=== PATIENT | female | born 1940 | race Caucasian/White ===

== ENCOUNTER 2016-09-13 09:35 | Outpatient (CLI) | payer MEDICARE | END 2016-09-13 09:36 | disposition home or self-care (01) | DX: I10 Essential (primary) hypertension (principal); E78.5 Hyperlipidemia, unspecified; E55.9 Vitamin D deficiency, unspecified; E03.9 Hypothyroidism, unspecified ==

== ENCOUNTER 2016-12-03 09:24 | Outpatient (CLI) | payer MEDICARE ==
[2016-12-03 12:55] LABS: BASOPHILS % (AUTO) 0.5 %; EOSINOPHILS % (AUTO) 0.8 %; HCT - HEMATOCRIT 30.4 % (37.0-47.0); HGB - HEMOGLOBIN 10.4 g/dL (12.0-16.0); LYMPHOCYTES # (AUTO) 1.3 10^3/uL (1.5-3.5); LYMPHOCYTES % (AUTO) 21.7 %; MEAN CORPUSCULAR HGB CONC 34.3 g/dL (32.0-36.0); MEAN CORPUSCULAR VOLUME 101.9 fL (81.0-99.0); MEAN PLATELET VOLUME 8.5 fL (7.9-10.8); MONOCYTES # (AUTO) 0.6 10^3/uL (0.0-1.0); MONOCYTES % (AUTO) 9.7 %; NEUTROPHILS % (AUTO) 67.3 %; RED BLOOD COUNT 2.98 10^6/uL (4.20-5.40); RED CELL DISTRIBUTION WIDTH 15.5 % (12.0-15.0)
[2016-12-03 13:02] LABS: H. PYLORI IGG ANTIBODY Negative (Negative); HPYLORI NEG QC Negative (Negative); HPYLORI POS QC POSITIVE (Positive)
[2016-12-03 13:18] LABS: BILIRUBIN,TOTAL 0.6 mg/dL (0.2-1.0); CALCIUM 9.3 mg/dL (8.5-10.3); CREATININE 0.8 mg/dL (0.4-1.0); POTASSIUM 3.8 mmol/L (3.5-5.0); TOTAL PROTEIN 6.5 g/dL (6.7-8.2)
[2016-12-03 13:42] LABS: THYROID STIMULATING HORMONE 5.91 uIU/mL (0.34-5.60)
== END 2016-12-03 09:25 | disposition home or self-care (01) ==
LOC: LAB.WCP 09:24
PROVIDERS: ATTEND Family Medicine
DX: K92.1 Melena (principal)
CPT/HCPCS: 36415; 80053; 84439; 84443; 84481; 85025; 87339

== ENCOUNTER 2017-01-02 09:00 | Outpatient (CLI) | payer MEDICARE ==
[2017-01-02 14:02] LABS: BASOPHILS % (AUTO) 0.3 %; EOSINOPHILS # (AUTO) 0.2 10^3/uL (0.0-0.7); EOSINOPHILS % (AUTO) 2.7 %; HCT - HEMATOCRIT 33.7 % (37.0-47.0); HGB - HEMOGLOBIN 11.3 g/dL (12.0-16.0); LYMPHOCYTES # (AUTO) 1.2 10^3/uL (1.5-3.5); LYMPHOCYTES % (AUTO) 21.6 %; MEAN CORPUSCULAR HEMOGLOBIN 33.4 pg (27.0-31.0); MEAN CORPUSCULAR HGB CONC 33.4 g/dL (32.0-36.0); MEAN PLATELET VOLUME 8.2 fL (7.9-10.8); MONOCYTES # (AUTO) 0.8 10^3/uL (0.0-1.0); MONOCYTES % (AUTO) 14.7 %; NEUTROPHILS # (AUTO) 3.4 10^3/uL (1.5-6.6); NEUTROPHILS % (AUTO) 60.7 %; RED BLOOD COUNT 3.37 10^6/uL (4.20-5.40); RED CELL DISTRIBUTION WIDTH 15.7 % (12.0-15.0); UNCORRECTED WHITE BLOOD COUNT 5.5 x10^3/uL; WHITE BLOOD COUNT 5.5 x10^3/uL (4.8-10.8)
[2017-01-02 14:17] LABS: CREATININE 0.8 mg/dL (0.4-1.0)
[2017-01-02 15:32] LABS: THYROID STIMULATING HORMONE 3.55 uIU/mL (0.34-5.60)
== END 2017-01-02 09:01 | disposition home or self-care (01) ==
LOC: LAB.WCP 09:00
PROVIDERS: ATTEND Family Medicine
DX: E03.9 Hypothyroidism, unspecified (principal)
CPT/HCPCS: 36415; 82040; 82565; 84439; 84443; 84450; 84460; 84481; 84520; 85025; 85651

== ENCOUNTER 2017-01-30 08:06 | Day surgery (SDC) | payer MEDICARE ==
[2017-01-30] MEDS ORDERED: LACTATED RINGERS 1,000 ML IV ONE ×2 (08:30→10:07)
--- NOTE | 2017-01-30 09:21 | HISTORY & PHYSICAL EXAMINATION ---
HPI - History of Present Illness HPI Comment/Other: Patient is here today for a history of tarry black stools. Current Meds: LEVOTHYROXINE SODIUM 25 MCG TABS (LEVOTHYROXINE SODIUM) Take one tablet by mouth daily CARAFATE 1 GM TABS (SUCRALFATE) Mix one tablet in water to make slurry and then drink before meals and bedtime, four times a day OMEPRAZOLE 40 MG ORAL CPDR (OMEPRAZOLE) Take one capsule by mouth daily ATENOLOL 25 MG TABS (ATENOLOL) Take one tablet by mouth daily. LASIX 20 MG TABS (FUROSEMIDE) Take one tablet by mouth every morning LISINOPRIL 20 MG TABS (LISINOPRIL) Take one-half tablet by mouth daily ZOCOR 10 MG TABS (SIMVASTATIN) Take one tablet by mouth daily. METHOTREXATE TABS (METHOTREXATE SODIUM TABS) 15 mg weekly ENBREL 25 MG KIT (ETANERCEPT) 1 shot weekly ASPIRIN 81 MG TABS (ASPIRIN) 1 po daily CALTRATE 600 PLUS-VIT D TABS (CALCIUM-VITAMIN D TABS) Take one tablet by mouth daily. MULTIVITAMINS TABS (MULTIPLE VITAMIN) one tablet po daily [facility] FISH OIL 1200 MG CAPS (OMEGA-3 FATTY ACIDS) Take one capsule by mouth daily FOLIC ACID 1 MG TABS (FOLIC ACID) 2 po daily * TUMERIC take one tablet daily * HANDICAP PARKING DECAZ Dx: M51.36, M87.059. Length of need Permanant. * TOILET RISER SEAT WITH HAND RAILS dx: avascular necrosis of hip and pain, disability * HINGED KNEE BRACE L KNEE dx: trauma, sprain VITAMIN C 1000 MG TABS (ASCORBIC ACID) Take one tablet by mouth daily VITAMIN D 1000 UNIT TABS (CHOLECALCIFEROL) Take 5 tablets daily Allergies: * SEASONAL ALLERGIES (Critical) Past Medical History: Reviewed history from 10/07/2016 and no changes required: Allergies: * SEASONAL ALLERGIES (Critical) Hypertension Hyperlipidemia Shortness of breath Anxiety Past Surgical History: Reviewed history from 02/15/2016 and no changes required: ORIF L hip 12 Oct 2010. THR left 2012 Tonsillectomy Denies any prior history of complications from anesthesia. Denies any history of surgical complications. Family History Summary: Reviewed history Last on 12/03/2016 and no changes required:12/10/2016 Mother (biol.) - Has a mother - Entered On: 07/03/2015 General Comments - FH: Aunts with RA. Dad and mom healthy Mom did have constant GONZALEZ Social History: Reviewed history from 02/26/2011 and no changes required: Patient is a former smoker. Only a couple yrs. Alcohol Use - yes Risk Factors: Smoked Tobacco Use: Former smoker Smokeless Tobacco Use: Never Passive smoke exposure: no Drug use: no HIV high-risk behavior: no Caffeine use: 2 drinks per day Alcohol use: yes Type: wine Drinks per day: <1 Exercise: no Seatbelt use: 100 % Sun Exposure: occasionally Family History Risk Factors: Family History of VT in females < 65 years old: no Review of Systems General Denies weight loss. CV Complains of peripheral edema. Dizziness Vascular Complains of leg swelling. Problems were reviewed with the patient during this visit. Medications were reviewed with the patient during this visit. Allergies were reviewed with the patient during this visit. Allergies: * SEASONAL ALLERGIES (Critical) Physical Exam General: well developed, well nourished, in no acute distress Lungs: clear bilaterally to A & P Heart: regular rate and rhythm, S1, S2 without murmurs, rubs, gallops, or clicks Abdomen: bowel sounds positive; abdomen soft and non-tender without masses, organomegaly, or hernias noted Pulses: pulses normal in all 4 extremities Extremities: no clubbing, cyanosis, edema, or deformity noted with normal full range of motion of all joints Cervical Nodes: no significant adenopathy Psych: alert and cooperative; normal mood and affect; normal attention span and concentration Impression & Recommendations: Tarry Stools: Will proceed with EGD and colonoscopy. PMH/PSH - Past Medical History Cardiovascular: positive: Hypertension, High cholesterol Neuro: positive: None Endocrine/Autoimmune: positive: HyPOthyroidism Musculoskeletal: positive: Osteoarthritis MRSA Hx?: No - Past Surgical History Ortho: positive: Hip replacement Social & Family Hx - Social History Does the pt smoke?: No Smoking Status: Never smoker Meds/Allgy - Home Medications Home Medications: Ambulatory Orders Medication Instructions Recorded Confirmed Atenolol 25 mg PO DAILY 01/01/17 01/29/17 Levothyroxine [Synthroid] 25 mcg PO QDAC 01/01/17 01/29/17 Lisinopril 10 mg PO DAILY 01/01/17 01/29/17 Simvastatin [Zocor] 10 mg PO DAILY 01/01/17 01/29/17 - Allergies Allergies/Adverse Reactions: Allergies Allergy/AdvReac Type Severity Reaction Status Date / Time No Known Drug Allergies Allergy Verified 01/29/17 14:19 Exam - Vital Signs Vital Signs: Vital Signs x48h Temp Pulse Resp BP Pulse Ox 01/30/17 08:23 36.7 C 73 18 138/76 H 100
[2017-01-30] MEDS ORDERED: MIDAZOLAM 2 MG/2 ML VIAL IVP ONE (09:24)
[2017-01-30] MEDS ORDERED: fentaNYL 100 MCG/2 ML VIAL IVP ONE (09:24)
[2017-01-30] MEDS ORDERED: BENZOCAINE/TETRACAINE/BUTAMBEN SPRAY 56 GM TOP ONE (11:24)
[2017-01-30 11:52] VITALS: BP 116/68
== END 2017-01-30 08:07 | disposition home or self-care (01) ==
LOC: SDS 08:06
PROVIDERS: ATTEND Surgery
PROC: 0DB68ZX Excision of Stomach, Via Natural or Artificial Opening Endoscopic, Diagnostic (ICD-10-PCS; principal; 2017-01-30 09:15)
PROC: 0DJD8ZZ Inspection of Lower Intestinal Tract, Via Natural or Artificial Opening Endoscopic (ICD-10-PCS; 2017-01-30 09:15)
DX: K92.1 Melena (principal); K25.9 Gastric ulcer, unspecified as acute or chronic, without hemorrhage or perforation; K29.60 Other gastritis without bleeding; K64.8 Other hemorrhoids; K57.32 Diverticulitis of large intestine without perforation or abscess without bleeding; I10 Essential (primary) hypertension; E78.5 Hyperlipidemia, unspecified; Z79.82 Long term (current) use of aspirin; Z96.642 Presence of left artificial hip joint; Z87.891 Personal history of nicotine dependence
CPT/HCPCS: 43239; 45378; A9270; J7120; 88305

== ENCOUNTER 2017-03-06 15:08 | Outpatient (CLI) | payer MEDICARE ==
--- NOTE | 2017-03-06 18:21 | Ultrasound Report ---
ULTRASOUND LEFT LATERAL THIGH: 03/06/2017 CLINICAL INDICATION: hematoma, pain, trauma. TECHNIQUE: Real-time scanning was performed with chemical sales representative static images obtained. Ultrasound of the left lateral thigh was performed. At the site of the palpable abnormality identifi ed by the patient, there is a 13.2 x 7.5 x 1.7 cm hematoma. No sonographically suspicious findings a re identified. IMPRESSION: A 13 CM HEMATOMA IN THE LEFT LATERAL THIGH. JOB #: [id number] EXT JOB #:[id number]
== END 2017-03-06 15:09 | disposition home or self-care (01) ==
LOC: DI 15:08
PROVIDERS: ATTEND Family Medicine
DX: S70.12XA Contusion of left thigh, initial encounter (principal); M79.652 Pain in left thigh
CPT/HCPCS: 76882

== ENCOUNTER 2017-04-17 10:57 | Outpatient (CLI) | payer MEDICARE ==
[2017-04-17 11:56] LABS: BASOPHILS % (AUTO) 0.7 %; EOSINOPHILS # (AUTO) 0.1 10^3/uL (0.0-0.7); HCT - HEMATOCRIT 39.3 % (37.0-47.0); HGB - HEMOGLOBIN 12.9 g/dL (12.0-16.0); LYMPHOCYTES # (AUTO) 1.5 10^3/uL (1.5-3.5); LYMPHOCYTES % (AUTO) 28.1 %; MEAN CORPUSCULAR HEMOGLOBIN 30.3 pg (27.0-31.0); MEAN CORPUSCULAR HGB CONC 32.9 g/dL (32.0-36.0); MEAN CORPUSCULAR VOLUME 92.2 fL (81.0-99.0); MEAN PLATELET VOLUME 7.6 fL (7.9-10.8); MONOCYTES # (AUTO) 0.7 10^3/uL (0.0-1.0); MONOCYTES % (AUTO) 12.7 %; NEUTROPHILS % (AUTO) 56.5 %; NUCLEATED RED BLOOD CELLS AUTO 0.1 /100WBC; RED BLOOD COUNT 4.26 10^6/uL (4.20-5.40); RED CELL DISTRIBUTION WIDTH 18.1 % (12.0-15.0); UNCORRECTED WHITE BLOOD COUNT 5.4 x10^3/uL; WHITE BLOOD COUNT 5.4 x10^3/uL (4.8-10.8)
[2017-04-17 12:14] LABS: CREATININE 0.8 mg/dL (0.4-1.0)
== END 2017-04-17 10:58 | disposition home or self-care (01) ==
LOC: LAB 10:57
PROVIDERS: ATTEND Internal Medicine Rheumatology
DX: M05.69 Rheumatoid arthritis of multiple sites with involvement of other organs and systems (principal)
CPT/HCPCS: 36415; 82040; 82565; 84450; 84460; 84520; 85025; 85651

== ENCOUNTER 2017-04-21 08:39 | Outpatient (CLI) | payer MEDICARE ==
[2017-04-21 14:05] LABS: CHOL/HDL RATIO 2.1 (<4.4); CHOLESTEROL 178 mg/dL; HDL CHOLESTEROL 85 mg/dL; TRIGLYCERIDES 57 mg/dL; VLDL CHOLESTEROL 11 mg/dL
== END 2017-04-21 08:40 | disposition home or self-care (01) ==
LOC: LAB.WCP 08:39
PROVIDERS: ATTEND Family Medicine
DX: M05.79 Rheumatoid arthritis with rheumatoid factor of multiple sites without organ or systems involvement (principal); E78.5 Hyperlipidemia, unspecified; E03.9 Hypothyroidism, unspecified
CPT/HCPCS: 36415; 80061; 84443; 85651; 86140

== ENCOUNTER 2017-05-23 17:16 | Inpatient (IN) | payer MEDICARE ==
--- NOTE | 2017-05-23 17:55 | ED Physician Documentation ---
History of Present Illness - Stated complaint Stated Complaint: LT SIDE GLF - Chief complaint Chief Complaint: Ext Problem - History obtained from History obtained from: Patient - History of Present Illness Timing: Other (77-year-old woman with history of left hip replacement and rheumatoid arthritis. She is out in the garden, doing some light work and fell after a trip, mechanical fall in her left side injuring her left elbow, hand, and hip. She is unable to walk or bear weight. No other injuries. Denies head or neck injury.) Review of Systems Ten Systems: 10 systems reviewed and negative Constitutional: reports: Reviewed and negative Cardiac: reports: Reviewed and negative Respiratory: reports: Reviewed and negative PD PAST MEDICAL HISTORY - Past Medical History Cardiovascular: Hypertension, High cholesterol Neuro: None Endocrine/Autoimmune: HyPOthyroidism Musculoskeletal: Osteoarthritis - Past Surgical History Past Surgical History: Yes Ortho: Hip replacement - Present Medications Home Medications: Ambulatory Orders Medication Instructions Recorded Confirmed Atenolol 25 mg PO DAILY 01/01/17 05/23/17 Levothyroxine [Synthroid] 25 mcg PO QDAC 01/01/17 05/23/17 Lisinopril 10 mg PO DAILY 01/01/17 05/23/17 Simvastatin [Zocor] 10 mg PO DAILY 01/01/17 05/23/17 Etanercept [Enbrel] 25 mg SQ Q7D 05/23/17 05/23/17 Methotrexate 7 tab PO Q7D 05/23/17 05/23/17 raNITIdine [Zantac] 150 mg PO DAILY 05/23/17 05/23/17 - Allergies Allergies/Adverse Reactions: Allergies Allergy/AdvReac Type Severity Reaction Status Date / Time No Known Drug Allergies Allergy Verified 05/23/17 17:38 - Social History Does the pt smoke?: No Smoking Status: Never smoker - Immunizations Immunizations are current?: Yes PD ED PE NORMAL - Vitals Vital signs reviewed: Yes - General General: Alert and oriented X 3, No acute distress - HEENT HEENT: PERRL, EOMI - Neck Neck: Supple, no meningeal sign, No bony TTP - Cardiac Cardiac: RRR, No murmur - Respiratory Respiratory: No respiratory distress, Clear bilaterally - Abdomen Abdomen: Soft, Non tender - Back Back: No CVA TTP, No spinal TTP - Derm Derm: Normal color, Warm and dry - Extremities Extremities: Other (Left elbow is tender in the supracondylar area, the epicondyles are nontender. She has full range of motion. She is tender over the MCP of the left thumb with some laxity there, but it is comparable to the laxity in the other side. There is no deformity. She has rheumatic changes of the left hand as well. Hip is tender laterally on the left, but she does not have significant pain with internal or external rotation nor does she have pelvic tenderness.) - Neuro Neuro: Alert and oriented X 3, Normal speech - Psych Psych: Normal mood, Normal affect Results - Vitals Vitals: Vital Signs - 24 hr 05/23/17 17:33 Temperature 36.2 C L Heart Rate 76 Respiratory 17 Rate Blood Pressure 158/80 H O2 Saturation 99 Oxygen O2 Source Room air - Labs Labs: Laboratory Tests 05/23/17 05/23/17 05/23/17 20:56 20:56 20:56 WBC 10.5 RBC 4.06 L Hgb 13.1 Hct 39.6 MCV 97.4 MCH 32.1 H MCHC 33.0 RDW 19.4 H Plt Count 204 MPV 7.3 L Neut # 7.9 H Lymph # 1.8 [place] # 0.7 Eos # 0.0 Baso # 0.1 Absolute Nucleated RBC 0.00 Nucleated RBC % 0.0 PT 11.6 INR 1.0 Sodium 143 Potassium 3.5 Chloride 107 Carbon Dioxide 24 Anion Gap 12.0 BUN 17 Creatinine 0.7 Estimated GFR (MDRD) 81 L Glucose 103 H Calcium 9.5 Total Bilirubin 1.1 H AST 29 ALT 24 Alkaline Phosphatase 83 Total Protein 7.4 Albumin 4.4 Globulin 3.0 Albumin/Globulin Ratio 1.5 Lipase 31 - Rads (name of study) X-rays of the left elbow, hand, and hip and femur Radiology: EMP read contemporaneously (Chronic deformity of the wrist with a lot of degeneration without acute fracture, no acute fracture of the hip, there is a chronic pelvic fracture. There is a irregularity of the proximal radial metaphysis, but no joint effusion, likely an old fracture.) PD MEDICAL DECISION MAKING - ED course ED course: 77-year-old woman status post ground-level fall at home today with hip and elbow pain. X-rays were grossly negative save for a potential radial head fracture and an old inferior pubic ramus fracture as well as severe degenerative changes of the left wrist. She was unable to walk or bear weight even with a walker here. Spoke with Dr. Zhang the on-call orthopedist. Plan to place her in observation for repeat examination in the morning and potential advanced imaging at his discretion. Call to the hospitalist for admission at 9 PM. Departure - Departure Disposition: ED Place in Observation Clinical Impression: Hip pain, left, Wrist pain, left Fall from slip, trip, or stumble Qualifiers: Encounter type: initial encounter Qualified Code(s): W01.0XXA - Fall on same level from slipping, tripping and stumbling without subsequent striking against object, initial encounter Elbow pain Qualifiers: Laterality: left Qualified Code(s): M25.522 - Pain in left elbow Condition: Stable Discharge Date/Time: 05/23/17 22:49
--- NOTE | 2017-05-23 19:40 | XRAY Preliminary Report ---
Exam: XR HIP W/PELVIS 2-3V LT IMPRESSION: No acute fracture or dislocation. [facility] SITE ID: [id number]
--- NOTE | 2017-05-23 19:42 | XRAY Report ---
EXAM: LEFT HIP AND PELVIS RADIOGRAPHY EXAM DATE: 05/23/2017 06:28 PM. HISTORY: GLF with hip, elbow, hand inj. COMPARISONS: 10/12/2010. TECHNIQUE: 1 view of the pelvis and 1 view of the hip. FINDINGS: Bones: There is a corticated lucency through the left inferior pubic ramus which appears unchanged. N o acute fractures identified. There is a left hip arthroplasty prosthesis which appears intact. Joints: Alignment and joint space appear satisfactory. Soft Tissues: There is scattered bowel gas without dilation. IMPRESSION: No acute fracture or dislocation. [facility] Referring Provider Line: [phone] SITE ID: [id number]
--- NOTE | 2017-05-23 19:42 | XRAY Preliminary Report ---
Exam: XR FEMUR 2V LT IMPRESSION: No acute fracture. Chronic degenerative disease of the knee. [facility] SITE ID: [id number]
--- NOTE | 2017-05-23 19:44 | XRAY Report ---
EXAM: LEFT FEMUR RADIOGRAPHY EXAM DATE: 05/23/2017 06:28 PM. CLINICAL HISTORY: GLF with hip, elbow, hand inj. COMPARISON: None. TECHNIQUE: 2 views. FINDINGS: Bones: No acute fracture. There is a left hip arthroplasty prosthesis which appears intact. No abnorm al lucency at bone hardware interface. Joints: There is mild joint space narrowing at the knee. There is chondrocalcinosis at the knee. Soft Tissues: There are mild vascular calcifications. IMPRESSION: No acute fracture. Chronic degenerative disease of the knee. [facility] Referring Provider Line: [phone] SITE ID: [id number]
--- NOTE | 2017-05-23 19:45 | XRAY Preliminary Report ---
Exam: XR HAND 3 VIEW LT IMPRESSION: 1. Positive for a severe chronic deformity of the wrist with old fractures or osteonecrosis of the pr oximal carpal row and adjacent soft tissue swelling. 2. Advanced degenerative disease of the first metacarpal phalangeal joint. 3. Soft tissue swelling. 4. No definite acute fracture, sensitivity reduced by the chronic deformity. [facility] SITE ID: [id number]
--- NOTE | 2017-05-23 19:48 | XRAY Report ---
EXAM: LEFT HAND RADIOGRAPHY EXAM DATE: 05/23/2017 06:27 PM. CLINICAL HISTORY: GLF with hip, elbow, hand inj. COMPARISON: None. TECHNIQUE: 3 views. FINDINGS: Bones: There is a severe chronic deformity of the wrist. The scaphoid appears deformed, small and scl erotic. The lunate appears displaced to the ulnar side of the wrist. There is sclerosis and spurring of the distal radius and ulna. There is moderate spurring and sclerosis of the first metacarpal phala ngeal joint. Joints: There is joint space narrowing involving multiple joints. There is joint space narrowing of t he first metacarpophalangeal joint. There is marked joint space narrowing at the radiocarpal joint. Soft Tissues: There is soft tissue swelling at the wrist. IMPRESSION: 1. Positive for a severe chronic deformity of the wrist with old fractures or osteonecrosis of the pr oximal carpal row and adjacent soft tissue swelling. 2. Advanced degenerative disease of the first metacarpal phalangeal joint. 3. Soft tissue swelling. 4. No definite acute fracture, sensitivity reduced by the chronic deformity. MICHELLEA Referring Provider Line: [phone] SITE ID: [id number]
--- NOTE | 2017-05-23 19:53 | XRAY Preliminary Report ---
Exam: XR ELBOW 3 VIEW LT IMPRESSION: 1. Concavity/irregularity of proximal radial metaphysis without a visible joint effusion. This favors old proximal radius fracture, given absence of effusion. [facility] SITE ID: [id number]
--- NOTE | 2017-05-23 19:56 | XRAY Report ---
EXAM: LEFT ELBOW RADIOGRAPHY EXAM DATE: 05/23/2017 06:27 PM. CLINICAL HISTORY: GLF with hip, elbow, hand inj. COMPARISON: None. TECHNIQUE: 3 views. FINDINGS: Bones: There is a focal cavity at the proximal metaphysis of the radius without an acute cortical fátima p-offs seen. No other bony deformity. Joints: Alignment appears satisfactory. No posterior fat pad sign visualized. Soft Tissues: Normal. No soft tissue swelling. IMPRESSION: 1. Concavity/irregularity of proximal radial metaphysis without a visible joint effusion. This favors old proximal radius fracture, given absence of effusion. [facility] Referring Provider Line: [phone] SITE ID: [id number]
[2017-05-23] MEDS ORDERED: ACETAMINOPHEN 325 MG TABLET PO STA (20:54)
[2017-05-23] MEDS ORDERED: ACETAMINOPHEN 325 MG TABLET PO ONE (21:00)
[2017-05-23 21:10] LABS: BASOPHILS # (AUTO) 0.1 10^3/uL (0.0-0.1); BASOPHILS % (AUTO) 0.7 %; EOSINOPHILS % (AUTO) 0.4 %; HCT - HEMATOCRIT 39.6 % (37.0-47.0); HGB - HEMOGLOBIN 13.1 g/dL (12.0-16.0); LYMPHOCYTES # (AUTO) 1.8 10^3/uL (1.5-3.5); LYMPHOCYTES % (AUTO) 17.2 %; MEAN CORPUSCULAR HEMOGLOBIN 32.1 pg (27.0-31.0); MEAN CORPUSCULAR VOLUME 97.4 fL (81.0-99.0); MEAN PLATELET VOLUME 7.3 fL (7.9-10.8); MONOCYTES # (AUTO) 0.7 10^3/uL (0.0-1.0); MONOCYTES % (AUTO) 6.4 %; NEUTROPHILS # (AUTO) 7.9 10^3/uL (1.5-6.6); NEUTROPHILS % (AUTO) 75.3 %; RED BLOOD COUNT 4.06 10^6/uL (4.20-5.40); RED CELL DISTRIBUTION WIDTH 19.4 % (12.0-15.0); UNCORRECTED WHITE BLOOD COUNT 10.5 x10^3/uL; WHITE BLOOD COUNT 10.5 x10^3/uL (4.8-10.8)
[2017-05-23 21:22] LABS: ALBUMIN/GLOBULIN RATIO 1.5 (1.0-2.2); BILIRUBIN,TOTAL 1.1 mg/dL (0.2-1.0); CALCIUM 9.5 mg/dL (8.5-10.3); CREATININE 0.7 mg/dL (0.4-1.0); POTASSIUM 3.5 mmol/L (3.5-5.0); TOTAL PROTEIN 7.4 g/dL (6.7-8.2)
[2017-05-23 21:30] LABS: PT - PROTHROMBIN TIME 11.6 secs (9.9-12.6)
[2017-05-23] MEDS ORDERED: ETANERCEPT 25 MG SQ SCH (22:15)
[2017-05-23] MEDS ORDERED: SODIUM CHLORIDE FLUSH 0.9% 10 ML SYRINGE IVP PRN (22:16)
[2017-05-23] MEDS ORDERED: ZOLPIDEM 5 MG TABLET PO PRN (22:16)
[2017-05-23] MEDS ORDERED: ONDANSETRON 4 MG/2 ML VIAL IVP PRN (22:16)
[2017-05-23] MEDS ORDERED: METHOTREXATE 2.5 MG TABLET PO SCH (23:00)
--- NOTE | 2017-05-24 03:49 | HISTORY & PHYSICAL EXAMINATION ---
DATE OF ADMISSION: 05/23/2017 CHIEF COMPLAINT: Mechanical fall, inability to ambulate. HISTORY OF PRESENT ILLNESS: The patient is a 77-year-old white female with multiple past medical problems including rheumatoid arthritis, peripheral neuropathy, osteoarthritis status post left hip replacement, hypertension, hypothyroidism and dyslipidemia who was brought into the ER after she suffered a mechanical fall at her home; fell on her left side and subsequently developed hip pain, left arm pain and was unable to ambulate. The patient was a good historian. She reported being in her usual state of health up to the afternoon of 05/23/2017, at which point she was outside gardening. She tried to trim a small jerry or a hedge and made an effort to pull, at which point she lost her balance, slipped and fell on her left side. Subsequently, at the ER, she underwent x-rays. There was a left radial head fracture, but per the x-ray, it was read as likely an old fracture and similarly, there was a pubic ramus fracture which was also felt to be not acute. At the ER, the patient had an uneventful course. She was hemodynamically stable. She, however, was not able to stand or ambulate and she continued to complain of hip pain and arm pain. The ER physician, Dr. Kraus discussed the case with the covering orthopedic surgeon, Dr. Zhang, who accepted to see this patient in the morning and the conclusion of the discussion between the retail zone specialist and the ER physician was that overnight, we should keep the patient under observation. In the morning, the orthopedic surgeon will evaluate the patient, will perform physical exam and based on the exam, we will decide what other imaging studies should be ordered. When I discussed this case with the ER physician, I suggested that perhaps a CT scan should be done to see whether there is actually an acute fracture; however, I was told that the retail zone specialist would likely want an MRI instead of the CT scan. The reason for that would be that the patient had left hip replacement and the CT scan would not be diagnostic; however, as she has a titanium implant, an MRI would be better and feasible. In any case, to comment on the best approach here, is out of the scope of my specialty. Therefore, I accepted to observe the patient overnight and we will wait for the orthopedic surgeons input. Other than the above-mentioned fall and developing musculoskeletal pains, the patient complained of chronic neuropathy pain, which affects her lower extremities mostly. She offered no new complaint. ER workup reviewed per electronic medical record. Laboratories showed a few minor abnormalities but were unremarkable. PAST MEDICAL HISTORY: 1. Hypertension. 2. Rheumatoid arthritis. 3. Osteoarthritis, status post left hip replacement. 4. Hypothyroidism. 5. Dyslipidemia. 6. History of gastrointestinal bleed for which the patient was admitted in 2016 and underwent upper GI endoscopy and colonoscopy. 7. Peripheral neuropathy. PRIMARY CARE PHYSICIAN: Aundrea Vasquez MD CODE STATUS: FULL CODE. OUTPATIENT MEDICATIONS: 1. Zantac. 2. Methotrexate. 3. Enbrel. 4. Zocor. 5. Lisinopril. 6. Synthroid. 7. Atenolol. SOCIAL HISTORY: The patient lives with her son. She is a nonsmoker. Ambulates with a cane. FAMILY HISTORY: Positive for rheumatoid arthritis in the mother who lived up to age 92. REVIEW OF SYSTEMS Please see pertinent positives listed above at his history of present illness. The patient did not report additional complaint on the 12-point review. ALLERGIES: NO KNOWN DRUG ALLERGIES. PHYSICAL EXAMINATION: VITAL SIGNS: Temperature 36.9 Celsius, heart rate in the 80s, blood pressure 110 /60, respiratory rate 16, oxygen saturation 100% on room air. GENERAL: The patient is a well-developed frail, elderly female who was sitting in a wheelchair, was holding her left arm, had an ice pack on. MUSCULOSKELETAL: No obvious dislocation or fracture, advanced arthritic changes on the upper extremities. SKIN: No jaundice. HEENT: No pallor. CVS: S1, S2. No pathologic murmur. Regular rate and rhythm. RESPIRATORY: Clear to auscultation without wheezes or crackles. LYMPH: Pitting edema up to the mid brannon bilaterally symmetric. Signs of chronic venous stasis on the lower extremities. NEUROLOGIC: Alert, oriented, nonfocal. PSYCH: Cooperative. ABDOMEN: Soft, benign, nontender. Bowel tones present. ASSESSMENT AND PLAN: The patient is a 77-year-old female who suffered a mechanical fall and as a result, she was unable to ambulate and had left arm and left hip pain. Her workup was basically indeterminate. It is difficult to decide based on the x-rays whether she has a small fracture or not and for that , orthopedic consultation was requested, which is currently pending. I entertained ordering some CT scans; however, ER physician told me that I should wait for the orthopedic surgeon to examine the patient and order the scans he would want to order. Therefore, we will follow these recommendations. Continue to observe the patient and further plan will depend on the clinical course. I suspect there will be some discharge planning issues, as the patient is elderly, lives with her son who is actually hospitalized currently. Therefore, at this point she would be home alone and having left arm pain and hip pain as well, being already frail and elderly, she might not be able to take care of herself. Therefore, I ordered a social work consult to assist with discharge planning. I suspect if no new fracture identified, then physical therapy and occupational therapy evaluation will be needed and based on that, we could have a better idea about disposition. The patient might need a rehab stay or home health. Given that she might have a fracture, overnight she will be under bed rest. She will receive DVT prophylaxis, pain control and I will continue her home medications as appropriate. Time spent with the care of this patient was 50 minutes. JOB #: [id number] EXT JOB #:[id number]
[2017-05-24] MEDS: LEVOTHYROXINE 25 MCG TABLET PO SCH (06:34)
[2017-05-24] MEDS: SODIUM CHLORIDE FLUSH 0.9% 10 ML SYRINGE IVP SCH ×3 (06:35→21:17)
[2017-05-24] MEDS: HYDROcod/ACETAM 5/325 MG TABLET PO PRN ×3 (08:10→21:17)
[2017-05-24] MEDS ORDERED: NON FORMULARY MED (Simvastatin [Zocor] 10 MG) PO SCH (09:00)
--- NOTE | 2017-05-24 09:10 | CONSULTATION NOTE ---
Referring Provider Name of Referring Provider:: Simba Consult Date: 05/24/17 (Patient admitted from ER to Obs) Chief Complaint - Chief Complaint Chief Complaint: Left pelvic and wrist pain History of Present Illness - Admitted From Admitted From:: ED - History Obtained From Records Reviewed: yes History obtained from: patient Exam Limitations: Unable to move about bed - History of Present Illness HPI Comment/Other: 77 yr oild woman who lives alone ([place] ) who fell at home trimming tree. Level fall to left. Unable to walk and medics to ER. There found to have no acute fx, but unable to walk. Patient reports she has been loosing balance more and more recently. Pain is primarily in central groin near symphysis pubis. Pain was there with attempted wt bearing last night. Also c/o mild pain near in the thenar mass of left hand. ALso at first couild not move elbow well, but that has already resolved. 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 History - Past Medical History Cardiovascular: reports: Hypertension, High cholesterol Respiratory: reports: Pneumonia Neuro: reports: Headache/migraine Endocrine/Autoimmune: reports: HyPOthyroidism GI: reports: Other : reports: Incontinence, Frequency HEENT: reports: Chronic vision loss Psych: reports: Depression, Anxiety Musculoskeletal: reports: Osteoarthritis MRSA Hx?: No Other Past Medical History: peptic ulcer - Past Surgical History General: reports: Colonoscopy Ortho: reports: Hip replacement Cardiovascular: reports: Cardiac catheterization HEENT: reports: Tonsil/Adenoidectomy - POLST Patient has POLST: No Meds/Allgy - Home Medications Home Medications: Ambulatory Orders Medication Instructions Recorded Confirmed Atenolol 25 mg PO DAILY 01/01/17 05/23/17 Levothyroxine [Synthroid] 25 mcg PO QDAC 01/01/17 05/23/17 Lisinopril 10 mg PO DAILY 01/01/17 05/23/17 Simvastatin [Zocor] 10 mg PO DAILY 01/01/17 05/23/17 Etanercept [Enbrel] 25 mg SQ Q7D 05/23/17 05/23/17 Methotrexate 7 tab PO Q7D 05/23/17 05/23/17 raNITIdine [Zantac] 150 mg PO DAILY 05/23/17 05/23/17 - Allergies Allergies/Adverse Reactions: Allergies Allergy/AdvReac Type Severity Reaction Status Date / Time No Known Drug Allergies Allergy Verified 05/23/17 17:38 Exam - Vital Signs Vital Signs: Vital Signs x48h Temp Pulse Resp BP Pulse Ox 05/24/17 08:32 36.6 C 84 24 106/77 95 05/24/17 05:08 37.0 C 80 18 113/62 98 - Physical Exam General Appearance: positive: No acute distress, Other (Eating breakfast.) Neck: negative: Stiff neck Peripheral Pulses: positive: 1+ (1+ DPulse) Skin: negative: Laceration (cm) Extremities: positive: Non-tender, Other (Left Wrist with volar and dorsal ecchymosis, possibly spread from thenar mass area. Wrist 60 sup and 75 pron, 45 flex and ext. 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 Deformities of RA. Left elbow with thumb over radial head sup 60 and 75 pron without pain. ELbow 140 flex and full ext. NV intact UE. Left hip no ecchymosis, no pain with IR/ER hip as well as axial load. 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 Left hand contusion. Left elbow no fx or sprain. Recommend: attempt to mobilize today. If unable, then CT scan of pelvis to look for occult fracture. - Lab Results Fish Bones: 05/23/17 20:56 05/23/17 20:56 - Other Other Results/Comments: Radiology: Pelvic and hip AP lateral left. No acute fracture, no loosening of prosthesis noted. 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 Sclerotic symphysis llpubis without space. Left elbow with large anterior fgat pad sign, but none posteriorly; radial head with minor deformity at neck but not acute. Hand radiographs no fracture, but diffuse jt narrowing c/w RA. THumb MCP with volar subluxation. probably chronic
[2017-05-24] MEDS: HEPARIN 5,000 UNIT/ML VIAL SUBQ SCH ×2 (10:32→21:17)
[2017-05-24] MEDS: POLYETHYLENE GLYCOL 3350 17 GM PACKET PO SCH (10:32)
[2017-05-24] MEDS: ATENOLOL 25 MG TABLET PO SCH (10:33)
[2017-05-24] MEDS: LISINOPRIL 5 MG TABLET PO SCH (10:33)
--- NOTE | 2017-05-24 13:16 | PROVIDER PROGRESS NOTE ---
Subjective - Prog Note Date Prog Note Date: 05/24/17 Prog Note Time: 13:14 - Subjective Pt reports feeling: No change Subjective: Guerline states she is "pretty sore today" related to recent injuries after a fall. She denies SOB, chest pain, N/V or cough. She is encouraged to wear OLLIE hose for mild venous insufficiency. Current Medications - Current Medications Current Medications: Active Medications Generic Name Dose Route Start Last Admin Trade Name Freq PRN Reason Stop Dose Admin Acetaminophen/Hydrocodone Bitart 1 tab 05/23/17 22:16 05/24/17 08:10 [place] 5/325 PO 1 tab Q4HR PRN Administration Pain 5 to 7 Atenolol 25 mg 05/24/17 09:00 05/24/17 10:33 Tenormin PO 25 mg DAILY PEBBLES Administration Atorvastatin Calcium 10 mg 05/24/17 21:00 Lipitor PO QPM PEBBLES Heparin Sodium (Porcine) 5,000 unit 05/24/17 09:00 05/24/17 10:32 SUBQ 5,000 unit BID PEBBLES Administration Levothyroxine Sodium 25 mcg 05/24/17 07:00 05/24/17 06:34 Synthroid PO 25 mcg QDAC PEBBLES Administration Lisinopril 10 mg 05/24/17 09:00 05/24/17 10:33 Zestril PO 10 mg DAILY PEBBLES Administration Ondansetron HCl 4 mg 05/23/17 22:16 Zofran Inj IVP Q6HR PRN Nausea / Vomiting Polyethylene Glycol 17 gm 05/24/17 09:00 05/24/17 10:32 Miralax PO 17 gm DAILY PEBBLES Administration Ranitidine HCl 150 mg 05/24/17 09:00 05/24/17 10:33 Zantac PO 150 mg DAILY PEBBLES Administration Sodium Chloride 10 ml 05/23/17 22:16 Normal Saline Flush 0.9% IVP PRN PRN NEEDED PER PROVIDER ORDERS Sodium Chloride 10 ml 05/24/17 06:00 05/24/17 06:35 Normal Saline Flush 0.9% IVP 10 ml Q8HR PEBBLES Administration Zolpidem Tartrate 5 mg 05/23/17 22:16 Ambien PO QPM PRN Insomnia Atenolol 25 mg PO DAILY 01/01/17 Levothyroxine [Synthroid] 25 mcg PO QDAC 01/01/17 Lisinopril 10 mg PO DAILY 01/01/17 Simvastatin [Zocor] 10 mg PO DAILY 01/01/17 Etanercept [Enbrel] 25 mg SQ Q7D 05/23/17 Methotrexate 7 tab PO Q7D 05/23/17 raNITIdine [Zantac] 150 mg PO DAILY 05/23/17 Objective - Vital Signs/Intake & Output Reviewed Vital Signs: Yes Vital Signs: Vital Signs x48h Temp Pulse Resp BP Pulse Ox 05/24/17 08:32 36.6 C 84 24 106/77 95 Intake & Output: Intake & Output 05/21/17 05/22/17 05/23/17 05/24/17 23:59 23:59 23:59 23:59 Intake Total 400 Balance 400 - Objective General Appearance: positive: No acute distress, Alert Eyes Bilateral: positive: Normal inspection, PERRL ENT: positive: ENT inspection nml, Pharynx nml, No signs of dehydration Neck: positive: Nml inspection, Thyroid nml, No JVD, Trachea midline Respiratory: positive: Chest non-tender, No respiratory distress, Breath sounds nml Cardiovascular: positive: Regular rate & rhythm, No gallop Peripheral Pulses: 1+ Dorsalis pedis (R), 1+ Dorsalis pedis (L), 2+ Radial (R) Abdomen: positive: Non-tender, No organomegaly, Nml bowel sounds, No distention Back: positive: Nml inspection Skin: positive: Color nml, No rash, Warm, Dry Extremities: positive: No pedal edema, Joint swelling (left wrist/hand with bruising, erythema.) Neurologic/Psychiatric: positive: Oriented x3, CN's nml (2-12), Motor nml, Sensation nml, Mood/affect nml - Lab Results Fish Bones: 05/23/17 20:56 05/23/17 20:56 - Diagnostic Imaging Diagnostic Imaging Results: positive: Prelim report reviewed Assessment/Plan - Problem List (1) Unable to ambulate Impression: This has been caused by fall prior to this admission. Guerline has had a previous pelvic injury. Plan: PT evaluation and ongoing therapy. (2) Hip pain, left Impression: Patient states she was out trimming branches and one gave-way causing her to loose her balance and fall. She fell which caused injury to left hand/wrist, left hip/pelvis and right ring finger. She denies striking her head. A neighbor noticed the ordeal and came over to help. Plan: Ortho consulted and recommends PT therapy and evaluation. No surgery indicated for pubis injury. (3) Wrist pain, left Impression: Radiographs completed and shows no new fracture, but evidence of previous injury. Now with swelling, erythema and bruising. Painful with movement. Plan: Ortho consulted and recommends PT and no surgery is indicated. (4) Fall from slip, trip, or stumble Impression: Patient states she was out trimming branches and one gave-way causing her to loose her balance and fall. She fell which caused injury to left hand/wrist, left hip/pelvis and right ring finger. She denies striking her head. A neighbor noticed the ordeal and came over to help. Plan: Ortho consulted and recommends PT therapy and evaluation. No surgery indicated for pubis injury or left radial head of wrist. Qualifiers: Encounter type: initial encounter Qualified Code(s): W01.0XXA - Fall on same level from slipping, tripping and stumbling without subsequent striking against object, initial encounter (5) PVD (peripheral vascular disease) Impression: As evidenced by discoloration of BLE, unequal edema, and decreased pulses. Plan: OLLIE barrios ordered, elevate when not ambulating.
[2017-05-24] MEDS: ATORVASTATIN 10 MG TABLET PO SCH (21:17)
[2017-05-25] MEDS: SODIUM CHLORIDE FLUSH 0.9% 10 ML SYRINGE IVP SCH ×3 (06:01→22:29)
[2017-05-25] MEDS: LEVOTHYROXINE 25 MCG TABLET PO SCH (06:01)
[2017-05-25] MEDS: HEPARIN 5,000 UNIT/ML VIAL SUBQ SCH ×2 (09:55→22:33)
[2017-05-25] MEDS: POLYETHYLENE GLYCOL 3350 17 GM PACKET PO SCH (09:55)
[2017-05-25] MEDS: LISINOPRIL 5 MG TABLET PO SCH (09:56)
[2017-05-25] MEDS: HYDROcod/ACETAM 5/325 MG TABLET PO PRN ×3 (09:58→22:30)
[2017-05-25] MEDS: ATENOLOL 25 MG TABLET PO SCH (09:59)
--- NOTE | 2017-05-25 11:20 | PROVIDER PROGRESS NOTE ---
Subjective - Prog Note Date Prog Note Date: 05/25/17 Prog Note Time: 11:15 - Subjective Pt reports feeling: No change Subjective: July continues to have an inability to ambulate more than 30 feet and the pain in her legs related to her fall prevents her from completing this or attempting stairs. She denies SOB, chest pain, N/V or new cough. Current Medications - Current Medications Current Medications: Active Medications Generic Name Dose Route Start Last Admin Trade Name Freq PRN Reason Stop Dose Admin Acetaminophen/Hydrocodone Bitart 1 tab 05/23/17 22:16 05/25/17 09:58 [place] 5/325 PO 1 tab Q4HR PRN Administration Pain 5 to 7 Atenolol 25 mg 05/24/17 09:00 05/25/17 09:59 Tenormin PO 25 mg DAILY PEBBLES Administration Atorvastatin Calcium 10 mg 05/24/17 21:00 05/24/17 21:17 Lipitor PO 10 mg QPM PEBBLES Administration Heparin Sodium (Porcine) 5,000 unit 05/24/17 09:00 05/25/17 09:55 SUBQ 5,000 unit BID PEBBLES Administration Levothyroxine Sodium 25 mcg 05/24/17 07:00 05/25/17 06:01 Synthroid PO 25 mcg QDAC PEBBLES Administration Lisinopril 10 mg 05/24/17 09:00 05/25/17 09:56 Zestril PO 10 mg DAILY PEBBLES Administration Ondansetron HCl 4 mg 05/23/17 22:16 Zofran Inj IVP Q6HR PRN Nausea / Vomiting Polyethylene Glycol 17 gm 05/24/17 09:00 05/25/17 09:55 Miralax PO 17 gm DAILY PEBBLES Administration Ranitidine HCl 150 mg 05/24/17 09:00 05/25/17 09:56 Zantac PO 150 mg DAILY PEBBLES Administration Sodium Chloride 10 ml 05/23/17 22:16 Normal Saline Flush 0.9% IVP PRN PRN NEEDED PER PROVIDER ORDERS Sodium Chloride 10 ml 05/24/17 06:00 05/25/17 06:01 Normal Saline Flush 0.9% IVP 10 ml Q8HR PEBBLES Administration Zolpidem Tartrate 5 mg 05/23/17 22:16 Ambien PO QPM PRN Insomnia Atenolol 25 mg PO DAILY 01/01/17 Levothyroxine [Synthroid] 25 mcg PO QDAC 01/01/17 Lisinopril 10 mg PO DAILY 01/01/17 Simvastatin [Zocor] 10 mg PO QPM 01/01/17 Etanercept [Enbrel] 25 mg SQ Q7D 05/23/17 Methotrexate 7 tab PO Q7D 05/23/17 raNITIdine [Zantac] 150 mg PO DAILY 05/23/17 Metoprolol Succinate [Toprol Xl] 25 mg PO DAILY 05/25/17 Objective - Vital Signs/Intake & Output Reviewed Vital Signs: Yes Vital Signs: Vital Signs x48h Temp Pulse Resp BP Pulse Ox 05/25/17 07:36 36.6 C 74 16 117/63 93 05/25/17 05:00 37.1 C 16 110/59 L 96 Intake & Output: Intake & Output 05/22/17 05/23/17 05/24/17 05/25/17 23:59 23:59 23:59 23:59 Intake Total 1450 800 Balance 1450 800 - Objective General Appearance: positive: No acute distress, Alert Eyes Bilateral: positive: Normal inspection, PERRL ENT: positive: ENT inspection nml, Pharynx nml, No signs of dehydration Neck: positive: Nml inspection, Thyroid nml, No JVD, Trachea midline Respiratory: positive: Chest non-tender, No respiratory distress Peripheral Pulses: 2+ Radial (R), 2+ Radial (L) Abdomen: positive: Non-tender, No organomegaly, Nml bowel sounds, No distention Rectal: positive: Non-tender Back: positive: Nml inspection Skin: positive: Color nml, No rash, Warm, Dry Extremities: positive: Non-tender, Full ROM (limited ROM LLE LUE), Pedal edema, Joint swelling (chronic) Neurologic/Psychiatric: positive: Oriented x3, CN's nml (2-12), Motor nml, Sensation nml, Mood/affect nml Reflexes: Bicep (R): 2+, Bicep (L): 1+ - Lab Results Fish Bones: 05/23/17 20:56 05/23/17 20:56 - Diagnostic Imaging Diagnostic Imaging Results: positive: Prelim report reviewed Assessment/Plan - Problem List (1) Pain aggravated by walking Impression: This has been caused by fall prior to this admission. Guerline has had a previous pelvic injury with a left hip replacement 5 years ago. Ortho consulted shortly after admission who noted a pubis symphysis contusion. This is noted when patient attempts to ambulate any distance or when attempting stairs. Plan: PT evaluation and ongoing therapy. After evaluation today it was noted that patient would be at risk for fall with further injury due to her profound debility when attempting the above activities. A hand brace that attaches to her walker was applied to her hospital walker which eased the strain on left wrist while ambulating. An order for this will need to be hand-written for home use at the time of discharge. (2) Fall from slip, trip, or stumble Impression: Patient fell off a small step stool while trimming her [place] tree and landed on her left side. Thank goodness, the neighbors heard her cry for help and came to her rescue. She admits she may not have been able to get up on her own. Plan: Make efforts in discharge planning to ensure safety at home and prevention of falls. Qualifiers: Encounter type: initial encounter Qualified Code(s): W01.0XXA - Fall on same level from slipping, tripping and stumbling without subsequent striking against object, initial encounter (3) Hip pain, left Impression: Patient admits to left hip pain that travels to her groin and inner thigh. She has had debilitating pain since her fall with distance and stairs exacerbating this pain. Plan: Patient and staff should coordinate pain medication to be administered before therapy sessions to allow for the greatest potential for improvement. Continue daily PT therapy sessions. (4) Wrist pain, left Impression: Patient fell directly on left wrist, which continues to appear profoundly bruised and swollen. Luckily, July was able to get her rings off before skin breakdown occurred. Ortho consulted and noted no acute fractures and no surgery indicated. Plan: Elevate and ice packs for comfort. (5) PVD (peripheral vascular disease) Impression: Patient is noted to have discoloration and increased dependent edema by the end of each day. All skin remains intact. Plan: OLLIE hose and foot pumps. Patient should continue to wear OLLIE hose at home as much as she can tolerate. With her recent wrist injury, she will not be able to apply each day. Family or home health nurse/aide should assist with this task if able to ensure proper circulation.
[2017-05-25] MEDS: ATORVASTATIN 10 MG TABLET PO SCH (22:24)
[2017-05-26] MEDS: SODIUM CHLORIDE FLUSH 0.9% 10 ML SYRINGE IVP SCH ×3 (05:44→21:34)
[2017-05-26] MEDS: LEVOTHYROXINE 25 MCG TABLET PO SCH (05:44)
--- NOTE | 2017-05-26 09:10 | PROVIDER PROGRESS NOTE ---
Objective - Vital Signs/Intake & Output Vital Signs: Vital Signs x48h Temp Pulse Resp BP Pulse Ox 05/26/17 07:59 36.6 C 77 12 116/79 95 Intake & Output: Intake & Output 05/23/17 05/24/17 05/25/17 05/26/17 23:59 23:59 23:59 23:59 Intake Total 300 Balance 300 - Lab Results Fish Bones: 05/23/17 20:56 05/23/17 20:56
[2017-05-26] MEDS: HEPARIN 5,000 UNIT/ML VIAL SUBQ SCH ×2 (09:47→21:32)
[2017-05-26] MEDS: LISINOPRIL 5 MG TABLET PO SCH (09:47)
[2017-05-26] MEDS: ATENOLOL 25 MG TABLET PO SCH (09:47)
[2017-05-26] MEDS: POLYETHYLENE GLYCOL 3350 17 GM PACKET PO SCH (09:49)
[2017-05-26] MEDS: HYDROcod/ACETAM 5/325 MG TABLET PO PRN ×2 (12:48→21:34)
--- NOTE | 2017-05-26 18:25 | PROVIDER PROGRESS NOTE ---
Subjective - Prog Note Date Prog Note Date: 05/26/17 Prog Note Time: 18:22 - Subjective Pt reports feeling: Improved Subjective: July is remembering to take medication before attempting to ambulate. She denies SOB, chest pain, N/V, or new cough. She is doing better in her PT therapy sessions with increased endurance. She is still thought to be at significant fall risk with injury due to prolonged debilitated state. Ortho phone and waiting for a return call regarding any indications for re-imaging. Current Medications - Current Medications Current Medications: Active Medications Generic Name Dose Route Start Last Admin Trade Name Freq PRN Reason Stop Dose Admin Acetaminophen/Hydrocodone Bitart 1 tab 05/23/17 22:16 05/26/17 12:48 [place] 5/325 PO 1 tab Q4HR PRN Administration Pain 5 to 7 Atenolol 25 mg 05/24/17 09:00 05/26/17 09:47 Tenormin PO 25 mg DAILY PEBBLES Administration Atorvastatin Calcium 10 mg 05/24/17 21:00 05/25/17 22:24 Lipitor PO 10 mg QPM PEBBLES Administration Heparin Sodium (Porcine) 5,000 unit 05/24/17 09:00 05/26/17 09:47 SUBQ 5,000 unit BID EPBBLES Administration Levothyroxine Sodium 25 mcg 05/24/17 07:00 05/26/17 05:44 Synthroid PO 25 mcg QDAC PEBBLES Administration Lisinopril 10 mg 05/24/17 09:00 05/26/17 09:47 Zestril PO 10 mg DAILY PEBBLES Administration Ondansetron HCl 4 mg 05/23/17 22:16 Zofran Inj IVP Q6HR PRN Nausea / Vomiting Polyethylene Glycol 17 gm 05/24/17 09:00 05/26/17 09:49 Miralax PO 17 gm DAILY PEBBLES Administration Ranitidine HCl 150 mg 05/24/17 09:00 05/26/17 09:47 Zantac PO 150 mg DAILY PEBBLES Administration Sodium Chloride 10 ml 05/23/17 22:16 Normal Saline Flush 0.9% IVP PRN PRN NEEDED PER PROVIDER ORDERS Sodium Chloride 10 ml 05/24/17 06:00 05/26/17 14:31 Normal Saline Flush 0.9% IVP 10 ml Q8HR PEBBLES Administration Zolpidem Tartrate 5 mg 05/23/17 22:16 Ambien PO QPM PRN Insomnia Atenolol 25 mg PO DAILY 01/01/17 Levothyroxine [Synthroid] 25 mcg PO QDAC 01/01/17 Lisinopril 10 mg PO DAILY 01/01/17 Simvastatin [Zocor] 10 mg PO QPM 01/01/17 Etanercept [Enbrel] 25 mg SQ Q7D 05/23/17 Methotrexate 7 tab PO Q7D 05/23/17 raNITIdine [Zantac] 150 mg PO DAILY 05/23/17 Metoprolol Succinate [Toprol Xl] 25 mg PO DAILY 05/25/17 Objective - Vital Signs/Intake & Output Reviewed Vital Signs: Yes Vital Signs: Vital Signs x48h Temp Pulse Resp BP Pulse Ox 05/26/17 15:24 36.7 C 76 18 114/58 L 94 05/26/17 14:30 36.6 C 80 22 112/59 L 99 Intake & Output: Intake & Output 05/23/17 05/24/17 05/25/17 05/26/17 23:59 23:59 23:59 23:59 Intake Total 300 1600 Balance 300 1600 - Objective General Appearance: positive: No acute distress, Alert Eyes Bilateral: positive: Normal inspection, PERRL ENT: positive: ENT inspection nml, Pharynx nml, No signs of dehydration Neck: positive: Nml inspection, Thyroid nml, No JVD, Trachea midline Respiratory: positive: Chest non-tender, No respiratory distress, Breath sounds nml Cardiovascular: positive: Regular rate & rhythm, No gallop Peripheral Pulses: 1+ Radial (R), 1+ Radial (L) Abdomen: positive: Non-tender, No organomegaly, Nml bowel sounds, No distention Rectal: positive: Non-tender Back: positive: Nml inspection Skin: positive: Color nml, No rash, Warm, Dry Extremities: positive: Full ROM, Pedal edema (trace-wearing OLLIE hose and foot pumps with improved circulation.), Joint swelling (left wrist and hand swelling is decreased.) Neurologic/Psychiatric: positive: Oriented x3, CN's nml (2-12), Motor nml, Sensation nml, Mood/affect nml, Weakness Reflexes: Bicep (R): 2+, Bicep (L): 1+ - Lab Results Fish Bones: 05/23/17 20:56 05/23/17 20:56 - Diagnostic Imaging Diagnostic Imaging Results: positive: Final report reviewed Assessment/Plan - Problem List (1) Pain aggravated by walking Impression: This has been caused by fall prior to this admission. Guerline has had a previous pelvic injury with a left hip replacement 5 years ago. Ortho consulted shortly after admission who noted a pubis symphysis contusion. This is noted when patient attempts to ambulate any distance or when attempting stairs. Plan: PT evaluation and ongoing therapy. After evaluation today it was noted that patient would be at risk for fall with further injury due to her profound debility when attempting the above activities. A hand brace that attaches to her walker was applied to her hospital walker which eased the strain on left wrist while ambulating. An order for this will need to be hand-written for home use at the time of discharge. Pre-mediate before PT. Continue to ambulate when possible with assistance using new arm brace on walker. (2) Fall from slip, trip, or stumble Impression: Patient fell off a small step stool while trimming her [place] tree and landed on her left side. Thank goodness, the neighbors heard her cry for help and came to her rescue. She admits she may not have been able to get up on her own. Plan: Make efforts in discharge planning to ensure safety at home and prevention of falls. Qualifiers: Encounter type: initial encounter Qualified Code(s): W01.0XXA - Fall on same level from slipping, tripping and stumbling without subsequent striking against object, initial encounter (3) Hip pain, left Impression: Patient admits to left hip pain that travels to her groin and inner thigh. She has had debilitating pain since her fall with distance and stairs exacerbating this pain. Plan: Patient and staff should coordinate pain medication to be administered before therapy sessions to allow for the greatest potential for improvement. Continue daily PT therapy sessions. (4) Wrist pain, left Impression: Patient fell directly on left wrist, which continues to appear profoundly bruised and swollen. Luckily, July was able to get her rings off before skin breakdown occurred. Ortho consulted and noted no acute fractures and no surgery indicated. Plan: Elevate and ice packs for comfort. (5) PVD (peripheral vascular disease) Impression: Patient is noted to have discoloration and increased dependent edema by the end of each day. All skin remains intact. Plan: OLLIE hose and foot pumps. Patient should continue to wear OLLIE hose at home as much as she can tolerate. With her recent wrist injury, she will not be able to apply each day. Family or home health nurse/aide should assist with this task if able to ensure proper circulation.
[2017-05-26] MEDS: ATORVASTATIN 10 MG TABLET PO SCH (21:34)
[2017-05-27] MEDS: LEVOTHYROXINE 25 MCG TABLET PO SCH (06:47)
[2017-05-27] MEDS: SODIUM CHLORIDE FLUSH 0.9% 10 ML SYRINGE IVP SCH ×3 (06:48→21:34)
[2017-05-27] MEDS: POLYETHYLENE GLYCOL 3350 17 GM PACKET PO SCH (08:14)
[2017-05-27] MEDS: ATENOLOL 25 MG TABLET PO SCH (08:15)
[2017-05-27] MEDS: LISINOPRIL 5 MG TABLET PO SCH (08:15)
[2017-05-27 08:34] LABS: ALBUMIN/GLOBULIN RATIO 1.2 (1.0-2.2); BILIRUBIN,TOTAL 0.6 mg/dL (0.2-1.0); CALCIUM 8.9 mg/dL (8.5-10.3); CREATININE 0.5 mg/dL (0.4-1.0); MAGNESIUM 1.8 mg/dL (1.7-2.8); POTASSIUM 4.2 mmol/L (3.5-5.0); TOTAL PROTEIN 6.3 g/dL (6.7-8.2)
[2017-05-27 08:39] LABS: BASOPHILS # (AUTO) 0.1 10^3/uL (0.0-0.1); BASOPHILS % (AUTO) 0.9 %; EOSINOPHILS # (AUTO) 0.4 10^3/uL (0.0-0.7); EOSINOPHILS % (AUTO) 6.8 %; HGB - HEMOGLOBIN 12.3 g/dL (12.0-16.0); LYMPHOCYTES # (AUTO) 1.8 10^3/uL (1.5-3.5); LYMPHOCYTES % (AUTO) 28.9 %; MEAN CORPUSCULAR HGB CONC 33.2 g/dL (32.0-36.0); MEAN CORPUSCULAR VOLUME 96.4 fL (81.0-99.0); MEAN PLATELET VOLUME 7.5 fL (7.9-10.8); MONOCYTES # (AUTO) 0.8 10^3/uL (0.0-1.0); MONOCYTES % (AUTO) 12.6 %; NEUTROPHILS # (AUTO) 3.2 10^3/uL (1.5-6.6); NEUTROPHILS % (AUTO) 50.8 %; RED BLOOD COUNT 3.83 10^6/uL (4.20-5.40); RED CELL DISTRIBUTION WIDTH 20.4 % (12.0-15.0); UNCORRECTED WHITE BLOOD COUNT 6.3 x10^3/uL; WHITE BLOOD COUNT 6.3 x10^3/uL (4.8-10.8)
[2017-05-27] MEDS: HEPARIN 5,000 UNIT/ML VIAL SUBQ SCH ×2 (09:02→21:27)
[2017-05-27] MEDS: HYDROcod/ACETAM 5/325 MG TABLET PO PRN ×2 (10:17→21:34)
--- NOTE | 2017-05-27 14:44 | PROVIDER PROGRESS NOTE ---
Subjective - Prog Note Date Prog Note Date: 05/27/17 - Subjective Pt reports feeling: Improved Subjective: pt report she feel better, denies chest pain, SOB, headache, abdominal pain Current Medications - Current Medications Current Medications: Active Medications Acetaminophen/Hydrocodone Bitart ([place] 5/325) 1 tab PO Q4HR PRN PRN Reason: Pain 5 to 7 Last Admin: 05/27/17 10:17 Dose: 1 tab Atenolol (Tenormin) 25 mg PO DAILY [facility] Last Admin: 05/27/17 08:15 Dose: 25 mg Atorvastatin Calcium (Lipitor) 10 mg PO QPM [facility] Last Admin: 05/26/17 21:34 Dose: 10 mg Famotidine (Pepcid) 20 mg PO Q12H [facility] Heparin Sodium (Porcine) () 5,000 unit SUBQ BID [facility] Last Admin: 05/27/17 09:02 Dose: 5,000 unit Levothyroxine Sodium (Synthroid) 25 mcg PO QDAC [facility] Last Admin: 05/27/17 06:47 Dose: 25 mcg Lisinopril (Zestril) 10 mg PO DAILY [facility] Last Admin: 05/27/17 08:15 Dose: 10 mg Ondansetron HCl (Zofran Inj) 4 mg IVP Q6HR PRN PRN Reason: Nausea / Vomiting Polyethylene Glycol (Miralax) 17 gm PO DAILY [facility] Last Admin: 05/27/17 08:14 Dose: 17 gm Sodium Chloride (Normal Saline Flush 0.9%) 10 ml IVP PRN PRN PRN Reason: NEEDED PER PROVIDER ORDERS Sodium Chloride (Normal Saline Flush 0.9%) 10 ml IVP Q8HR [facility] Last Admin: 05/27/17 14:49 Dose: 10 ml Zolpidem Tartrate (Ambien) 5 mg PO QPM PRN PRN Reason: Insomnia Atenolol 25 mg PO DAILY 01/01/17 Levothyroxine [Synthroid] 25 mcg PO QDAC 01/01/17 Lisinopril 10 mg PO DAILY 01/01/17 Simvastatin [Zocor] 10 mg PO QPM 01/01/17 Etanercept [Enbrel] 25 mg SQ Q7D 05/23/17 Methotrexate 7 tab PO Q7D 05/23/17 raNITIdine [Zantac] 150 mg PO DAILY 05/23/17 Metoprolol Succinate [Toprol Xl] 25 mg PO DAILY 05/25/17 Objective - Vital Signs/Intake & Output Reviewed Vital Signs: Yes Vital Signs: Vital Signs x48h Temp Pulse Resp BP Pulse Ox 05/27/17 13:00 36.7 C 75 16 115/62 98 05/27/17 08:44 36.7 C 79 14 130/77 97 Intake & Output: Intake & Output 05/24/17 05/25/17 05/26/17 05/27/17 23:59 23:59 23:59 23:59 Intake Total 300 1900 1410 Balance 300 1900 1410 - Objective General Appearance: positive: No acute distress, Alert. negative: Lethargic Eyes Bilateral: positive: Normal inspection, PERRL, No lid inflammation, Conjunctivae nml ENT: positive: ENT inspection nml, Pharynx nml, No signs of dehydration. negative: Purulent nasal drainage, Pharyngeal erythema, Oral lesions Neck: positive: Nml inspection, Thyroid nml, Trachea midline. negative: Thyromegaly, Lymphadenopathy (R), Lymphadenopathy (L), Stiff neck, Carotid bruit , Swelling/bruising, Tracheal deviation Respiratory: positive: Chest non-tender, No respiratory distress, Breath sounds nml. negative: Wheezes, Rales, Rhonchi Cardiovascular: positive: Regular rate & rhythm, No murmur. negative: Irregularly irregular, Extrasystoles, Tachycardia, Bradycardia, Systolic murmur , Diastolic murmur Peripheral Pulses: 2+ Radial (R), 2+ Radial (L), 2+ Dorsalis pedis (R), 2+ Dorsalis pedis (L) Abdomen: positive: Non-tender, Nml bowel sounds, No distention. negative: Tenderness, Guarding, Rebound Back: positive: Nml inspection. negative: CVA tenderness (R), CVA tenderness (L ) Skin: positive: Color nml, No rash, Warm, Dry. negative: Cyanosis, Diaphoresis , Pallor Extremities: positive: Non-tender, Full ROM, Nml appearance. negative: Calf tenderness, Ricky's sign/cords Neurologic/Psychiatric: positive: Oriented x3, Motor nml, Sensation nml, Weakness. negative: Sensory loss, Facial droop, Slurred/abnml speech, Depressed mood/affect - Lab Results Fish Bones: 05/27/17 08:14 05/27/17 08:14 Other Labs: Lab Results x24hrs 05/27/17 05/27/17 Range/Units 08:14 08:14 WBC 6.3 (4.8-10.8) x10^3/uL RBC 3.83 L (4.20-5.40) 10^6/uL Hgb 12.3 (12.0-16.0) g/dL Hct 37.0 (37.0-47.0) % MCV 96.4 (81.0-99.0) fL MCH 32.0 H (27.0-31.0) pg MCHC 33.2 (32.0-36.0) g/dL RDW 20.4 H (12.0-15.0) % Plt Count 184 (130-450) 10^3/uL MPV 7.5 L (7.9-10.8) fL Neut # 3.2 (1.5-6.6) 10^3/uL Lymph # 1.8 (1.5-3.5) 10^3/uL [place] # 0.8 (0.0-1.0) 10^3/uL Eos # 0.4 (0.0-0.7) 10^3/uL Baso # 0.1 (0.0-0.1) 10^3/uL Absolute Nucleated RBC 0.00 x10^3/uL Nucleated RBC % 0.0 /100WBC Sodium 140 (135-145) mmol/L Potassium 4.2 (3.5-5.0) mmol/L Chloride 108 (101-111) mmol/L Carbon Dioxide 22 (21-32) mmol/L Anion Gap 10.0 (6-13) BUN 14 (6-20) mg/dL Creatinine 0.5 (0.4-1.0) mg/dL Estimated GFR (MDRD) 119 (>89) Glucose 100 (70-100) mg/dL Calcium 8.9 (8.5-10.3) mg/dL Magnesium 1.8 (1.7-2.8) mg/dL Total Bilirubin 0.6 (0.2-1.0) mg/dL AST 20 (10-42) IU/L ALT 16 (10-60) IU/L Alkaline Phosphatase 57 (42-121) IU/L Total Protein 6.3 L (6.7-8.2) g/dL Albumin 3.4 (3.2-5.5) g/dL Globulin 2.9 (2.1-4.2) g/dL Albumin/Globulin Ratio 1.2 (1.0-2.2) Assessment/Plan - Problem List (1) Fall from slip, trip, or stumble Impression: (1) Pain aggravated by walking Impression: pt state she still has some pain when she walk, but better than before continue PT evaluation and treatment order OT for evaluation and treatment This has been caused by fall prior to this admission. Guerline has had a previous pelvic injury with a left hip replacement 5 years ago. Ortho consulted shortly after admission who noted a pubis symphysis contusion. This is noted when patient attempts to ambulate any distance or when attempting stairs. Plan: PT evaluation and ongoing therapy. After evaluation today it was noted that patient would be at risk for fall with further injury due to her profound debility when attempting the above activities. A hand brace that attaches to her walker was applied to her hospital walker which eased the strain on left wrist while ambulating. An order for this will need to be hand-written for home use at the time of discharge. Pre-mediate before PT. Continue to ambulate when possible with assistance using new arm brace on walker. (2) Fall from slip, trip, or stumble Impression: fall precaution continue PT/OT continue current treatment consulted with orthopedics, no surgery indicated, will follow up orthopedics Patient fell off a small step stool while trimming her [place] tree and landed on her left side. Thank goodness, the neighbors heard her cry for help and came to her rescue. She admits she may not have been able to get up on her own. Plan: Make efforts in discharge planning to ensure safety at home and prevention of falls. (3) Hip pain, left Impression: pain control Patient admits to left hip pain that travels to her groin and inner thigh. She has had debilitating pain since her fall with distance and stairs exacerbating this pain. Plan: Patient and staff should coordinate pain medication to be administered before therapy sessions to allow for the greatest potential for improvement. Continue daily PT therapy sessions. (4) Wrist pain, left Impression: Patient fell directly on left wrist, which continues to appear profoundly bruised and swollen. Luckily, July was able to get her rings off before skin breakdown occurred. Ortho consulted and noted no acute fractures and no surgery indicated. Plan: Elevate and ice packs for comfort. (5) PVD (peripheral vascular disease) Impression: Patient is noted to have discoloration and increased dependent edema by the end of each day. All skin remains intact. Plan: OLLIE hose and foot pumps. Patient should continue to wear OLLIE hose at home as much as she can tolerate. With her recent wrist injury, she will not be able to apply each day. Family or home health nurse/aide should assist with this task if able to ensure proper circulation. (6) HTN stable, continue home meds vital, monitor (7) Hypothyroidism check TSH, reconciliation of home meds (8) rheumatiod arthritis chronic, pain control reconciliation of home meds Qualifiers: Encounter type: initial encounter Qualified Code(s): W01.0XXA - Fall on same level from slipping, tripping and stumbling without subsequent striking against object, initial encounter
[2017-05-27] MEDS: ATORVASTATIN 10 MG TABLET PO SCH (21:34)
[2017-05-27] MEDS: FAMOTIDINE 20 MG TABLET PO SCH (21:34)
[2017-05-28 05:44] LABS: BASOPHILS % (AUTO) 0.7 %; EOSINOPHILS # (AUTO) 0.4 10^3/uL (0.0-0.7); EOSINOPHILS % (AUTO) 7.8 %; HGB - HEMOGLOBIN 12.1 g/dL (12.0-16.0); LYMPHOCYTES # (AUTO) 1.9 10^3/uL (1.5-3.5); LYMPHOCYTES % (AUTO) 34.2 %; MEAN CORPUSCULAR HGB CONC 32.8 g/dL (32.0-36.0); MEAN CORPUSCULAR VOLUME 97.5 fL (81.0-99.0); MEAN PLATELET VOLUME 7.3 fL (7.9-10.8); MONOCYTES # (AUTO) 0.8 10^3/uL (0.0-1.0); NEUTROPHILS # (AUTO) 2.4 10^3/uL (1.5-6.6); NEUTROPHILS % (AUTO) 42.3 %; RED BLOOD COUNT 3.79 10^6/uL (4.20-5.40); RED CELL DISTRIBUTION WIDTH 20.3 % (12.0-15.0); UNCORRECTED WHITE BLOOD COUNT 5.6 x10^3/uL; WHITE BLOOD COUNT 5.6 x10^3/uL (4.8-10.8)
[2017-05-28 05:49] LABS: ALBUMIN/GLOBULIN RATIO 1.4 (1.0-2.2); BILIRUBIN,TOTAL 0.7 mg/dL (0.2-1.0); CALCIUM 8.6 mg/dL (8.5-10.3); CREATININE 0.7 mg/dL (0.4-1.0); POTASSIUM 4.2 mmol/L (3.5-5.0)
[2017-05-28 06:29] LABS: PLATELET ESTIMATE, MANUAL NORMAL (130-450,000) (NORMAL); PLATELET MORPHOLOGY NORMAL APP (NORMAL)
[2017-05-28] MEDS: LEVOTHYROXINE 25 MCG TABLET PO SCH (06:41)
[2017-05-28] MEDS: SODIUM CHLORIDE FLUSH 0.9% 10 ML SYRINGE IVP SCH ×2 (06:42→14:30)
[2017-05-28] MEDS: HEPARIN 5,000 UNIT/ML VIAL SUBQ SCH (08:54)
[2017-05-28] MEDS: LISINOPRIL 5 MG TABLET PO SCH (08:54)
[2017-05-28] MEDS: FAMOTIDINE 20 MG TABLET PO SCH (08:54)
[2017-05-28] MEDS: POLYETHYLENE GLYCOL 3350 17 GM PACKET PO SCH (08:54)
[2017-05-28] MEDS: ATENOLOL 25 MG TABLET PO SCH (08:54)
[2017-05-28] MEDS: HYDROcod/ACETAM 5/325 MG TABLET PO PRN (11:01)
--- NOTE | 2017-05-28 15:33 | Discharge Plan ---
Discharge Plan Disposition: 01 Home, Self Care Condition: Stable Diet: Cardiac Activity Restrictions: Activity as Tolerated Shower Restrictions: No Assistance Devices: Walker Additional Instructions or Follow Up instructions: May see PCP in one week, may follow up out-patient PT and OT Follow-Up Care: Outpatient Rehab - PT, Outpatient Rehab - OT, [facility] [place] [facility] - Medical No Smoking: If you smoke, Please STOP! Call for help. Follow-up with: Aundrea Vasquez MD [Primary Care Provider] -
--- NOTE | 2017-05-28 16:17 | DISCHARGE SUMMARY ---
"Discharge Summary Admit Date: 05/25/17 Discharge Date: 05/28/17 Discharging Provider: DE LOS SANTOS Primary Care Provider: Niko Evans Condition at Discharge: Stable Discharge Disposition: 01 Home, Self Care Discharge Facility Name: home - DIAGNOSES Admission Diagnoses: 1) Pain aggravated by walking (2) Fall from slip, trip, or stumble (3) Hip pain, left (4) Wrist pain, left (5) PVD (peripheral vascular disease) (6) HTN (7) Hypothyroidism (8) rheumatiod arthritis Discharge Diagnoses with Status of Each Condition: 1) Pain aggravated by walking significantly improved (2) Fall from slip, trip, or stumble pt decline to be D/C to SNF. pt want to be D/C to home. pt state to me and nurse she is safe to be D/C to home. she has helper in the home. no fall in the hospital (3) Hip pain, left improved (4) Wrist pain, left improved pt is not candidate per orthopedics consult (5) PVD (peripheral vascular disease) stable (6) HTN stable (7) Hypothyroidism stable (8) rheumatiod arthritis chronic, follow up PCP management - HPI History of Present Illness: please refer from Dr. Maura Beltran's HPI on 05/23/17 - CONSULTS | PROCEDURES Consultations: Dr. Zhang, orthopedics Procedures: no - HOSPITAL COURSE Hospital Course: pt was admitted for mechanical fall, inability to ambulate. Images study was done to pt. Pt is consulted with Orthopedics. Pt is not a candidate for surgery at this time. pt was evaluate and treated with PT/OT. Pt decline to be D /C to SNF for further training and strength. Pt want to b/c to home. Pt state she is safe to be at home, and she has helper to help her as she need. - ALLERGIES Allergies/Adverse Reactions: Allergies Allergy/AdvReac Type Severity Reaction Status Date / Time No Known Drug Allergies Allergy Verified 05/23/17 17:38 - MEDICATIONS Home Medications: Ambulatory Orders Medication Instructions Recorded Confirmed Levothyroxine [Synthroid] 25 mcg PO QDAC 01/01/17 05/28/17 Lisinopril 10 mg PO DAILY 01/01/17 05/28/17 Simvastatin [Zocor] 10 mg PO QPM 01/01/17 05/28/17 Etanercept [Enbrel] 50 mg SQ Q7D 05/23/17 05/28/17 Methotrexate 17.5 mg PO Q7D 05/23/17 05/28/17 raNITIdine [Zantac] 150 mg PO DAILY 05/23/17 05/28/17 Metoprolol Succinate [Toprol Xl] 25 mg PO DAILY 05/25/17 05/28/17 Aspirin [Aspirin EC] 81 mg PO DAILY 05/28/17 05/28/17 Calcium Carbonate 1,200 mg PO DAILY 05/28/17 05/28/17 Cholecalciferol (Vitamin D3) 4,000 units PO DAILY 05/28/17 05/28/17 [Vitamin D3] Folic Acid 1,600 mg PO Q7D 05/28/17 05/28/17 Multivitamin [Theragran] 1 tab PO DAILY 05/28/17 05/28/17 - PHYSICAL EXAM AT DISCHARGE General Appearance: positive: No acute distress. negative: Lethargic Eyes Bilateral: positive: Normal inspection, PERRL, No lid inflammation, Conjunctivae nml ENT: positive: ENT inspection nml, Pharynx nml, No signs of dehydration. negative: Purulent nasal drainage, Pharyngeal erythema, Oral lesions Neck: positive: Nml inspection, Thyroid nml, No JVD, Trachea midline. negative : Thyromegaly, Lymphadenopathy (R), Lymphadenopathy (L), Stiff neck, Carotid bruit, Swelling/bruising, Tracheal deviation Respiratory: positive: Chest non-tender, No respiratory distress, Breath sounds nml. negative: Wheezes, Rales Cardiovascular: positive: Regular rate & rhythm, No murmur, No gallop. negative : Irregularly irregular, Extrasystoles, Tachycardia, Bradycardia, Systolic murmur, Diastolic murmur Peripheral Pulses: positive: 2+ Abdomen: positive: Non-tender, Nml bowel sounds, No distention. negative: Tenderness, Guarding, Rebound Back: positive: Nml inspection. negative: CVA tenderness (R), CVA tenderness (L ) Skin: positive: Color nml, No rash, Warm, Dry. negative: Cyanosis, Diaphoresis , Pallor Extremities: positive: Non-tender, Nml appearance. negative: Calf tenderness, Joint swelling, Ricky's sign/cords Neurologic/Psychiatric: positive: Oriented x3, Motor nml, Sensation nml. negative: Sensory loss, Facial droop, Slurred/abnml speech, Depressed mood/ affect - LABS Result Diagrams: 05/28/17 05:16 05/28/17 05:16 - FOLLOW UP Follow Up: pt is advised to follow up PCP in one week, has out-pt PT and OT. Pt also state to me she does not want home health PT and OT at this time. Pt state she is safe in the home, she has helper."
[2017-05-28 16:18] VITALS: BP 117/70
== END 2017-05-28 17:00 | disposition home or self-care (01) | DRG 605 ==
LOC: ED 17:16 → OBS 22:16 → OBSVTOIN 05-25 17:55 → MS3 05-25 19:32
PROVIDERS: ADMIT Internal Medicine; ATTEND Nurse Practitioner Gerontology
DX: S30.0XXA Contusion of lower back and pelvis, initial encounter (principal); S60.222A Contusion of left hand, initial encounter; M25.552 Pain in left hip; S60.212A Contusion of left wrist, initial encounter; M25.522 Pain in left elbow; R26.2 Difficulty in walking, not elsewhere classified; W17.89XA Other fall from one level to another, initial encounter; I73.9 Peripheral vascular disease, unspecified; M06.9 Rheumatoid arthritis, unspecified; M19.90 Unspecified osteoarthritis, unspecified site; G62.9 Polyneuropathy, unspecified; I10 Essential (primary) hypertension; E78.5 Hyperlipidemia, unspecified; E03.9 Hypothyroidism, unspecified; Z96.642 Presence of left artificial hip joint; Z79.899 Other long term (current) drug therapy; Z91.81 History of falling; Y93.H2 Activity, gardening and landscaping; Y92.007 Garden or yard of unspecified non-institutional (private) residence as the place of occurrence of the external cause; Y99.8 Other external cause status
CPT/HCPCS: 36415; 80053; 83690; 83735; 84443; 85025; 85610; 96372; 99283; 99285

== ENCOUNTER 2017-06-04 14:30 | Outpatient (CLI) | payer MEDICARE ==
--- NOTE | 2017-06-04 16:15 | XRAY Report ---
LEFT HIP AND PELVIS: 06/04/2017 CLINICAL INDICATION: Left hip pain. COMPARISON: 05/23/2017. FINDINGS: Frontal view of the hips and pelvis and frogleg lateral view of the left hip demonstrate s table appearance of the left hip replacement. The previously noted left inferior pubic ramus fracture is stable. There is a new lucency through the medial portion of the left acetabulum, compatible with a second fracture. The left hip prosthesis appears unchanged. IMPRESSION: NEW LUCENCY THROUGH THE MEDIAL ASPECT OF THE LEFT ACETABULUM, COMPATIBLE WITH A PERIPROS THETIC FRACTURE. STABLE APPEARANCE OF THE LEFT INFERIOR PUBIC RAMUS FRACTURE. STABLE APPEARANCE OF TH E LEFT HIP REPLACEMENT HARDWARE. JOB #: [id number] EXT JOB #:[id number]
--- NOTE | 2017-06-04 16:16 | XRAY Report ---
THREE VIEW LEFT KNEE: 06/04/2017 CLINICAL INDICATION: Pain. FINDINGS: AP, lateral, and sunrise views of the left knee demonstrate moderate osteoarthritis. There is no evidence of acute fracture or dislocation. No effusion is present. Vascular calcifications are seen. IMPRESSION: MODERATE OSTEOARTHRITIS. NO EVIDENCE OF ACUTE FRACTURE. JOB #: [id number] EXT JOB #:[id number]
== END 2017-06-04 14:31 | disposition home or self-care (01) ==
LOC: DI.N 14:30
PROVIDERS: ATTEND Family Medicine
DX: M25.552 Pain in left hip (principal); M17.12 Unilateral primary osteoarthritis, left knee; Z96.642 Presence of left artificial hip joint

== ENCOUNTER 2017-07-11 16:01 | Outpatient (CLI) | payer MEDICARE ==
[2017-07-11 16:27] LABS: BASOPHILS % (AUTO) 0.7 %; EOSINOPHILS # (AUTO) 0.1 10^3/uL (0.0-0.7); HGB - HEMOGLOBIN 13.2 g/dL (12.0-16.0); LYMPHOCYTES # (AUTO) 1.7 10^3/uL (1.5-3.5); LYMPHOCYTES % (AUTO) 24.5 %; MEAN CORPUSCULAR HEMOGLOBIN 32.9 pg (27.0-31.0); MEAN CORPUSCULAR HGB CONC 33.5 g/dL (32.0-36.0); MEAN CORPUSCULAR VOLUME 98.4 fL (81.0-99.0); MEAN PLATELET VOLUME 7.4 fL (7.9-10.8); MONOCYTES # (AUTO) 0.8 10^3/uL (0.0-1.0); MONOCYTES % (AUTO) 11.2 %; NEUTROPHILS # (AUTO) 4.2 10^3/uL (1.5-6.6); NEUTROPHILS % (AUTO) 61.6 %; PLT - PLATELET COUNT 252 10^3/uL (130-450); RED BLOOD COUNT 4.02 10^6/uL (4.20-5.40); RED CELL DISTRIBUTION WIDTH 16.6 % (12.0-15.0); WHITE BLOOD COUNT 6.8 x10^3/uL (4.8-10.8)
[2017-07-11 16:34] LABS: ALBUMIN 4.3 g/dL (3.2-5.5); CREATININE 0.8 mg/dL (0.4-1.0)
== END 2017-07-11 16:02 | disposition home or self-care (01) ==
LOC: LAB 16:01
PROVIDERS: ATTEND Internal Medicine Rheumatology
DX: M05.69 Rheumatoid arthritis of multiple sites with involvement of other organs and systems (principal)
CPT/HCPCS: 36415; 82040; 82565; 84450; 84520; 85025; 85651

== ENCOUNTER 2017-08-13 13:59 | Outpatient (CLI) | payer MEDICARE ==
--- NOTE | 2017-08-13 16:17 | DEXA Report ---
DEXA SCAN: 08/13/2017 CLINICAL INDICATION: Osteopenia. TECHNIQUE: Dual energy x-ray absorptiometry (DXA) was performed on a [employer] system. Regions measured are the AP spine, femoral neck, and, if needed, forearm. COMPARISON: None. In accordance with the International Society for Clinical Densitometry (ISCD) guidelines, data from previous exams may be reanalyzed using current recommendations and techniques. This is done to allow a more accurate basis for comparison with the current study. FINDINGS: The data for the lumbar spine is as follows: REGION BMD (g/cm/cm) T-SCORE Z-SCORE L1 0.757 -3.1 -1.3 L2 0.801 -3.3 -1.5 L3 0.924 -2.3 -0.5 L4 0.914 -2.4 -0.6 TOTAL 0.852 -2.7 -0.9 NOTE: All evaluable vertebrae are used for classification. The data for the hip is as follows: REGION BMD (g/cm/cm) T-SCORE Z-SCORE Neck 0.692 -2.5 -0.4 TOTAL 0.631 -3.0 -1.1 NOTE: The femoral neck or total proximal femur, whichever is lowest, is used for classification. IMPRESSION THE WHO CLASSIFICATION BASED ON THE INTERNATIONAL REFERENCE STANDARD IS OSTEOPOROSIS. THE FRACTURE RISK IS HIGH. RECOMMENDATION: Patients with diagnosis of osteoporosis or osteopenia should have regular bone mineral density assessment. For those eligible for Medicare, routine testing is allowed once every 2 years. Testing frequency can be increased for patients who have rapidly progressing disease or for those who are receiving medical therapy to restore bone mass. COMMENT: World Health Organization (WHO) definitions for osteoporosis and osteopenia: NORMAL BMD: T-score at 1.0 or higher, fracture risk is low. OSTEOPENIA BMD: T-score between 1.0 and -2.5, fracture risk is increased. OSTEOPOROSIS BMD: T-score at 2.5 or lower, fracture risk high. National Osteoporosis Foundation recommends: 1. Obtain adequate dietary calcium (at least 1200 mg per day) and vitamin D (400 -800 international units per day). 2. Participate, as appropriate, in regular weightbearing and muscle- strengthening exercise. 3. Avoid tobacco use and reduce alcohol and caffeine intake. 4. For more detailed information see the website at www.NOF.org. TD: 08/13/2017 17:05 MYRA
== END 2017-08-13 14:00 | disposition home or self-care (01) ==
LOC: DI 13:59
PROVIDERS: ATTEND Family Medicine
DX: M81.0 Age-related osteoporosis without current pathological fracture (principal)
CPT/HCPCS: 77080

== ENCOUNTER 2017-09-04 15:35 | Emergency (ER) | payer MEDICARE ==
[2017-09-04] MEDS ORDERED: ACETAMINOPHEN 325 MG TABLET PO STA (16:58)
--- NOTE | 2017-09-04 17:28 | ED Physician Documentation ---
History of Present Illness - Stated complaint Stated Complaint: HEAD/KNEE INJURY - Chief complaint Chief Complaint: General - Additonal information Additional information: hx from pt 77 female no blood thinners leaned out of car ([place]) to oick up camera she dropped and fell striking R parietal region on cement no LOC no NV always has neck pain no numbness or weakness no ear nose drainage still ahs a severe GONZALEZ today tdap UTD Review of Systems Constitutional: denies: Fever Ears: denies: Drainage/discharge Nose: denies: Epistaxis Cardiac: denies: Chest pain / pressure Respiratory: denies: Dyspnea GI: denies: Vomiting Musculoskeletal: reports: Neck pain, Joint pain (L knee mild) Neurologic: reports: Headache, Head injury. denies: Focal weakness, Numbness Endocrine: denies: Easy bruising / bleeding PD PAST MEDICAL HISTORY - Past Medical History Past Medical History: Yes Cardiovascular: Hypertension, High cholesterol Respiratory: Pneumonia Neuro: Headache/migraine Endocrine/Autoimmune: HyPOthyroidism GI: Other : Incontinence, Frequency HEENT: Chronic vision loss Psych: Depression, Anxiety Musculoskeletal: Osteoarthritis, Rheumatoid arthritis - Past Surgical History Past Surgical History: Yes General: Colonoscopy Ortho: Hip replacement, Other Cardiovascular: Cardiac catheterization HEENT: Tonsil/Adenoidectomy - Present Medications Home Medications: Ambulatory Orders Medication Instructions Recorded Confirmed Levothyroxine [Synthroid] 25 mcg PO QDAC 01/01/17 05/28/17 Lisinopril 10 mg PO DAILY 01/01/17 05/28/17 Simvastatin [Zocor] 10 mg PO QPM 01/01/17 05/28/17 Etanercept [Enbrel] 50 mg SQ Q7D 05/23/17 05/28/17 Methotrexate 17.5 mg PO Q7D 05/23/17 05/28/17 raNITIdine [Zantac] 150 mg PO DAILY 05/23/17 05/28/17 Metoprolol Succinate [Toprol Xl] 25 mg PO DAILY 05/25/17 05/28/17 Aspirin [Aspirin EC] 81 mg PO DAILY 05/28/17 05/28/17 Calcium Carbonate 1,200 mg PO DAILY 05/28/17 05/28/17 Cholecalciferol (Vitamin D3) 4,000 units PO DAILY 05/28/17 05/28/17 [Vitamin D3] Folic Acid 1,600 mg PO Q7D 05/28/17 05/28/17 Multivitamin [Theragran] 1 tab PO DAILY 05/28/17 05/28/17 - Allergies Allergies/Adverse Reactions: Allergies Allergy/AdvReac Type Severity Reaction Status Date / Time No Known Drug Allergies Allergy Verified 05/23/17 17:38 - Social History Does the pt smoke?: No Smoking Status: Never smoker Does the pt drink ETOH?: No Does the pt have substance abuse?: No - Immunizations Immunizations are current?: Yes - POLST Patient has POLST: Yes PD ED PE NORMAL - Vitals Vital signs reviewed: Yes - HEENT HEENT: PERRL, Ears normal (no casiano sign or hemotympanum), Other (small deep abrasion < 1 cm to R parietal not sneeding sutures, no FB seen or palpated). No : Atraumatic (abrasion and small hematoma R parietal region) - Neck Neck: No: No bony TTP (+ mild TTP bu pt states her neck always hurt, no step off ) - Cardiac Cardiac: RRR - Respiratory Respiratory: No respiratory distress, Clear bilaterally - Abdomen Abdomen: Soft, Non tender - Neuro Neuro: Alert and oriented X 3 Eye Opening: Spontaneous Motor: Obeys Commands Verbal: Oriented GCS Score: 15 Results - Vitals Vitals: Vital Signs - 24 hr 09/04/17 09/04/17 15:55 18:36 Temperature 37.1 C 36.3 C L Heart Rate 77 71 Respiratory 18 20 Rate Blood Pressure 96/60 119/60 O2 Saturation 100 99 Oxygen O2 Source Room air - Rads (name of study) CTH Radiology: See rad report (no acute) CTCS Radiology: See rad report (no acute) PD MEDICAL DECISION MAKING - ED course ED course: GCS 15 but hematoma to parietal region so will image BP better - pt states usually runs about SBP 110 Departure - Departure Disposition: 01 Home, Self Care Clinical Impression: Head injury Qualifiers: Encounter type: initial encounter Qualified Code(s): S09.90XA - Unspecified injury of head, initial encounter Contusion of knee, left Qualifiers: Encounter type: initial encounter Qualified Code(s): S80.02XA - Contusion of left knee, initial encounter Condition: Good Instructions: ED Head Injury Closed Comments: The CT scans were fine - no skull or spine fracture, no bleeding or swelling of the brain. You may have a headache for several days but should get better with time Recommend tylenol and ice as needed for the pain Keep the wound clean and apply some antibiotic ointment every day until healed Please read over the head injury precautions and return for worsening symptoms as explained Discharge Date/Time: 09/04/17 18:36
--- NOTE | 2017-09-04 17:44 | CT Report ---
EXAM: CT CERVICAL SPINE WITHOUT CONTRAST DATE: 09/04/2017 05:23 PM. HISTORY: Fell hit head on cement neck pain. COMPARISONS: None. TECHNIQUE: Thin-section axial images were acquired of the cervical spine without contrast. Post-proce ssing: Coronal and sagittal reformats. Other: None. In accordance with CT protocol optimization, one or more of the following dose reduction techniques w ere utilized for this exam: automated exposure control, adjustment of mA and/or KV based on patient s ize, or use of iterative reconstructive technique. FINDINGS: Alignment: No evidence of dislocation. There is degenerative anterolisthesis of C4 on C5. Bones: No fracture or bone lesion. Interspace Levels/Facets: There is moderate multilevel degenerative disease. Musculature: No significant abnormalities are seen. Other: No evidence of prevertebral soft tissue swelling or apical pneumothorax. Mild biapical scarrin g. IMPRESSION: No evidence of cervical spine fracture or dislocation. [facility] Referring Provider Line: [phone] SITE ID: [id number]
--- NOTE | 2017-09-04 17:46 | CT Report ---
EXAM: CT HEAD EXAM DATE: 09/04/2017 05:17 PM. CLINICAL HISTORY: Fell hit head on cement GONZALEZ R catholic hematoma. COMPARISON: None. TECHNIQUE: Multiaxial CT images were obtained from the foramen magnum to the vertex. Reformats: Coron al. IV contrast: None. In accordance with CT protocol optimization, one or more of the following dose reduction techniques w ere utilized for this exam: automated exposure control, adjustment of mA and/or KV based on patient s ize, or use of iterative reconstructive technique. FINDINGS: Parenchyma: No intraparenchymal hemorrhage. No evidence of mass, midline shift, or CT findings of acu te infarction. Carey-white differentiation is distinct. Periventricular white matter hypodensity likel y represents small vessel skin disease. Extraaxial Spaces: Normal for age. No subdural or epidural collections identified. Ventricles: Normal in size and position. Sinuses and Orbits: Imaged paranasal sinuses, orbits, and mastoids show no significant abnormality. Bones: No evidence of fracture or calvarial defect. Other: None. IMPRESSION: No acute intracranial CT abnormality. [facility] Referring Provider Line: [phone] SITE ID: [id number]
[2017-09-04 18:36] VITALS: BP 119/60
== END 2017-09-04 18:36 | disposition home or self-care (01) ==
LOC: ED 15:35
DX: S00.03XA Contusion of scalp, initial encounter (principal); S00.01XA Abrasion of scalp, initial encounter; S80.02XA Contusion of left knee, initial encounter; W17.89XA Other fall from one level to another, initial encounter; M54.2 Cervicalgia; I10 Essential (primary) hypertension; Z79.82 Long term (current) use of aspirin
CPT/HCPCS: 70450; 72125; 99283

== ENCOUNTER 2017-09-16 11:52 | Outpatient (CLI) | payer MEDICARE ==
[2017-09-16 12:19] LABS: BASOPHILS # (AUTO) 0.1 10^3/uL (0.0-0.1); BASOPHILS % (AUTO) 0.9 %; EOSINOPHILS # (AUTO) 0.2 10^3/uL (0.0-0.7); EOSINOPHILS % (AUTO) 2.7 %; HGB - HEMOGLOBIN 13.7 g/dL (12.0-16.0); LYMPHOCYTES # (AUTO) 1.2 10^3/uL (1.5-3.5); LYMPHOCYTES % (AUTO) 16.3 %; MEAN CORPUSCULAR HEMOGLOBIN 33.6 pg (27.0-31.0); MEAN CORPUSCULAR HGB CONC 33.6 g/dL (32.0-36.0); MEAN PLATELET VOLUME 7.2 fL (7.9-10.8); MONOCYTES % (AUTO) 13.6 %; NEUTROPHILS % (AUTO) 66.5 %; PLT - PLATELET COUNT 235 10^3/uL (130-450); RED BLOOD COUNT 4.09 10^6/uL (4.20-5.40); WHITE BLOOD COUNT 7.6 x10^3/uL (4.8-10.8)
[2017-09-16 12:26] LABS: ALBUMIN 4.3 g/dL (3.2-5.5); CREATININE 0.8 mg/dL (0.4-1.0)
== END 2017-09-16 11:53 | disposition home or self-care (01) ==
LOC: LAB 11:52
PROVIDERS: ATTEND Internal Medicine Rheumatology
DX: M05.69 Rheumatoid arthritis of multiple sites with involvement of other organs and systems (principal)
CPT/HCPCS: 36415; 82040; 82565; 84450; 84460; 84520; 85025; 85651

== ENCOUNTER 2017-09-24 08:00 | Outpatient (CLI) | payer MEDICARE ==
[2017-09-24 12:50] LABS: CALCIUM 8.9 mg/dL (8.5-10.3); CREATININE 0.8 mg/dL (0.4-1.0)
[2017-09-24 12:56] LABS: BASOPHILS % (AUTO) 0.6 %; EOSINOPHILS # (AUTO) 0.3 10^3/uL (0.0-0.7); EOSINOPHILS % (AUTO) 5.6 %; LYMPHOCYTES # (AUTO) 2.1 10^3/uL (1.5-3.5); LYMPHOCYTES % (AUTO) 37.5 %; MEAN CORPUSCULAR HEMOGLOBIN 33.3 pg (27.0-31.0); MEAN CORPUSCULAR HGB CONC 33.6 g/dL (32.0-36.0); MEAN CORPUSCULAR VOLUME 99.1 fL (81.0-99.0); MEAN PLATELET VOLUME 7.8 fL (7.9-10.8); MONOCYTES # (AUTO) 0.9 10^3/uL (0.0-1.0); MONOCYTES % (AUTO) 16.9 %; NEUTROPHILS # (AUTO) 2.2 10^3/uL (1.5-6.6); NEUTROPHILS % (AUTO) 39.4 %; PLT - PLATELET COUNT 316 10^3/uL (130-450); RED BLOOD COUNT 3.61 10^6/uL (4.20-5.40); RED CELL DISTRIBUTION WIDTH 15.5 % (12.0-15.0); WHITE BLOOD COUNT 5.5 x10^3/uL (4.8-10.8)
== END 2017-09-24 08:01 | disposition home or self-care (01) ==
LOC: LAB.WCP 08:00
PROVIDERS: ATTEND Physician Assistant
DX: I10 Essential (primary) hypertension (principal); R73.01 Impaired fasting glucose; R19.5 Other fecal abnormalities
CPT/HCPCS: 36415; 80048; 85025

== ENCOUNTER 2017-10-13 07:57 | Day surgery (SDC) | payer MEDICARE ==
[2017-10-13] MEDS ORDERED: LACTATED RINGERS 1,000 ML IV ONE (08:06)
[2017-10-13] MEDS ORDERED: fentaNYL 100 MCG/2 ML VIAL IVP ONE (09:24)
[2017-10-13] MEDS ORDERED: MIDAZOLAM 2 MG/2 ML VIAL IVP ONE (09:24)
[2017-10-13] MEDS ORDERED: BENZOCAINE/TETRACAINE/BUTAMBEN SPRAY 56 GM TOP ONE (09:35)
[2017-10-13] MEDS ORDERED: LIDO GARGLE 30 ML BOTTLE PO ONE (09:35)
[2017-10-13] MEDS ORDERED: LIDO GARGLE 30 ML BOTTLE ONE (09:36)
[2017-10-13 10:54] VITALS: BP 112/64
== END 2017-10-13 07:58 | disposition home or self-care (01) ==
LOC: SDS 07:57
PROVIDERS: ATTEND Surgery
PROC: 0DJ08ZZ Inspection of Upper Intestinal Tract, Via Natural or Artificial Opening Endoscopic (ICD-10-PCS; principal; 2017-10-13 09:15)
DX: D50.9 Iron deficiency anemia, unspecified (principal); Z87.11 Personal history of peptic ulcer disease; I10 Essential (primary) hypertension; E78.5 Hyperlipidemia, unspecified; M06.9 Rheumatoid arthritis, unspecified; Z79.899 Other long term (current) drug therapy
CPT/HCPCS: 43235; 87081; A9270; J7120

== ENCOUNTER 2017-11-17 18:07 | Emergency (ER) | payer MEDICARE ==
[2017-11-17 18:56] VITALS: BP 138/91
[2017-11-17 21:00] LABS: BASOPHILS % (AUTO) 0.7 %; EOSINOPHILS # (AUTO) 0.2 10^3/uL (0.0-0.7); HGB - HEMOGLOBIN 12.2 g/dL (12.0-16.0); LYMPHOCYTES % (AUTO) 33.3 %; MEAN CORPUSCULAR HEMOGLOBIN 31.5 pg (27.0-31.0); MEAN CORPUSCULAR HGB CONC 32.6 g/dL (32.0-36.0); MEAN CORPUSCULAR VOLUME 96.5 fL (81.0-99.0); MEAN PLATELET VOLUME 7.4 fL (7.9-10.8); MONOCYTES % (AUTO) 15.8 %; NEUTROPHILS # (AUTO) 2.8 10^3/uL (1.5-6.6); NEUTROPHILS % (AUTO) 47.2 %; PLT - PLATELET COUNT 216 10^3/uL (130-450); RED BLOOD COUNT 3.87 10^6/uL (4.20-5.40)
[2017-11-17 21:11] LABS: ALBUMIN 4.1 g/dL (3.2-5.5); ALBUMIN/GLOBULIN RATIO 1.3 (1.0-2.2); BILIRUBIN,TOTAL 0.6 mg/dL (0.2-1.0); CALCIUM 9.2 mg/dL (8.5-10.3); CREATININE 0.9 mg/dL (0.4-1.0); TOTAL PROTEIN 7.2 g/dL (6.7-8.2)
--- NOTE | 2017-11-17 21:36 | Ultrasound Report ---
EXAM: RIGHT LOWER EXTREMITY VENOUS ULTRASOUND EXAM DATE: 11/17/2017 09:19 PM. CLINICAL HISTORY: Unilateral leg swelling. COMPARISON: None. TECHNIQUE: Real-time sonographic vascular imaging was performed by the plane runner through the lower extremity utilizing both color-flow and Doppler spectral analysis. Multiple sales representative business courses static alen ges were saved for review. FINDINGS: Common Femoral Vein (CFV): Normal. CFV-GSV Junction: Normal. Profunda Femoral Vein (PFV): Normal. Femoral Vein (FV) Prox: Normal. Femoral Vein (FV) Mid: Normal. Femoral Vein (FV) Dist: Normal. Popliteal Vein: Normal. Posterior Tibial Veins: Normal. Peroneal Veins: Normal. Contralateral Side CFV: Normal. Other: There is a 1.7 x 0.5 x 3 cm anterior knee fluid collection, possibly bursal. IMPRESSION: No evidence for deep venous thrombosis. [facility] Referring Provider Line: [phone] SITE ID: [id number]
--- NOTE | 2017-11-17 21:39 | ED Physician Documentation ---
PD HPI LOWER EXT INJURY - Stated complaint Stated Complaint: RT LEG PX - Chief complaint Chief Complaint: General - History obtained from History obtained from: Patient - History of Present Illness PD HPI LOW EXT INJURY LOCATION: Right, Lower leg Where injury occurred: Home Timing - onset: How many days ago (4) Timing - details: Gradual onset, Still present Associated symptoms: Swelling Contributing factors: No: Anticoagulated, Prior ortho surgery Similar symptoms before: No diagnosis Recently seen: Not recently seen - Additional information Additional information: Patient is a 77 year old female with a history of Rheumatoid arthritis who is presenting to the emergency department for lower extremity swelling and pain. Patient states that it has been going on for about the past 4 days or so but has become progressively worse and mainly on the right leg. Review of Systems Ten Systems: 10 systems reviewed and negative Constitutional: denies: Fever, Chills Cardiac: denies: Chest pain / pressure Respiratory: denies: Dyspnea, Hemoptysis : denies: Dysuria, Frequency Skin: denies: Rash Musculoskeletal: reports: Extremity pain, Extremity swelling Neurologic: denies: Generalized weakness, Focal weakness Immunocompromised: denies: Immunocompromised PD PAST MEDICAL HISTORY - Past Medical History Past Medical History: Yes Cardiovascular: Hypertension, High cholesterol, Valve disorder Respiratory: Pneumonia Neuro: Headache/migraine Endocrine/Autoimmune: HyPOthyroidism GI: Other : Incontinence, Frequency HEENT: Chronic vision loss Psych: Depression, Anxiety Musculoskeletal: Osteoarthritis, Rheumatoid arthritis - Past Surgical History Past Surgical History: Yes General: Colonoscopy Ortho: Hip replacement, Other Cardiovascular: Cardiac catheterization HEENT: Tonsil/Adenoidectomy - Present Medications Home Medications: Ambulatory Orders Medication Instructions Recorded Confirmed Levothyroxine [Synthroid] 25 mcg PO QDAC 01/01/17 11/17/17 Lisinopril 10 mg PO DAILY 01/01/17 11/17/17 Simvastatin [Zocor] 10 mg PO QPM 01/01/17 11/17/17 Etanercept [Enbrel] 50 mg SQ Q7D 05/23/17 11/17/17 Methotrexate 17.5 mg PO Q7D 05/23/17 11/17/17 raNITIdine [Zantac] 150 mg PO DAILY 05/23/17 11/17/17 Metoprolol Succinate [Toprol Xl] 25 mg PO DAILY 05/25/17 11/17/17 Aspirin [Aspirin EC] 81 mg PO DAILY 05/28/17 11/17/17 Calcium Carbonate [Calcium] 1,200 mg PO DAILY 05/28/17 11/17/17 Cholecalciferol (Vitamin D3) 4,000 units PO DAILY 05/28/17 11/17/17 [Vitamin D3] Folic Acid 1,600 mg PO Q7D 05/28/17 11/17/17 Multivitamin [Theragran] 1 tab PO DAILY 05/28/17 11/17/17 - Allergies Allergies/Adverse Reactions: Allergies Allergy/AdvReac Type Severity Reaction Status Date / Time No Known Drug Allergies Allergy Verified 11/17/17 20:33 - Social History Does the pt smoke?: No Smoking Status: Never smoker Does the pt drink ETOH?: No Does the pt have substance abuse?: No - Immunizations Immunizations are current?: Yes - POLST Patient has POLST: Yes PD ED PE NORMAL - Vitals Vital signs reviewed: Yes - General General: Alert and oriented X 3, No acute distress - HEENT HEENT: Atraumatic, PERRL - Neck Neck: Supple, no meningeal sign - Cardiac Cardiac: RRR - Respiratory Respiratory: No respiratory distress - Derm Derm: Normal color, No rash - Neuro Neuro: Alert and oriented X 3 Eye Opening: Spontaneous PD ED PE EXPANDED - Extremities Extremities: Right hand, Left hand (RA of both hands), Right leg (tenderness and swelling of right leg), Pedal edema R, Right calf TTP/cord, Pedal Pulses Present Results - Vitals Vitals: Vital Signs - 24 hr 11/17/17 18:53 Temperature 36.4 C L Heart Rate 80 Respiratory 14 Rate Blood Pressure 138/91 H O2 Saturation 100 Oxygen O2 Source Room air - Labs Labs: Laboratory Tests 11/17/17 11/17/17 11/17/17 20:48 20:48 20:48 WBC 6.0 RBC 3.87 L Hgb 12.2 Hct 37.3 MCV 96.5 MCH 31.5 H MCHC 32.6 RDW 16.0 H Plt Count 216 MPV 7.4 L Neut # 2.8 Lymph # 2.0 [place] # 1.0 Eos # 0.2 Baso # 0.0 Absolute Nucleated RBC 0.00 Nucleated RBC % 0.0 Sodium 140 Potassium 3.9 Chloride 104 Carbon Dioxide 27 Anion Gap 9.0 BUN 30 H Creatinine 0.9 Estimated GFR (MDRD) 61 L Glucose 95 Calcium 9.2 Total Bilirubin 0.6 AST 22 ALT 17 Alkaline Phosphatase 107 B-Natriuretic Peptide 51 Total Protein 7.2 Albumin 4.1 Globulin 3.1 Albumin/Globulin Ratio 1.3 Lipase 37 PD MEDICAL DECISION MAKING - ED course Complexity details: reviewed old records, reviewed results, re-evaluated patient , considered differential, d/w patient ED course: Patient was seen and examined at bedside. labs were drawn and patient was sent for imaging. When patient returned the results were reviewed. there was no acute dvt or signs of heart failure. Patient was given instructions for elevation and compression stockings. Patient required no further inpatient work up at this time and was stable for discharge with outpatient follow up. Departure - Departure Disposition: 01 Home, Self Care Clinical Impression: Swelling of lower extremity Condition: Good Instructions: ED Edema Legs Bilateral Follow-Up: Aundrea Vasquez MD [Primary Care Provider] - Within 3 Days Comments: Your diagnostics today were within normal limits. there were no major abnormality of your blood work or ultrasound. You should follow up with your doctor if your symptoms persist. You may return to the emergency department at anytime for new, worsening or uncontrollable symptoms. Discharge Date/Time: 11/17/17 22:01
== END 2017-11-17 22:01 | disposition home or self-care (01) ==
LOC: ED 18:07
DX: R60.0 Localized edema (principal); I10 Essential (primary) hypertension; E78.00 Pure hypercholesterolemia, unspecified; E03.9 Hypothyroidism, unspecified; M06.9 Rheumatoid arthritis, unspecified; M19.90 Unspecified osteoarthritis, unspecified site
CPT/HCPCS: 36415; 80053; 83690; 83880; 85025; 99282; 99283

== ENCOUNTER 2017-12-22 13:24 | Outpatient (CLI) | payer MEDICARE ==
--- NOTE | 2017-12-22 20:47 | MRI Report ---
EXAM: MRI LUMBAR SPINE WITHOUT CONTRAST EXAM DATE: 12/22/2017 02:10 PM. CLINICAL HISTORY: 77-year-old female. GAIT IMBALANCE, LOW BACK PAIN, LEG WEAKNESS, RIGHT. COMPARISON: None. TECHNIQUE: Multiplanar, multisequence T1-weighted and fluid-sensitive sequences of the lumbar spine f rom T12 to S1 without contrast. Other: None. FINDINGS: Spinal Cord: The conus terminates at T12-L1. The conus medullaris and cauda equina are unremarkable. Alignment: Grade 1 anterolisthesis L3 on L4 measuring 4 mm. Grade 1 anterolisthesis L4 on L5 measurin g 7 mm. 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 Bone Marrow: Five icf-cxq-iivouqt lumbar vertebral bodies are assumed. No evidence of acute fracture. Chronic compression fracture deformities involving the T11 and T12 vertebral bodies. Modic type I de generative endplate changes at T10-T11 and T11-T12 levels with endplate edema. No bone marrow edema e lsewhere. Disk Levels/Facets: T12-L1: Mild disk height loss and desiccation. Mild diffuse disk bulge. No significant central canal narrowing. Moderate right foraminal narrowing. No left foraminal narrowing. L1-L2: Mild disk height loss and desiccation. Mild diffuse disk bulge. Mild bilateral facet arthropat hy. No significant central canal narrowing. Moderate right foraminal narrowing. No left foraminal annita rowing. L2-L3: Moderate disk height loss and desiccation. Moderate diffuse disk bulge, asymmetric to the righ t. Mild bilateral facet arthropathy. Mild central canal narrowing. Dmqw-ue-gdcgtjoq right and mild le ft foraminal narrowing. L3-L4: Moderate disk height loss and desiccation. Moderate diffuse disk bulge. Moderate bilateral fac et arthropathy. Mild central canal narrowing. Moderate right foraminal narrowing. No left foraminal n arrowing. L4-L5: Uncovered disk with superimposed moderate diffuse disk bulge. Moderate to severe right and mod erate left facet arthropathy. Wkgu-oa-hypstwbk central canal narrowing. Moderate right and mild left foraminal narrowing. L5-S1: Moderate disk height loss and desiccation. Moderate diffuse disk bulge. Mild bilateral facet a rthropathy. Mild central canal narrowing. Moderate right and dvzj-ry-syarawqa left foraminal narrowin g. Musculature: Moderate fatty atrophy of the paraspinal musculature. Other: Suggestion of bilateral adnexal T2 hyperintense cystic-appearing lesions (serious 801 image 13 , series 801 image 7). The partially visualized abdomen, pelvis, and retroperitoneum are otherwise un remarkable. IMPRESSION: 1. Moderate multilevel degenerative spondylosis, as detailed above and summarized below. Moderate rig ht-sided foraminal narrowing is present at several levels, as detailed. Recommend correlation with lucía dale's specific right-sided radicular symptoms. No evidence of acute fracture or malalignment. No co rd signal abnormality at any level. 2. Grade 1 anterolisthesis L3 on L4 measuring 4 mm. Grade 1 anterolisthesis L4 on L5 measuring 7 mm. 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 3. Modic type I degenerative endplate changes at T10-T11 and T11-T12 levels with endplate edema. Karen c type I changes may represent a source of pain. 4. T12-L1 level demonstrates no significant central canal narrowing. Moderate right foraminal narrowi ng. No left foraminal narrowing. Recommend correlation for right sided T12 radicular symptoms. 5. L1-L2 level demonstrates no significant central canal narrowing. Moderate right foraminal narrowin g. No left foraminal narrowing. Recommend correlation for right-sided L1 radicular symptoms. 6. L2-L3 level demonstrates mild central canal narrowing. Nrrm-jf-zqasktam right and mild left forami nal narrowing. 7. L3-L4 level demonstrates mild central canal narrowing. Moderate right foraminal narrowing. No left foraminal narrowing. Recommend correlation for right-sided L3 radicular symptoms. 8. L4-L5 level demonstrates uhok-ox-tagrgzkx central canal narrowing. Moderate right and mild left fo raminal narrowing. Recommend correlation for right-sided L4 radicular symptoms. 9. L5-S1 level demonstrates mild central canal narrowing. Moderate right and dvkl-sp-pzwkphxq left fo raminal narrowing. Recommend correlation for right-sided L5 radicular symptoms. 10. Suggestion of bilateral adnexal T2 hyperintense cystic-appearing lesions (serious 801 image 13, s eries 801 image 7). These lesions are nonspecific for cystic adnexal lesions versus lesions associate d with the bladder such as bladder diverticula. As clinically indicated, pelvic ultrasound would be o f benefit to further evaluate. Comment: The following findings are so common in adults without low back pain that while we report th eir presence, they must be interpreted with caution and in the context of the clinical situation. (Re schuyler Stanton et al, Spine 2001) Prevalence of findings in patients without low back pain: Disk degeneration (any evidence): 92% Disk desiccation/T2 signal loss: 83% Disk height loss: 56% Disk bulge: 64% Disk protrusion: 32% Annular tear/high intensity zone: 38% [facility] Referring Provider Line: [phone] SITE ID: [id number]
== END 2017-12-22 13:25 | disposition home or self-care (01) ==
LOC: DI 13:24
PROVIDERS: ATTEND Family Medicine
DX: M51.36 Other intervertebral disc degeneration, lumbar region (principal); M47.896 Other spondylosis, lumbar region; M51.34 Other intervertebral disc degeneration, thoracic region; M47.897 Other spondylosis, lumbosacral region; M51.37 Other intervertebral disc degeneration, lumbosacral region
CPT/HCPCS: 72148

== ENCOUNTER 2018-01-08 08:00 | Outpatient (CLI) | payer MEDICARE ==
[2018-01-08 12:55] LABS: ALBUMIN 3.9 g/dL (3.2-5.5); ALBUMIN/GLOBULIN RATIO 1.2 (1.0-2.2); ALKALINE PHOSPHATASE 92 IU/L (42-121); ALT ALANINE AMINOTRANSFERASE 20 IU/L (10-60); AST ASPARTATE AMINOTRANSFERASE 25 IU/L (10-42); BILIRUBIN,TOTAL 0.8 mg/dL (0.2-1.0); BUN - BLOOD UREA NITROGEN 32 mg/dL (6-20); CALCIUM 9.3 mg/dL (8.5-10.3); CARBON DIOXIDE - CO2 28 mmol/L (21-32); CHLORIDE 104 mmol/L (101-111); CHOL/HDL RATIO 2.1 (<4.4); CHOLESTEROL 157 mg/dL; CREATININE 1.1 mg/dL (0.4-1.0); GFR - MDRD 48 (>89); GLUCOSE 95 mg/dL (70-100); HDL CHOLESTEROL 75 mg/dL; LDL CHOLESTEROL,CALCULATED 71 mg/dL; LDL/HDL RATIO 0.9 (<4.4); SODIUM 140 mmol/L (135-145); TOTAL PROTEIN 7.1 g/dL (6.7-8.2); VLDL CHOLESTEROL 11 mg/dL
== END 2018-01-08 08:01 | disposition home or self-care (01) ==
LOC: LAB.WCP 08:00
PROVIDERS: ATTEND Family Medicine
DX: E78.5 Hyperlipidemia, unspecified (principal); R73.01 Impaired fasting glucose; E03.9 Hypothyroidism, unspecified
CPT/HCPCS: 36415; 80053; 80061; 83721; 84443

== ENCOUNTER 2018-01-22 09:19 | Day surgery (SDC) | payer MEDICARE ==
[2018-01-22] MEDS ORDERED: LACTATED RINGERS 1,000 ML IV ONE (09:47)
[2018-01-22] MEDS ORDERED: LIDO GARGLE 30 ML BOTTLE ONE (10:09)
[2018-01-22] MEDS ORDERED: fentaNYL 250 MCG/5 ML VIAL IVP ONE (10:10)
[2018-01-22] MEDS ORDERED: MIDAZOLAM 2 MG/2 ML VIAL IVP ONE (10:10)
[2018-01-22 11:14] VITALS: BP 118/68
== END 2018-01-22 09:20 | disposition home or self-care (01) ==
LOC: SDS 09:19
PROVIDERS: ATTEND Internal Medicine Gastroenterology
PROC: 0DB38ZX Excision of Lower Esophagus, Via Natural or Artificial Opening Endoscopic, Diagnostic (ICD-10-PCS; principal; 2018-01-22 10:30)
DX: Z09 Encounter for follow-up examination after completed treatment for conditions other than malignant neoplasm (principal); Z87.11 Personal history of peptic ulcer disease; K20.9 Esophagitis, unspecified; K44.9 Diaphragmatic hernia without obstruction or gangrene; I11.0 Hypertensive heart disease with heart failure; I50.30 Unspecified diastolic (congestive) heart failure; J44.9 Chronic obstructive pulmonary disease, unspecified; E78.5 Hyperlipidemia, unspecified; F41.9 Anxiety disorder, unspecified; D64.9 Anemia, unspecified; M06.9 Rheumatoid arthritis, unspecified; J30.2 Other seasonal allergic rhinitis; E03.9 Hypothyroidism, unspecified; R73.9 Hyperglycemia, unspecified; I25.10 Atherosclerotic heart disease of native coronary artery without angina pectoris; I87.2 Venous insufficiency (chronic) (peripheral); I86.8 Varicose veins of other specified sites; E55.9 Vitamin D deficiency, unspecified; I73.00 Raynaud's syndrome without gangrene; G62.9 Polyneuropathy, unspecified; M81.0 Age-related osteoporosis without current pathological fracture; N39.3 Stress incontinence (female) (male); M51.36 Other intervertebral disc degeneration, lumbar region; H91.90 Unspecified hearing loss, unspecified ear; Z79.82 Long term (current) use of aspirin; Z79.899 Other long term (current) drug therapy; Z96.649 Presence of unspecified artificial hip joint; Z87.891 Personal history of nicotine dependence
CPT/HCPCS: 43239; A9270; J3010; J7120

== ENCOUNTER 2018-02-04 09:30 | Outpatient (CLI) | payer MEDICARE ==
--- NOTE | 2018-02-04 11:06 | Ultrasound Report ---
Procedure Date: 02/04/2018 Accession Number: [id number] / [id number] Procedure: US - Bladder CPT Code: FULL RESULT: EXAM: Bladder DATE: 02/04/2018 10:18 AM CLINICAL HISTORY: BLADDER DIVERTICULUM COMPARISON: Limited comparison is made to the MRI of the lumbar spine. TECHNIQUE: Realtime transabdominal imaging of the pelvis, with static image documentation. FINDINGS: The bladder measures 10.4 x 6.2 x 10.6 cm for a volume of 360 mL prior to voiding and post void dimensions are 2.6 x 2.2 x 4.4 cm for a postvoid volume of 13 mL. A partially cystic septated mass approximately in the left adnexal region measuring 5.0 x 4.1 x 3.5 cm is identified. In the region of the expected right ovary are 2 cysts measuring 2.8 x 2.3 x 2.2 cm and 2.4 x 2.2 x 2 cm respectively. No bladder diverticulum is detected. IMPRESSION: Normal appearance of the bladder with no evidence of diverticulum. Cystic lesions in the regions of the expected right and left ovaries respectively are abnormal in the postmenopausal patient. Surgical referral to gynecology is recommended. At the discretion of the surgeon, further characterization can be pursued by MRI. Please note that these were also identified but incompletely characterized on the MRI of the lumbar spine. [facility]
== END 2018-02-04 09:31 | disposition home or self-care (01) ==
LOC: DI 09:30
PROVIDERS: ATTEND Family Medicine
DX: N94.9 Unspecified condition associated with female genital organs and menstrual cycle (principal)
CPT/HCPCS: 76857

== ENCOUNTER 2018-02-16 14:24 | Outpatient (CLI) | payer MEDICARE ==
[2018-02-16 15:09] LABS: CALCIUM 9.6 mg/dL (8.5-10.3)
[2018-02-16] MEDS ORDERED: GADOBUTROL 7.5 MMOL/7.5 ML VIAL IVP ONE (16:06)
--- NOTE | 2018-02-16 16:41 | Ultrasound Report ---
Procedure Date: 02/16/2018 Accession Number: [id number] / [id number] Procedure: US - Carotid Doppler Complete CPT Code: FULL RESULT: EXAM: BILATERAL CAROTID AND VERTEBRAL ARTERY DUPLEX DOPPLER ULTRASOUND: EXAM DATE: 02/16/2018 03:51 PM CLINICAL HISTORY: Carotid territory TIA. COMPARISON: None. TECHNIQUE: Grayscale imaging, color Doppler, and duplex spectral Doppler were used to evaluate the carotid and vertebral arteries bilaterally. Static images were obtained. FINDINGS: There is mild intimal thickening bilaterally. No significant plaque is identified in the right or left common or internal carotid arteries. Normal antegrade flow is present in bilateral vertebral arteries. VELOCITIES (cm/sec): Right: RCCA Prox: PSV 54 cm/sec. RCCA Dist: PSV 76 cm/sec, EDV 23 cm/sec. RECA: PSV 91 cm/sec. R Bulb: PSV 54 cm/sec, EDV 18 cm/sec, ICA/CCA ratio 0.71. FELIX Prox: PSV 62 cm/sec, EDV 24 cm/sec, ICA/CCA ratio 0.81. FELIX Mid: PSV 90 cm/sec, EDV 37 cm/sec, ICA/CCA ratio 1.12. FELIX Dist: PSV 69 cm/sec, EDV 27 cm/sec, ICA/CCA ratio 0.90. RVA: PSV 49 cm/sec. RVA flow direction: Antegrade. Left: LCCA Prox: PSV 77 cm/sec. LCCA Dist: PSV 89 cm/sec, EDV 23 cm/sec. LECA: PSV 84 cm/sec. L Bulb: PSV 56 cm/sec, EDV 17 cm/sec, ICA/CCA ratio 0.62. LICA Prox: PSV 63 cm/sec, EDV 27 cm/sec, ICA/CCA ratio 0.70. LICA Mid: PSV 45 cm/sec, EDV 16 cm/sec, ICA/CCA ratio 0.50. LICA Dist: PSV 49 cm/sec, EDV 20 cm/sec, ICA/CCA ratio 0.55. LVA: PSV 40 cm/sec. LVA flow direction: Antegrade. ICA diameter stenosis: Right: <50% by velocity and <70% by NASCET criteria. Left: <50% by velocity and <70% by NASCET criteria. IMPRESSION: 1. No significant bilateral carotid artery plaquing. 2. In the right carotid artery there are no elevated carotid artery velocities to suggest hemodynamically significant stenosis. 3. In the left carotid artery there are no elevated carotid artery velocities to suggest hemodynamically significant stenosis. 4. Normal antegrade flow is present in bilateral vertebral arteries. General Recommendations: Stenosis =50% ICA - Follow-up ultrasound 6-12 months Stenosis <50% ICA - High Risk Patient with plaque - Follow-up ultrasound 1-2 years Normal Study but High Risk Patient - Follow-up ultrasound 3-5 years Management recommendations and diagnostic criteria are based on current IAC endorsed standards in Carotid Artery Stenosis: Grayscale and Doppler Ultrasound Diagnosis. Validated velocity measurements with angiographic measurements and velocity criteria are extrapolated from diameter data as defined by the Society of Radiologists in Ultrasound Consensus Conference Radiology 2003; 229;340-346. [facility]
--- NOTE | 2018-02-18 11:53 | MRI Report ---
Procedure Date: 02/16/2018 Accession Number: [id number] / [id number] Procedure: MRI - Brain W/WO CPT Code: FULL RESULT: EXAM: MRI BRAIN WITHOUT AND WITH CONTRAST EXAM DATE: 02/16/2018 05:01 PM. CLINICAL HISTORY: TIA. Unsteady gait. COMPARISON: Prior CT study head 09/04/2017. TECHNIQUE: Multiplanar, multisequence T1-weighted and fluid-sensitive MR sequences of the brain were performed. Sequences optimized for routine evaluation. Other: None. IV Contrast: 6.5 cc Gadavist. Findings: Relevant images are indicated (image number, series number). There is no acute, subacute ischemic change in the brain. There is no hemosiderin deposition present in the brain. There is no hemorrhage, mass or midline shift. Basal cisterns, bilateral IACs, bilateral Meckel's caves are clear. Orbital contents negative. Paranasal sinuses, mastoid air cells are unremarkable. Normal expected flow-voids of the major arteries/veins. Marked atrophy of the brain. Superimposed moderate/marked dense periventricular, marked bilateral peritrigonal white matter disease. Dominant atrophy bilateral hippocampus. Postcontrast imaging demonstrates no abnormal enhancement of the brain, meninges. Moderate midbrain atrophy. Pituitary, infundibulum negative. Craniocervical junction, limited evaluation of the cervical cord negative. Extraocular muscles, optic nerves, orbital apex and optic chiasm. Impressions: 1. No acute/subacute ischemic change in the brain. 2. Marked brain atrophy including bilateral temporal lobes/hippocampus. 3. Moderate/marked dense white matter disease present most likely related to chronic small vessel ischemic disease. 4. Postcontrast imaging negative. 5. If there is concern for underlying dementia, consider vascular related dementia first. [facility]
== END 2018-02-16 14:25 | disposition home or self-care (01) ==
LOC: LAB 14:24
PROVIDERS: ATTEND Family Medicine
DX: G45.8 Other transient cerebral ischemic attacks and related syndromes (principal); G31.9 Degenerative disease of nervous system, unspecified; R90.82 White matter disease, unspecified; M05.69 Rheumatoid arthritis of multiple sites with involvement of other organs and systems
CPT/HCPCS: 36415; 70553; 80048; 82040; 84450; 84460; 85025; 85651; 93880

== ENCOUNTER 2018-02-16 14:29 | Outpatient (CLI) | payer MEDICARE ==
[2018-02-16 15:00] LABS: BASOPHILS % (AUTO) 0.7 %; EOSINOPHILS # (AUTO) 0.1 10^3/uL (0.0-0.7); EOSINOPHILS % (AUTO) 1.7 %; HGB - HEMOGLOBIN 13.2 g/dL (12.0-16.0); LYMPHOCYTES # (AUTO) 1.9 10^3/uL (1.5-3.5); LYMPHOCYTES % (AUTO) 28.8 %; MEAN CORPUSCULAR HEMOGLOBIN 31.4 pg (27.0-31.0); MEAN CORPUSCULAR HGB CONC 33.3 g/dL (32.0-36.0); MEAN CORPUSCULAR VOLUME 94.3 fL (81.0-99.0); MEAN PLATELET VOLUME 7.4 fL (7.9-10.8); MONOCYTES # (AUTO) 0.9 10^3/uL (0.0-1.0); MONOCYTES % (AUTO) 13.5 %; NEUTROPHILS # (AUTO) 3.7 10^3/uL (1.5-6.6); NEUTROPHILS % (AUTO) 55.3 %; PLT - PLATELET COUNT 227 10^3/uL (130-450); RED BLOOD COUNT 4.19 10^6/uL (4.20-5.40); WHITE BLOOD COUNT 6.6 x10^3/uL (4.8-10.8)
[2018-02-16 15:12] LABS: ALBUMIN 4.5 g/dL (3.2-5.5)
== END 2018-02-16 14:30 | disposition home or self-care (01) ==
LOC: LAB 14:29
PROVIDERS: ATTEND Internal Medicine Rheumatology
DX: M05.69 Rheumatoid arthritis of multiple sites with involvement of other organs and systems (principal)
CPT/HCPCS: 36415; 82040; 84450; 84460; 85025; 85651

== ENCOUNTER 2018-02-26 12:00 | Outpatient (CLI) | payer MEDICARE ==
[2018-02-26 19:24] LABS: CA 125 11.8 U/mL (0.0-35.0)
[2018-02-26 20:35] LABS: FOLATE > 49.60 ng/mL (5.90 - >24.8)
== END 2018-02-26 12:01 | disposition home or self-care (01) ==
LOC: LAB.WCP 12:00
PROVIDERS: ATTEND Family Medicine
DX: R41.3 Other amnesia (principal); N83.9 Noninflammatory disorder of ovary, fallopian tube and broad ligament, unspecified
CPT/HCPCS: 36415; 82607; 82746; 86304

== ENCOUNTER 2018-03-19 19:48 | Outpatient (CLI) | payer MEDICARE | END 2018-03-19 19:49 | disposition critical access hospital (66) | LOC: EMS 19:48 | PROVIDERS: ATTEND Surgery | DX: M79.605 Pain in left leg (principal); W03.XXXA Other fall on same level due to collision with another person, initial encounter; Y92.009 Unspecified place in unspecified non-institutional (private) residence as the place of occurrence of the external cause | CPT/HCPCS: A0425; A0429 ==

== ENCOUNTER 2018-03-19 20:07 | Emergency (ER) | payer MEDICARE ==
[2018-03-19] MEDS ORDERED: HYDROcod/ACETAM 10 MG/325 MG TABLET PO STA (20:30)
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
--- NOTE | 2018-03-19 21:14 | XRAY Report ---
Reason: fall injury Procedure Date: 03/19/2018 Accession Number: [id number] / [id number] Procedure: XR - Hip w/Pelvis 2-3V LT CPT Code: FULL RESULT: EXAM: LEFT HIP AND PELVIS RADIOGRAPHY EXAM DATE: 03/19/2018 08:52 PM. HISTORY: Fall injury. COMPARISONS: HIP W/PELVIS 2-3V LT 06/04/2017. TECHNIQUE: 1 view of the pelvis and 1 view of the hip. FINDINGS: Bones: There is a chronic nondisplaced left inferior pubic ramus fracture. No acute fracture. Joints: Stable appearance of left hip prosthesis without evidence of dislocation. Soft Tissues: Normal. No soft tissue swelling. IMPRESSION: Chronic left inferior pubic ramus fracture. No hip fracture or prosthesis dislocation. [facility]
--- NOTE | 2018-03-19 21:16 | XRAY Report ---
Reason: fall, injury Procedure Date: 03/19/2018 Accession Number: [id number] / [id number] Procedure: XR - Femur 2V LT CPT Code: FULL RESULT: EXAM: LEFT FEMUR RADIOGRAPHY EXAM DATE: 03/19/2018 08:52 PM. CLINICAL HISTORY: Fall, injury. COMPARISON: FEMUR 2V LT 05/23/2017. TECHNIQUE: 2 views. FINDINGS: Bones: Normal. No fracture or bone lesion. Joints: Stable appearance of left hip prosthesis. Soft Tissues: Normal. No soft tissue swelling. IMPRESSION: No left femur fracture. [facility]
[2018-03-19 23:54] VITALS: BP 126/74
== END 2018-03-19 23:45 | disposition home or self-care (01) ==
LOC: EDUNIT# → ED 20:07
DX: S70.02XA Contusion of left hip, initial encounter (principal); W03.XXXA Other fall on same level due to collision with another person, initial encounter; I10 Essential (primary) hypertension; E78.00 Pure hypercholesterolemia, unspecified; E03.9 Hypothyroidism, unspecified; Z96.642 Presence of left artificial hip joint
CPT/HCPCS: 73502; 73552; 99283; A9270

== ENCOUNTER 2018-04-29 11:24 | Outpatient (CLI) | payer MEDICARE ==
--- NOTE | 2018-04-30 02:03 | Ultrasound Report ---
Reason: PELVIC MASS IN FEMALE Procedure Date: 04/29/2018 Accession Number: [id number] / [id number] Procedure: US - Pelvic w/Transvaginal CPT Code: FULL RESULT: EXAM: PELVIC ULTRASOUND EXAM DATE: 04/29/2018 12:18 PM. CLINICAL HISTORY: Pelvic mass in female. COMPARISON: BLADDER 02/04/2018 9:49 AM. TECHNIQUE: Realtime transabdominal pelvic scan performed to identify the uterus and adnexa and as an overview of other pelvic structures, followed by transvaginal scan to provide greater detail of the uterus and adnexa, with static image documentation. FINDINGS: Uterus: 5.8 x 3.2 x 6.1 cm, volume 58.2 cc. Retroverted and retroflexed position. Heterogeneous myometrium. Multiple echogenic foci noted in the myometrium. Masses: None. Endometrium: 3 mm. No endometrial mass or polyp. Cervix: Not well seen. Right Ovary: 4.7 x 3.1 x 4.2 cm, volume 32 cc. Normal echotexture and blood flow. Multilocular hypoechoic cystic structure in the right ovary measuring in aggregate 3 x 4.3 x 2.2 cm. There is a thin septation the components. Findings may represent 2 small adjacent cysts versus a larger cyst with a thin septation. No mural nodules or thickened septations or vascular components. Volume measures 14.8 cc. Previously measuring 37.5 cc. Left Ovary: 3.7 x 4.9 x 5.4 cm, volume 51.2 cc. Normal echotexture and blood flow. There is an anechoic left ovarian cyst measuring 3.7 x 2.7 x 3.4 cm for a volume of 15.4 cc. Previously measuring 13.2 cc. No thickened septations or mural nodules. Free Fluid: None. Other: Technically challenging due to patient limitations. Small amount of blood products is noted on the transvaginal probe at the end of the study. IMPRESSION: 1. Heterogeneous myometrium with small echogenic foci within the parenchyma. No mass noted in the myometrium. 2. Endometrium not well seen. Endometrium has an atrophic heterogeneous appearance. No mass. 3. 2 hypoechoic adjacent cysts versus a septated right ovarian cyst measuring 4.3 cm. Septation is thin. No mural nodules or vascular components. Aggregate volume has decreased since the prior study. Otherwise, right adnexa and ovary is unremarkable. 4. 3.7 cm anechoic left ovarian cyst. Volume measures 15.4 cc. Previously measuring 13.2 cc. Otherwise, left adnexa is normal. 5. Recommend continue sonographic monitoring versus MRI with and without contrast of the pelvis. Finding can be followed up in 6-12 months as needed. RADIA
== END 2018-04-29 11:25 | disposition home or self-care (01) ==
LOC: DI 11:24
PROVIDERS: ATTEND Obstetrics & Gynecology
DX: N83.202 Unspecified ovarian cyst, left side (principal); N83.201 Unspecified ovarian cyst, right side; R19.00 Intra-abdominal and pelvic swelling, mass and lump, unspecified site
CPT/HCPCS: 36415; 76830; 76856; 86304

== ENCOUNTER 2018-04-29 12:34 | Outpatient (CLI) | payer MEDICARE | END 2018-04-29 12:35 | disposition home or self-care (01) | LOC: LAB 12:34 | PROVIDERS: ATTEND Obstetrics & Gynecology | DX: R19.00 Intra-abdominal and pelvic swelling, mass and lump, unspecified site (principal) | CPT/HCPCS: 36415; 86304 ==

== ENCOUNTER 2018-06-29 12:11 | Outpatient (CLI) | payer MEDICARE ==
--- NOTE | 2018-06-29 14:27 | XRAY Report ---
Reason: COPD Procedure Date: 06/29/2018 Accession Number: [id number] / [id number] Procedure: XR - Chest 2 View X-Ray CPT Code: 47961 FULL RESULT: EXAM: CHEST RADIOGRAPHY EXAM DATE: 06/29/2018 12:39 PM. CLINICAL HISTORY: COPD. COMPARISON: Chest PA and lateral 07/30/2016 and 04/10/2010. TECHNIQUE: 2 views. FINDINGS: Lungs/Pleura: There is a stable 12 mm irregular pulmonary nodule in the right upper lobe near the first rib end, not significantly changed compared to studies dating back to 2009. Long-term stability would be consistent with a nonaggressive etiology perhaps scar. Otherwise, there are no focal infiltrates. No effusion or extraventilatory air. Mediastinum: Heart and mediastinal contours are unremarkable. Other: Moderate to large air-filled hiatal hernia superimposes behind the heart. IMPRESSION: 1. Stable right upper lobe pulmonary nodule since 2009 favors nonaggressive etiology. 2. Moderate to large hiatal hernia. 3. No infiltrates. RADIA
== END 2018-06-29 12:12 | disposition home or self-care (01) ==
LOC: DI 12:11
PROVIDERS: ATTEND Family Medicine
DX: R91.1 Solitary pulmonary nodule (principal); K44.9 Diaphragmatic hernia without obstruction or gangrene
CPT/HCPCS: 71046

== ENCOUNTER 2018-06-30 08:00 | Outpatient (CLI) | payer MEDICARE | END 2018-06-30 23:59 | disposition home or self-care (01) | LOC: LAB.R 08:00 | PROVIDERS: ATTEND Family Medicine | DX: N75.1 Abscess of Bartholin's gland (principal); L03.90 Cellulitis, unspecified | CPT/HCPCS: 87070; 87075; 87077; 87147; 87186; 87205 ==

== ENCOUNTER 2018-06-30 18:17 | Emergency (ER) | payer MEDICARE ==
--- NOTE | 2018-06-30 20:56 | ED Physician Documentation ---
PD HPI FEMALE - Stated complaint Stated Complaint: PELV ABCESS - Chief complaint Chief Complaint: Abd Pain - History obtained from History obtained from: Patient - History of Present Illness Timing - onset: How many weeks ago (1) Timing - duration: Weeks (1) Timing - details: Abrupt onset (She noted initially a small area of redness and swelling in the left labia last week which progressed quickly over just a couple of days to be a large area of focal swelling associated with surrounding redness extending onto the perineal area and the left medial upper thigh. She was seen in the office and placed on oral antibiotics and states has had some improvement in the cellulitis appearance on the thigh and perineal area but has had an increased in size in the labia. She is seen in the office again today with the notes of the increased labial size with concern for abscess formation. Dr. Neville talked with 's office who suggested the patient come to the emergency room for CT scan of the area to evaluate for deeper infection and then have a surgical consult for likely I&D.) Associated symptoms: No: Fever, Vaginal discharge, Dysuria Similar symptoms before: Has not had sx before Recently seen: Clinic Review of Systems Constitutional: denies: Fever, Chills, Myalgias GI: denies: Nausea, Vomiting, Diarrhea : denies: Dysuria, Frequency Skin: reports: Rash PD PAST MEDICAL HISTORY - Past Medical History Past Medical History: Yes Cardiovascular: Hypertension, High cholesterol, Valve disorder Respiratory: Pneumonia Endocrine/Autoimmune: HyPOthyroidism GI: Other : Incontinence, Frequency HEENT: Chronic vision loss Psych: Depression, Anxiety Musculoskeletal: Osteoarthritis, Rheumatoid arthritis - Past Surgical History Past Surgical History: Yes General: Colonoscopy Ortho: Hip replacement, Other Cardiovascular: Cardiac catheterization HEENT: Tonsil/Adenoidectomy - Present Medications Home Medications: Ambulatory Orders Medication Instructions Recorded Confirmed Levothyroxine [Synthroid] 25 mcg PO QDAC 01/01/17 11/17/17 Lisinopril 10 mg PO DAILY 01/01/17 11/17/17 Simvastatin [Zocor] 10 mg PO QPM 01/01/17 11/17/17 Etanercept [Enbrel] 50 mg SQ Q7D 05/23/17 11/17/17 Methotrexate 17.5 mg PO Q7D 05/23/17 11/17/17 Metoprolol Succinate [Toprol Xl] 25 mg PO DAILY 05/25/17 11/17/17 Aspirin [Aspirin EC] 81 mg PO DAILY 05/28/17 11/17/17 Calcium Carbonate [Calcium] 1,200 mg PO DAILY 05/28/17 11/17/17 Cholecalciferol (Vitamin D3) 4,000 units PO DAILY 05/28/17 11/17/17 [Vitamin D3] Folic Acid 1,600 mg PO Q7D 05/28/17 11/17/17 Multivitamin [Theragran] 1 tab PO DAILY 05/28/17 11/17/17 - Allergies Allergies/Adverse Reactions: Allergies Allergy/AdvReac Type Severity Reaction Status Date / Time No Known Drug Allergies Allergy Verified 06/30/18 18:41 - Social History Does the pt smoke?: No Smoking Status: Never smoker Does the pt drink ETOH?: No Does the pt have substance abuse?: No - Immunizations Immunizations are current?: Yes - POLST Patient has POLST: Yes PD ED PE NORMAL - Vitals Vital signs reviewed: Yes - General General: Alert and oriented X 3, No acute distress, Well developed/nourished - Cardiac Cardiac: RRR, No murmur - Respiratory Respiratory: Clear bilaterally - Abdomen Abdomen: Normal bowel sounds, Soft, Non tender, Non distended - Female Female : Tire Layer present, Other (There is some faint redness in the medial upper thigh and the left perineal area up to the pubis. There is a drawn area with a marking pen and the area of redness does not extend beyond that and looks faint at the edges of it. The left labia shows an area of firm swelling with a pointing of white pustule appearance. She states she has had some drainage from that site when she sits down or changes position at times. The right labia is normal.) - Rectal Rectal: Deferred - Back Back: No CVA TTP - Derm Derm: Normal color, Warm and dry Results - Vitals Vitals: Oxygen O2 Source Room air - Labs Labs: Laboratory Tests 06/30/18 06/30/18 06/30/18 20:47 20:47 20:47 WBC 9.4 RBC 3.81 L Hgb 12.7 Hct 37.8 MCV 99.3 H MCH 33.4 H MCHC 33.6 RDW 16.3 H Plt Count 266 MPV 7.3 L Neut # (Auto) 6.3 Lymph # (Auto) 1.5 [place] # (Auto) 1.4 H Eos # (Auto) 0.2 Baso # (Auto) 0.0 Absolute Nucleated RBC 0.01 Nucleated RBC % 0.1 Sodium 139 Potassium 3.4 L Chloride 103 Carbon Dioxide 24 Anion Gap 12.0 BUN 19 Creatinine 0.5 Estimated GFR (MDRD) 119 Glucose 100 Lactic Acid 1.0 Calcium 9.0 Magnesium 1.9 Total Bilirubin 0.5 AST 23 ALT 19 Alkaline Phosphatase 89 Total Protein 7.5 Albumin 3.8 Globulin 3.7 Albumin/Globulin Ratio 1.0 Lipase 42 - Rads (name of study) pelvic CT Radiology: Prelim report reviewed (cellulitic changes soft tissue upper thigh and perineum. Focal swelling without notable drainable collection left labia. ) Procedures - Abscess I&D (location) left labial Preparation: Lidocaine 1%, With epi Incision: Incised with scalpel, Purulent drainage, Irrigated. No: Packed Other: Pt tolerated well, Dressing applied PD MEDICAL DECISION MAKING - ED course Complexity details: considered differential (The patient was referred down from primary care office to have further evaluation of a labial abscess and cellulitis. Consultation had been with surgery on-call from the primary care office. The suggestion was a CT scan of the area and presumed I&D. The patient arrived here and did have the CT of the pelvis done. This took a bit of time due to department flow. She was given some mild pain medicine while here as well. After the CT results were obtained, I talked with 's office, the surgeon who had been consulted by the primary care office. He looked at the images and felt it was more appropriately at gynecology problem. I Dr. Dr. Barreto is on-call for gynecology and he felt the patient could continue the antibiotic she is on as she has had some decreasing in the cellulitis appearance and to do a simple I&D here and to follow-up in the office on Friday.), d/w patient Departure - Departure Disposition: Home, Self Care Clinical Impression: Left genital labial abscess Cellulitis Qualifiers: Site of cellulitis: other site Qualified Code(s): L03.818 - Cellulitis of other sites Condition: Stable Record reviewed to determine appropriate education?: Yes Instructions: ED Abscess IandD Follow-Up: Aundrea Vasquez MD [Primary Care Provider] - Fortunato Barreto MD [Provider Admit Priv/Credential] - Comments: Continue the current antibiotics you are taking as it seems to have been improving the redness surrounding the abscess. Hopefully the abscess will improve now with improved drainage from the area. Follow-up with Dr. Barreto in the office on Friday for reevaluation and see how well it is improving. Discharge Date/Time: 07/01/18 01:35
[2018-06-30 21:05] LABS: BASOPHILS % (AUTO) 0.5 %; EOSINOPHILS # (AUTO) 0.2 10^3/uL (0.0-0.7); EOSINOPHILS % (AUTO) 1.8 %; HGB - HEMOGLOBIN 12.7 g/dL (12.0-16.0); LYMPHOCYTES # (AUTO) 1.5 10^3/uL (1.5-3.5); LYMPHOCYTES % (AUTO) 16.4 %; MEAN CORPUSCULAR HEMOGLOBIN 33.4 pg (27.0-31.0); MEAN CORPUSCULAR HGB CONC 33.6 g/dL (32.0-36.0); MEAN CORPUSCULAR VOLUME 99.3 fL (81.0-99.0); MEAN PLATELET VOLUME 7.3 fL (7.9-10.8); MONOCYTES # (AUTO) 1.4 10^3/uL (0.0-1.0); MONOCYTES % (AUTO) 14.5 %; NEUTROPHILS # (AUTO) 6.3 10^3/uL (1.5-6.6); NEUTROPHILS % (AUTO) 66.8 %; PLT - PLATELET COUNT 266 10^3/uL (130-450); RED BLOOD COUNT 3.81 10^6/uL (4.20-5.40); RED CELL DISTRIBUTION WIDTH 16.3 % (12.0-15.0); WHITE BLOOD COUNT 9.4 x10^3/uL (4.8-10.8)
[2018-06-30 21:09] LABS: ALBUMIN 3.8 g/dL (3.2-5.5); BILIRUBIN,TOTAL 0.5 mg/dL (0.2-1.0); CREATININE 0.5 mg/dL (0.4-1.0); MAGNESIUM 1.9 mg/dL (1.7-2.8); TOTAL PROTEIN 7.5 g/dL (6.7-8.2)
[2018-06-30] MEDS: SODIUM CHLORIDE 0.9% 1,000 ML IV ONE (21:17)
--- NOTE | 2018-06-30 22:43 | CT Report ---
Reason: labial and pelvic abscess Procedure Date: 06/30/2018 Accession Number: [id number] / [id number] Procedure: CT - Abdomen/Pelvis W/ CPT Code: FULL RESULT: EXAM: CT ABDOMEN AND PELVIS EXAM DATE: 06/30/2018 10:15 PM. CLINICAL HISTORY: Labial pain and pelvic abscess. COMPARISONS: Pelvis with transvaginal 04/29/2018 11:26 AM. TECHNIQUE: Routine helical CT imaging was performed through the abdomen and pelvis. IV contrast: 100 mL of Optiray-320. Enteric contrast: No. Reconstructions: Coronal and sagittal. In accordance with CT protocol optimization, one or more of the following dose reduction techniques were utilized for this exam: automated exposure control, adjustment of mA and/or KV based on patient size, or use of iterative reconstructive technique. FINDINGS: ABDOMEN: Liver: There is a small heterogeneous low density lesion within the medial aspect of liver segment 7 near the IVC (image 18 series 3). Tiny low-density focus noted within the right hepatic lobe, segment 7/6 (image 22 series 3). Stomach/Distal Esophagus: There is a medium to large sized complex sliding hiatal and paraesophageal hernia. There is wall thickening of the distal esophagus, which could be due to incomplete distention and/or esophagitis. Nonspecific wall thickening of the gastric antrum. Gallbladder: Contracted appearance of the gallbladder, particularly the body and the fundal region. Multiple gallstones are noted. Adenomyomatosis may be present as well. Apparent wall thickening of the distal body and fundal region is of uncertain significance. Bile Ducts: No significant abnormality. Pancreas: No significant abnormality. Spleen: No significant abnormality. Kidneys: Moderate multifocal right kidney scarring. No definite suspicious renal lesion. Multiple peripelvic cysts are noted within the left kidney. No definite evidence of a kidney stone. Adrenals: No significant abnormality. Bowel: Average to moderate retained colonic fecal material. No small bowel obstruction. Severe sigmoid diverticulosis without definite diverticulitis. Appendix: Could not be identified with certainty. Lymph Nodes: No pathologically enlarged nodes. Vasculature: Normal caliber aorta. There is moderate to severe aortic and branch vessel atherosclerosis. Fluid: No significant free fluid. Abdominal Wall: No significant abnormality. Other: No significant abnormality. PELVIS: There is moderate streak artifact related to the left hip prosthesis, obscuring detailed assessment of the pelvis. Uterus and Ovaries: Postmenopausal small uterus. Engorged left-sided parametrial vessels may be a sequela of multiparity and/or pelvic congestion syndrome. Bilateral adnexal cystic lesions are again seen, measuring 2.9 x 5.6 cm on the right and a 3.6 x 5.6 cm on the left. Accounting for differences in technique, no significant change since the prior ultrasound examination. These are indeterminate in this postmenopausal female. Please refer to the report of the prior ultrasound for recommendation. Bladder: No significant abnormality. Lymph Nodes: A few enhancing left groin lymph nodes are noted, difficult to assess due to the streak artifact from the left hip prosthesis. One such dominant lymph node measures 1.8 x 1.2 cm (image 69 series 3). Fluid: No significant free fluid. Other: Inflammatory changes are noted about the left labia as well as the inner aspect of the left upper thigh. There is no drainable fluid collection noted about the labia or the left groin and thigh region. No definite intrapelvic extension of the inflammatory process demonstrated. BONES: No suspicious bony lesions. However, bones are at least moderately osteopenic. This reduces exam sensitivity and specificity for detection of subtle bony lesions and/or fractures. There is moderate to severe multilevel degenerative change within the spine. Left hip prosthesis. LOWER CHEST: No significant consolidation or effusion. IMPRESSION: 1. Skin thickening as well as a subcutaneous stranding are noted about the labia as well as the left upper inner thigh. These are most consistent with cellulitis. No drainable collection noted. 2. Mild reactive left groin lymphadenopathy. 3. Bilateral adnexal cystic lesions are again seen without significant change compared to the recent prior ultrasound. Please refer to the report of the recent prior ultrasound for recommendation. 4. There is no evidence of bowel obstruction. Average to moderate retained colonic fecal material. RADIA
[2018-07-01] MEDS: AMPICILLIN/SULBACTAM 1.5 GM in SODIUM CHLORIDE 0.9% MINIBAG 100 ML IV STA (00:47)
[2018-07-01 01:36] VITALS: BP 139/80
[2018-07-01] MEDS: IOVERSOL 320 100 ML VIAL IVP ONE (03:27)
== END 2018-07-01 01:35 | disposition home or self-care (01) ==
LOC: ED 18:17
DX: N76.4 Abscess of vulva (principal); L02.416 Cutaneous abscess of left lower limb; E03.9 Hypothyroidism, unspecified; I10 Essential (primary) hypertension; E78.00 Pure hypercholesterolemia, unspecified; Z96.649 Presence of unspecified artificial hip joint
CPT/HCPCS: 36415; 56405; 74177; 80053; 83605; 83690; 83735; 85025; 96365; 96366; 96367; 99283

== ENCOUNTER 2018-08-07 08:14 | Outpatient (CLI) | payer MEDICARE ==
[2018-08-07] MEDS ORDERED: GADOBUTROL 7.5 MMOL/7.5 ML VIAL ONE (08:54)
[2018-08-07] MEDS ORDERED: GADOBUTROL 7.5 MMOL/7.5 ML VIAL IVP ONE (10:12)
--- NOTE | 2018-08-07 10:21 | MRI Report ---
Reason: TIA Procedure Date: 08/07/2018 Accession Number: [id number] / [id number] Procedure: MRI - Angio Neck W/WO (MRA) CPT Code: FULL RESULT: EXAM: MR ANGIOGRAM NECK EXAM DATE: 08/07/2018 09:57 AM. CLINICAL HISTORY: TIA. Vertigo. Multiple falls in the past 4 months. COMPARISON: Carotid Doppler complete 02/16/2018. TECHNIQUE: Multiplanar, multisequence MRA sequences of the neck were performed. Other: None. Post-processing: Multiplanar 3D MIP reconstructions. IV Contrast: 7.5 mL Gadavist. Evaluation of arterial stenosis is based on a NASCET method of measurement. FINDINGS: Mild tortuosity of the cervical vertebral and carotid arteries but no evidence for acute abnormality or focal flow-limiting stenosis. The top of the aortic arch and the origins of the great vessels are patent. No evidence for proximal subclavian artery flow-limiting stenosis. No evidence for intracranial vertebrobasilar insufficiency. IMPRESSION: Unremarkable neck MRA. No hemodynamically significant stenoses. RADIA
--- NOTE | 2018-08-07 10:39 | MRI Report ---
Reason: TIA Procedure Date: 08/07/2018 Accession Number: [id number] / [id number] Procedure: MRI - Angio Brain W/O (MRA) CPT Code: FULL RESULT: EXAM MRA BRAIN EXAM DATE: 08/07/2018 10:01 AM. CLINICAL HISTORY: TIA. Reported history of weakness, vertigo and multiple recent falls. COMPARISON: None. TECHNIQUE: Multiplanar, multisequence MRA sequences of the brain were performed. Other: None. Post-processing: Multiplanar 3D MIP reconstructions. IV Contrast: None. FINDINGS: Patent distal internal carotid arteries. Unremarkable appearance of the intradural vertebral arteries and basilar artery. Patent anterior communicating artery. Patent posterior communicating arteries, larger on the right than on the left. No evidence for intracranial large artery flow-limiting stenosis, occlusion or filling defect. No evidence for aneurysm of the [place]. IMPRESSION: Unremarkable brain MRA. No stenoses or aneurysms. RADIA
== END 2018-08-07 08:15 | disposition home or self-care (01) ==
LOC: DI 08:14
PROVIDERS: ATTEND Psychiatry & Neurology Neurology
DX: G45.9 Transient cerebral ischemic attack, unspecified (principal)
CPT/HCPCS: 70544; 70549; A9585

== ENCOUNTER 2018-10-01 10:03 | Outpatient (CLI) | payer MEDICARE ==
--- NOTE | 2018-10-01 14:08 | Ultrasound Report ---
Reason: PELVIC MASS IN FEMALE Procedure Date: 10/01/2018 Accession Number: [id number] / [id number] Procedure: US - Pelvic w/Transvaginal CPT Code: FULL RESULT: EXAM: PELVIC ULTRASOUND EXAM DATE: 10/01/2018 11:19 AM. CLINICAL HISTORY: PELVIC MASS IN FEMALE. COMPARISON: PELVIC W/TRANSVAGINAL 04/29/2018 11:26 AM ABDOMEN/PELVIS W/ 06/30/2018 9:58 PM. TECHNIQUE: Realtime transabdominal pelvic scan performed to identify the uterus and adnexa and as an overview of other pelvic structures, followed by transvaginal scan to provide greater detail of the uterus and adnexa, with static image documentation. FINDINGS: Uterus: 6.8 x 2.5 x 3.9 cm, volume 34.7 cc. Retroverted position. Diffusely increased in echotexture with multiple areas of increased echogenicity within the myometrium. Masses: None. Endometrium: 3 mm. Normal. Cervix: Unremarkable. Right Ovary: 5.4 x 3.1 x 3.1 cm, volume 27.1 cc. Predominantly comprised of 2 adjacent simple-appearing anechoic cyst with thin zheng in aggregate measure 5.4 x 3.1 x 2.5 cm, similar to the prior exam accounting for technical measurement variation. Left Ovary: 6.1 x 3.7 x 3.7 cm, volume 43.7 cc. Aggregate thin-walled anechoic cysts measures 6 x 3.7 x 3.7, similar to the prior exam and accounting for differences in technique. Free Fluid: None. Other: None. IMPRESSION: 1. Accounting for technical measurement variation, no significant change in thin-walled cystic lesions of the ovaries. Favor benign cystic neoplasia; recommend continued surveillance with follow-up ultrasound in 6-12 months. Consider correlation with CA 125 level if this has not already been performed. RADIA
== END 2018-10-01 10:04 | disposition home or self-care (01) ==
LOC: DI 10:03
PROVIDERS: ATTEND Obstetrics & Gynecology
DX: N83.202 Unspecified ovarian cyst, left side (principal); N83.201 Unspecified ovarian cyst, right side
CPT/HCPCS: 76830; 76856

== ENCOUNTER 2018-10-09 11:37 | Outpatient (CLI) | payer MEDICARE ==
[2018-10-09 18:44] LABS: BASOPHILS # (AUTO) 0.1 10^3/uL (0.0-0.1); BASOPHILS % (AUTO) 0.8 %; EOSINOPHILS # (AUTO) 0.1 10^3/uL (0.0-0.7); EOSINOPHILS % (AUTO) 1.9 %; HGB - HEMOGLOBIN 12.7 g/dL (12.0-16.0); LYMPHOCYTES # (AUTO) 1.4 10^3/uL (1.5-3.5); LYMPHOCYTES % (AUTO) 20.8 %; MEAN CORPUSCULAR HGB CONC 32.4 g/dL (32.0-36.0); MEAN CORPUSCULAR VOLUME 95.5 fL (81.0-99.0); MEAN PLATELET VOLUME 8.4 fL (7.9-10.8); MONOCYTES # (AUTO) 0.7 10^3/uL (0.0-1.0); MONOCYTES % (AUTO) 10.7 %; NEUTROPHILS # (AUTO) 4.5 10^3/uL (1.5-6.6); NEUTROPHILS % (AUTO) 65.8 %; PLT - PLATELET COUNT 249 10^3/uL (130-450); RED BLOOD COUNT 4.11 10^6/uL (4.20-5.40); RED CELL DISTRIBUTION WIDTH 17.3 % (12.0-15.0); WHITE BLOOD COUNT 6.8 x10^3/uL (4.8-10.8)
[2018-10-09 19:41] LABS: ALBUMIN 4.3 g/dL (3.2-5.5); ALBUMIN/GLOBULIN RATIO 1.4 (1.0-2.2); ALKALINE PHOSPHATASE 94 IU/L (42-121); ALT ALANINE AMINOTRANSFERASE 20 IU/L (10-60); AST ASPARTATE AMINOTRANSFERASE 26 IU/L (10-42); BILIRUBIN,TOTAL 0.8 mg/dL (0.2-1.0); BUN - BLOOD UREA NITROGEN 27 mg/dL (6-20); CALCIUM 9.6 mg/dL (8.5-10.3); CARBON DIOXIDE - CO2 27 mmol/L (21-32); CHLORIDE 106 mmol/L (101-111); CHOL/HDL RATIO 2.1 (<4.4); CHOLESTEROL 170 mg/dL; CREATININE 0.9 mg/dL (0.4-1.0); GFR - MDRD 60 (>89); GLUCOSE 95 mg/dL (70-100); HDL CHOLESTEROL 80 mg/dL; LDL CHOLESTEROL,CALCULATED 81 mg/dL; SODIUM 141 mmol/L (135-145); TOTAL PROTEIN 7.3 g/dL (6.7-8.2); VLDL CHOLESTEROL 9 mg/dL
== END 2018-10-09 23:59 | disposition home or self-care (01) ==
LOC: LAB.WCP 11:37
PROVIDERS: ATTEND Internal Medicine Cardiovascular Disease
DX: E78.5 Hyperlipidemia, unspecified (principal); M05.69 Rheumatoid arthritis of multiple sites with involvement of other organs and systems
CPT/HCPCS: 36415; 80053; 80061; 83721; 85025; 85651

== ENCOUNTER 2018-11-08 16:49 | Outpatient (CLI) | payer MEDICARE ==
--- NOTE | 2018-11-10 15:32 | Ultrasound Report ---
Reason: SUBCUTANEOUS MASS OF LEFT LEG Procedure Date: 11/08/2018 Accession Number: [id number] / [id number] Procedure: US - Ext Limited Non Vascular CPT Code: FULL RESULT: EXAM: LEFT LOWER EXTREMITY ULTRASOUND - LIMITED EXAM DATE: 11/08/2018 05:31 PM. CLINICAL HISTORY: SUBCUTANEOUS MASS OF LEFT LEG. History of trauma COMPARISON: None. TECHNIQUE: Real-time scanning was performed with static images obtained. FINDINGS: Corresponding to the palpable subcutaneous mass in the left lateral thigh is a predominantly echogenic poorly marginated indistinct 5.1 x 1.5 x 3.7 cm mass with minima vascularity. Given the clinical history findings are most likely related to a hematoma. IMPRESSION: Findings left thigh most likely a hematoma by ultrasound. Suggest clinical follow-up. Comment: If the mass were to progressively enlarge further evaluation by MRI may be useful. RADIA
== END 2018-11-08 16:50 | disposition home or self-care (01) ==
LOC: DI 16:49
PROVIDERS: ATTEND Family Medicine
DX: R22.42 Localized swelling, mass and lump, left lower limb (principal)
CPT/HCPCS: 76882

== ENCOUNTER 2018-11-26 13:38 | Outpatient (CLI) | payer MEDICARE | END 2018-11-26 23:59 | disposition home or self-care (01) | LOC: LAB.N 13:38 | PROVIDERS: ATTEND Obstetrics & Gynecology | DX: R19.00 Intra-abdominal and pelvic swelling, mass and lump, unspecified site (principal) | CPT/HCPCS: 36415; 86304 ==

== ENCOUNTER 2019-01-21 08:00 | Outpatient (CLI) | payer MEDICARE ==
[2019-01-21 18:33] LABS: BASOPHILS % (AUTO) 0.3 %; EOSINOPHILS # (AUTO) 0.1 10^3/uL (0.0-0.7); EOSINOPHILS % (AUTO) 1.6 %; LYMPHOCYTES # (AUTO) 1.9 10^3/uL (1.5-3.5); LYMPHOCYTES % (AUTO) 29.3 %; MEAN CORPUSCULAR HEMOGLOBIN 32.8 pg (27.0-31.0); MEAN CORPUSCULAR HGB CONC 31.7 g/dL (32.0-36.0); MEAN CORPUSCULAR VOLUME 103.5 fL (81.0-99.0); MEAN PLATELET VOLUME 10.3 fL (7.9-10.8); MONOCYTES # (AUTO) 0.9 10^3/uL (0.0-1.0); NEUTROPHILS # (AUTO) 3.5 10^3/uL (1.5-6.6); NEUTROPHILS % (AUTO) 54.6 %; PLT - PLATELET COUNT 217 10^3/uL (130-450); RED BLOOD COUNT 3.96 10^6/uL (4.20-5.40); RED CELL DISTRIBUTION WIDTH 16.8 % (12.0-15.0); WHITE BLOOD COUNT 6.4 x10^3/uL (4.8-10.8)
[2019-01-21 18:55] LABS: ALBUMIN 4.3 g/dL (3.2-5.5); ALBUMIN/GLOBULIN RATIO 1.5 (1.0-2.2); ALKALINE PHOSPHATASE 64 IU/L (42-121); ALT ALANINE AMINOTRANSFERASE 15 IU/L (10-60); AST ASPARTATE AMINOTRANSFERASE 22 IU/L (10-42); BILIRUBIN,TOTAL 1.3 mg/dL (0.2-1.0); BUN - BLOOD UREA NITROGEN 26 mg/dL (6-20); CALCIUM 9.4 mg/dL (8.5-10.3); CARBON DIOXIDE - CO2 25 mmol/L (21-32); CHLORIDE 106 mmol/L (101-111); CHOL/HDL RATIO 2.2 (<4.4); CHOLESTEROL 165 mg/dL; GFR - MDRD 53 (>89); GLUCOSE 101 mg/dL (70-100); HDL CHOLESTEROL 75 mg/dL; LDL CHOLESTEROL,CALCULATED 78 mg/dL; SODIUM 143 mmol/L (135-145); TOTAL PROTEIN 7.1 g/dL (6.7-8.2); VLDL CHOLESTEROL 12 mg/dL
[2019-01-21 20:43] LABS: HB2 TOTAL 13.7 g/dL; HEMOGLOBIN A1C 0.51 g/dL; HEMOGLOBIN A1C % 5.6 % (4.6-6.2)
== END 2019-01-21 23:59 | disposition home or self-care (01) ==
LOC: LAB.WCP 08:00
PROVIDERS: ATTEND Family Medicine
DX: R10.2 Pelvic and perineal pain (principal); I10 Essential (primary) hypertension; E03.9 Hypothyroidism, unspecified; E78.5 Hyperlipidemia, unspecified; J44.9 Chronic obstructive pulmonary disease, unspecified; R73.01 Impaired fasting glucose; I25.10 Atherosclerotic heart disease of native coronary artery without angina pectoris; R53.83 Other fatigue; I73.00 Raynaud's syndrome without gangrene; G62.9 Polyneuropathy, unspecified; M81.0 Age-related osteoporosis without current pathological fracture; D89.89 Other specified disorders involving the immune mechanism, not elsewhere classified
CPT/HCPCS: 36415; 80053; 80061; 83036; 83721; 84443; 85025

== ENCOUNTER 2019-02-05 14:20 | Observation (INO) | payer MEDICARE ==
--- NOTE | 2019-02-05 15:38 | ED Physician Documentation ---
History of Present Illness - Stated complaint Stated Complaint: LT LEG PX - Chief complaint Chief Complaint: Ext Problem - History obtained from History obtained from: Patient, Family - History of Present Illness Timing: How many weeks ago (1) Severity Comments: moderate left lower calf pain Quality: throbbing, achy Radiates to: does not radiate Improved by: nothing Worsened by: touching the area Associated symptoms: redness, swelling tenderness to left calf and brannon - Treatment prior to arrival Treatment prior to arrival: keflex for 1 day and obtained an ultrasound of her L calf yesterday at [facility] . She is 1 week s/p surgery for a L knee replacement. She was restarted on NSAIDs after surgery. She has a prior hx of GI bleeding and is now having black tarry stool again for a week. Denies feeling weak dizzy or passing out. She has had an upper and lower scope in October of this year for the same and states they didn't find anything. Review of Systems Ten Systems: 10 systems reviewed and negative Constitutional: denies: Fever, Chills GI: reports: Bloody / black stool. denies: Abdominal Pain, Nausea, Vomiting, Constipation, Diarrhea, Hematemesis : reports: Reviewed and negative Skin: reports: Other (left brannon redness, swelling) Musculoskeletal: reports: Extremity pain, Extremity swelling Neurologic: denies: Focal weakness, Numbness Immunocompromised: reports: Reviewed and negative PD PAST MEDICAL HISTORY - Past Medical History Past Medical History: Yes Cardiovascular: Hypertension, High cholesterol, Valve disorder Respiratory: Pneumonia Endocrine/Autoimmune: HyPOthyroidism GI: Other : Incontinence, Frequency HEENT: Chronic vision loss Psych: Depression, Anxiety Musculoskeletal: Osteoarthritis, Rheumatoid arthritis - Past Surgical History Past Surgical History: Yes General: Colonoscopy Ortho: Hip replacement, Other Cardiovascular: Cardiac catheterization HEENT: Tonsil/Adenoidectomy - Present Medications Home Medications: Ambulatory Orders Medication Instructions Recorded Confirmed Levothyroxine [Synthroid] 25 mcg PO QDAC 01/01/17 11/17/17 Lisinopril 10 mg PO DAILY 01/01/17 11/17/17 Simvastatin [Zocor] 10 mg PO QPM 01/01/17 11/17/17 Etanercept [Enbrel] 50 mg SQ Q7D 05/23/17 11/17/17 Methotrexate 17.5 mg PO Q7D 05/23/17 11/17/17 Metoprolol Succinate [Toprol Xl] 25 mg PO DAILY 05/25/17 11/17/17 Aspirin [Aspirin EC] 81 mg PO DAILY 05/28/17 11/17/17 Calcium Carbonate [Calcium] 1,200 mg PO DAILY 05/28/17 11/17/17 Cholecalciferol (Vitamin D3) 4,000 units PO DAILY 05/28/17 11/17/17 [Vitamin D3] Folic Acid 1,600 mg PO Q7D 05/28/17 11/17/17 Multivitamin [Theragran] 1 tab PO DAILY 05/28/17 11/17/17 - Allergies Allergies/Adverse Reactions: Allergies Allergy/AdvReac Type Severity Reaction Status Date / Time NSAIDS (Non-Steroidal Allergy Unknown Verified 07/23/18 10:51 Anti-Inflamma seasonal Allergy Unknown Uncoded 07/23/18 10:51 - Social History Does the pt smoke?: No Smoking Status: Never smoker Does the pt drink ETOH?: No Does the pt have substance abuse?: No - Immunizations Immunizations are current?: Yes - POLST Patient has POLST: Yes PD ED PE NORMAL - Vitals Vital signs reviewed: Yes - General General: Alert and oriented X 3, No acute distress, Well developed/nourished - HEENT HEENT: Atraumatic - Neck Neck: Supple, no meningeal sign, No JVD - Cardiac Cardiac: RRR, No murmur, No gallop, No rub - Respiratory Respiratory: No respiratory distress, Clear bilaterally - Abdomen Abdomen: Soft, Non tender, Non distended - Female Female : Deferred - Extremities Extremities: No deformity - Neuro Neuro: Alert and oriented X 3 Eye Opening: Spontaneous Motor: Obeys Commands Verbal: Oriented GCS Score: 15 PD ED PE EXPANDED - Rectal Rectal: Heme Occult Pos - QC + (black tarry stool present ) - Extremities Extremities: Left leg (left brannon redness, swelling, tenderness to palpation with serous fluid filled blister on the posterior aspect ) Results - Vitals Vitals: Vital Signs - 24 hr 02/05/19 02/05/19 14:27 17:08 Temperature 36.1 C L 36.6 C Heart Rate 89 74 Respiratory 14 16 Rate Blood Pressure 107/68 123/73 O2 Saturation 100 100 Oxygen O2 Source Room air - Labs Labs: Laboratory Tests 02/05/19 02/05/19 02/05/19 15:51 15:51 15:51 WBC 7.8 RBC 3.28 L Hgb 10.7 L Hct 33.4 L MCV 101.8 H MCH 32.6 H MCHC 32.0 RDW 15.3 H Plt Count 251 MPV 9.2 Neut # (Auto) 5.0 Lymph # (Auto) 1.4 L Garvin # (Auto) 1.2 H Eos # (Auto) 0.1 Baso # (Auto) 0.0 Absolute Nucleated RBC 0.00 Nucleated RBC % 0.0 PT 12.2 INR 1.1 APTT 28.9 Sodium 137 Potassium 4.5 Chloride 101 Carbon Dioxide 24 Anion Gap 12.0 BUN 49 H Creatinine 1.7 H Estimated GFR (MDRD) 29 L Glucose 99 Lactic Acid Calcium 8.8 Total Bilirubin 0.6 AST 20 ALT 14 Alkaline Phosphatase 63 Total Protein 6.9 Albumin 3.5 Globulin 3.4 Albumin/Globulin Ratio 1.0 Lipase 46 02/05/19 15:51 WBC RBC Hgb Hct MCV MCH MCHC RDW Plt Count MPV Neut # (Auto) Lymph # (Auto) Garvin # (Auto) Eos # (Auto) Baso # (Auto) Absolute Nucleated RBC Nucleated RBC % PT INR APTT Sodium Potassium Chloride Carbon Dioxide Anion Gap BUN Creatinine Estimated GFR (MDRD) Glucose Lactic Acid 1.3 Calcium Total Bilirubin AST ALT Alkaline Phosphatase Total Protein Albumin Globulin Albumin/Globulin Ratio Lipase PD MEDICAL DECISION MAKING - ED course Complexity details: reviewed old records, reviewed results, re-evaluated patient, considered differential, d/w patient ED course: ddx - upper gi bleeding, gastritis, PUD, NSAID adverse effect, Cellulitis, DVT 78 y/o F with GI bleeding after restarting NSAIDs s/p surgery. She also appears to have suspected cellulitis of the L calf and was started on keflex yesterday with no worsening of her symptoms. DVT study from [facility] was done yesterday and we are working to obtain those results. Reviewed records from [facility] showing negative LLE US for DVT. Pt's leg clinically is c/w cellulitis. Will treat as such, given ancef per Hospitalist request. Pt also has KEVIN likely due to dehydration, given IV NS here in the ED, will continue to monitor as inpatient. GI bleeding appears to be slow, ongoing for a week but pt does have drop in H&H from 13 to 10. She has had prior scope without significant finding. Suspect this was due in part to recent NSAID use. Advised pt to hold nsaids and will admit to monitor H&H Departure - Departure Disposition: ED Place in Observation Clinical Impression: Acute anemia, Cellulitis of leg without foot, left, KEVIN (acute kidney injury) GI bleeding Qualifiers: GI bleed type/associated pathology: unspecified gastrointestinal hemorrhage type Qualified Code(s): K92.2 - Gastrointestinal hemorrhage, unspecified Adverse effect of non-steroidal anti-inflammatory drug (NSAID) Qualifiers: Encounter type: initial encounter Qualified Code(s): T39.395A - Adverse effect of other nonsteroidal anti-inflammatory drugs [NSAID], initial encounter Condition: Stable
[2019-02-05 15:58] LABS: BASOPHILS % (AUTO) 0.4 %; EOSINOPHILS # (AUTO) 0.1 10^3/uL (0.0-0.7); EOSINOPHILS % (AUTO) 1.7 %; HGB - HEMOGLOBIN 10.7 g/dL (12.0-16.0); LYMPHOCYTES # (AUTO) 1.4 10^3/uL (1.5-3.5); LYMPHOCYTES % (AUTO) 18.4 %; MEAN CORPUSCULAR HEMOGLOBIN 32.6 pg (27.0-31.0); MEAN CORPUSCULAR VOLUME 101.8 fL (81.0-99.0); MEAN PLATELET VOLUME 9.2 fL (7.9-10.8); MONOCYTES # (AUTO) 1.2 10^3/uL (0.0-1.0); MONOCYTES % (AUTO) 15.4 %; NEUTROPHILS % (AUTO) 63.8 %; PLT - PLATELET COUNT 251 10^3/uL (130-450); RED BLOOD COUNT 3.28 10^6/uL (4.20-5.40); RED CELL DISTRIBUTION WIDTH 15.3 % (12.0-15.0); WHITE BLOOD COUNT 7.8 x10^3/uL (4.8-10.8)
[2019-02-05 16:10] LABS: ALBUMIN 3.5 g/dL (3.2-5.5); BILIRUBIN,TOTAL 0.6 mg/dL (0.2-1.0); CALCIUM 8.8 mg/dL (8.5-10.3); CREATININE 1.7 mg/dL (0.4-1.0); TOTAL PROTEIN 6.9 g/dL (6.7-8.2)
[2019-02-05 16:16] LABS: INR 1.1 (0.8-1.2); PT - PROTHROMBIN TIME 12.2 secs (9.9-12.6)
[2019-02-05] MEDS ORDERED: SODIUM CHLORIDE 0.9% 1,000 ML IV ONE (16:22)
[2019-02-05 16:23] LABS: PARTIAL THROMBOPLASTIN TIME 28.9 secs (24.9-33.3)
[2019-02-05] MEDS ORDERED: fentaNYL 100 MCG/2 ML VIAL IVP STA (16:50)
[2019-02-05] MEDS ORDERED: ceFAZolin 1 GM in SODIUM CHLORIDE 0.9% MINIBAG 100 ML IV STA (16:50)
[2019-02-05] MEDS ORDERED: PROCHLORPERAZINE 10 MG/2 ML VIAL IVP PRN (16:58)
[2019-02-05] MEDS ORDERED: ONDANSETRON 4 MG/2 ML VIAL IVP PRN (16:58)
[2019-02-05] MEDS ORDERED: SODIUM CHLORIDE FLUSH 0.9% 10 ML SYRINGE IVP PRN (16:58)
[2019-02-05] MEDS ORDERED: ONDANSETRON ODT 4 MG TABLET TL PRN (16:58)
--- NOTE | 2019-02-05 18:46 | HISTORY & PHYSICAL EXAMINATION ---
Chief Complaint - Chief Complaint Chief Complaint: bloody stool History of Present Illness - Admitted From Admitted From:: Home/ER - History Obtained From Records Reviewed: [facility] History obtained from: Patient and ER MD Exam Limitations: none - History of Present Illness HPI Comment/Other: This is a 78-year-old female who has a previous history of gastric ulcer disease. She was seen for anemia and Hemoccult-positive stools in October 2017 and an EGD confirmed gastric ulcers. She was treated with proton pump inhibitors and told never to take any more nonsteroidals again. She had a follow-up EGD in January [address] Altaf Obrien. She had a 2 cm hiatal hernia, a small patch of abnormal mucosa at the GE junction, and biopsies were sent. It was okay for her to stop her sucralfate and acid fransisco as long as she avoided any aspirin like processes. She then had a knee replacement January [address] Kim Tillman. Pain was controlled with Tylenol and oxycodone. She was discharged to physical therapy at [facility]. She was discharged on aspirin 81 mg p.o. twice daily. Her ranitidine was also continued. She was seen for pain and redness of her left lower extremity after this knee replacement. An ultrasound of the leg was (-)February 04. Today she began having bloody stools, rather she notified her office today that she was having bloody stools for a week. They asked her to please come to the emergency room. Usual hemoglobin is 13 and she is down to 10.7. In the emergency room she was also noted to be hypotensive. She is usually 139 systolic and she was 107. With the fluid bolus she dodie to 123 sytolic. Also of note was a creatinine that is newly elevated to 1.7 where she is usually 1.0. She is now placed in observation for GI bleed. She denies abd pain, fever, no recent travel, and no one else is sick. No diarrhea. History - Past Medical History Cardiovascular: reports: Hypertension, High cholesterol, Coronary artery disease (Cath 01/2010, 10/2010 without significant disease. Admit for cp 10/18/10 at [facility] p hip replacement 10/13/10. ), Deep vein thrombosis (this is in her PMH but she denies having ), Atrial fibrillation (She denies having afib but it is in her medical records. No EKG or event referred to. Followed by cardiology at [facility], no anticoagulation. @D echo 10/2010 mod to severe TR and PA pressure 40-45 mmHg. 11/2011 mod TR. LVEF 60-65%. 12/2012 nml LV and RVEF, EF 60- 65% w mod to severe TR. Pul art 38 mmHg, 06/2014 no change but TRUNG severe now. 04/2015 now w mod dil RV, TRUNG severe. 07/2017 nml LV, no change . 09/2018 no change. ), Murmur (moderate to severe tricuspid regurgitation), Arrhythmia (NSVT w cp admit 10/2010 to [facility] p hip replacement (CT angio neg then)), Valve disorder Respiratory: reports: Asthma (07/2006>FVC 3.24, FEV1 2.33 with 72%. Went ot 76% wet bronchodilators.), COPD, Pneumonia, Other (mild pulmonary HTN) Neuro: reports: TIA, Migraines, Peripheral neuropathy, Other (Polyneuropathy/past TIA. Evaluated by [facility] neurology. Last visit December 10, 2018. Numbness and tingling in hands and feet. Most likely idiopathic or genetic. Treatment is alpha lipoic acid. MRA of brain and neck (- ) 08/07/18. EEG neg. ) Endocrine/Autoimmune: reports: HyPOthyroidism GI: reports: Other (diverticulosis on scope 12/31/07) STEWARD/[employer]ARDESS [employer] CLASS: reports: Other (bartholin's cyst w lancing 07/13/18 p cellulitis tx 07/06/18. .) : reports: Incontinence (stress urinary incontinence), Frequency HEENT: reports: Chronic vision loss Psych: reports: Depression, Anxiety Musculoskeletal: reports: Osteoarthritis (s/p left TKR 01/28/19), Rheumatoid arthritis (on Enbrel since Summer 2006, MTX and has been on Arava, Humira in the past), Osteoporosis (Hip fracture 10/2010, biphosphonates started 12/2010, left tibial plateau fx 11/2012), Other (C-spine degenerative disc disease) MRSA Hx?: No - Past Surgical History General: reports: Colonoscopy Ortho: reports: Hip replacement, Other /STEWARD/[employer]EW[employer]ESS [employer] CLASS: reports: Tubal ligation Cardiovascular: reports: Cardiac catheterization HEENT: reports: Tonsil/Adenoidectomy - Family & Social History Family History Comment/Other: Both mom and dad in their 90s of old age. 2 siblings. One brother had a recent knee replacement. Her sister has some type of growth on her left face. But neither 1 of them have coronary artery disease, hypertension, hyperlipidemia, cancer. 3 sons. One lives in [place]. One son travels the country as a bag while working at [employer]. One son lives with her but unfortunately he is an alcoholic. She is trying to get him to stop. Living arrangement: At home Living Situation: With family (son) Social History Notes: smoked for only 6 months in her 20's. no alcohol abuse. no recreational substance abuse.She was for over 50 years to her first . He at age 81 while jogging in a marathon in [place] 4 years ago. Her son was present when he and try to resuscitate his father. That is when he became an alcoholic because it affected him psychologically. Her son lives with her. - Substance History Use: Uses substance without health or social issues: NONE Abuse: Recurrent use of substance despite neg consequences: NONE Dependence: Experiences withdrawal or developed tolerances: NONE - POLST Patient has POLST: No POLST Status: Full Code (she has not thought about advanced care planning or planning for severe diability. She thinks that if she is resuscitated she will recover to be normal and go home again.) Meds/Allgy - Home Medications Home Medications: Ambulatory Orders Medication Instructions Recorded Confirmed Levothyroxine [Synthroid] 25 mcg PO QDAC 01/01/17 02/05/19 Lisinopril 5 mg PO DAILY 01/01/17 02/05/19 Simvastatin [Zocor] 10 mg PO QPM 01/01/17 02/05/19 Etanercept [Enbrel] 50 mg SQ Q7D 05/23/17 02/05/19 Methotrexate 17.5 mg PO Q7D 05/23/17 02/05/19 Metoprolol Succinate [Toprol Xl] 25 mg PO DAILY 05/25/17 02/05/19 Calcium Carbonate [Calcium] 1,200 mg PO DAILY 05/28/17 02/05/19 Cholecalciferol (Vitamin D3) 4,000 units PO DAILY 05/28/17 02/05/19 [Vitamin D3] Multivitamin [Theragran] 1 tab PO DAILY 05/28/17 02/05/19 Furosemide 20 mg PO DAILY 02/05/19 02/05/19 raNITIdine HCl [Zantac] 150 mg PO DAILY 02/05/19 02/05/19 - Allergies Allergies/Adverse Reactions: Allergies Allergy/AdvReac Type Severity Reaction Status Date / Time NSAIDS (Non-Steroidal Allergy Unknown Verified 07/23/18 10:51 Anti-Inflamma seasonal Allergy Unknown Uncoded 07/23/18 10:51 Review of Systems - Constitutional Constitutional: reports: Fatigue. denies: Fever, Chills, Malaise, Weakness, Poor appetite - Eyes Eyes: denies: Pain, Irritation, Amaurosis, Blurred vision - Ears, Nose & Throat Ears, Nose & Throat: denies: Hearing loss, Hearing aids, Nasal pain - Cardiovascular Cariovascular: reports: Palpitations (in the past not now), Chest pain (in the past not now), Exertional dyspnea, Decr. exercise tolerance (this has been chronic for years, multiple heart and lung evals with CT coronary angios, cath, PFTs) - Respiratory Respiratory: reports: SOB at rest, SOB with exertion. denies: Cough, Sputum production, Wheezing, Snoring, Orthopnea - Gastrointestinal Gastrointestinal: denies: Abdominal pain, Abdominal distention, Constipation, Diarrhea, Rectal bleeding, Black stools, Bloody stools, Nausea - Genitourinary Genitourinary: denies: Dysuria, Frequency, Urgency, Hematuria - Musculoskeletal Musculoskeletal: reports: Muscle pain, Muscle aches, Stiffness, Other (her tibial plateau fx left her knee crooked and hard to walk on for years, so had knee replacement to help that) - Integumentary Integumentary: reports: Rash (of her legs comes and goes, She sees Dermatology LONNIE Lockwood) - Neurological Neurological: reports: Dizziness (in past w neg carotids 11/2010), Numbness, Other (falls with unsteady legs) - Psychiatric Psychiatric: reports: Anxiety. denies: Depression, Suicidal - Endocrine Endocrine: denies: Polyuria, Polydypsia, Polyphagia, Intolerance to cold - Hematologic/Lymphatic Hematologic/Lymphatic: denies: Anemia, Bruising, Petechiae Prior Level of Functionality: She does not drive as much as she used to. But is still able to dress herself, feed herself. Still able to pay bills. 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 Exam - Vital Signs Reviewed Vital Signs: Yes Vital Signs: Vital Signs x48h Temp Pulse Resp BP Pulse Ox 02/05/19 17:08 36.6 C 74 16 123/73 100 02/05/19 14:27 36.1 C L 89 14 107/68 100 - Physical Exam General Appearance: positive: Alert, Other (Oriented elderly lady who looks her stated age. Wearing glasses. Mild choreoathetotic nonstop movement of her hands and head she lays in the bed.) Eyes Bilateral: positive: PERRL, EOMI ENT: positive: Pharynx nml Neck: positive: No JVD. negative: Stiff neck, Carotid bruit Respiratory: positive: Chest non-tender. negative: Wheezes, Rales, Rhonchi Cardiovascular: positive: Regular rate & rhythm. negative: Systolic murmur, Gallop/S4, Friction rub Peripheral Pulses: positive: 1+ Abdomen: positive: Non-tender, No organomegaly, Nml bowel sounds, No distention Skin: positive: Warm, Other (Left lower extremity below the knee is covered in a pink tight shiny cellulitis that starts below the kneecap, below the incision of her surgery, to the distal tibial insertion to her foot. Some of the redness in the upper calf goes around to the back. But most of the involvement is the anterior brannon. There is no open area, no bruising yet.) Extremities: positive: Pedal edema (Of the entire left lower extremity below the knee. 1+ edema. The redness and heat are noted. There is still a bandage over her left anterior knee and a vertical incision. That area of skin, while edematous, has no redness, heat, or drainage.), Joint swelling (PIP and wrists), Other (diffused loss of muscle mass especially in her hands. PIP of index fingers both hands deformed. The rest of her PIPs are minimally deformed. Wrist have slight lateral deviation at the thumb base. Toes of her feet are involved with rheumatoid arthritis. But there is no active effusions of the ankles, knees, wrists, elbows.) Neurologic/Psychiatric: positive: Oriented x3, CN's nml (2-12), Motor nml, Sensory loss (feet up to mid calves) Conclusion/Plan - Problem List (1) Bright red blood per rectum Conclusion/Plan: She had mild hypotension, a drop in hemoglobin. Right now the thought processes that she may be having an upper GI bleed from nonsteroidal therapy in a patient has documented peptic ulcer disease and has been told not to take nonsteroidals. However I would think would have to be a fairly brisk bleed to have bright red blood per rectum. She does not have melena. Colonoscopy did not show internal or external hemorrhoids. But she did have diverticulosis. Her abdominal exam is negative at this time and she does not have left lower quadrant pain. As such diverticular bleeding without diverticulitis may be possible. Plan: Observation stay Serial hemoglobin and hematocrit Protonix IV push twice daily Clear liquid diet in case she bleeds more heavily and needs to go to the operating room No anticoagulation with Lovenox Plan for outpatient EGD if she is not actively bleeding or transfusion required (2) Cellulitis of leg without foot, left Conclusion/Plan: Recent Doppler shows no DVT. There is intimation that she has had intermittent venous stasis in the past. Do not know if this left knee repair resulted in un ilateral leg edema and subsequent worse venous stasis. She does not appear to have any open wounds. She is not a diabetic. However she is on methotrexate and Enbrel. She has not had it for 2 weeks before surgery and is not due to have it until 2 weeks after surgery. She does not appear to have any fungal infection between her toes. She does not have a fever or elevated white cell count. She is only been on oral antibiotics for 1 day. Plan: Observation status Penicillin G 1 million every 6 (3) Acute blood loss anemia Conclusion/Plan: Hemoglobin has been between 12.7 to 13 g. She is now postoperative, and complaining of bright red blood per rectum. How much of it was due to her surgery or how much was it due to the rectal bleeding is unclear. Plan: Type and screen 2 units Transfuse if drops below 8 g of hemoglobin in view of her history of coronary artery disease and atypical angina at times (4) Acute kidney injury Conclusion/Plan: Usual creatinine is 0.5 to 1.0. Today is 1.7. She is on Lasix 20 mg a day. On an ALLEN inhibitor. But also with acute GI bleed with mild hypotension. Will hydrate. hold lasix. Check creat in am. (5) Status post knee replacement Conclusion/Plan: We will remove dressing changes today. Would like to see if the wound is okay considering she is here for infection. At this time the skin around the wound looks normal. Qualifiers: Laterality: left Qualified Code(s): Z96.652 - Presence of left artificial knee joint (6) Hypertension Conclusion/Plan: will resume her betablocker but hold off on lisinopril to avoid adding to her mild hypotension present in ER./ Qualifiers: Hypertension type: essential hypertension Qualified Code(s): I10 - Essential (primary) hypertension - Lab Results Fish Bones: 02/05/19 15:51 02/05/19 15:51 - EKG Results EKG Interpreted Independently: No Core Measures - Anticipated LOS I expect patient to be DC'd or transferred within 96 hours.: Yes - DVT/VTE - Prophylaxis VTE/DVT Device ordered at admit?: Yes
[2019-02-05] MEDS: SODIUM CHLORIDE FLUSH 0.9% 10 ML SYRINGE IVP SCH (19:26)
[2019-02-05] MEDS: HYDROcod/ACETAM 5/325 MG TABLET PO PRN (19:26)
[2019-02-05] MEDS: SODIUM CHLORIDE 0.9% 1,000 ML IV SCH (19:26)
[2019-02-05] MEDS: PANTOPRAZOLE 40 MG VIAL IVP SCH (20:03)
[2019-02-05 22:03] LABS: BASOPHILS % (AUTO) 0.3 %; EOSINOPHILS # (AUTO) 0.2 10^3/uL (0.0-0.7); EOSINOPHILS % (AUTO) 2.6 %; HGB - HEMOGLOBIN 9.7 g/dL (12.0-16.0); LYMPHOCYTES # (AUTO) 1.8 10^3/uL (1.5-3.5); MEAN CORPUSCULAR HEMOGLOBIN 33.2 pg (27.0-31.0); MEAN CORPUSCULAR HGB CONC 32.6 g/dL (32.0-36.0); MEAN CORPUSCULAR VOLUME 102.1 fL (81.0-99.0); MEAN PLATELET VOLUME 8.8 fL (7.9-10.8); MONOCYTES # (AUTO) 0.9 10^3/uL (0.0-1.0); MONOCYTES % (AUTO) 13.7 %; NEUTROPHILS # (AUTO) 3.9 10^3/uL (1.5-6.6); PLT - PLATELET COUNT 220 10^3/uL (130-450); RED BLOOD COUNT 2.92 10^6/uL (4.20-5.40); RED CELL DISTRIBUTION WIDTH 15.2 % (12.0-15.0); WHITE BLOOD COUNT 6.8 x10^3/uL (4.8-10.8)
[2019-02-06] MEDS ORDERED: WATER FOR INJECTION,STERILE 10 ML ONE (01:46)
[2019-02-06] MEDS: SODIUM CHLORIDE FLUSH 0.9% 10 ML SYRINGE IVP SCH ×3 (01:48→17:44)
[2019-02-06] MEDS: HYDROcod/ACETAM 5/325 MG TABLET PO PRN (01:56)
[2019-02-06] MEDS: SODIUM CHLORIDE 0.9% 1,000 ML IV SCH ×2 (05:30→16:01)
[2019-02-06 05:37] LABS: BASOPHILS % (AUTO) 0.2 %; EOSINOPHILS # (AUTO) 0.2 10^3/uL (0.0-0.7); EOSINOPHILS % (AUTO) 3.6 %; HGB - HEMOGLOBIN 8.9 g/dL (12.0-16.0); LYMPHOCYTES # (AUTO) 1.7 10^3/uL (1.5-3.5); LYMPHOCYTES % (AUTO) 29.7 %; MEAN CORPUSCULAR HEMOGLOBIN 33.7 pg (27.0-31.0); MEAN CORPUSCULAR HGB CONC 33.1 g/dL (32.0-36.0); MEAN CORPUSCULAR VOLUME 101.9 fL (81.0-99.0); MEAN PLATELET VOLUME 8.8 fL (7.9-10.8); MONOCYTES # (AUTO) 0.9 10^3/uL (0.0-1.0); MONOCYTES % (AUTO) 16.7 %; NEUTROPHILS # (AUTO) 2.8 10^3/uL (1.5-6.6); NEUTROPHILS % (AUTO) 49.6 %; PLT - PLATELET COUNT 219 10^3/uL (130-450); RED BLOOD COUNT 2.64 10^6/uL (4.20-5.40); RED CELL DISTRIBUTION WIDTH 15.1 % (12.0-15.0); WHITE BLOOD COUNT 5.6 x10^3/uL (4.8-10.8)
[2019-02-06 05:40] LABS: INR 1.1 (0.8-1.2); PT - PROTHROMBIN TIME 12.9 secs (9.9-12.6)
[2019-02-06 05:48] LABS: ALBUMIN 2.7 g/dL (3.2-5.5); BILIRUBIN,TOTAL 0.7 mg/dL (0.2-1.0); TOTAL PROTEIN 5.4 g/dL (6.7-8.2)
[2019-02-06] MEDS: ACETAMINOPHEN 325 MG TABLET PO PRN (05:50)
[2019-02-06] MEDS: LEVOTHYROXINE 25 MCG TABLET PO SCH (06:12)
[2019-02-06] MEDS ORDERED: SODIUM CHLORIDE 0.9% IV SCH ×3 (08:00)
[2019-02-06] MEDS ORDERED: PENICILLIN POTASSIUM IV SCH ×3 (08:00)
[2019-02-06] MEDS ORDERED: LISINOPRIL 5 MG PO SCH (09:00)
--- NOTE | 2019-02-06 09:10 | PROVIDER PROGRESS NOTE ---
<Nirmal Villa - Last Filed: 02/06/19 09:32> Subjective - Prog Note Date Prog Note Date: 02/06/19 Prog Note Time: 08:58 - Subjective Pt reports feeling: Improved Current Medications - Current Medications Current Medications: Allergies NSAIDS (Non-Steroidal Anti-Inflamma Allergy (Verified 07/23/18 10:51) Unknown seasonal Allergy (Uncoded 07/23/18 10:51) Unknown Home Medications Levothyroxine [Synthroid] 25 mcg PO QDAC 01/01/17 [History Confirmed 02/05/19] Lisinopril 5 mg PO DAILY 01/01/17 [History Confirmed 02/05/19] Simvastatin [Zocor] 10 mg PO QPM 01/01/17 [History Confirmed 02/05/19] Etanercept [Enbrel] 50 mg SQ Q7D 05/23/17 [History Confirmed 02/05/19] Methotrexate 17.5 mg PO Q7D 05/23/17 [History Confirmed 02/05/19] Metoprolol Succinate [Toprol Xl] 25 mg PO DAILY 05/25/17 [History Confirmed 02/05/19] Calcium Carbonate [Calcium] 1,200 mg PO DAILY 05/28/17 [History Confirmed 02/05/19] Cholecalciferol (Vitamin D3) [Vitamin D3] 4,000 units PO DAILY 05/28/17 [History Confirmed 02/05/19] Multivitamin [Theragran] 1 tab PO DAILY 05/28/17 [History Confirmed 02/05/19] Furosemide 20 mg PO DAILY 02/05/19 [History Confirmed 02/05/19] raNITIdine HCl [Zantac] 150 mg PO DAILY 02/05/19 [History Confirmed 02/05/19] Active Medications Generic Name Dose Route Start Last Admin Trade Name Freq PRN Reason Stop Dose Admin Acetaminophen 650 mg 02/05/19 16:58 02/06/19 05:50 Tylenol PO 650 mg Q4HR PRN Administration Pain 1 to 4 Hydrocodone Bitart/Acetaminophen 1 tab 02/05/19 16:58 02/06/19 01:56 Warren 5/325 PO 1 tab Q4HR PRN Administration Pain 5 to 7 Sodium Chloride 1,000 mls @ 100 mls/hr 02/05/19 17:00 02/06/19 05:30 Normal Saline 0.9% IV 100 mls/hr .Q10H PEBBLES Administration Cefazolin Sodium 1 gm/ Sodium 100 mls @ 200 mls/hr 02/06/19 10:00 Chloride IV Q8H PEBBLES Levothyroxine Sodium 25 mcg 02/06/19 07:00 02/06/19 06:12 Synthroid PO 25 mcg QDAC PEBBLES Administration Metoprolol Succinate 25 mg 02/06/19 09:00 Toprol Xl PO DAILY [facility] Multivitamins 1 tab 02/06/19 09:00 Theragran PO DAILY [facility] Ondansetron HCl 4 mg 02/05/19 16:58 Zofran Inj IVP Q6HR PRN Nausea / Vomiting Ondansetron HCl 4 mg 02/05/19 16:58 Zofran Odt TL Q6HR PRN Nausea / Vomiting Pantoprazole Sodium 40 mg 02/05/19 21:00 02/05/19 20:03 Protonix IVP 40 mg BID PEBBLES Administration Polyethylene Glycol 17 gm 02/06/19 09:00 Miralax PO DAILY [facility] Prochlorperazine Edisylate 10 mg 02/05/19 16:58 Compazine Inj IVP Q6HR PRN Nausea / Vomiting Sodium Chloride 10 ml 02/05/19 16:58 Normal Saline Flush 0.9% IVP PRN PRN NEEDED PER PROVIDER ORDERS Sodium Chloride 10 ml 02/05/19 17:00 02/06/19 01:48 Normal Saline Flush 0.9% IVP Not Given 0100,0900,1700 [facility] Objective - Vital Signs/Intake & Output Reviewed Vital Signs: Yes Vital Signs: Vital Signs x48h Temp Pulse Pulse Resp BP Pulse Ox 02/06/19 08:51 36.6 C 82 17 109/62 97 02/06/19 06:09 36.8 C 78 18 97 Intake & Output: Intake & Output 02/03/19 02/04/19 02/05/19 02/06/19 23:59 23:59 23:59 23:59 Intake Total 1250 1300 Output Total 500 975 Balance 750 325 - Objective General Appearance: positive: No acute distress, Alert Eyes Bilateral: positive: Normal inspection, PERRL, No lid inflammation, Conjunctivae nml, No scleral icterus ENT: positive: No signs of dehydration Neck: positive: Nml inspection, No JVD Respiratory: positive: Chest non-tender, No respiratory distress, Breath sounds nml Cardiovascular: positive: Regular rate & rhythm, No murmur, No gallop. negative: JVD present Peripheral Pulses: 1+ Dorsalis pedis (R), 1+ Dorsalis pedis (L), 2+ Radial (R) Abdomen: positive: Non-tender, No organomegaly, Nml bowel sounds, Tenderness (Tender in the mid epigastric region, radiating to the RUQ). negative: No distention, Guarding, Rebound Skin: positive: Color nml, Warm, Dry, Skin rash Extremities: positive: Nml appearance, Pedal edema (trace bilateral LE). negative: Calf tenderness, Ricky's sign/cords Neurologic/Psychiatric: positive: Oriented x3, CN's nml (2-12), Motor nml, Mood/affect nml - Lab Results Fish Bones: 02/06/19 05:23 02/06/19 05:23 Other Labs: Lab Results x24hrs 02/06/19 02/06/19 02/06/19 Range/Units 05:23 05:23 05:23 WBC 5.6 (4.8-10.8) x10^3/uL RBC 2.64 L (4.20-5.40) 10^6/uL Hgb 8.9 L (12.0-16.0) g/dL Hct 26.9 L (37.0-47.0) % MCV 101.9 H (81.0-99.0) fL MCH 33.7 H (27.0-31.0) pg MCHC 33.1 (32.0-36.0) g/dL RDW 15.1 H (12.0-15.0) % Plt Count 219 (130-450) 10^3/uL MPV 8.8 (7.9-10.8) fL Neut # (Auto) 2.8 (1.5-6.6) 10^3/uL Lymph # (Auto) 1.7 (1.5-3.5) 10^3/uL [place] # (Auto) 0.9 (0.0-1.0) 10^3/uL Eos # (Auto) 0.2 (0.0-0.7) 10^3/uL Baso # (Auto) 0.0 (0.0-0.1) 10^3/uL Absolute Nucleated RBC 0.00 x10^3/uL Nucleated RBC % 0.0 /100WBC PT 12.9 H (9.9-12.6) secs INR 1.1 (0.8-1.2) APTT (24.9-33.3) secs Sodium 144 (135-145) mmol/L Potassium 3.9 (3.5-5.0) mmol/L Chloride 113 H (101-111) mmol/L Carbon Dioxide 22 (21-32) mmol/L Anion Gap 9.0 (6-13) BUN 26 H (6-20) mg/dL Creatinine 1.0 (0.4-1.0) mg/dL Estimated GFR (MDRD) 53 L (>89) Glucose 96 (70-100) mg/dL Lactic Acid (0.5-2.2) mmol/L Calcium 8.0 L (8.5-10.3) mg/dL Total Bilirubin 0.7 (0.2-1.0) mg/dL AST 16 (10-42) IU/L ALT 11 (10-60) IU/L Alkaline Phosphatase 50 (42-121) IU/L Total Protein 5.4 L (6.7-8.2) g/dL Albumin 2.7 L (3.2-5.5) g/dL Globulin 2.7 (2.1-4.2) g/dL Albumin/Globulin Ratio 1.0 (1.0-2.2) Lipase (22-51) U/L Blood Type Blood Type Recheck Antibody Screen 02/05/19 02/05/19 02/05/19 Range/Units 21:55 21:55 17:15 WBC 6.8 (4.8-10.8) x10^3/uL RBC 2.92 L (4.20-5.40) 10^6/uL Hgb 9.7 L (12.0-16.0) g/dL Hct 29.8 L (37.0-47.0) % MCV 102.1 H (81.0-99.0) fL MCH 33.2 H (27.0-31.0) pg MCHC 32.6 (32.0-36.0) g/dL RDW 15.2 H (12.0-15.0) % Plt Count 220 (130-450) 10^3/uL MPV 8.8 (7.9-10.8) fL Neut # (Auto) 3.9 (1.5-6.6) 10^3/uL Lymph # (Auto) 1.8 (1.5-3.5) 10^3/uL [place] # (Auto) 0.9 (0.0-1.0) 10^3/uL Eos # (Auto) 0.2 (0.0-0.7) 10^3/uL Baso # (Auto) 0.0 (0.0-0.1) 10^3/uL Absolute Nucleated RBC 0.00 x10^3/uL Nucleated RBC % 0.0 /100WBC PT (9.9-12.6) secs INR (0.8-1.2) APTT (24.9-33.3) secs Sodium (135-145) mmol/L Potassium (3.5-5.0) mmol/L Chloride (101-111) mmol/L Carbon Dioxide (21-32) mmol/L Anion Gap (6-13) BUN (6-20) mg/dL Creatinine (0.4-1.0) mg/dL Estimated GFR (MDRD) (>89) Glucose (70-100) mg/dL Lactic Acid (0.5-2.2) mmol/L Calcium (8.5-10.3) mg/dL Total Bilirubin (0.2-1.0) mg/dL AST (10-42) IU/L ALT (10-60) IU/L Alkaline Phosphatase (42-121) IU/L Total Protein (6.7-8.2) g/dL Albumin (3.2-5.5) g/dL Globulin (2.1-4.2) g/dL Albumin/Globulin Ratio (1.0-2.2) Lipase (22-51) U/L Blood Type AB NEGATIVE Blood Type Recheck AB NEGATIVE Antibody Screen NEGATIVE 02/05/19 02/05/19 02/05/19 Range/Units 15:51 15:51 15:51 WBC (4.8-10.8) x10^3/uL RBC (4.20-5.40) 10^6/uL Hgb (12.0-16.0) g/dL Hct (37.0-47.0) % MCV (81.0-99.0) fL MCH (27.0-31.0) pg MCHC (32.0-36.0) g/dL RDW (12.0-15.0) % Plt Count (130-450) 10^3/uL MPV (7.9-10.8) fL Neut # (Auto) (1.5-6.6) 10^3/uL Lymph # (Auto) (1.5-3.5) 10^3/uL [place] # (Auto) (0.0-1.0) 10^3/uL Eos # (Auto) (0.0-0.7) 10^3/uL Baso # (Auto) (0.0-0.1) 10^3/uL Absolute Nucleated RBC x10^3/uL Nucleated RBC % /100WBC PT 12.2 (9.9-12.6) secs INR 1.1 (0.8-1.2) APTT 28.9 (24.9-33.3) secs Sodium 137 (135-145) mmol/L Potassium 4.5 (3.5-5.0) mmol/L Chloride 101 (101-111) mmol/L Carbon Dioxide 24 (21-32) mmol/L Anion Gap 12.0 (6-13) BUN 49 H (6-20) mg/dL Creatinine 1.7 H (0.4-1.0) mg/dL Estimated GFR (MDRD) 29 L (>89) Glucose 99 (70-100) mg/dL Lactic Acid 1.3 (0.5-2.2) mmol/L Calcium 8.8 (8.5-10.3) mg/dL Total Bilirubin 0.6 (0.2-1.0) mg/dL AST 20 (10-42) IU/L ALT 14 (10-60) IU/L Alkaline Phosphatase 63 (42-121) IU/L Total Protein 6.9 (6.7-8.2) g/dL Albumin 3.5 (3.2-5.5) g/dL Globulin 3.4 (2.1-4.2) g/dL Albumin/Globulin Ratio 1.0 (1.0-2.2) Lipase 46 (22-51) U/L Blood Type Blood Type Recheck Antibody Screen 02/05/19 Range/Units 15:51 WBC 7.8 (4.8-10.8) x10^3/uL RBC 3.28 L (4.20-5.40) 10^6/uL Hgb 10.7 L (12.0-16.0) g/dL Hct 33.4 L (37.0-47.0) % MCV 101.8 H (81.0-99.0) fL MCH 32.6 H (27.0-31.0) pg MCHC 32.0 (32.0-36.0) g/dL RDW 15.3 H (12.0-15.0) % Plt Count 251 (130-450) 10^3/uL MPV 9.2 (7.9-10.8) fL Neut # (Auto) 5.0 (1.5-6.6) 10^3/uL Lymph # (Auto) 1.4 L (1.5-3.5) 10^3/uL [place] # (Auto) 1.2 H (0.0-1.0) 10^3/uL Eos # (Auto) 0.1 (0.0-0.7) 10^3/uL Baso # (Auto) 0.0 (0.0-0.1) 10^3/uL Absolute Nucleated RBC 0.00 x10^3/uL Nucleated RBC % 0.0 /100WBC PT (9.9-12.6) secs INR (0.8-1.2) APTT (24.9-33.3) secs Sodium (135-145) mmol/L Potassium (3.5-5.0) mmol/L Chloride (101-111) mmol/L Carbon Dioxide (21-32) mmol/L Anion Gap (6-13) BUN (6-20) mg/dL Creatinine (0.4-1.0) mg/dL Estimated GFR (MDRD) (>89) Glucose (70-100) mg/dL Lactic Acid (0.5-2.2) mmol/L Calcium (8.5-10.3) mg/dL Total Bilirubin (0.2-1.0) mg/dL AST (10-42) IU/L ALT (10-60) IU/L Alkaline Phosphatase (42-121) IU/L Total Protein (6.7-8.2) g/dL Albumin (3.2-5.5) g/dL Globulin (2.1-4.2) g/dL Albumin/Globulin Ratio (1.0-2.2) Lipase (22-51) U/L Blood Type Blood Type Recheck Antibody Screen <Iram Reyes - Last Filed: 02/06/19 11:31> Subjective - Subjective Subjective: She states she has not had any more bowel movements that are bloody. Bright red blood per rectum. However yesterday, she did not share with me, that she did have a melanotic stool before the bright red blood per rectum. No abdominal pain. No fever, no chills. Objective - Vital Signs/Intake & Output Vital Signs: Vital Signs x48h Temp Pulse Pulse Resp BP Pulse Ox 02/06/19 08:51 36.6 C 82 17 109/62 97 02/06/19 06:09 36.8 C 78 18 97 Intake & Output: Intake & Output 02/03/19 02/04/19 02/05/19 02/06/19 23:59 23:59 23:59 23:59 Intake Total 1250 1600 Output Total 500 975 Balance 750 625 - Objective Comments/Other: Alert, oriented, but vague 78-year-old female. Data sleep. She awakens to my voice. She said that she had a hard night because of all the voices outside the door and she can get to sleep. Neck is supple no JVD Lungs are clear to auscultation and percussion with slow unlabored respiration and no crackles rhonchi wheezing Cardiac exam has a regular rate and rhythm with a minimal systolic ejection murmur Abdomen is soft, nontender, slightly distended, normal bowel sounds, no masses. Left lower extremity still has the bright red warm venous stasis cellulitis but is shrinking below the marked black sharpie lines. - Lab Results Fish Bones: 02/06/19 05:23 02/06/19 05:23 Other Labs: Lab Results x24hrs 02/06/19 02/06/19 02/06/19 Range/Units 05:23 05:23 05:23 WBC 5.6 (4.8-10.8) x10^3/uL RBC 2.64 L (4.20-5.40) 10^6/uL Hgb 8.9 L (12.0-16.0) g/dL Hct 26.9 L (37.0-47.0) % MCV 101.9 H (81.0-99.0) fL MCH 33.7 H (27.0-31.0) pg MCHC 33.1 (32.0-36.0) g/dL RDW 15.1 H (12.0-15.0) % Plt Count 219 (130-450) 10^3/uL MPV 8.8 (7.9-10.8) fL Neut # (Auto) 2.8 (1.5-6.6) 10^3/uL Lymph # (Auto) 1.7 (1.5-3.5) 10^3/uL [place] # (Auto) 0.9 (0.0-1.0) 10^3/uL Eos # (Auto) 0.2 (0.0-0.7) 10^3/uL Baso # (Auto) 0.0 (0.0-0.1) 10^3/uL Absolute Nucleated RBC 0.00 x10^3/uL Nucleated RBC % 0.0 /100WBC PT 12.9 H (9.9-12.6) secs INR 1.1 (0.8-1.2) APTT (24.9-33.3) secs Sodium 144 (135-145) mmol/L Potassium 3.9 (3.5-5.0) mmol/L Chloride 113 H (101-111) mmol/L Carbon Dioxide 22 (21-32) mmol/L Anion Gap 9.0 (6-13) BUN 26 H (6-20) mg/dL Creatinine 1.0 (0.4-1.0) mg/dL Estimated GFR (MDRD) 53 L (>89) Glucose 96 (70-100) mg/dL Lactic Acid (0.5-2.2) mmol/L Calcium 8.0 L (8.5-10.3) mg/dL Total Bilirubin 0.7 (0.2-1.0) mg/dL AST 16 (10-42) IU/L ALT 11 (10-60) IU/L Alkaline Phosphatase 50 (42-121) IU/L Total Protein 5.4 L (6.7-8.2) g/dL Albumin 2.7 L (3.2-5.5) g/dL Globulin 2.7 (2.1-4.2) g/dL Albumin/Globulin Ratio 1.0 (1.0-2.2) Lipase (22-51) U/L Blood Type Blood Type Recheck Antibody Screen 02/05/19 02/05/19 02/05/19 Range/Units 21:55 21:55 17:15 WBC 6.8 (4.8-10.8) x10^3/uL RBC 2.92 L (4.20-5.40) 10^6/uL Hgb 9.7 L (12.0-16.0) g/dL Hct 29.8 L (37.0-47.0) % MCV 102.1 H (81.0-99.0) fL MCH 33.2 H (27.0-31.0) pg MCHC 32.6 (32.0-36.0) g/dL RDW 15.2 H (12.0-15.0) % Plt Count 220 (130-450) 10^3/uL MPV 8.8 (7.9-10.8) fL Neut # (Auto) 3.9 (1.5-6.6) 10^3/uL Lymph # (Auto) 1.8 (1.5-3.5) 10^3/uL [place] # (Auto) 0.9 (0.0-1.0) 10^3/uL Eos # (Auto) 0.2 (0.0-0.7) 10^3/uL Baso # (Auto) 0.0 (0.0-0.1) 10^3/uL Absolute Nucleated RBC 0.00 x10^3/uL Nucleated RBC % 0.0 /100WBC PT (9.9-12.6) secs INR (0.8-1.2) APTT (24.9-33.3) secs Sodium (135-145) mmol/L Potassium (3.5-5.0) mmol/L Chloride (101-111) mmol/L Carbon Dioxide (21-32) mmol/L Anion Gap (6-13) BUN (6-20) mg/dL Creatinine (0.4-1.0) mg/dL Estimated GFR (MDRD) (>89) Glucose (70-100) mg/dL Lactic Acid (0.5-2.2) mmol/L Calcium (8.5-10.3) mg/dL Total Bilirubin (0.2-1.0) mg/dL AST (10-42) IU/L ALT (10-60) IU/L Alkaline Phosphatase (42-121) IU/L Total Protein (6.7-8.2) g/dL Albumin (3.2-5.5) g/dL Globulin (2.1-4.2) g/dL Albumin/Globulin Ratio (1.0-2.2) Lipase (22-51) U/L Blood Type AB NEGATIVE Blood Type Recheck AB NEGATIVE Antibody Screen NEGATIVE 02/05/19 02/05/19 02/05/19 Range/Units 15:51 15:51 15:51 WBC (4.8-10.8) x10^3/uL RBC (4.20-5.40) 10^6/uL Hgb (12.0-16.0) g/dL Hct (37.0-47.0) % MCV (81.0-99.0) fL MCH (27.0-31.0) pg MCHC (32.0-36.0) g/dL RDW (12.0-15.0) % Plt Count (130-450) 10^3/uL MPV (7.9-10.8) fL Neut # (Auto) (1.5-6.6) 10^3/uL Lymph # (Auto) (1.5-3.5) 10^3/uL [place] # (Auto) (0.0-1.0) 10^3/uL Eos # (Auto) (0.0-0.7) 10^3/uL Baso # (Auto) (0.0-0.1) 10^3/uL Absolute Nucleated RBC x10^3/uL Nucleated RBC % /100WBC PT 12.2 (9.9-12.6) secs INR 1.1 (0.8-1.2) APTT 28.9 (24.9-33.3) secs Sodium 137 (135-145) mmol/L Potassium 4.5 (3.5-5.0) mmol/L Chloride 101 (101-111) mmol/L Carbon Dioxide 24 (21-32) mmol/L Anion Gap 12.0 (6-13) BUN 49 H (6-20) mg/dL Creatinine 1.7 H (0.4-1.0) mg/dL Estimated GFR (MDRD) 29 L (>89) Glucose 99 (70-100) mg/dL Lactic Acid 1.3 (0.5-2.2) mmol/L Calcium 8.8 (8.5-10.3) mg/dL Total Bilirubin 0.6 (0.2-1.0) mg/dL AST 20 (10-42) IU/L ALT 14 (10-60) IU/L Alkaline Phosphatase 63 (42-121) IU/L Total Protein 6.9 (6.7-8.2) g/dL Albumin 3.5 (3.2-5.5) g/dL Globulin 3.4 (2.1-4.2) g/dL Albumin/Globulin Ratio 1.0 (1.0-2.2) Lipase 46 (22-51) U/L Blood Type Blood Type Recheck Antibody Screen 02/05/19 Range/Units 15:51 WBC 7.8 (4.8-10.8) x10^3/uL RBC 3.28 L (4.20-5.40) 10^6/uL Hgb 10.7 L (12.0-16.0) g/dL Hct 33.4 L (37.0-47.0) % MCV 101.8 H (81.0-99.0) fL MCH 32.6 H (27.0-31.0) pg MCHC 32.0 (32.0-36.0) g/dL RDW 15.3 H (12.0-15.0) % Plt Count 251 (130-450) 10^3/uL MPV 9.2 (7.9-10.8) fL Neut # (Auto) 5.0 (1.5-6.6) 10^3/uL Lymph # (Auto) 1.4 L (1.5-3.5) 10^3/uL [place] # (Auto) 1.2 H (0.0-1.0) 10^3/uL Eos # (Auto) 0.1 (0.0-0.7) 10^3/uL Baso # (Auto) 0.0 (0.0-0.1) 10^3/uL Absolute Nucleated RBC 0.00 x10^3/uL Nucleated RBC % 0.0 /100WBC PT (9.9-12.6) secs INR (0.8-1.2) APTT (24.9-33.3) secs Sodium (135-145) mmol/L Potassium (3.5-5.0) mmol/L Chloride (101-111) mmol/L Carbon Dioxide (21-32) mmol/L Anion Gap (6-13) BUN (6-20) mg/dL Creatinine (0.4-1.0) mg/dL Estimated GFR (MDRD) (>89) Glucose (70-100) mg/dL Lactic Acid (0.5-2.2) mmol/L Calcium (8.5-10.3) mg/dL Total Bilirubin (0.2-1.0) mg/dL AST (10-42) IU/L ALT (10-60) IU/L Alkaline Phosphatase (42-121) IU/L Total Protein (6.7-8.2) g/dL Albumin (3.2-5.5) g/dL Globulin (2.1-4.2) g/dL Albumin/Globulin Ratio (1.0-2.2) Lipase (22-51) U/L Blood Type Blood Type Recheck Antibody Screen ABX Reporting Has patient been on IV antibiotics over the past 48 hours?: Yes Assessment/Plan - Problem List (1) Bright red blood per rectum Impression: Past GI history is that of diverticulosis on a remote colonoscopy. No diverticulitis. 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 Treated with sucralfate and Protonix. Repeat EGD January normal. Patient went back on aspirin after her knee replacement.Now gives differing story between me and Surgeon. Sometimes melanotic and sometimes BRBPR depending on who she speaks to. Hgb 13 on 01/21>10.7 >9.7 >8.9. No further black stool. Plan: Consult with Dr. Obrien, Surgery follow hgb transfuse <8 NPO at midnight for possible upper and lower endoscopy tomorrow. (2) Cellulitis of leg without foot, left Impression: because of cost, PCN changed to Anc. She is not a diabetic. Day #1 Ancef area of involvement shinking. (3) Acute blood loss anemia Impression: continue to monitor. Transfuse if <8.0 grams (4) Acute kidney injury Impression: Laboratory Tests 02/05/19 02/06/19 15:51 05:23 Creatinine 1.7 H 1.0 baseline is 0.5-1.0. (5) Status post knee replacement Impression: remove bandage today. (6) Hypertension Impression: 109-131 today. Not tachy. On metoprolol from home. Will continue to hold lisinopril
[2019-02-06] MEDS ORDERED: SODIUM CHLORIDE 0.9% 100ML 100 ML IV ONE (09:11)
[2019-02-06] MEDS: METOPROLOL SUCCINATE 25 MG TABLET PO SCH (09:16)
[2019-02-06] MEDS: PANTOPRAZOLE 40 MG VIAL IVP SCH ×2 (09:16→21:13)
[2019-02-06] MEDS: MULTIVITAMIN TABLET PO SCH (09:16)
[2019-02-06] MEDS: POLYETHYLENE GLYCOL 3350 17 GM PACKET PO SCH (09:16)
[2019-02-06] MEDS: ceFAZolin 1 GM in SODIUM CHLORIDE 0.9% MINIBAG 100 ML IV SCH ×2 (09:22→17:44)
[2019-02-06 11:28] LABS: BASOPHILS % (AUTO) 0.5 %; EOSINOPHILS # (AUTO) 0.2 10^3/uL (0.0-0.7); EOSINOPHILS % (AUTO) 3.3 %; HGB - HEMOGLOBIN 10.1 g/dL (12.0-16.0); LYMPHOCYTES # (AUTO) 1.3 10^3/uL (1.5-3.5); LYMPHOCYTES % (AUTO) 21.1 %; MEAN CORPUSCULAR HEMOGLOBIN 34.6 pg (27.0-31.0); MEAN CORPUSCULAR HGB CONC 33.2 g/dL (32.0-36.0); MEAN CORPUSCULAR VOLUME 104.1 fL (81.0-99.0); MONOCYTES # (AUTO) 1.1 10^3/uL (0.0-1.0); MONOCYTES % (AUTO) 16.7 %; NEUTROPHILS # (AUTO) 3.7 10^3/uL (1.5-6.6); NEUTROPHILS % (AUTO) 57.6 %; PLT - PLATELET COUNT 253 10^3/uL (130-450); RED BLOOD COUNT 2.92 10^6/uL (4.20-5.40); RED CELL DISTRIBUTION WIDTH 15.4 % (12.0-15.0); WHITE BLOOD COUNT 6.3 x10^3/uL (4.8-10.8)
--- NOTE | 2019-02-06 12:34 | CONSULTATION NOTE ---
Referring Provider Name of Referring Provider:: Dr. Reyes Consult Date: 02/06/19 Chief Complaint - Chief Complaint Chief Complaint: black and bloody stools History of Present Illness - Admitted From Admitted From:: ER - History Obtained From Records Reviewed: yes History obtained from: pt, records Exam Limitations: unclear how good an historian pt is... - History of Present Illness HPI Comment/Other: 78 yo female with hx of NSAID induced gastric ulcer induced GI bleeds in 2017 and again in 2018, who was advised to avoid NSAIDs, who nevertheless has been taking ibuprofen 600 mg QID and aspirin 81 mg BID since left knee surgery approximately 10 days ago. She noticed onset of daily black stools several days later. She has reported to others that the stool was bright red blood in nature as well, but not to me at this time. She presented to the ER yesterday for evaluation of redness swelling of the operated extremity and was noted to be mildly hypotensive with a signifcant drop in her H/H from baseline, and was admitted for observation and further evaluation. EGD last spring revealed multiple pre pyloric gastric ulcers, which on repeat EGD several months later had healed following d/c of ulcerogenic meds and a course of PPI therapy. Pt reports daily single dose ranitidine therapy at present as a preventative. She denies abd pain, N/V, hematemesis, dysphagia, heartburn, or family hx of GI tumors. She has a hx of a colonoscopy in 2017 for melena showing diverticulosis with severe angulation of the bowel making the procedure technically difficult, requiring a pediatric colonoscope to negotiate the angulation. The procedure was otherwise normal. Pt has been hemodynamically stable since admission yesterday evening with passage of one melenic stool this morning. She does not admit to using alcohol or tobacco. Her [facility] medical problem list includes memory dysfunction. History - Past Medical History Cardiovascular: reports: Hypertension, High cholesterol, Coronary artery disease (Cath 01/2010, 10/2010 without significant disease. Admit for cp 10/18/10 at [facility] p hip replacement 10/13/10. ), Deep vein thrombosis (this is in her PMH but she denies having ), Atrial fibrillation (She denies having afib but it is in her medical records. No EKG or event referred to. Followed by cardiology at [facility], no anticoagulation. @D echo 10/2010 mod to severe TR and PA pressure 40-45 mmHg. 11/2011 mod TR. LVEF 60-65%. 12/2012 nml LV and RVEF, EF 60- 65% w mod to severe TR. Pul art 38 mmHg, 06/2014 no change but TRUNG severe now. 04/2015 now w mod dil RV, TRUNG severe. 07/2017 nml LV, no change . 09/2018 no change. ), Murmur (moderate to severe tricuspid regurgitation), Arrhythmia (NSVT w cp admit 10/2010 to [facility] p hip replacement (CT angio neg then)), Valve disorder Respiratory: reports: Asthma (07/2006>FVC 3.24, FEV1 2.33 with 72%. Went ot 76% wet bronchodilators.), COPD, Pneumonia, Other (mild pulmonary HTN) Neuro: reports: TIA, Migraines, Peripheral neuropathy, Other (Polyneuropathy/past TIA. Evaluated by [facility] neurology. Last visit December 10, 2018. Numbness and tingling in hands and feet. Most likely idiopathic or genetic. Treatment is alpha lipoic acid. MRA of brain and neck (- ) 08/07/18. EEG neg. ) Endocrine/Autoimmune: reports: HyPOthyroidism GI: reports: Other (diverticulosis on scope 12/31/07) MOLECULAR GENETIC PATHOLOGIST: reports: Other (bartholin's cyst w lancing 07/13/18 p cellulitis tx 07/06/18. .) : reports: Incontinence (stress urinary incontinence), Frequency HEENT: reports: Chronic vision loss Psych: reports: Depression, Anxiety Musculoskeletal: reports: Osteoarthritis (s/p left TKR 01/28/19), Rheumatoid arthritis (on Enbrel since Summer 2006, MTX and has been on Arava, Humira in the past), Osteoporosis (Hip fracture 10/2010, biphosphonates started 12/2010, left tibial plateau fx 11/2012), Other (C-spine degenerative disc disease) MRSA Hx?: No - Past Surgical History General: reports: Colonoscopy (2017: tics; sharp angulation of sigmoid colon ma farrah procedure difficult), EGD (2016, 2018 x 2; gastric ulcers in 2017 and 2018) Ortho: reports: Hip replacement, Other /MOLECULAR GENETIC PATHOLOGIST: reports: Tubal ligation Cardiovascular: reports: Cardiac catheterization HEENT: reports: Tonsil/Adenoidectomy - Family & Social History Family History Comment/Other: Both mom and dad in their 90s of old age. 2 siblings. One brother had a recent knee replacement. Her sister has some type of growth on her left face. But neither 1 of them have coronary artery disease, hypertension, hyperlipidemia, cancer. 3 sons. One lives in [place]. One son travels the country as a bag while working at [employer]. One son lives with her but unfortunately he is an alcoholic. She is trying to get him to stop. Living arrangement: At home Living Situation: With family (son) Social History Notes: smoked for only 6 months in her 20's. no alcohol abuse. no recreational substance abuse.She was for over 50 years to her first . He at age 82 while jogging in a marathon in [place] 4 years ago. Her son was present when he and try to resuscitate his father. That is when he became an alcoholic because it affected him psychologically. Her son lives with her. - Substance History Use: Uses substance without health or social issues: NONE Abuse: Recurrent use of substance despite neg consequences: NONE Dependence: Experiences withdrawal or developed tolerances: NONE - POLST Patient has POLST: No POLST Status: Full Code (she has not thought about advanced care planning or planning for severe diability. She thinks that if she is resuscitated she will recover to be normal and go home again.) Meds/Allgy - Home Medications Home Medications: Ambulatory Orders Medication Instructions Recorded Confirmed Levothyroxine [Synthroid] 25 mcg PO QDAC 01/01/17 02/05/19 Lisinopril 5 mg PO DAILY 01/01/17 02/05/19 Simvastatin [Zocor] 10 mg PO QPM 01/01/17 02/05/19 Etanercept [Enbrel] 50 mg SQ Q7D 05/23/17 02/05/19 Methotrexate 17.5 mg PO Q7D 05/23/17 02/05/19 Metoprolol Succinate [Toprol Xl] 25 mg PO DAILY 05/25/17 02/05/19 Calcium Carbonate [Calcium] 1,200 mg PO DAILY 05/28/17 02/05/19 Cholecalciferol (Vitamin D3) 4,000 units PO DAILY 05/28/17 02/05/19 [Vitamin D3] Multivitamin [Theragran] 1 tab PO DAILY 05/28/17 02/05/19 Furosemide 20 mg PO DAILY 02/05/19 02/05/19 raNITIdine HCl [Zantac] 150 mg PO DAILY 02/05/19 02/05/19 - Allergies Allergies/Adverse Reactions: Allergies Allergy/AdvReac Type Severity Reaction Status Date / Time NSAIDS (Non-Steroidal Allergy Unknown Verified 07/23/18 10:51 Anti-Inflamma seasonal Allergy Unknown Uncoded 07/23/18 10:51 Review of Systems - Cardiovascular Cariovascular: denies: Chest pain - Respiratory Respiratory: denies: Cough - Gastrointestinal Gastrointestinal: reports: Rectal bleeding, Black stools, Bloody stools. denies : Abdominal pain, Abdominal distention, Constipation, Diarrhea, Nausea, Vomiting, Bile emesis, Franky blood emesis, Coffee grounds emesis, Reflux/heartburn, Bloating, Poor appetite - Hematologic/Lymphatic Hematologic/Lymphatic: denies: Blood clots, Bleeding tendencies Exam - Vital Signs Reviewed Vital Signs: Yes Vital Signs: Vital Signs x48h Temp Pulse Pulse Resp BP Pulse Ox 02/06/19 08:51 36.6 C 82 17 109/62 97 02/06/19 06:09 36.8 C 78 18 97 - Physical Exam General Appearance: positive: No acute distress, Alert Eyes Bilateral: positive: Normal inspection, No scleral icterus ENT: positive: ENT inspection nml, No signs of dehydration Neck: positive: Nml inspection, No JVD Respiratory: positive: Chest non-tender, No respiratory distress, Breath sounds nml. negative: Wheezes, Rales, Rhonchi Cardiovascular: positive: Regular rate & rhythm, No murmur, No gallop Abdomen: positive: Non-tender, No organomegaly, Nml bowel sounds, No distention. negative: Guarding, Rebound, Hepatomegaly, Splenomegaly, Mass Extremities: positive: Other (nicely healing incision on left knee; edema and erythema of left lower leg and foot, appears to be receding based on demarcation limits marked yesterday; no cutaneous necrosis, no fluctuant areas; no calf muscle tenderness appreciated.) Neurologic/Psychiatric: positive: Oriented x3 Conclusion/Plan - Diagnosis Diagnosis: Recurrent GI bleed; likely upper; likely due to NSAID gastropathy; much less likely lower gi source given hx; currently stable hemodynamically. - Plan Plan: I agree with empiric high dose PPI therapy.Given hx of bright red rectal bleeding I agree that both upper and lower gi sources of bleeding should be considered. Recommend bowel prep today and EGD tomorrow; if negative for the source of bleeding, then will proceed with colonoscopy as well. PAR conf and consent obtained. Thanks, - Lab Results Fish Bones: 02/06/19 11:20 02/06/19 05:23
[2019-02-06] MEDS: MAGNESIUM OXIDE 400 MG TABLET PO SCH (13:10)
[2019-02-06] MEDS: CHOLECALCIFEROL 1,000 UNIT TABLET PO SCH (13:10)
[2019-02-06] MEDS: CALCIUM CARB (OYSTER SHELL) 500 MG TABLET PO SCH (13:10)
[2019-02-06] MEDS: SODIUM/POTASSIUM/MAG SULFATES 354 ML PREP KIT PO SCH (17:44)
[2019-02-07] MEDS: SODIUM CHLORIDE FLUSH 0.9% 10 ML SYRINGE IVP SCH ×3 (00:15→11:43)
[2019-02-07] MEDS: ACETAMINOPHEN 325 MG TABLET PO PRN (00:33)
[2019-02-07] MEDS: ceFAZolin 1 GM in SODIUM CHLORIDE 0.9% MINIBAG 100 ML IV SCH ×3 (02:13→11:43)
[2019-02-07] MEDS: SODIUM CHLORIDE 0.9% 1,000 ML IV SCH ×2 (02:14→11:42)
[2019-02-07] MEDS: SODIUM/POTASSIUM/MAG SULFATES 354 ML PREP KIT PO SCH (04:58)
[2019-02-07] MEDS: LEVOTHYROXINE 25 MCG TABLET PO SCH (05:01)
[2019-02-07 06:23] LABS: BASOPHILS % (AUTO) 0.4 %; EOSINOPHILS # (AUTO) 0.2 10^3/uL (0.0-0.7); EOSINOPHILS % (AUTO) 2.4 %; LYMPHOCYTES % (AUTO) 27.1 %; MEAN CORPUSCULAR HEMOGLOBIN 32.6 pg (27.0-31.0); MEAN CORPUSCULAR HGB CONC 31.5 g/dL (32.0-36.0); MEAN CORPUSCULAR VOLUME 103.3 fL (81.0-99.0); MEAN PLATELET VOLUME 8.7 fL (7.9-10.8); MONOCYTES # (AUTO) 1.1 10^3/uL (0.0-1.0); MONOCYTES % (AUTO) 14.3 %; NEUTROPHILS # (AUTO) 4.1 10^3/uL (1.5-6.6); NEUTROPHILS % (AUTO) 55.5 %; PLT - PLATELET COUNT 262 10^3/uL (130-450); RED BLOOD COUNT 3.07 10^6/uL (4.20-5.40); RED CELL DISTRIBUTION WIDTH 15.3 % (12.0-15.0); WHITE BLOOD COUNT 7.4 x10^3/uL (4.8-10.8)
--- NOTE | 2019-02-07 07:19 | PROVIDER PROGRESS NOTE ---
Assessment/Plan - Problem List (1) GI bleeding Qualifiers: GI bleed type/associated pathology: unspecified gastrointestinal hemorrhage type Qualified Code(s): K92.2 - Gastrointestinal hemorrhage, unspecified Assessment/Plan: Clinically stable with no sign of continued active bleeding; stable H/H. Plan EGD/poss colonoscopy this am. - Current Meds Current Meds: Current Medications Generic Name Dose Route Start Last Admin Trade Name Freq PRN Reason Stop Dose Admin Acetaminophen 650 mg 02/05/19 16:58 02/07/19 00:33 Tylenol PO 650 mg Q4HR PRN Administration Pain 1 to 4 Hydrocodone Bitart/Acetaminophen 1 tab 02/05/19 16:58 02/06/19 01:56 [place] 5/325 PO 1 tab Q4HR PRN Administration Pain 5 to 7 Calcium Carbonate/Glycine 1,000 mg 02/06/19 12:15 02/06/19 13:10 Oysco-500 PO 1,000 mg DAILY PEBBLES Administration Cholecalciferol 4,000 unit 02/06/19 12:15 02/06/19 13:10 Vitamin D3 PO 4,000 unit DAILY PEBBLES Administration Sodium Chloride 1,000 mls @ 100 mls/hr 02/05/19 17:00 02/07/19 02:14 Normal Saline 0.9% IV 100 mls/hr .Q10H PEBBLES Administration Cefazolin Sodium 1 gm/ Sodium 100 mls @ 200 mls/hr 02/06/19 10:00 02/07/19 02:43 Chloride IV Infused Q8H PEBBLES Infusion Levothyroxine Sodium 25 mcg 02/06/19 07:00 02/07/19 05:01 Synthroid PO 25 mcg QDAC PEBBLES Administration Magnesium Oxide 400 mg 02/06/19 13:00 02/06/19 13:10 Mag Ox PO 400 mg DAILYWM PEBBLES Administration Metoprolol Succinate 25 mg 02/06/19 09:00 02/06/19 09:16 Toprol Xl PO 25 mg DAILY PEBBLES Administration Multivitamins 1 tab 02/06/19 09:00 02/06/19 09:16 Theragran PO 1 tab DAILY PEBBLES Administration Pantoprazole Sodium 40 mg 02/05/19 21:00 02/06/19 21:13 Protonix IVP 40 mg BID PEBBLES Administration Polyethylene Glycol 17 gm 02/06/19 09:00 02/06/19 09:16 Miralax PO 17 gm DAILY PEBBLES Administration Sodium Chloride 10 ml 02/05/19 17:00 02/07/19 00:15 Normal Saline Flush 0.9% IVP Not Given 0100,0900,1700 PEBBLES - Lab Result Lab results reviewed: Yes Fish Bone Diagrams: 02/07/19 06:15 02/06/19 05:23 - Additional Planning Condition/Complexity: Stable My Orders: My Active Orders 02/07/19 00:01 NPO except Meds at Midnight [DIET] Plan Discussed with:: Patient, Other (hospitalists) Time Spent: 15-30 minutes Subjective - Subjective Patient Reports: Resting Comfortably, No Complaints (no visible blood in stool with bowel prep; no abd pain, N/V) Objective Vital Signs: Vital Signs - 24 hr 02/06/19 02/06/19 02/06/19 08:51 12:43 15:40 Temperature 36.6 C 37.1 C 37.2 C Heart Rate [ 82 84 89 Monitoring electrodes] Respiratory 17 17 18 Rate Blood Pressure 130/58 L [Left Brachial artery] Blood Pressure 109/62 124/73 [Right Brachial artery] O2 Saturation 97 99 98 02/06/19 02/07/19 02/07/19 22:26 00:00 05:00 Temperature 37.0 C 37.3 C 36.6 C Heart Rate [ 82 89 83 Monitoring electrodes] Respiratory 18 18 16 Rate Blood Pressure [Left Brachial artery] Blood Pressure 147/72 H 139/66 H 125/66 [Right Brachial artery] O2 Saturation 95 95 96 Oxygen O2 Source Room air I&O (Last 24 Hrs): Intake and Output Totals x24h 02/05/19 02/06/19 02/07/19 23:59 23:59 23:59 Intake Total 1250 3176 2640 Output Total 500 3775 1 Balance 750 -815 6679 General: Alert, Cooperative, No acute distress Abdomen: Soft, No tenderness, No hepatospenomegaly, No masses Comments/Notes: Pt tolerated bowel prep well overnight per RN with no visible blood in stool. - Results Results: Laboratory Results WBC 7.4 x10^3/uL (4.8-10.8) 02/07/19 06:15 RBC 3.07 10^6/uL (4.20-5.40) L 02/07/19 06:15 Hgb 10.0 g/dL (12.0-16.0) L 02/07/19 06:15 Hct 31.7 % (37.0-47.0) L 02/07/19 06:15 MCV 103.3 fL (81.0-99.0) H 02/07/19 06:15 MCH 32.6 pg (27.0-31.0) H 02/07/19 06:15 MCHC 31.5 g/dL (32.0-36.0) L 02/07/19 06:15 RDW 15.3 % (12.0-15.0) H 02/07/19 06:15 Plt Count 262 10^3/uL (130-450) 02/07/19 06:15 MPV 8.7 fL (7.9-10.8) 02/07/19 06:15 Neut # (Auto) 4.1 10^3/uL (1.5-6.6) 02/07/19 06:15 Lymph # (Auto) 2.0 10^3/uL (1.5-3.5) 02/07/19 06:15 [place] # (Auto) 1.1 10^3/uL (0.0-1.0) H 02/07/19 06:15 Eos # (Auto) 0.2 10^3/uL (0.0-0.7) 02/07/19 06:15 Baso # (Auto) 0.0 10^3/uL (0.0-0.1) 02/07/19 06:15 Absolute Nucleated RBC 0.00 x10^3/uL 02/07/19 06:15 Nucleated RBC % 0.0 /100WBC 02/07/19 06:15 PT 12.9 secs (9.9-12.6) H 02/06/19 05:23 INR 1.1 (0.8-1.2) 02/06/19 05:23 APTT 28.9 secs (24.9-33.3) 02/05/19 15:51 Sodium 144 mmol/L (135-145) 02/06/19 05:23 Potassium 3.9 mmol/L (3.5-5.0) 02/06/19 05:23 Chloride 113 mmol/L (101-111) H 02/06/19 05:23 Carbon Dioxide 22 mmol/L (21-32) 02/06/19 05:23 Anion Gap 9.0 (6-13) 02/06/19 05:23 BUN 26 mg/dL (6-20) H 02/06/19 05:23 Creatinine 1.0 mg/dL (0.4-1.0) 02/06/19 05:23 Estimated GFR (MDRD) 53 (>89) L 02/06/19 05:23 Glucose 96 mg/dL (70-100) 02/06/19 05:23 Lactic Acid 1.3 mmol/L (0.5-2.2) 02/05/19 15:51 Calcium 8.0 mg/dL (8.5-10.3) L 02/06/19 05:23 Total Bilirubin 0.7 mg/dL (0.2-1.0) 02/06/19 05:23 AST 16 IU/L (10-42) 02/06/19 05:23 ALT 11 IU/L (10-60) 02/06/19 05:23 Alkaline Phosphatase 50 IU/L (42-121) 02/06/19 05:23 Total Protein 5.4 g/dL (6.7-8.2) L 02/06/19 05:23 Albumin 2.7 g/dL (3.2-5.5) L 02/06/19 05:23 Globulin 2.7 g/dL (2.1-4.2) 02/06/19 05:23 Albumin/Globulin Ratio 1.0 (1.0-2.2) 02/06/19 05:23 Lipase 46 U/L (22-51) 02/05/19 15:51 Blood Type AB NEGATIVE 02/05/19 17:15 Blood Type Recheck AB NEGATIVE 02/05/19 21:55 Antibody Screen NEGATIVE 02/05/19 17:15 - Procedures Procedures: Procedures EXCISION OF LOWER ESOPHAGUS, ENDO, DIAGN (01/22/18) EXCISION OF STOMACH, ENDO, DIAGN (01/30/17) INSPECTION OF LOWER INTESTINAL TRACT, ENDO (01/30/17) INSPECTION OF UPPER INTESTINAL TRACT, ENDO (10/13/17) ABX Reporting Has patient been on IV antibiotics over the past 48 hours?: No
[2019-02-07] MEDS ORDERED: LIDO GARGLE 30 ML BOTTLE ONE (07:21)
--- NOTE | 2019-02-07 07:23 | ANESTHESIA ---
Pre-Anesthesia VS, & Labs - Diagnosis Diagnosis Recurrent GI bleed; likely upper; likely due to NSAID gastropathy; much less likely lower gi source given hx; currently stable hemodynamically. - Procedure EGD/Colonscopy Vital Signs: Temp Pulse Resp BP Pulse Ox 36.6 C 83 16 125/66 96 02/07/19 05:00 02/07/19 05:00 02/07/19 05:00 02/07/19 05:00 02/07/19 05:00 Height 5 ft 7 in Weight (kg) 70 kg Body Mass Index 24.1 - NPO >8 hours - Is Patient ?: Not Applicable - Lab Results Current Lab Results: Laboratory Tests 02/07/19 06:15: WBC 7.4, RBC 3.07 L, Hgb 10.0 L, Hct 31.7 L, MCV 103.3 H, MCH 32.6 H, MCHC 31.5 L, RDW 15.3 H, Plt Count 262, MPV 8.7, Neut # (Auto) 4.1, Lymph # (Auto) 2.0, [place] # (Auto) 1.1 H, Eos # (Auto) 0.2, Baso # (Auto) 0.0, Absolute Nucleated RBC 0.00, Nucleated RBC % 0.0 02/06/19 17:05: Hgb 9.9 L 02/06/19 11:20: WBC 6.3, RBC 2.92 L, Hgb 10.1 L, Hct 30.4 L, MCV 104.1 H, MCH 34 .6 H, MCHC 33.2, RDW 15.4 H, Plt Count 253, MPV 9.0, Neut # (Auto) 3.7, Lymph # (Auto) 1.3 L, [place] # (Auto) 1.1 H, Eos # (Auto) 0.2, Baso # (Auto) 0.0, Absolute Nucleated RBC 0.00, Nucleated RBC % 0.0 02/06/19 05:23: Sodium 144, Potassium 3.9, Chloride 113 H, Carbon Dioxide 22, Anion Gap 9.0, BUN 26 H, Creatinine 1.0, Estimated GFR (MDRD) 53 L, Glucose 96, Calcium 8.0 L, Total Bilirubin 0.7, AST 16, ALT 11, Alkaline Phosphatase 50, Total Protein 5.4 L, Albumin 2.7 L, Globulin 2.7, Albumin/Globulin Ratio 1.0 02/06/19 05:23: PT 12.9 H, INR 1.1 02/06/19 05:23: WBC 5.6, RBC 2.64 L, Hgb 8.9 L, Hct 26.9 L, MCV 101.9 H, MCH 33.7 H, MCHC 33.1, RDW 15.1 H, Plt Count 219, MPV 8.8, Neut # (Auto) 2.8, Lymph # (Auto) 1.7, [place] # (Auto) 0.9, Eos # (Auto) 0.2, Baso # (Auto) 0.0, Absolute Nucleated RBC 0.00, Nucleated RBC % 0.0 02/05/19 21:55: Blood Type Recheck AB NEGATIVE 02/05/19 21:55: WBC 6.8, RBC 2.92 L, Hgb 9.7 L, Hct 29.8 L, MCV 102.1 H, MCH 33.2 H, MCHC 32.6, RDW 15.2 H, Plt Count 220, MPV 8.8, Neut # (Auto) 3.9, Lymph # (Auto) 1.8, [place] # (Auto) 0.9, Eos # (Auto) 0.2, Baso # (Auto) 0.0, Absolute Nucleated RBC 0.00, Nucleated RBC % 0.0 02/05/19 17:15: Blood Type AB NEGATIVE, Antibody Screen NEGATIVE 02/05/19 15:51: Lactic Acid 1.3 02/05/19 15:51: Sodium 137, Potassium 4.5, Chloride 101, Carbon Dioxide 24, Anion Gap 12.0, BUN 49 H, Creatinine 1.7 H, Estimated GFR (MDRD) 29 L, Glucose 99, Calcium 8.8, Total Bilirubin 0.6, AST 20, ALT 14, Alkaline Phosphatase 63, Total Protein 6.9, Albumin 3.5, Globulin 3.4, Albumin/Globulin Ratio 1.0, Lipase 46 02/05/19 15:51: PT 12.2, INR 1.1, APTT 28.9 02/05/19 15:51: WBC 7.8, RBC 3.28 L, Hgb 10.7 L, Hct 33.4 L, MCV 101.8 H, MCH 32.6 H, MCHC 32.0, RDW 15.3 H, Plt Count 251, MPV 9.2, Neut # (Auto) 5.0, Lymph # (Auto) 1.4 L, [place] # (Auto) 1.2 H, Eos # (Auto) 0.1, Baso # (Auto) 0.0, Absolute Nucleated RBC 0.00, Nucleated RBC % 0.0 Lab results reviewed: Yes Fish Bones: 02/07/19 06:15 02/06/19 05:23 Home Medications and Allergies Home Medications: Ambulatory Orders Furosemide 20 mg PO DAILY 02/05/19 raNITIdine HCl [Zantac] 150 mg PO DAILY 02/05/19 Active Medications Acetaminophen (Tylenol) 650 mg PO Q4HR PRN PRN Reason: Pain 1 to 4 Last Admin: 02/07/19 00:33 Dose: 650 mg Hydrocodone Bitart/Acetaminophen ([place] 5/325) 1 tab PO Q4HR PRN PRN Reason: Pain 5 to 7 Last Admin: 02/06/19 01:56 Dose: 1 tab Calcium Carbonate/Glycine (Oysco-500) 1,000 mg PO DAILY [facility] Last Admin: 02/06/19 13:10 Dose: 1,000 mg Cholecalciferol (Vitamin D3) 4,000 unit PO DAILY [facility] Last Admin: 02/06/19 13:10 Dose: 4,000 unit Sodium Chloride (Normal Saline 0.9%) 1,000 mls @ 100 mls/hr IV .Q10H [facility] Last Admin: 02/07/19 02:14 Dose: 100 mls/hr Cefazolin Sodium 1 gm/ Sodium (Chloride) 100 mls @ 200 mls/hr IV Q8H [facility] Last Infusion: 02/07/19 02:43 Dose: Infused Levothyroxine Sodium (Synthroid) 25 mcg PO QDAC [facility] Last Admin: 02/07/19 05:01 Dose: 25 mcg Magnesium Oxide (Mag Ox) 400 mg PO DAILYWM [facility] Last Admin: 02/06/19 13:10 Dose: 400 mg Metoprolol Succinate (Toprol Xl) 25 mg PO DAILY [facility] Last Admin: 02/06/19 09:16 Dose: 25 mg Multivitamins (Theragran) 1 tab PO DAILY [facility] Last Admin: 02/06/19 09:16 Dose: 1 tab Ondansetron HCl (Zofran Inj) 4 mg IVP Q6HR PRN PRN Reason: Nausea / Vomiting Ondansetron HCl (Zofran Odt) 4 mg TL Q6HR PRN PRN Reason: Nausea / Vomiting Pantoprazole Sodium (Protonix) 40 mg IVP BID [facility] Last Admin: 02/06/19 21:13 Dose: 40 mg Polyethylene Glycol (Miralax) 17 gm PO DAILY [facility] Last Admin: 02/06/19 09:16 Dose: 17 gm Prochlorperazine Edisylate (Compazine Inj) 10 mg IVP Q6HR PRN PRN Reason: Nausea / Vomiting Sodium Chloride (Normal Saline Flush 0.9%) 10 ml IVP PRN PRN PRN Reason: NEEDED PER PROVIDER ORDERS Sodium Chloride (Normal Saline Flush 0.9%) 10 ml IVP 0100,0900,1700 [facility] Last Admin: 02/07/19 00:15 Dose: Not Given Levothyroxine [Synthroid] 25 mcg PO QDAC 01/01/17 Lisinopril 5 mg PO DAILY 01/01/17 Simvastatin [Zocor] 10 mg PO QPM 01/01/17 Etanercept [Enbrel] 50 mg SQ Q7D 05/23/17 Methotrexate 17.5 mg PO Q7D 05/23/17 Metoprolol Succinate [Toprol Xl] 25 mg PO DAILY 05/25/17 Calcium Carbonate [Calcium] 1,200 mg PO DAILY 05/28/17 Cholecalciferol (Vitamin D3) [Vitamin D3] 4,000 units PO DAILY 05/28/17 Multivitamin [Theragran] 1 tab PO DAILY 05/28/17 Furosemide 20 mg PO DAILY 02/05/19 raNITIdine HCl [Zantac] 150 mg PO DAILY 02/05/19 Allergies/Adverse Reactions: Allergies Allergy/AdvReac Type Severity Reaction Status Date / Time NSAIDS (Non-Steroidal Allergy Unknown Verified 07/23/18 10:51 Anti-Inflamma seasonal Allergy Unknown Uncoded 07/23/18 10:51 Anes History & Medical History - Anesthetic History Anesthesia Complications: reports: No previous complications Family history of Anesthesia Complications: Denies Family history of Malignant Hyperthermia: Denies - Medical History Cardiovascular: reports: Hypertension, High cholesterol, Coronary artery disease (Cath 01/2010, 10/2010 without significant disease. Admit for cp 10/18/10 at [facility] p hip replacement 10/13/10. ), Deep vein thrombosis (this is in her PMH but she denies having ), Atrial fibrillation (She denies having afib but it is in her medical records. No EKG or event referred to. Followed by cardiology at [facility], no anticoagulation. @D echo 10/2010 mod to severe TR and PA pressure 40-45 mmHg. 11/2011 mod TR. LVEF 60-65%. 12/2012 nml LV and RVEF, EF 60- 65% w mod to severe TR. Pul art 38 mmHg, 06/2014 no change but TRUNG severe now. 04/2015 now w mod dil RV, TRUNG severe. 07/2017 nml LV, no change . 09/2018 no change. ), Murmur (moderate to severe tricuspid regurgitation), Arrhythmia (NSVT w cp admit 10/[address] [facility] hip replacement (CT angio neg then)), Valve disorder Pulmonary: reports: Asthma (07/2006>FVC 3.24, FEV1 2.33 with 72%. Went ot 76% wet bronchodilators.), COPD, Pneumonia, Other (mild pulmonary HTN) Gastrointestinal: reports: Other (diverticulosis on scope 12/31/07) Urinary: reports: Incontinence (stress urinary incontinence), Frequency Neuro: reports: TIA, Migraines, Peripheral neuropathy, Other (Polyneuropathy/past TIA. Evaluated by [facility] neurology. Last visit December 10, 2018. Numbness and tingling in hands and feet. Most likely idiopathic or genetic. Treatment is alpha lipoic acid. MRA of brain and neck (- ) 08/07/18. EEG neg. ) Musculoskeletal: reports: Osteoarthritis (s/p left TKR 01/28/19), Rheumatoid arthritis (on Enbrel since Summer 2006, MTX and has been on Arava, Humira in the past), Osteoporosis (Hip fracture 10/2010, biphosphonates started 12/2010, left tibial plateau fx 11/2012), Other (C-spine degenerative disc disease) Endocrine/Autoimmune: reports: HyPOthyroidism Blood Disorders: reports: Anemia Skin: reports: None Smoking Status: Never smoker Psychosocial: reports: No issues indicated - Surgical History General: Colonoscopy (2017: tics; sharp angulation of sigmoid colon making procedure difficult), EGD (2017, 2018 x 2; gastric ulcers in 2017 and 2018) Eyes Ears Nose Throat (EENT): Tonsil/Adenoidectomy Cardiothoracic: Cardiac catheterization Gynecologic: Tubal ligation Orthopedic: Hip replacement, Other Exam General: Alert, Oriented x3 Dental: WNL Mouth Openin Fingerbreadth Neck Mobility: Normal Mallampati classification: II Thyromental Distance: greater than 6 cm Respiratory: Lungs clear Cardiovascular: Regular rate Mental/Cognitive Status: Alert/Oriented X3 Cognitive Status: Within normal limits Plan Anesthesia Type: MAC Consent for Procedure(s) Verified and Reviewed: Yes Code Status: Attempt Resuscitation ASA classification: 2-Mild systemic disease Is this case an emergency?: Yes
--- NOTE | 2019-02-07 08:07 | PROVIDER PROGRESS NOTE ---
Subjective - Prog Note Date Prog Note Date: 02/07/19 Prog Note Time: 08:05 - Subjective Pt reports feeling: Improved (Mrs. Edmond feels well this morning, though tired from having to do bowel prep last night and this morning. Her left knee is a little bit sore from getting out of bed so often to use the commode.) Current Medications - Current Medications Current Medications: Allergies NSAIDS (Non-Steroidal Anti-Inflamma Allergy (Verified 07/23/18 10:51) Unknown seasonal Allergy (Uncoded 07/23/18 10:51) Unknown Home Medications Levothyroxine [Synthroid] 25 mcg PO QDAC 01/01/17 [History Confirmed 02/05/19] Lisinopril 5 mg PO DAILY 01/01/17 [History Confirmed 02/05/19] Simvastatin [Zocor] 10 mg PO QPM 01/01/17 [History Confirmed 02/05/19] Etanercept [Enbrel] 50 mg SQ Q7D 05/23/17 [History Confirmed 02/05/19] Methotrexate 17.5 mg PO Q7D 05/23/17 [History Confirmed 02/05/19] Metoprolol Succinate [Toprol Xl] 25 mg PO DAILY 05/25/17 [History Confirmed 02/05/19] Calcium Carbonate [Calcium] 1,200 mg PO DAILY 05/28/17 [History Confirmed 02/05/19] Cholecalciferol (Vitamin D3) [Vitamin D3] 4,000 units PO DAILY 05/28/17 [History Confirmed 02/05/19] Multivitamin [Theragran] 1 tab PO DAILY 05/28/17 [History Confirmed 02/05/19] Furosemide 20 mg PO DAILY 02/05/19 [History Confirmed 02/05/19] raNITIdine HCl [Zantac] 150 mg PO DAILY 02/05/19 [History Confirmed 02/05/19] Active Medications Generic Name Dose Route Start Last Admin Trade Name Freq PRN Reason Stop Dose Admin Acetaminophen 650 mg 02/05/19 16:58 02/07/19 00:33 Tylenol PO 650 mg Q4HR PRN Administration Pain 1 to 4 Hydrocodone Bitart/Acetaminophen 1 tab 02/05/19 16:58 02/06/19 01:56 [place] 5/325 PO 1 tab Q4HR PRN Administration Pain 5 to 7 Calcium Carbonate/Glycine 1,000 mg 02/06/19 12:15 02/06/19 13:10 Oysco-500 PO 1,000 mg DAILY PEBBLES Administration Cholecalciferol 4,000 unit 02/06/19 12:15 02/06/19 13:10 Vitamin D3 PO 4,000 unit DAILY PEBBLES Administration Sodium Chloride 1,000 mls @ 100 mls/hr 02/05/19 17:00 02/07/19 02:14 Normal Saline 0.9% IV 100 mls/hr .Q10H PEBBLES Administration Cefazolin Sodium 1 gm/ Sodium 100 mls @ 200 mls/hr 02/06/19 10:00 02/07/19 02:43 Chloride IV Infused Q8H PEBBLES Infusion Levothyroxine Sodium 25 mcg 02/06/19 07:00 02/07/19 05:01 Synthroid PO 25 mcg QDAC PEBBLES Administration Magnesium Oxide 400 mg 02/06/19 13:00 02/06/19 13:10 Mag Ox PO 400 mg DAILYWM PEBBLES Administration Metoprolol Succinate 25 mg 02/06/19 09:00 02/06/19 09:16 Toprol Xl PO 25 mg DAILY PEBBLES Administration Multivitamins 1 tab 02/06/19 09:00 02/06/19 09:16 Theragran PO 1 tab DAILY PEBBLES Administration Ondansetron HCl 4 mg 02/05/19 16:58 Zofran Inj IVP Q6HR PRN Nausea / Vomiting Ondansetron HCl 4 mg 02/05/19 16:58 Zofran Odt TL Q6HR PRN Nausea / Vomiting Pantoprazole Sodium 40 mg 02/05/19 21:00 02/06/19 21:13 Protonix IVP 40 mg BID PEBBLES Administration Polyethylene Glycol 17 gm 02/06/19 09:00 02/06/19 09:16 Miralax PO 17 gm DAILY PEBBLES Administration Prochlorperazine Edisylate 10 mg 02/05/19 16:58 Compazine Inj IVP Q6HR PRN Nausea / Vomiting Sodium Chloride 10 ml 02/05/19 16:58 Normal Saline Flush 0.9% IVP PRN PRN NEEDED PER PROVIDER ORDERS Sodium Chloride 10 ml 02/05/19 17:00 02/07/19 00:15 Normal Saline Flush 0.9% IVP Not Given 0100,0900,1700 [facility] Objective - Vital Signs/Intake & Output Reviewed Vital Signs: Yes Vital Signs: Vital Signs x48h Temp Pulse Resp BP Pulse Ox 02/07/19 05:00 36.6 C 83 16 125/66 96 Intake & Output: Intake & Output 02/04/19 02/05/19 02/06/19 02/07/19 23:59 23:59 23:59 23:59 Intake Total 1250 3176 2640 Output Total 500 3775 1 Balance 750 599 2639 - Objective General Appearance: positive: No acute distress, Alert, Other (Alert and oriented x3, pleasant and calm with appropriate affect) Eyes Bilateral: positive: Normal inspection, PERRL, EOMI, No lid inflammation, Conjunctivae nml ENT: positive: No signs of dehydration Neck: positive: Nml inspection, No JVD Respiratory: positive: Chest non-tender, No respiratory distress, Breath sounds nml Cardiovascular: positive: Regular rate & rhythm, No murmur, No gallop Peripheral Pulses: 1+ Dorsalis pedis (R), 1+ Dorsalis pedis (L), 2+ Radial (R), 2+ Radial (L) Abdomen: positive: Non-tender, No organomegaly, Nml bowel sounds, No distention. negative: Tenderness Skin: positive: Warm, Dry, Skin rash (cellulitis of LLE-less erythema and warmth from yesterday, but more edematous today) Extremities: positive: Joint swelling (Left knee edema s/p knee replacement), Other (LLE cellulitis edematous). negative: Calf tenderness Neurologic/Psychiatric: positive: Oriented x3, CN's nml (2-12), Motor nml, Mood/affect nml - Lab Results Fish Bones: 02/07/19 06:15 02/06/19 05:23 Other Labs: Laboratory Results - last 24 hr 02/06/19 02/06/19 02/07/19 11:20 17:05 06:15 WBC 6.3 7.4 RBC 2.92 L 3.07 L Hgb 10.1 L 9.9 L 10.0 L Hct 30.4 L 31.7 L MCV 104.1 H 103.3 H MCH 34.6 H 32.6 H MCHC 33.2 31.5 L RDW 15.4 H 15.3 H Plt Count 253 262 MPV 9.0 8.7 Neut # (Auto) 3.7 4.1 Lymph # (Auto) 1.3 L 2.0 [place] # (Auto) 1.1 H 1.1 H Eos # (Auto) 0.2 0.2 Baso # (Auto) 0.0 0.0 Absolute Nucleated RBC 0.00 0.00 Nucleated RBC % 0.0 0.0 - Other Results/Comments Other Results/Comments: Pending EGD and colonoscopy this AM Assessment/Plan - Problem List (1) GI bleeding Impression: Impression: No further bloody stools reported. H&H is stabilized at 10 & 31.7. Was NPO overnight and completed bowel prep. Dr. Obrien has taken her in for an EGD and colonoscopy this am. Plan: -Follow up on results of scopes -Resume oral diet after scope (2) Cellulitis of leg without foot, left Impression: LLE cellulitis has receeded and remains well within the demarked area. Still slightly pink and warm to touch, but improved from yesterday. Due to cost, PCN changed to Cefazolin. She is not a diabetic. Today is day 2 of cefazolin. Plan: -Continue Abx, switch to PO when oral diet resumed (3) Acute blood loss anemia Impression: H&H stabalized. No further signs of blood loss. Continue to monitor. (4) Acute kidney injury Impression: Laboratory Tests 02/05/19 02/06/19 15:51 05:23 Creatinine 1.7 H 1.0 baseline is 0.5-1.0. (5) Status post knee replacement Impression: Incision remains open to air. L knee is swollen, but no erythema or signs of infection. (6) Hypertension Impression: SBP 130-140 in last 24hours. On home dose of metoprolol. Lisinopril has remain held. Plan: -Restart lisinopril this afternoon Qualifiers: GI bleed type/associated pathology: unspecified gastrointestinal hemorrhage type Qualified Code(s): K92.2 - Gastrointestinal hemorrhage, unspecified
[2019-02-07] MEDS ORDERED: LIDO GARGLE 30 ML BOTTLE PO ONE (08:25)
[2019-02-07] MEDS ORDERED: SODIUM CHLORIDE 0.9% 1,000 ML IV ONE (08:26)
--- NOTE | 2019-02-07 10:30 | DISCHARGE SUMMARY ---
"Discharge Summary Admit Date: 02/05/19 Discharge Date: 02/07/19 Discharging Provider: Dr. Iram Reyes MD Primary Care Provider: Aundrea Vasquez PA-C Code Status: Attempt Resuscitation Condition at Discharge: Good Discharge Disposition: Home Health Service - DIAGNOSES Admission Diagnoses: (1) Bright red blood per rectum, GIB (2) Cellulitis of leg without foot, left (3) Acute blood loss anemia (4) Acute kidney injury (5) Status post knee replacement (6) Hypertension Discharge Diagnoses with Status of Each Condition: (1) Bright red blood per rectum No bloody stool through hospitalization. Upper GI scope found 5 gastric ulcers. DC'd prescribed aspirin. Pt is NOT to take NSAIDs or aspirin. Pantoprazole prescribed at DC. (2) Cellulitis of leg without foot, left Hx. venous statis. LLE cellulitis evolved s/p knee surgery, did NOT involve surgical site. Is resolving with decreased erythema and warmth well within demarked area. Tx with po Abx outpt but can't find records. DC with PO doxycicline x4 days to complete 7day course. (3) Acute blood loss anemia Did not require transfusion. Hgb trend from 13-->10-->8.9-->10. Gastric ulcers found per above. Protonix per above. (4) Acute kidney injury Usual creatinine is 0.5 to 1.0. Peaked at 1.7. Lasix and Lisinopril held during hospitalization. Restart lasix and lisinopril per home dosing in setting of baseline medical status. (5) Status post knee replacement Incision is clean, intact, no signs of infection. Healing well. Has been without PT since surgery. PT eval completed. Will change [facility] PT to Home Health PT. Patient was visualized able to ambulate from bed to bathroom with use of FWW, baring weight on L knee. (6) Hypertension Continued home dose of metoprolol through hospitalization but held lisinopril, which was restarted on day of DC with SBP stable 130-140s. - HPI History of Present Illness: This is a 78-year-old female who has a previous history of gastric ulcer disease. She was seen for anemia and Hemoccult-positive stools in October 2017 and an EGD confirmed gastric ulcers. She was treated with proton pump inhibitors and told never to take any more nonsteroidals again. She had a follow-up EGD in January [address] Altaf Obrien. She had a 2 cm hiatal hernia, a small patch of abnormal mucosa at the GE junction, and biopsies were sent. It was okay for her to stop her sucralfate and acid fransisco as long as she avoided any aspirin like processes. She then had a knee replacement January [address] Kim Tillman. Pain was controlled with Tylenol and oxycodone. She was discharged to physical therapy at [facility], which she never made it to as she canceled and rescheduled her first appt to 02/09. She was discharged on aspirin 81 mg p.o. twice daily. Her ranitidine was also continued. She was seen for pain and redness of her left lower extremity after this knee replacement. An ultrasound of the leg was (-)February 04. On 02/05 she began having bloody stools, she has told some people they were black stools, and others that it was bright red blood per rectum. She was sent to the emergency room where she was found to be mildly anemic and hypotensive with SBP 107 (baseline in 130s). Also of note was a creatinine that is newly elevated to 1.7 where she is usually <1.0. She was admitted for observation for GI bleed. She denies abd pain, fever, no recent travel, and no one else is sick. No diarrhea. - CONSULTS | PROCEDURES Consultations: General Surgery, Dr. Obrien Procedures: Upper endoscopy on 02/07: found 5 gastric ulcers - HOSPITAL COURSE Hospital Course: 02/05 Ms. Edmond presented to the ED with report of bright red blood per rectum vs black stools. Heme occult was positive on admission. H&H was trended q6 hours which had a steady decline from Hgb 10 on admission to 8.9 at it's lowest. She was kept NPO for most of her stay, hydrated with gentle IV fluids 85cc/hr, and given a clear liquid diet to have on 02/06 prior to NPO again and bowel prep that evening. On the 02/07 Hgb had returned to 10. No transfusion was required throughout hospitalization for this anemia and she did not have any episodes of bright red blood per rectum. EGD was performed on AM on 02/07 discovering 5 new gastric ulcers. A lower endoscopy was not performed. Also of note, she had KEVIN with Crea up to 1.7. Her furosemide and lisinopril were held throughout hospitalization and restarted on 02/07 at home doses in the setting of baseline BPs and Crea improvement to 1.0. Regarding her L total knee replacement, Ms. Edmond has not yet started her physical therapy, despite being 10 days post-op. She had cancelled her outpa tient appt at [facility] that was scheduled for 02/02, then presented to ED on 02/05. On 02/07 she underwent a PT evaluation where she was found to not be able to weight bare on that L leg. A 2 view XR of the knee was ordered on 02/07 prior to DC. Recommendations are to start home health PT right away as she lives with her son, who we are told is an alcoholic with a hx of DUI and may be an unreliable caregiver to drive her to her bi-weekly PT appts. - ALLERGIES Allergies/Adverse Reactions: Allergies Allergy/AdvReac Type Severity Reaction Status Date / Time NSAIDS (Non-Steroidal Allergy Unknown Verified 07/23/18 10:51 Anti-Inflamma seasonal Allergy Unknown Uncoded 07/23/18 10:51 - MEDICATIONS Home Medications: Ambulatory Orders Medication Instructions Recorded Confirmed Levothyroxine [Synthroid] 25 mcg PO QDAC 01/01/17 02/05/19 Lisinopril 5 mg PO DAILY 01/01/17 02/05/19 Simvastatin [Zocor] 10 mg PO QPM 01/01/17 02/05/19 Etanercept [Enbrel] 50 mg SQ Q7D 05/23/17 02/05/19 Methotrexate 17.5 mg PO Q7D 05/23/17 02/05/19 Metoprolol Succinate [Toprol Xl] 25 mg PO DAILY 05/25/17 02/05/19 Calcium Carbonate [Calcium] 1,200 mg PO DAILY 05/28/17 02/05/19 Cholecalciferol (Vitamin D3) 4,000 units PO DAILY 05/28/17 02/05/19 [Vitamin D3] Multivitamin [Theragran] 1 tab PO DAILY 05/28/17 02/05/19 Furosemide 20 mg PO DAILY 02/05/19 02/05/19 raNITIdine HCl [Zantac] 150 mg PO DAILY 02/05/19 02/05/19 Doxycycline Hyclate 100 mg PO BID #8 capsule 02/07/19 Pantoprazole [Protonix] 40 mg PO BID #60 tablet 02/07/19 Home Medications Other | Comments: New prescription at [place] for doxycycline 100mg BID x4 days, #8 tablets - PHYSICAL EXAM AT DISCHARGE General Appearance: positive: No acute distress, Alert Eyes Bilateral: positive: Normal inspection, PERRL, EOMI, No lid inflammation, Conjunctivae nml, No scleral icterus ENT: positive: No signs of dehydration Neck: positive: Nml inspection, No JVD, Carotid bruit Respiratory: positive: Chest non-tender, No respiratory distress, Breath sounds nml Cardiovascular: positive: Regular rate & rhythm Peripheral Pulses: positive: 2+ (bilat radial), 1+ (bilat DPs) Abdomen: positive: Non-tender, No organomegaly, Nml bowel sounds, No distention. negative: Tenderness, Guarding, Rebound Back: positive: Nml inspection Skin: positive: Warm, Dry, Skin rash (LLE cellulitis, decreased erythema and warmth, well within marked outline ) Extremities: positive: Pedal edema (trace. LLE with 1+ up to mid brannon (in setting of cellulitis)), Other (incision to L knee, clean, dry, JUAN ALBERTO. No s/s of infection at incision site. Unable to weight bare on L leg). negative: Full ROM, Calf tenderness Neurologic/Psychiatric: positive: Oriented x3, CN's nml (2-12), Motor nml, Mood/affect nml, Weakness, Sensory loss - LABS Result Diagrams: 02/07/19 06:15 02/06/19 05:23 - DIAGNOSTIC IMAGING Diagnostic Imaging Results Comments: 2 view XR of L knee: preliminary review of XR appears the joint is stable, no fracture noted - FOLLOW UP Follow Up: Aundrea Vasquez PA-C - TIME SPENT Time Spent in Discharge (Minutes): 45"
--- NOTE | 2019-02-07 10:39 | Discharge Plan ---
Discharge Plan Problem Reviewed?: Yes Disposition: Home Health Service Condition: Good Prescriptions: Doxycycline Hyclate 100 mg PO BID #8 capsule Pantoprazole [Protonix] 40 mg PO BID #60 tablet Diet: Regular Activity Restrictions: Activity as Tolerated Shower Restrictions: No Driving Restrictions: No Assistance Devices: Walker Weight Bearing: Full Weight Health Concerns: You came to our emergency room because you were having bloody stool, and occasionally black tarry stool. You have a documented history of having peptic ulcer disease, and you are not supposed to be taking any anti-inflammatory medicine such as aspirin, Aleve, ibuprofen. You recently had a knee replacement surgery and went back on your aspirin after surgery. You think it is because 1 of the doctors that you saw told you to go on it. You cannot remember who it was. Unfortunately that aspirin resulted in recurrence of your ulcers of your stomach. You had another GI bleed. You did not require blood transfusion. In addition to the bloody and tarry stools, you also had a skin infection, not involving the knee, of the left leg. You have chronic edema of the legs that comes and goes. You take Lasix for it. Plan of Treatment: For the ulcer disease, we stopped her aspirin and put you on an acid reducing medicine called Protonix. We gave you to you in your vein to make sure we had high doses. We watched your blood work and while you were anemic and had dropped to 10 g of hemoglobin from 13 g of hemoglobin, you did not require transfusion. You underwent an esophagogastroduodenoscopy with Dr. Obrien. You have 5 more ulcers. For the leg infection we placed you on IV antibiotic therapy. The leg has shrunk quite a bit and become more wrinkled. But you always have chronic mild leg edema. The redness is improved. You are being switched from IV medication to medication by mouth for the antibiotic. Care Goals: 1. Complete the antibiotics for the leg infection. The wound from the knee looks perfectly normal. You will finish the antibiotics and for more days. 2. See your orthopedic surgeon in follow-up at indicated time they have already told you. 3. See Dr. Altaf Obrien in 2 weeks for follow-up from the endoscopy. He has warned you that he will most likely reschedule another endoscopy [address] to make sure this group of ulcers is healed. 4. Never take another anti-inflammatory medicine again. No aspirin, Aleve, Naprosyn, ibuprofen, diclofenac, Celebrex. You can only take Tylenol [id number]. 5. Follow-up with your primary care provider, Dr. Aundrea Vasquez; she needs to make sure your leg is no longer inflamed or infected. And she may need to recheck your blood count to see that your anemia has resolved. 6. Take a multivitamin with iron on a daily basis to start building up your blood count again. 7. You are homebound right now with your knee being stiff. We have ordered Home Health PT to start seeing you. Assessment: You have mild to moderate memory loss. We have written all of this down for you to remember what the instructions are. Please make sure you take this with you to your doctor's appointment and you show this to your son. No Smoking: If you smoke, Please STOP! Call for help. Follow-up with: Aundrea Vasquez MD [Primary Care Provider] -
[2019-02-07] MEDS: CHOLECALCIFEROL 1,000 UNIT TABLET PO SCH (11:26)
[2019-02-07] MEDS: MULTIVITAMIN TABLET PO SCH (11:26)
[2019-02-07] MEDS: CALCIUM CARB (OYSTER SHELL) 500 MG TABLET PO SCH (11:26)
[2019-02-07] MEDS: PANTOPRAZOLE 40 MG VIAL IVP SCH ×2 (11:27→11:42)
[2019-02-07] MEDS: METOPROLOL SUCCINATE 25 MG TABLET PO SCH (11:27)
[2019-02-07] MEDS: MAGNESIUM OXIDE 400 MG TABLET PO SCH (11:27)
[2019-02-07] MEDS: POLYETHYLENE GLYCOL 3350 17 GM PACKET PO SCH (11:30)
[2019-02-07] MEDS ORDERED: DOXYCYCLINE 100 MG TABLET PO SCH (12:00)
[2019-02-07] MEDS ORDERED: PANTOPRAZOLE 40 MG TABLET PO SCH (12:00)
[2019-02-07 12:23] VITALS: BP 137/77
--- NOTE | 2019-02-07 14:04 | XRAY Report ---
Reason: pain, can't wt bear Procedure Date: 02/07/2019 Accession Number: [id number] / [id number] Procedure: XR - Knee 2 View LT CPT Code: FULL RESULT: EXAM: LEFT KNEE RADIOGRAPHY EXAM DATE: 02/07/2019 11:22 AM. CLINICAL HISTORY: Pain, cant wt bear. COMPARISON: KNEE 2 VIEW LT 06/04/2017 3:08 PM FEMUR 2V LT 03/19/2018 8:36 PM. TECHNIQUE: 3 views. FINDINGS: Bones: There is some cortical offset at the metaphysis of the distal left femur, at the epicondylar margins. This is only seen on the frontal view and not the lateral view. A comparison radiograph of immediate postoperative period is not available. No abnormal lucency around the hardware. Joints: Status post total left knee arthroplasty. Soft Tissues: Some diffuse soft tissue swelling, with venous phleboliths and vascular calcifications in the arteries. IMPRESSION: Status post total left knee arthroplasty. Some cortical offset at the distal femoral metaphysis may be degenerative, but difficult to exclude an acute fracture. Comparison with prior radiographs after surgery would be helpful. Alternatively, could consider short-term interval follow-up imaging. RAD[facility]
--- NOTE | 2019-02-12 16:59 | MISCELLANEOUS PROVIDER NOTE ---
Miscellaneous Provider Note - - Note: The patient was discharged by Dr. Reyes on 02/07, in which the treatment of her left foot cellulitis was to continue for 7 days. The patient called and spoke to me on behalf of Dr. Reyes with concerns of her not getting a full antibiotic course. Discharge documentation notes; "DC with PO doxycicline x4 days to complete 7day course". Only 8 tablets of doxycycline were prescribed, which would have been enough for 02/07, 02/08, 02/09, and 02/10. Since stopping this treatment, she has had more pain, redness, which was similar to prior to her last admission. I am sending an additional 3 days of treatment to complete the full antibiotic course. I have instructed the patient to return to the ED if her symptoms continue to worsen, if she develops fevers, chills, or pain, and follow up with her PCP on Friday. Signed: GISSELLE Barboza
== END 2019-02-07 14:00 | disposition home health service (06) ==
LOC: ED 14:20 → MS2 16:58
PROVIDERS: ADMIT Specialist; ATTEND Specialist
PROC: 0DB68ZX Excision of Stomach, Via Natural or Artificial Opening Endoscopic, Diagnostic (ICD-10-PCS; principal; 2019-02-05)
DX: K25.4 Chronic or unspecified gastric ulcer with hemorrhage (principal); T39.395A Adverse effect of other nonsteroidal anti-inflammatory drugs [NSAID], initial encounter; T39.015A Adverse effect of aspirin, initial encounter; Y92.009 Unspecified place in unspecified non-institutional (private) residence as the place of occurrence of the external cause; L03.116 Cellulitis of left lower limb; D62 Acute posthemorrhagic anemia; N17.9 Acute kidney failure, unspecified; I95.9 Hypotension, unspecified; I10 Essential (primary) hypertension; I07.1 Rheumatic tricuspid insufficiency; I48.91 Unspecified atrial fibrillation; I25.10 Atherosclerotic heart disease of native coronary artery without angina pectoris; K44.9 Diaphragmatic hernia without obstruction or gangrene; J44.9 Chronic obstructive pulmonary disease, unspecified; E78.00 Pure hypercholesterolemia, unspecified; G43.909 Migraine, unspecified, not intractable, without status migrainosus; G62.9 Polyneuropathy, unspecified; E03.9 Hypothyroidism, unspecified; K57.90 Diverticulosis of intestine, part unspecified, without perforation or abscess without bleeding; I87.8 Other specified disorders of veins; R41.3 Other amnesia; N39.3 Stress incontinence (female) (male); R35.0 Frequency of micturition; H54.7 Unspecified visual loss; F32.9 Major depressive disorder, single episode, unspecified; F41.9 Anxiety disorder, unspecified; M06.9 Rheumatoid arthritis, unspecified; M81.0 Age-related osteoporosis without current pathological fracture; M50.30 Other cervical disc degeneration, unspecified cervical region; Z79.899 Other long term (current) drug therapy; Z86.718 Personal history of other venous thrombosis and embolism; Z87.01 Personal history of pneumonia (recurrent); Z87.11 Personal history of peptic ulcer disease; Z96.652 Presence of left artificial knee joint; Z86.73 Personal history of transient ischemic attack (TIA), and cerebral infarction without residual deficits; Z87.891 Personal history of nicotine dependence; Z91.81 History of falling
CPT/HCPCS: 36415; 43239; 73560; 80053; 83605; 83690; 85018; 85025; 85610; 85730; 86850; 86900; 86901; 87081; 96361; 96365; 96366; 96367; 96375; 96376; 97110; 97161; 99282; 99285; A9270; G0378

== ENCOUNTER 2019-02-07 19:00 | Outpatient (CLI) | payer MEDICARE | END 2019-02-07 19:01 | disposition critical access hospital (66) | LOC: EMS 19:00 | PROVIDERS: ATTEND Surgery | DX: M79.662 Pain in left lower leg (principal); R26.2 Difficulty in walking, not elsewhere classified | CPT/HCPCS: A0425; A0429 ==

== ENCOUNTER 2019-02-07 19:18 | Emergency (ER) | payer MEDICARE ==
[2019-02-07] MEDS ORDERED: DOXYCYCLINE 100 MG TABLET PO STA (19:41)
--- NOTE | 2019-02-07 19:50 | ED Physician Documentation ---
History of Present Illness - Stated complaint Stated Complaint: KNEE PX - Chief complaint Chief Complaint: Wound - History obtained from History obtained from: Patient - History of Present Illness Timing: Today Pain level max: 0 Pain level now: 0 - Additonal information Additional information: Patient was discharged from the hospital earlier today. She did not fill her medications and is concerned she will miss her next antibiotic dose. No other complaints at this time. No fevers. Nothing makes it better or worse Review of Systems Constitutional: denies: Fever PD PAST MEDICAL HISTORY - Past Medical History Past Medical History: Yes Cardiovascular: Hypertension, High cholesterol, Coronary artery disease, Deep vein thrombosis, Atrial fibrillation, Murmur, Arrhythmia, Valve disorder Respiratory: Asthma, COPD, Pneumonia, Other Neuro: TIA, Migraines, Peripheral neuropathy, Other Endocrine/Autoimmune: HyPOthyroidism GI: Other DIRECTORY COMPILER: Other : Incontinence, Frequency HEENT: Chronic vision loss Psych: Depression, Anxiety Musculoskeletal: Osteoarthritis, Rheumatoid arthritis, Osteoporosis, Other Derm: None - Past Surgical History Past Surgical History: Yes General: Colonoscopy, EGD Ortho: Hip replacement, Knee replacement, Other /DIRECTORY COMPILER: Tubal ligation Cardiovascular: Cardiac catheterization HEENT: Tonsil/Adenoidectomy - Present Medications Home Medications: Ambulatory Orders Medication Instructions Recorded Confirmed Levothyroxine [Synthroid] 25 mcg PO QDAC 01/01/17 02/05/19 Lisinopril 5 mg PO DAILY 01/01/17 02/05/19 Simvastatin [Zocor] 10 mg PO QPM 01/01/17 02/05/19 Etanercept [Enbrel] 50 mg SQ Q7D 05/23/17 02/05/19 Methotrexate 17.5 mg PO Q7D 05/23/17 02/05/19 Metoprolol Succinate [Toprol Xl] 25 mg PO DAILY 05/25/17 02/05/19 Calcium Carbonate [Calcium] 1,200 mg PO DAILY 05/28/17 02/05/19 Cholecalciferol (Vitamin D3) 4,000 units PO DAILY 05/28/17 02/05/19 [Vitamin D3] Multivitamin [Theragran] 1 tab PO DAILY 05/28/17 02/05/19 Furosemide 20 mg PO DAILY 02/05/19 02/05/19 raNITIdine HCl [Zantac] 150 mg PO DAILY 02/05/19 02/05/19 Doxycycline Hyclate 100 mg PO BID #8 capsule 02/07/19 Pantoprazole [Protonix] 40 mg PO BID #60 tablet 02/07/19 - Allergies Allergies/Adverse Reactions: Allergies Allergy/AdvReac Type Severity Reaction Status Date / Time NSAIDS (Non-Steroidal Allergy Unknown Verified 07/23/18 10:51 Anti-Inflamma seasonal Allergy Unknown Uncoded 07/23/18 10:51 - Social History Does the pt smoke?: No Smoking Status: Never smoker Does the pt drink ETOH?: No Does the pt have substance abuse?: No - Immunizations Immunizations are current?: Yes - POLST Patient has POLST: No POLST Status: Full Code (she has not thought about advanced care planning or planning for severe diability. She thinks that if she is resuscitated she will recover to be normal and go home again.) PD ED PE NORMAL - Vitals Vital signs reviewed: Yes - General General: Alert and oriented X 3, No acute distress - HEENT HEENT: Moist mucous membranes - Neck Neck: Supple, no meningeal sign - Cardiac Cardiac: RRR, Strong equal pulses - Respiratory Respiratory: No respiratory distress, Clear bilaterally - Derm Derm: Warm and dry - Extremities Extremities: Other (LLE swelling and mild erythema. nvi) - Neuro Neuro: Alert and oriented X 3 - Psych Psych: Normal mood, Normal affect Results - Vitals Vitals: Vital Signs - 24 hr 02/07/19 02/07/19 19:20 19:56 Temperature 36.8 C 36.8 C Heart Rate 82 80 Respiratory 18 16 Rate Blood Pressure 152/73 H 148/70 H O2 Saturation 98 99 Oxygen O2 Source [Without Activity] Room air O2 Source Room air PD MEDICAL DECISION MAKING - ED course Complexity details: considered differential, d/w patient ED course: Patient given her oral dose of doxycycline. We will follow-up with the pharmacy in the morning to fill the rest of her prescriptions. Patient counseled regarding signs and symptoms for which I believe and urgent re-evaluation would be necessary. Patient with good understanding of and agreement to plan and is comfortable going home at this time This document was made in part using voice recognition software. While efforts are made to proofread this document, sound alike and grammatical errors may occur. Departure - Departure Disposition: 01 Home, Self Care Clinical Impression: Swelling of lower extremity Cellulitis Qualifiers: Site of cellulitis: extremity Site of cellulitis of extremity: lower extremity Laterality: left Qualified Code(s): L03.116 - Cellulitis of left lower limb Condition: Good Instructions: ED Infec Skin Cellulitis Follow-Up: Aundrea Vasquez MD [Primary Care Provider] - Within 1 week Comments: Fill your prescriptions in the morning. Return if you worsen. Follow-up with your doctor for further care. If you cannot find your prescriptions, you can talk to Dr. Reyes in the morning to see if she can call them into the pharmacy for you. The [facility] number is [phone] Discharge Date/Time: 02/07/19 20:56
[2019-02-07 19:57] VITALS: BP 148/70
== END 2019-02-07 20:56 | disposition home or self-care (01) ==
LOC: EDUNIT# → ED 19:18
DX: L03.116 Cellulitis of left lower limb (principal); M79.89 Other specified soft tissue disorders; I10 Essential (primary) hypertension
CPT/HCPCS: 99282; A9270

== ENCOUNTER 2019-02-15 17:14 | Outpatient (CLI) | payer MEDICARE | END 2019-02-15 17:15 | disposition short-term general hospital (02) | LOC: EMS 17:14 | PROVIDERS: ATTEND Surgery | DX: M79.662 Pain in left lower leg (principal); M79.89 Other specified soft tissue disorders | CPT/HCPCS: A0425; A0429 ==

== ENCOUNTER 2019-03-04 08:00 | Outpatient (CLI) | payer MEDICARE | END 2019-03-04 23:59 | disposition home or self-care (01) | LOC: LAB.R 08:00 | PROVIDERS: ATTEND Family Medicine | DX: L03.116 Cellulitis of left lower limb (principal) | CPT/HCPCS: 87070; 87077; 87181; 87205 ==

== ENCOUNTER 2019-03-10 08:00 | Outpatient (CLI) | payer MEDICARE | END 2019-03-10 23:59 | disposition home or self-care (01) | LOC: LAB.R 08:00 | DX: M05.9 Rheumatoid arthritis with rheumatoid factor, unspecified (principal) | CPT/HCPCS: 81599; 86480 ==

== ENCOUNTER 2019-03-13 08:00 | Outpatient (CLI) | payer MEDICARE ==
[2019-03-13 18:16] LABS: BASOPHILS % (AUTO) 0.3 %; EOSINOPHILS # (AUTO) 0.1 10^3/uL (0.0-0.7); EOSINOPHILS % (AUTO) 0.9 %; HGB - HEMOGLOBIN 11.8 g/dL (12.0-16.0); LYMPHOCYTES # (AUTO) 1.8 10^3/uL (1.5-3.5); LYMPHOCYTES % (AUTO) 17.8 %; MEAN CORPUSCULAR HEMOGLOBIN 33.5 pg (27.0-31.0); MEAN CORPUSCULAR HGB CONC 33.1 g/dL (32.0-36.0); MEAN CORPUSCULAR VOLUME 101.4 fL (81.0-99.0); MEAN PLATELET VOLUME 9.7 fL (7.9-10.8); MONOCYTES # (AUTO) 1.3 10^3/uL (0.0-1.0); MONOCYTES % (AUTO) 12.7 %; NEUTROPHILS # (AUTO) 6.7 10^3/uL (1.5-6.6); NEUTROPHILS % (AUTO) 67.8 %; PLT - PLATELET COUNT 301 10^3/uL (130-450); RED BLOOD COUNT 3.52 10^6/uL (4.20-5.40); RED CELL DISTRIBUTION WIDTH 14.5 % (12.0-15.0); WHITE BLOOD COUNT 9.9 x10^3/uL (4.8-10.8)
[2019-03-13 18:21] LABS: CALCIUM 9.2 mg/dL (8.5-10.3); CREATININE 1.3 mg/dL (0.4-1.0)
== END 2019-03-13 23:59 | disposition home or self-care (01) ==
LOC: LAB.R 08:00
PROVIDERS: ATTEND Family Medicine
DX: I10 Essential (primary) hypertension (principal); D64.9 Anemia, unspecified
CPT/HCPCS: 80048; 85025

== ENCOUNTER 2019-05-04 12:17 | Outpatient (CLI) | payer MEDICARE ==
[2019-05-04 18:56] LABS: BASOPHILS % (AUTO) 0.3 %; EOSINOPHILS # (AUTO) 0.1 10^3/uL (0.0-0.7); HGB - HEMOGLOBIN 11.7 g/dL (12.0-16.0); LYMPHOCYTES # (AUTO) 1.3 10^3/uL (1.5-3.5); LYMPHOCYTES % (AUTO) 22.4 %; MEAN CORPUSCULAR HEMOGLOBIN 30.8 pg (27.0-31.0); MEAN CORPUSCULAR HGB CONC 31.1 g/dL (32.0-36.0); MEAN CORPUSCULAR VOLUME 98.9 fL (81.0-99.0); MEAN PLATELET VOLUME 9.5 fL (7.9-10.8); MONOCYTES # (AUTO) 0.7 10^3/uL (0.0-1.0); MONOCYTES % (AUTO) 11.6 %; NEUTROPHILS # (AUTO) 3.8 10^3/uL (1.5-6.6); NEUTROPHILS % (AUTO) 64.4 %; PLT - PLATELET COUNT 298 10^3/uL (130-450); RED CELL DISTRIBUTION WIDTH 15.2 % (12.0-15.0); WHITE BLOOD COUNT 5.8 x10^3/uL (4.8-10.8)
[2019-05-04 20:42] LABS: ALBUMIN 4.1 g/dL (3.2-5.5); ALBUMIN/GLOBULIN RATIO 1.3 (1.0-2.2); BILIRUBIN,TOTAL 0.8 mg/dL (0.2-1.0); CALCIUM 9.1 mg/dL (8.5-10.3); CREATININE 0.9 mg/dL (0.4-1.0); TOTAL PROTEIN 7.2 g/dL (6.7-8.2)
[2019-05-05 11:21] LABS: HEPATITIS B SURFACE ANTIGEN NON-REACTIVE (NON-REACTIVE)
[2019-05-05 11:36] LABS: HEPATITIS C ANTIBODY NON-REACTIVE (NON-REACTIVE)
== END 2019-05-04 23:59 | disposition home or self-care (01) ==
LOC: LAB.N 12:17
PROVIDERS: ATTEND Internal Medicine Rheumatology
DX: M05.79 Rheumatoid arthritis with rheumatoid factor of multiple sites without organ or systems involvement (principal)
CPT/HCPCS: 36415; 80053; 81599; 85025; 85651; 86480; 86803; 87340

== ENCOUNTER 2019-08-02 15:01 | Outpatient (CLI) | payer MEDICARE ==
--- NOTE | 2019-08-03 10:24 | XRAY Report ---
Reason: RIGHT HAND PAIN Procedure Date: 08/02/2019 Accession Number: [id number] / [id number] Procedure: WCP - Hand 3 View RT CPT Code: Final Report FULL RESULT: EXAM: RIGHT HAND RADIOGRAPHY EXAM DATE: 08/02/2019 03:42 PM. CLINICAL HISTORY: RIGHT HAND PAIN. Fell last night onto right hand with pain along second, third and fourth metacarpals. Severe swelling and bruising. COMPARISON: HAND 3 VIEW RT 02/10/2016 10:56 AM. TECHNIQUE: 3 views. FINDINGS: Bones: Acute, oblique elongated fracture involving proximal to mid shaft of right second metacarpal. Prior proximal third metacarpal fracture demonstrated on 02/10/2016 has healed. Joints: Marked radiocarpal joint space narrowing with prominent subchondral cyst formation. Narrowing of radiocarpal and distal radioulnar joint spaces. Marked narrowing and erosive changes involving right second and third metacarpal joints as on prior study. Soft Tissues: Soft tissue swelling adjacent to second metacarpal, extending towards first metacarpal. IMPRESSION: 1. Acute, oblique elongated fracture involving proximal to mid shaft of right second metacarpal. Adjacent soft tissue swelling. 2. Prior proximal third metacarpal fracture demonstrated on 02/10/2016 has healed. 3. Rheumatoid arthritic changes. RADIA
== END 2019-08-02 23:59 | disposition home or self-care (01) ==
LOC: DI.WCP 15:01
PROVIDERS: ATTEND Physician Assistant Medical
DX: S62.320A Displaced fracture of shaft of second metacarpal bone, right hand, initial encounter for closed fracture (principal); M06.9 Rheumatoid arthritis, unspecified

== ENCOUNTER 2019-09-03 14:48 | Outpatient (CLI) | payer MEDICARE ==
[2019-09-03 18:48] LABS: BASOPHILS % (AUTO) 0.3 %; EOSINOPHILS # (AUTO) 0.1 10^3/uL (0.0-0.7); EOSINOPHILS % (AUTO) 1.4 %; HGB - HEMOGLOBIN 12.1 g/dL (12.0-16.0); LYMPHOCYTES # (AUTO) 1.7 10^3/uL (1.5-3.5); LYMPHOCYTES % (AUTO) 26.5 %; MEAN CORPUSCULAR HEMOGLOBIN 31.1 pg (27.0-31.0); MEAN CORPUSCULAR HGB CONC 31.8 g/dL (32.0-36.0); MEAN CORPUSCULAR VOLUME 97.9 fL (81.0-99.0); MEAN PLATELET VOLUME 9.6 fL (7.9-10.8); MONOCYTES # (AUTO) 0.8 10^3/uL (0.0-1.0); MONOCYTES % (AUTO) 11.6 %; NEUTROPHILS # (AUTO) 3.9 10^3/uL (1.5-6.6); NEUTROPHILS % (AUTO) 59.9 %; PLT - PLATELET COUNT 264 10^3/uL (130-450); RED BLOOD COUNT 3.89 10^6/uL (4.20-5.40); RED CELL DISTRIBUTION WIDTH 16.2 % (12.0-15.0); WHITE BLOOD COUNT 6.5 x10^3/uL (4.8-10.8)
[2019-09-03 19:14] LABS: ALBUMIN 4.2 g/dL (3.2-5.5); ALBUMIN/GLOBULIN RATIO 1.5 (1.0-2.2); BILIRUBIN,TOTAL 0.8 mg/dL (0.2-1.0); CALCIUM 9.2 mg/dL (8.5-10.3); CREATININE 0.9 mg/dL (0.4-1.0)
[2019-09-03 19:24] LABS: THYROID STIMULATING HORMONE 3.62 uIU/mL (0.34-5.60)
[2019-09-03 19:26] LABS: FREE T4 (FREE THYROXINE) 1.15 ng/dL (0.58-1.64)
== END 2019-09-03 23:59 | disposition home or self-care (01) ==
LOC: LAB.WCP 14:48
PROVIDERS: ATTEND Family Medicine
DX: E03.9 Hypothyroidism, unspecified (principal)
CPT/HCPCS: 36415; 80053; 84439; 84443; 85025

== ENCOUNTER 2020-01-05 12:30 | Outpatient (CLI) | payer MEDICARE ==
[2020-01-05 18:42] LABS: BASOPHILS % (AUTO) 0.6 %; EOSINOPHILS # (AUTO) 0.1 10^3/uL (0.0-0.7); EOSINOPHILS % (AUTO) 0.8 %; HGB - HEMOGLOBIN 13.1 g/dL (12.0-16.0); LYMPHOCYTES # (AUTO) 1.4 10^3/uL (1.5-3.5); LYMPHOCYTES % (AUTO) 19.2 %; MEAN CORPUSCULAR HGB CONC 31.4 g/dL (32.0-36.0); MEAN CORPUSCULAR VOLUME 101.7 fL (81.0-99.0); MEAN PLATELET VOLUME 10.1 fL (7.9-10.8); MONOCYTES # (AUTO) 0.8 10^3/uL (0.0-1.0); MONOCYTES % (AUTO) 10.6 %; NEUTROPHILS # (AUTO) 4.9 10^3/uL (1.5-6.6); NEUTROPHILS % (AUTO) 68.5 %; PLT - PLATELET COUNT 221 10^3/uL (130-450); RED CELL DISTRIBUTION WIDTH 15.3 % (12.0-15.0); WHITE BLOOD COUNT 7.2 x10^3/uL (4.8-10.8)
[2020-01-05 19:00] LABS: ALBUMIN 4.3 g/dL (3.2-5.5); ALBUMIN/GLOBULIN RATIO 1.6 (1.0-2.2); CALCIUM 9.3 mg/dL (8.5-10.3)
== END 2020-01-05 23:59 | disposition home or self-care (01) ==
LOC: LAB.WCP 12:30
PROVIDERS: ATTEND Internal Medicine Rheumatology
DX: M05.79 Rheumatoid arthritis with rheumatoid factor of multiple sites without organ or systems involvement (principal)
CPT/HCPCS: 36415; 80053; 85025; 85651

== ENCOUNTER 2020-02-04 10:05 | Outpatient (CLI) | payer MEDICARE ==
[2020-02-04 11:36] LABS: BASOPHILS % (AUTO) 0.7 %; EOSINOPHILS # (AUTO) 0.1 10^3/uL (0.0-0.7); EOSINOPHILS % (AUTO) 2.6 %; HGB - HEMOGLOBIN 14.2 g/dL (12.0-16.0); LYMPHOCYTES # (AUTO) 1.5 10^3/uL (1.5-3.5); LYMPHOCYTES % (AUTO) 32.1 %; MEAN CORPUSCULAR HEMOGLOBIN 34.1 pg (27.0-31.0); MEAN CORPUSCULAR HGB CONC 33.3 g/dL (32.0-36.0); MEAN CORPUSCULAR VOLUME 102.2 fL (81.0-99.0); MEAN PLATELET VOLUME 9.9 fL (7.9-10.8); MONOCYTES # (AUTO) 0.5 10^3/uL (0.0-1.0); MONOCYTES % (AUTO) 10.4 %; NEUTROPHILS # (AUTO) 2.5 10^3/uL (1.5-6.6); NEUTROPHILS % (AUTO) 53.8 %; PLT - PLATELET COUNT 252 10^3/uL (130-450); RED BLOOD COUNT 4.17 10^6/uL (4.20-5.40); RED CELL DISTRIBUTION WIDTH 14.6 % (12.0-15.0); WHITE BLOOD COUNT 4.6 x10^3/uL (4.8-10.8)
[2020-02-04 12:21] LABS: ALBUMIN 4.4 g/dL (3.2-5.5); ALBUMIN/GLOBULIN RATIO 1.4 (1.0-2.2); BILIRUBIN,TOTAL 1.1 mg/dL (0.2-1.0); CALCIUM 9.6 mg/dL (8.5-10.3); CREATININE 1.1 mg/dL (0.4-1.0); TOTAL PROTEIN 7.6 g/dL (6.7-8.2)
== END 2020-02-04 23:59 | disposition home or self-care (01) ==
LOC: LAB.WCP 10:05
PROVIDERS: ATTEND Internal Medicine Rheumatology
DX: M05.69 Rheumatoid arthritis of multiple sites with involvement of other organs and systems (principal)
CPT/HCPCS: 36415; 80053; 85025; 85651

== ENCOUNTER 2020-02-04 11:40 | Outpatient (CLI) | payer MEDICARE | END 2020-02-04 11:41 | disposition home or self-care (01) | LOC: COV 11:40 | PROVIDERS: ATTEND Family Medicine | DX: R53.83 Other fatigue (principal); Z20.828 Contact with and (suspected) exposure to other viral communicable diseases ==

== ENCOUNTER 2020-04-28 12:10 | Outpatient (CLI) | payer MEDICARE ==
[2020-04-28 12:24] LABS: BASOPHILS % (AUTO) 0.6 %; EOSINOPHILS # (AUTO) 0.1 10^3/uL (0.0-0.7); EOSINOPHILS % (AUTO) 1.4 %; HGB - HEMOGLOBIN 13.6 g/dL (12.0-16.0); LYMPHOCYTES # (AUTO) 1.8 10^3/uL (1.5-3.5); LYMPHOCYTES % (AUTO) 24.7 %; MEAN CORPUSCULAR HEMOGLOBIN 34.3 pg (27.0-31.0); MEAN PLATELET VOLUME 9.4 fL (7.9-10.8); MONOCYTES # (AUTO) 0.8 10^3/uL (0.0-1.0); MONOCYTES % (AUTO) 11.6 %; NEUTROPHILS # (AUTO) 4.4 10^3/uL (1.5-6.6); NEUTROPHILS % (AUTO) 61.4 %; PLT - PLATELET COUNT 222 10^3/uL (130-450); RED BLOOD COUNT 3.96 10^6/uL (4.20-5.40); RED CELL DISTRIBUTION WIDTH 14.5 % (12.0-15.0); WHITE BLOOD COUNT 7.2 x10^3/uL (4.8-10.8)
[2020-04-28 12:37] LABS: ALBUMIN 4.3 g/dL (3.2-5.5); ALBUMIN/GLOBULIN RATIO 1.5 (1.0-2.2); BILIRUBIN,TOTAL 0.9 mg/dL (0.2-1.0); CALCIUM 9.1 mg/dL (8.5-10.3); CREATININE 1.1 mg/dL (0.4-1.0); TOTAL PROTEIN 7.1 g/dL (6.7-8.2)
== END 2020-04-28 12:11 | disposition home or self-care (01) ==
LOC: LAB 12:10
PROVIDERS: ATTEND Internal Medicine Rheumatology
DX: M05.69 Rheumatoid arthritis of multiple sites with involvement of other organs and systems (principal)
CPT/HCPCS: 36415; 80053; 85025; 85651

== ENCOUNTER 2020-05-22 18:32 | Outpatient (CLI) | payer MEDICARE | END 2020-05-22 18:33 | disposition home or self-care (01) | LOC: COV 18:32 | PROVIDERS: ATTEND Ophthalmology | DX: Z01.812 Encounter for preprocedural laboratory examination (principal); H25.11 Age-related nuclear cataract, right eye; Z20.828 Contact with and (suspected) exposure to other viral communicable diseases ==

== ENCOUNTER 2020-05-25 08:05 | Day surgery (SDC) | payer MEDICARE ==
[~2020-05-25 08:05] MED LIST: KETOROLAC 0.45% OPHTH DROPS ONE; PHENYLEPHRINE 2.5% OPHTH 2 ML DROPS ONE; PROPARACAINE 0.5% OPHTH DROPS 15 ML ONE
[2020-05-25] MEDS ORDERED: MIDAZOLAM 2 MG/2 ML VIAL IVP ONE (08:06)
[2020-05-25] MEDS ORDERED: LACTATED RINGERS 500 ML IV ONE ×2 (08:36→09:36)
--- NOTE | 2020-05-25 08:57 | ANESTHESIA ---
Pre-Anesthesia VS, & Labs - Diagnosis right eye cataract - Procedure right CATIOL Vital Signs: Temp Pulse Resp BP Pulse Ox 36.6 C 72 16 134/76 H 99 05/25/20 08:25 05/25/20 08:25 05/25/20 08:25 05/25/20 08:25 05/25/20 08:25 Height: 5 ft 6 in Weight (kg): 66.1 kg Body Mass Index: 23.5 BMI Classification: Healthy weight - NPO >8 hours - Is Patient ?: No Home Medications and Allergies Levothyroxine [Synthroid] 25 mcg PO QDAC 01/01/17 Simvastatin [Zocor] 10 mg PO QPM 01/01/17 lisinopriL [Lisinopril] 5 mg PO DAILY 01/01/17 Etanercept [Enbrel] 50 mg SQ Q7D 05/23/17 Methotrexate 17.5 mg PO Q7D 05/23/17 Metoprolol Succinate [Toprol Xl] 25 mg PO DAILY 05/25/17 Calcium Carbonate [Calcium] 1,200 mg PO DAILY 05/28/17 Cholecalciferol (Vitamin D3) [Vitamin D3] 5,000 units PO DAILY 05/28/17 Multivitamin [Theragran] 1 tab PO DAILY 05/28/17 Furosemide 20 mg PO DAILY 02/05/19 Allergies/Adverse Reactions: Allergies Allergy/AdvReac Type Severity Reaction Status Date / Time aspirin Allergy Unknown Verified 05/24/20 15:28 NSAIDS (Non-Steroidal Allergy Unknown Verified 07/23/18 10:51 Anti-Inflamma seasonal Allergy Unknown Uncoded 07/23/18 10:51 Anes History & Medical History - Anesthetic History Anesthesia Complications: reports: No previous complications Family history of Anesthesia Complications: Denies Family history of Malignant Hyperthermia: Denies - Medical History Cardiovascular: reports: Hypertension, Atrial fibrillation, Arrhythmia, Valve disorder Pulmonary: reports: None Gastrointestinal: reports: Ulcers Urinary: reports: None Neuro: reports: TIA, Migraines, Peripheral neuropathy, Other Musculoskeletal: reports: Rheumatoid arthritis Endocrine/Autoimmune: reports: HyPOthyroidism Blood Disorders: reports: Anemia Skin: reports: None Smoking Status: Never smoker - Surgical History General: Colonoscopy, EGD Eyes Ears Nose Throat (EENT): Tonsil/Adenoidectomy Cardiothoracic: Cardiac catheterization Gynecologic: Tubal ligation Orthopedic: Hip replacement, Knee replacement Exam General: Alert, Oriented x3, Cooperative, No acute distress Dental: WNL Mouth Openin Fingerbreadth Neck Mobility: Reduced Mallampati classification: II Respiratory: Lungs clear, Normal breath sounds, No respiratory distress, No accessory muscle use Cardiovascular: Regular rate, Normal S1, Normal S2, No murmurs Plan Anesthesia Type: MAC Consent for Procedure(s) Verified and Reviewed: Yes Code Status: Attempt Resuscitation ASA classification: 3-Severe systemic disease Is this case an emergency?: No
[2020-05-25] MEDS ORDERED: EPINEPHrine 1 MG/ML AMP IR ONE (09:05)
[2020-05-25] MEDS ORDERED: BSS/LIDOCAINE/EPINEPHRINE 1 ML SYRINGE IO ONE (09:05)
[2020-05-25] MEDS ORDERED: VANCOMYCIN OPHTHALMI 8MG/0.8ML 8 MG/0.8 ML SYRINGE IO ONE ×2 (09:05→11:06)
[2020-05-25] MEDS ORDERED: BRIMONIDINE 0.2% OPHTH DROPS 5 ML OPTH ONE (09:05)
[2020-05-25] MEDS ORDERED: PROPARACAINE 0.5% OPHTH DROPS 15 ML EACHEYE ONE (09:05)
[2020-05-25] MEDS ORDERED: CHONDR SULF/HYALURONATE SYRINGE IO ONE (09:05)
[2020-05-25] MEDS ORDERED: TRIAMCIN/MOXIFLOX OPHTHALMIC 0.6 ML VIAL IO ONE ×2 (09:05→11:05)
[2020-05-25] MEDS ORDERED: TIMOLOL 0.5% OPHTH DROPS OPTH ONE (09:05)
[2020-05-25 09:20] VITALS: BP 124/72
--- NOTE | 2020-05-25 11:00 | ANESTHESIA POST OP EVALUATION ---
Anesthesia Post Eval - Post Anesthesia Eval Vitals: Last Vital Signs Temp 36.5 C 05/25/20 09:20 Pulse 70 05/25/20 09:20 Resp 16 05/25/20 09:20 BP 124/72 05/25/20 09:20 Pulse Ox 98 05/25/20 09:20 CV Function Including HR & BP: positive: Stable Pain Control: positive: Satisfactory Nausea & Vomiting: positive: Negative Mental Status: positive: Baseline Respiratory Status: Airway Patent Hydration Status: Satisfactory Anesthesia Complications: positive: None
[2020-05-25] MEDS ORDERED: EPINEPHrine 1 MG/ML AMP ONE (11:05)
[2020-05-25] MEDS ORDERED: TIMOLOL 0.5% OPHTH DROPS ONE (11:06)
[2020-05-25] MEDS ORDERED: BRIMONIDINE 0.2% OPHTH DROPS 5 ML ONE (11:06)
[2020-05-25] MEDS ORDERED: BSS/LIDOCAINE/EPINEPHRINE 1 ML SYRINGE ONE (11:06)
--- NOTE | 2020-05-25 11:56 | OPERATIVE REPORT ---
DATE OF SERVICE: 05/25/2020 Physician: Jignesh Salguero MD PREOPERATIVE DIAGNOSIS: Visually significant cataract, right eye. This was her first cataract surge ry. POSTOPERATIVE DIAGNOSIS: Visually significant cataract, right eye. This was her first cataract surg vidal. PROCEDURE: Phacoemulsification with posterior chamber intraocular lens implant, right eye. SURGEON: Jignesh Salguero MD ANESTHESIA: Monitored anesthesia care. COMPLICATIONS: None. OPERATIVE INDICATIONS: This is an 80-year-old woman with progressive vision loss in the right eye du e to 3-4+ nuclear sclerotic cataract. Best corrected visual acuity was 20/40, with glare to 20/800 i n the right eye. Indications for surgery are overall decrease in vision, difficulty seeing words on a computer screen, difficulty reading, difficulty seeing words, closed caption or game scores on TV, difficulty driving in low light or at night, difficulty driving at night because of headlights from o ther vehicles, and difficulty with glare or bright lights in any situation. She was consented at [facility] concerning risks and benefits of cataract surgery, after which she expressed a desire to proceed with surgery. DESCRIPTION OF PROCEDURE: The patient was taken to OR #3 and placed under monitored anesthesia care. A surgical timeout was conducted confirming correct patient, correct procedure, and correct surgical site. She was given topical anesthesia, and prepped and draped in the usual sterile fashion. The e ye was entered at the 12, and 9 o'clock positions. Intracameral Shugarcaine was injected into the an terior chamber, followed by Viscoat. A continuous-tear curvilinear capsulorrhexis was performed. Th e nucleus was hydrodissected and phacoemulsified. The cortex was evacuated using automated infusion and aspiration. Provisc was injected in the capsular bag, and a 23.5 diopter intraocular lens was in serted into the bag. Infusion and aspiration was used to evacuate the viscoelastic materials. The e ye was inflated to physiologic pressure using balanced salt solution and found to be watertight. Harriet roximately 0.25 mL of a mixture of triamcinolone and moxifloxacin was injected transsclerally into th e vitreous in inferotemporal quadrant. An additional 0.55 mL of a mixture of triamcinolone, moxiflox acin, and vancomycin was injected subconjunctivally in the superior quadrant for infection and inflam mation prophylaxis. Wound integrity was checked with Weck-Dilcia sponges. Patient was taken from the O perating Room in good condition and given postoperative instructions. TD: 05/25/2020 09:27
== END 2020-05-25 08:06 | disposition home or self-care (01) ==
LOC: SDS 08:05
PROVIDERS: ATTEND Ophthalmology
DX: H25.11 Age-related nuclear cataract, right eye (principal); I10 Essential (primary) hypertension; Z86.73 Personal history of transient ischemic attack (TIA), and cerebral infarction without residual deficits; I48.91 Unspecified atrial fibrillation; E03.9 Hypothyroidism, unspecified
CPT/HCPCS: 66984; A9270; J3490; J7120; V2632

== ENCOUNTER 2020-06-26 15:07 | Outpatient (CLI) | payer MEDICARE | END 2020-06-26 15:08 | disposition home or self-care (01) | LOC: COV 15:07 | PROVIDERS: ATTEND Surgery | DX: Z01.812 Encounter for preprocedural laboratory examination (principal); Z87.11 Personal history of peptic ulcer disease; Z20.828 Contact with and (suspected) exposure to other viral communicable diseases ==

== ENCOUNTER 2020-06-30 08:42 | Day surgery (SDC) | payer MEDICARE ==
[2020-06-30] MEDS ORDERED: LACTATED RINGERS 1,000 ML IV ONE ×2 (08:47→10:44)
--- NOTE | 2020-06-30 09:34 | ANESTHESIA ---
Pre-Anesthesia VS, & Labs - Diagnosis H/O Gastric Ulcers - Procedure EGD Vital Signs: Temp Pulse Resp BP Pulse Ox 36.8 C 92 12 130/79 98 06/30/20 08:48 06/30/20 08:48 06/30/20 08:48 06/30/20 08:48 06/30/20 08:48 Height: 5 ft 7 in Weight (kg): 66.4 kg Body Mass Index: 22.9 BMI Classification: Healthy weight - NPO >8 hours - Is Patient ?: No Home Medications and Allergies Levothyroxine [Synthroid] 25 mcg PO QDAC 01/01/17 Simvastatin [Zocor] 10 mg PO QPM 01/01/17 lisinopriL [Lisinopril] 5 mg PO DAILY 01/01/17 Etanercept [Enbrel] 50 mg SQ Q7D 05/23/17 Methotrexate 17.5 mg PO Q7D 05/23/17 Metoprolol Succinate [Toprol Xl] 25 mg PO DAILY 05/25/17 Calcium Carbonate [Calcium] 1,200 mg PO DAILY 05/28/17 Cholecalciferol (Vitamin D3) [Vitamin D3] 5,000 units PO DAILY 05/28/17 Multivitamin [Theragran] 1 tab PO DAILY 05/28/17 Furosemide 20 mg PO DAILY 02/05/19 Allergies/Adverse Reactions: Allergies Allergy/AdvReac Type Severity Reaction Status Date / Time aspirin Allergy Unknown Verified 05/24/20 15:28 NSAIDS (Non-Steroidal Allergy Unknown Verified 07/23/18 10:51 Anti-Inflamma seasonal Allergy Unknown Uncoded 07/23/18 10:51 Anes History & Medical History - Anesthetic History Anesthesia Complications: reports: No previous complications (Patient is poor historian) Family history of Anesthesia Complications: Denies Family history of Malignant Hyperthermia: Denies - Medical History Cardiovascular: reports: Hypertension, High cholesterol, Coronary artery disease (States had cardiac cath a long time ago), Deep vein thrombosis, Angina (States had angina a long time ago), Atrial fibrillation (H/O. 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 Uses cane or shopping cart for support.) Pulmonary: reports: None Gastrointestinal: reports: Ulcers, Other Urinary: reports: Incontinence, Frequency Neuro: reports: TIA, Migraines, Peripheral neuropathy, Other Musculoskeletal: reports: Osteoarthritis, Rheumatoid arthritis, Osteoporosis, Other Endocrine/Autoimmune: reports: HyPOthyroidism Blood Disorders: reports: Anemia Skin: reports: None Smoking Status: Never smoker Psychosocial: reports: Depression, Anxiety - Surgical History General: Colonoscopy, EGD Eyes Ears Nose Throat (EENT): Cataracts, Tonsil/Adenoidectomy Cardiothoracic: Cardiac catheterization Gynecologic: Tubal ligation Orthopedic: Hip replacement, Knee replacement, Other Exam General: Alert (Appears alert, however is poor historian in terms of time line of illnesses and what they are.), Oriented x3, Cooperative, No acute distress Mouth Openin Fingerbreadth Neck Mobility: Limited Mallampati classification: I Thyromental Distance: 4-6 cm Respiratory: Lungs clear Cardiovascular: Regular rate (1/6 murmur. Difficult to hear.) Plan Anesthesia Type: MAC Consent for Procedure(s) Verified and Reviewed: Yes Code Status: Attempt Resuscitation ASA classification: 3-Severe systemic disease Is this case an emergency?: No (Discussed anesthesia, consent signed.)
--- NOTE | 2020-06-30 10:54 | ANESTHESIA POST OP EVALUATION ---
Anesthesia Post Eval - Post Anesthesia Eval Vitals: Last Vital Signs Temp 36.2 C L 06/30/20 10:37 Pulse 98 06/30/20 10:37 Resp 20 06/30/20 10:37 BP 124/76 06/30/20 10:37 Pulse Ox 98 06/30/20 10:37 CV Function Including HR & BP: positive: Stable Pain Control: positive: Satisfactory Nausea & Vomiting: positive: Negative Mental Status: positive: Baseline Respiratory Status: Airway Patent Hydration Status: Satisfactory Anesthesia Complications: positive: None
[2020-06-30 11:00] VITALS: BP 130/75
== END 2020-06-30 08:43 | disposition home or self-care (01) ==
LOC: SDS 08:42
PROVIDERS: ATTEND Surgery
DX: Z09 Encounter for follow-up examination after completed treatment for conditions other than malignant neoplasm (principal); Z87.11 Personal history of peptic ulcer disease; I11.0 Hypertensive heart disease with heart failure; I50.30 Unspecified diastolic (congestive) heart failure; E78.5 Hyperlipidemia, unspecified; I25.10 Atherosclerotic heart disease of native coronary artery without angina pectoris; I48.91 Unspecified atrial fibrillation; J44.9 Chronic obstructive pulmonary disease, unspecified; I38 Endocarditis, valve unspecified; R32 Unspecified urinary incontinence; R35.0 Frequency of micturition; Z86.73 Personal history of transient ischemic attack (TIA), and cerebral infarction without residual deficits; G62.9 Polyneuropathy, unspecified; M06.9 Rheumatoid arthritis, unspecified; M81.0 Age-related osteoporosis without current pathological fracture; E03.9 Hypothyroidism, unspecified; D64.9 Anemia, unspecified; R26.9 Unspecified abnormalities of gait and mobility; R41.3 Other amnesia; I73.00 Raynaud's syndrome without gangrene; E55.9 Vitamin D deficiency, unspecified; H91.90 Unspecified hearing loss, unspecified ear; Z79.52 Long term (current) use of systemic steroids; Z86.718 Personal history of other venous thrombosis and embolism; Z87.891 Personal history of nicotine dependence
CPT/HCPCS: 43235; J7120

== ENCOUNTER 2020-08-22 13:23 | Outpatient (CLI) | payer MEDICARE ==
[2020-08-22 18:08] LABS: BASOPHILS % (AUTO) 0.5 %; EOSINOPHILS # (AUTO) 0.1 10^3/uL (0.0-0.7); HGB - HEMOGLOBIN 13.6 g/dL (12.0-16.0); LYMPHOCYTES # (AUTO) 1.9 10^3/uL (1.5-3.5); LYMPHOCYTES % (AUTO) 30.9 %; MEAN CORPUSCULAR HEMOGLOBIN 33.7 pg (27.0-31.0); MEAN CORPUSCULAR VOLUME 105.2 fL (81.0-99.0); MEAN PLATELET VOLUME 10.3 fL (7.9-10.8); MONOCYTES # (AUTO) 0.7 10^3/uL (0.0-1.0); MONOCYTES % (AUTO) 10.7 %; NEUTROPHILS # (AUTO) 3.4 10^3/uL (1.5-6.6); NEUTROPHILS % (AUTO) 55.7 %; PLT - PLATELET COUNT 225 10^3/uL (130-450); RED BLOOD COUNT 4.04 10^6/uL (4.20-5.40); RED CELL DISTRIBUTION WIDTH 13.9 % (12.0-15.0); WHITE BLOOD COUNT 6.1 x10^3/uL (4.8-10.8)
[2020-08-22 18:56] LABS: ALBUMIN 4.2 g/dL (3.2-5.5); ALBUMIN/GLOBULIN RATIO 1.5 (1.0-2.2); BILIRUBIN,TOTAL 0.9 mg/dL (0.2-1.0); CALCIUM 9.7 mg/dL (8.5-10.3); CREATININE 1.1 mg/dL (0.4-1.0)
== END 2020-08-22 23:59 | disposition home or self-care (01) ==
LOC: LAB.WCP 13:23
PROVIDERS: ATTEND Internal Medicine Rheumatology
DX: M05.69 Rheumatoid arthritis of multiple sites with involvement of other organs and systems (principal)
CPT/HCPCS: 36415; 80053; 85025; 85651

== ENCOUNTER 2020-09-13 16:53 | Outpatient (CLI) | payer MEDICARE ==
--- NOTE | 2020-09-13 18:27 | Ultrasound Report ---
PROCEDURE: Duplex Ext Veins Left INDICATIONS: SWELLING, PAIN S/P SX. ACQUIRED HALLUX LT FOOT TECHNIQUE: Real-time imaging, as well as color and pulse Doppler interrogation, were performed of the lower extr emity deep veins from the inguinal ligament to the popliteal fossa. COMPARISON: None. FINDINGS: The common femoral, superficial femoral, and popliteal veins are normally compressible, an d free of intraluminal thrombus. Color and pulse Doppler demonstrate normal phasic intraluminal flow . There is normal augmentation response to distal compression maneuver. The deep calf veins appear g rossly patent but are not compressible due to subcutaneous edema. There is nonspecific calcification demonstrated medially within the distal body of indeterminate etio logy. IMPRESSION: 1. No evidence of deep venous thrombosis in the left lower extremity. Reviewed by: Felipe Bell MD on 09/13/2020 5:26 PM [facility] Approved by: Felipe Bell MD on 09/13/2020 5:26 PM [facility] Station ID: [id number]
== END 2020-09-13 16:54 | disposition home or self-care (01) ==
LOC: DI 16:53
PROVIDERS: ATTEND Orthopaedic Surgery Foot and Ankle Surgery
DX: M79.662 Pain in left lower leg (principal); M20.12 Hallux valgus (acquired), left foot

== ENCOUNTER 2020-09-14 14:23 | Outpatient (CLI) | payer MEDICARE ==
--- NOTE | 2020-09-14 18:53 | DEXA Report ---
PROCEDURE: Dexa Spine and/or Hip INDICATIONS: POSTMENOPAUSAL TECHNIQUE: Dual energy x-ray absorptiometry (DXA) was performed on a [employer] System. Regions measur ed are the AP Spine, femoral neck, and if needed forearm. COMPARISON: 08/13/2017. FINDINGS: Right Hip: Bone Mineral Density 0.583 g/cm/cm,T score -3.4, there is interval 7.6% decrease in total right hip bone mineral density. Right Femoral Neck: Bone Mineral Density 0.675 g/cm/cm, T score -2.6, Left forearm: Bone Mineral Density 0.565 g/cm/cm, T score -3.5, (T score greater or equal to -1.0: NORMAL) (T score from -1.1 to -2.4: OSTEOPENIA) (T score less than or equal to -2.5 to: OSTEOPOROSIS) Impression: Osteoporosis. Patients with diagnosis of osteoporosis or osteopenia should have regular bone mineral density assess ment. For those eligible for Medicare, routine testing is allowed once every 2 years. Testing frequ ency can be increased for patients who have rapidly progressing disease or for those who are receivin g medical therapy to restore bone mass. Reviewed by: Dar Jimenez MD on 09/14/2020 6:51 PM PST Approved by: Dar Jimenez MD on 09/14/2020 6:51 PM PST Station ID: [id number]
== END 2020-09-14 14:24 | disposition home or self-care (01) ==
LOC: DI 14:23
PROVIDERS: ATTEND Nurse Practitioner
DX: M81.0 Age-related osteoporosis without current pathological fracture (principal); Z78.0 Asymptomatic menopausal state

== ENCOUNTER 2020-09-17 13:16 | Outpatient (CLI) | payer MEDICARE | END 2020-09-17 13:17 | disposition critical access hospital (66) | LOC: EMS 13:16 | PROVIDERS: ATTEND Emergency Medicine | DX: R07.81 Pleurodynia (principal) | CPT/HCPCS: A0425; A0429 ==

== ENCOUNTER 2020-09-17 13:35 | Inpatient (IN) | payer MEDICARE ==
--- NOTE | 2020-09-17 13:42 | ED Physician Documentation ---
PD HPI Fall - Stated complaint Stated Complaint: GLF - History obtained from History obtained from: Patient - History of Present Illness Mechanism of injury: Lost balance (She states she stood up from the toilet and lost her balance stepping towards the sink. She fell and struck her left posterior lateral chest on the sink. Denies head injury. No loss of consciousness. She denies lightheadedness per se.) Fall distance: Standing position (had just stood up) Where injury occurred: Home Timing - onset: How many hours ago (few), Today Injury(ies) location: Chest (left posterolateral). No: Head, Neck, Abdomen Associated symptoms: No: LOC, AMS, Paresthesias Worsens with: Movement, Other (deep breathing) Contributing factors: No: Anticoagulated Similar symptoms before: Has not had sx before Recently seen: Not recently seen Review of Systems Constitutional: denies: Fever, Chills Nose: denies: Rhinorrhea / runny nose, Congestion Throat: denies: Sore throat Respiratory: reports: Dyspnea (feeling pain with inspiration, so guarded breathing.). denies: Cough GI: denies: Abdominal Pain, Nausea, Vomiting, Diarrhea Skin: denies: Abrasion (s), Laceration (s) Neurologic: denies: Generalized weakness, Focal weakness, Numbness, Syncope, Altered mental status, Head injury PD PAST MEDICAL HISTORY - Past Medical History Cardiovascular: Hypertension, High cholesterol, Coronary artery disease (States had cardiac cath a long time ago), Deep vein thrombosis, Angina (States had angina a long time ago), Atrial fibrillation (H/O. 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 Uses cane or shopping cart for support.) Respiratory: None Neuro: TIA, Migraines, Peripheral neuropathy, Other Endocrine/Autoimmune: HyPOthyroidism GI: Ulcers, Other JAV[employer] FR[employer] END DEVELOPER: Other : Incontinence, Frequency HEENT: Chronic vision loss Psych: Depression, Anxiety Musculoskeletal: Osteoarthritis, Rheumatoid arthritis, Osteoporosis, Other Derm: None - Past Surgical History Past Surgical History: Yes General: Colonoscopy, EGD Ortho: Hip replacement, Knee replacement, Other /JAV[employer] FR[employer] END DEVELOPER: Tubal ligation Cardiovascular: Cardiac catheterization HEENT: Cataracts, Tonsil/Adenoidectomy - Present Medications Home Medications: Ambulatory Orders Medication Instructions Recorded Confirmed Levothyroxine [Synthroid] 25 mcg PO QDAC 01/01/17 06/30/20 Simvastatin [Zocor] 10 mg PO QPM 01/01/17 06/30/20 lisinopriL [Lisinopril] 5 mg PO DAILY 01/01/17 06/30/20 Etanercept [Enbrel] 50 mg SQ Q7D 05/23/17 06/30/20 Methotrexate [Methotrexate Sodium] 17.5 mg PO Q7D 05/23/17 06/30/20 Metoprolol Succinate [Toprol Xl] 25 mg PO DAILY 05/25/17 06/30/20 Calcium Carbonate [Calcium] 1,200 mg PO DAILY 05/28/17 06/30/20 Cholecalciferol (Vitamin D3) 5,000 units PO DAILY 05/28/17 06/30/20 [Vitamin D3] Multivitamin [Theragran] 1 tab PO DAILY 05/28/17 06/30/20 Furosemide 20 mg PO DAILY 02/05/19 06/30/20 Pantoprazole [Protonix] 40 mg PO BID #60 tablet 02/07/19 06/30/20 - Allergies Allergies/Adverse Reactions: Allergies Allergy/AdvReac Type Severity Reaction Status Date / Time aspirin Allergy Unknown Verified 05/24/20 15:28 NSAIDS (Non-Steroidal Allergy Unknown Verified 07/23/18 10:51 Anti-Inflamma seasonal Allergy Unknown Uncoded 07/23/18 10:51 - Social History Does the pt smoke?: No Smoking Status: Never smoker Does the pt drink ETOH?: No Does the pt have substance abuse?: No - Immunizations Immunizations are current?: Yes - POLST Patient has POLST: No POLST Status: Full Code (she has not thought about advanced care planning or planning for severe diability. She thinks that if she is resuscitated she will recover to be normal and go home again.) PD ED PE NORMAL - Vitals Vital signs reviewed: Yes (sats 97%; HR good. ) - General General: Alert and oriented X 3, Well developed/nourished, Other (appears in pain due to left ribs/chest. Unlabored breathing. ) - Neck Neck: Supple, no meningeal sign, No adenopathy - Cardiac Cardiac: RRR, No murmur - Respiratory Respiratory: No respiratory distress, Clear bilaterally, Other (There is tenderness in the posterior lateral thoracic chest wall on the left side without any crepitance nor subcutaneous emphysema. Tender approximately ribs area 6 through 8. Mild local bruising. No skin lacerations.) - Abdomen Abdomen: Soft, Non tender - Back Back: No spinal TTP, Other (posterolateral left chestwall tenderness.) - Derm Derm: Normal color, Warm and dry - Extremities Extremities: No tenderness to palpate, Normal ROM s pain - Neuro Neuro: Alert and oriented X 3, No motor deficit, No sensory deficit, Normal speech Eye Opening: Spontaneous Motor: Obeys Commands Verbal: Oriented GCS Score: 15 Results - Vitals Vitals: Vital Signs - 24 hr 09/17/20 13:40 Temperature 37 C Heart Rate 88 Respiratory 20 Rate Blood Pressure 146/117 H O2 Saturation 97 Oxygen O2 Source [Without Activity] Room air O2 Source Room air - Rads (name of study) chest CT Radiology: Prelim report reviewed (Fracture left ribs 6 through 9. No pneumothorax.), See rad report PD MEDICAL DECISION MAKING - ED course Complexity details: reviewed results, re-evaluated patient, considered differential (Stable vital signs and oxygenation. Unlabored breathing but guarding for deep inspirations due to pain. CT scan showing for rib fractures.), d/w patient ED course: This was a low force and impact injury with a fall from standing against the sink with 4 rib fractures and no other injuries. Stable vitals. Contact was made with Dr. Vega who is on for surgery. Review of the rib protocol states to consider transfer for greater than 3 fractures or age over 65. Discussion is left with the surgeon. Dr. Leach feels the patient is appropriate for care at our facility and this seems reasonable. Departure - Departure Disposition: ED Place in Observation Clinical Impression: Chest wall contusion Qualifiers: Encounter type: initial encounter Laterality: left Qualified Code(s): S20.212A - Contusion of left front wall of thorax, initial encounter Fall from slip, trip, or stumble Qualifiers: Encounter type: initial encounter Qualified Code(s): W01.0XXA - Fall on same level from slipping, tripping and stumbling without subsequent striking against object, initial encounter Ribs, multiple fractures Qualifiers: Encounter type: initial encounter Fracture type: closed Laterality: left Qualified Code(s): S22.42XA - Multiple fractures of ribs, left side, initial encounter for closed fracture Condition: Stable Record reviewed to determine appropriate education?: Yes Instructions: ED Fx Rib
[2020-09-17] MEDS ORDERED: ACETAMINOPHEN 325 MG TABLET PO STA (14:08)
--- NOTE | 2020-09-17 15:52 | CT Report ---
PROCEDURE: CHEST WO INDICATIONS: right posterolateral trunk injury with fall TECHNIQUE: Noncontrast 5 mm thick sections acquired from the pulmonary apices to the posterior costophrenic angl es. 7 mm thick coronal and sagittal MIP reformats were then acquired. For radiation dose reduction, the following was used: automated exposure control, adjustment of mA and/or kV according to patient size. COMPARISON: None FINDINGS: Image quality: Excellent. Lungs and pleura: 3 mm pulmonary nodule, lateral segment right middle lobe, image 152/4. 2 mm pulmona ry nodule, posterior segment right upper lobe, image 122/4. Calcified granuloma, right apex, image 39 /4. Calcified granuloma, right lower lobe, image 201/4. 10 mm right apical nodular density, image 42/ 4. 9 mm subsolid pulmonary nodule, left apex, image 44/4. No acute air space opacities. No pleural e ffusions or pneumothorax. Central and peripheral airways are patent and normal in caliber. Mediastinum: Heart size is normal. No pericardial effusion. Dense coronary artery calcifications. N o mediastinal adenopathy by size criteria. Thoracic aorta and central pulmonary arteries are normal in size. Esophagus is normal in caliber. Large hiatal hernia. Question large gastric fundus also are within the hiatal hernia, filled with fluid. Reference image 38/3. Bones and chest wall: No suspicious bony lesions. Acute fracture of the tip of the left L1 spinous p rocess. Markedly comminuted segmental left ninth rib fracture involving the posterior and posterior l ateral ninth ribs. Displaced lateral eighth rib fracture on the left. Lateral seventh and sixth left rib fractures as well. No acute vertebral body compression fractures. Multiple old compression fractu res. No axillary or supraclavicular adenopathy by size criteria. The thyroid is normal in size. Abdomen: Probable calcified gallstones. Visualized upper abdominal solid organs and bowel loops other hackett appear normal in the absence of contrast. IMPRESSION: 1. No acute pulmonary infiltrates identified. 2. Numerous acute left rib fractures, involving the left sixth, seventh, eighth, and ninth ribs. The ninth rib fracture is segmental, markedly comminuted and displaced. 3. Chronic granulomatous disease. 4. There are multiple noncalcified pulmonary nodules, including a 10 mm right apical nodular density and a 9 mm left apical subsolid pulmonary nodule. 5. Large hiatal hernia. 6. Question large gastric fundal ulcer within the hiatal hernia. 7. Severe coronary atherosclerotic calcifications. Comment: Consider endoscopy if clinically indicated. Consider 6 month follow-up CT for pulmonary nodu les. Reviewed by: Aroldo Stanley MD on 09/17/2020 2:51 PM [facility] Approved by: Aroldo Stanley MD on 09/17/2020 2:51 PM [facility] Station ID: [id number]
[2020-09-17] MEDS ORDERED: MORPHINE 2 MG/ML CARPUJECT IVP STA (16:01)
[2020-09-17] MEDS ORDERED: SODIUM CHLORIDE FLUSH 0.9% 10 ML SYRINGE IVP PRN (16:23)
[2020-09-17] MEDS ORDERED: oxyCODONE 5 MG TABLET PO PRN (16:23)
[2020-09-17] MEDS ORDERED: ONDANSETRON 4 MG/2 ML VIAL IVP PRN (16:23)
[2020-09-17 16:33] LABS: BASOPHILS % (AUTO) 0.2 %; HCT - HEMATOCRIT 38.8 % (37.0-47.0); HGB - HEMOGLOBIN 12.9 g/dL (12.0-16.0); LYMPHOCYTES # (AUTO) 0.7 10^3/uL (1.5-3.5); LYMPHOCYTES % (AUTO) 6.7 %; MEAN CORPUSCULAR HEMOGLOBIN 33.7 pg (27.0-31.0); MEAN CORPUSCULAR HGB CONC 33.2 g/dL (32.0-36.0); MEAN CORPUSCULAR VOLUME 101.3 fL (81.0-99.0); MEAN PLATELET VOLUME 9.4 fL (7.9-10.8); MONOCYTES # (AUTO) 0.7 10^3/uL (0.0-1.0); MONOCYTES % (AUTO) 6.4 %; NEUTROPHILS % (AUTO) 86.2 %; PLT - PLATELET COUNT 201 10^3/uL (130-450); RED BLOOD COUNT 3.83 10^6/uL (4.20-5.40); RED CELL DISTRIBUTION WIDTH 13.8 % (12.0-15.0); WHITE BLOOD COUNT 10.4 x10^3/uL (4.8-10.8)
[2020-09-17 16:36] LABS: SLIDE REVIEW? Indicated
[2020-09-17 16:50] LABS: ALBUMIN 4.1 g/dL (3.2-5.5); ALBUMIN/GLOBULIN RATIO 1.4 (1.0-2.2); BILIRUBIN,TOTAL 0.8 mg/dL (0.2-1.0); CREATININE 0.7 mg/dL (0.4-1.0); POTASSIUM 3.8 mmol/L (3.5-5.0)
[2020-09-17] MEDS ORDERED: LACTATED RINGERS 1,000 ML IV SCH (17:00)
[2020-09-17] MEDS ORDERED: METHOTREXATE 2.5 MG TABLET PO SCH (17:00)
[2020-09-17 17:41] LABS: PLATELET ESTIMATE, MANUAL NORMAL (130-450,000) (NORMAL); PLATELET MORPHOLOGY NORMAL APPEARANCE (NORMAL); WBC MORPHOLOGY (MULTIPLE) NORMAL APPEARANCE (NORMAL)
[2020-09-17 17:42] LABS: DIFFERENTIAL COMMENT MANUAL=AUTO DIFF
[2020-09-17] MEDS: SODIUM CHLORIDE FLUSH 0.9% 10 ML SYRINGE IVP SCH (18:23)
[2020-09-17] MEDS: HYDROmorphone 0.5 MG/0.5 ML SYRINGE IVP PRN (18:23)
[2020-09-17] MEDS: PANTOPRAZOLE 40 MG TABLET PO SCH (20:45)
[2020-09-17] MEDS: ATORVASTATIN 10 MG TABLET PO SCH (20:45)
[2020-09-17] MEDS: ACETAMINOPHEN 325 MG TABLET PO PRN (20:45)
[2020-09-17 21:19] LABS: B. PARAPERTUSSIS- RESP PCR PAN NOT DETECTED; B. PERTUSSIS- RESP PCR PANEL NOT DETECTED; C. PNEUMONIAE- RESP PCR PANEL NOT DETECTED; CORONAVIRUS 229E-RESP PCR NOT DETECTED; CORONAVIRUS HKU1-RESP PCR NOT DETECTED; CORONAVIRUS NL63-RESP PCR NOT DETECTED; CORONAVIRUS OC43-RESP PCR NOT DETECTED; HUMAN METAPNEUMOVIRUS NOT DETECTED; INFLUENZA A- RESP PCR PANEL NOT DETECTED; INFLUENZA B - RESP PCR PANEL NOT DETECTED; M. PNEUMONIAE- RESP PCR PANEL NOT DETECTED; PARAINFLUENZA VIRUS 1 NOT DETECTED; PARAINFLUENZA VIRUS 2 NOT DETECTED; PARAINFLUENZA VIRUS 3 NOT DETECTED; PARAINFLUENZA VIRUS 4 NOT DETECTED; RHINOVIRUS/ENTEROVIRUS NOT DETECTED; RSV- RESP PCR PANEL NOT DETECTED; SARS-CoV-2 -RESP PCR PANEL NOT DETECTED
[2020-09-18] MEDS: ACETAMINOPHEN 325 MG TABLET PO PRN ×4 (00:56→20:31)
[2020-09-18] MEDS ORDERED: ETOMIDATE 40 MG/20 ML VIAL IVP ONE (01:55)
[2020-09-18] MEDS ORDERED: MIDAZOLAM 2 MG/2 ML VIAL ONE ×2 (01:55→14:55)
[2020-09-18] MEDS ORDERED: KETAMINE 500 MG/10 ML VIAL ONE (01:55)
[2020-09-18] MEDS ORDERED: PROPOFOL 200 MG/20 ML VIAL IVP ONE (01:55)
[2020-09-18] MEDS ORDERED: SUCCINYLCHOLINE 200 MG/10 ML VIAL ONE (01:56)
[2020-09-18] MEDS ORDERED: PROPOFOL 500 MG/50 ML 0 MG/0 ML VIAL ONE (01:56)
[2020-09-18] MEDS ORDERED: ROCURONIUM 50 MG/5 ML VIAL ONE (01:56)
[2020-09-18] MEDS: SODIUM CHLORIDE FLUSH 0.9% 10 ML SYRINGE IVP SCH ×3 (04:42→16:25)
[2020-09-18] MEDS: LEVOTHYROXINE 25 MCG TABLET PO SCH (06:46)
[2020-09-18] MEDS: PANTOPRAZOLE 40 MG TABLET PO SCH ×2 (08:32→20:31)
[2020-09-18] MEDS: FUROSEMIDE 20 MG TABLET PO SCH (08:32)
[2020-09-18] MEDS: lisinopriL 5 MG TABLET PO SCH (08:32)
[2020-09-18] MEDS: DOCUSATE SODIUM 250 MG CAPSULE PO SCH (08:33)
[2020-09-18] MEDS: METOPROLOL SUCCINATE 25 MG TABLET PO SCH (08:33)
--- NOTE | 2020-09-18 09:06 | SURGERY HX AND PHYSICAL(T) ---
Surgical History & Physical - Chief Complaint/HPI Chief Complaint: Chest pain and rib fractures History of Present Illness: Guerline is an 80-year-old lady who's suffers from severe rheumatoid arthritis who was trying to put on a vest while standing in front of her bathroom mirror yesterday. She reports that she got her feet "twisted" and fell against the back of the sink.She says she did not feel like the fall was that hard but her chest immediately started hurting.She did not strike any other portion of her body. She did not lose consciousness. She did not fall to the floor.She usually uses a cane at home and when shopping she walks through the grocery store but hold onto the grocery cart for stability.She came to the emergency room by private vehicle and walked in under her own power. She complained of left chest pain but denied shortness of breath. She declined pain medicine with the exception of Tylenol for several hours and was finally convinced to take a little morphine.She was admitted overnight and placed in the intensive care unit for observation.This morning she reports that she is feeling a little better. She feels like she is breathing a little better. She says her pain is no longer in an isolated area but her entire left chest feels sore.She denies any nausea.She tells me she had a DEXA scan on at this facility.Grateful she did not require transfer to a higher level of care. - PMH/PSH/Social Hx Does the pt have a hx of MRSA?: No Neurological History: TIA, Headaches, Migraines, Peripheral neuropathy, Other Eyes, Ears, Nose, Throat: Chronic vision loss Cardiovascular: Hypertension, High cholesterol, Coronary artery disease, Deep vein thrombosis, Angina, Atrial fibrillation, Murmur, Arrhythmia, Valve disorder, Other Respiratory: None Skin: None Endocrine/Autoimmune: HyPOthyroidism Gastrointestinal: Ulcers, Other POTATO [place]IP FRYER: Other Urinary: Incontinence, Frequency Musculoskeletal: Osteoarthritis, Rheumatoid arthritis, Osteoporosis, Other Blood Disorders: Anemia Psychiatric: Depression, Anxiety General: Colonoscopy, EGD Orthopedic: Hip replacement, Knee replacement, Other Cardiothoracic: Cardiac catheterization Eyes Ears Nose Throat (EENT): Cataracts, Tonsil/Adenoidectomy Smoking Status: Former smoker Does the pt drink ETOH?: No Does the pt have substance abuse?: No - Home Meds and Allergies Home Medications: Levothyroxine [Synthroid] 25 mcg PO QDAC 01/01/17 Simvastatin [Zocor] 10 mg PO QPM 01/01/17 lisinopriL [Lisinopril] 5 mg PO DAILY 01/01/17 Etanercept [Enbrel] 50 mg SQ Q7D 05/23/17 Methotrexate [Methotrexate Sodium] 17.5 mg PO Q7D 05/23/17 Metoprolol Succinate [Toprol Xl] 25 mg PO DAILY 05/25/17 Calcium Carbonate [Calcium] 1,200 mg PO DAILY 05/28/17 Cholecalciferol (Vitamin D3) [Vitamin D3] 5,000 units PO DAILY 05/28/17 Multivitamin [Theragran] 1 tab PO DAILY 05/28/17 Furosemide 20 mg PO DAILY 02/05/19 Allergies/Adverse Reactions: Allergies Allergy/AdvReac Type Severity Reaction Status Date / Time aspirin Allergy Unknown Verified 05/24/20 15:28 NSAIDS (Non-Steroidal Allergy Unknown Verified 07/23/18 10:51 Anti-Inflamma seasonal Allergy Unknown Uncoded 07/23/18 10:51 - Review of Systems Constitutional: Weakness. No: Fatigue, Poor appetite, Diaphoresis, Night sweats HEENT: No: Headaches, Sore throat Skin: Bruising Cardiac: CAD, HTN, Mitral valve stenosis. No: AFIB Respiratory: Shortness of breath. No: Cough, Sputum Gastrointestinal: No: Nausea, Vomiting, Difficulty swallowing, Abdominal pain Gentinourinary: No: Dysuria, Frequency Neurological: No: Dizziness, Headache, Numbness, Syncope, Tingling Musculoskeletal: Muscle pain, Back pain, Joint pain or stiffness Hematologic: No: Anemia, Bleeding or bruising - Vital Signs Heart Rate: 88 Blood Pressure: 146/117 Temperature: 36.7 C Respiratory Rate: 15 O2 Saturation: 93 Weight (kg): 65.771 kg Height: 1.7 m - Physical Exam General Appearance: positive: No acute distress, Other (She appears younger than her state age. Awake and alert and eating breakfast) Eyes Bilatera: positive: Normal inspection, PERRL, EOMI ENT: positive: ENT inspection nml, No signs of dehydration Neck: positive: Nml inspection, No JVD, Trachea midline Respiratory: positive: No respiratory distress, Other (Chest is tender to palpation on the left and posterior aspect consistent with the injury. Decreased breath sounds on the left but good air movement is heard bilaterally.) Cardiovascular: positive: Regular rate & rhythm, Systolic murmur Peripheral Pulses: positive: 0 Abdomen: positive: Non-tender, Nml bowel sounds, No distention Back: positive: CVA tenderness (L) Extremities: positive: Joint swelling, Other (Joint swelling and angulation consistent with RA is noted. Non palpable pulses) Neurologic/Psychiatric: positive: Oriented x3 - Patient Review Patient Review: Problems were reviewed with the patient during this visit. Medications were reviewed with the patient during this visit. Allergies were reviewed this patient during this visit. Pertinent Tests Reviewed: All pertitent test for this patient were reviewed. - Assessment & Plan Assessment and Plan: Left chest wall injury with fractures of the left 6-9th ribs. The 9th rib fracture is comminuted with an associated transverse process fracture. 1. Have contacted [facility] regarding the need for remedios rib stabilization or the lack of. 2. Continue pain control and lung inflation protocol. 3. CXR shows volume loss on the left side likely due to splinting. Will consult anesthesia regarding the possibility of rib blocks to aid with pain control and enable full lung inflation 4. History of DVT - will start subq Lovenox. 5. Daily labs and CXR. 6. Remain in the ICU for close monitoring. 7. Consult PT. Patient may benefit from a walker or other assist device.
[2020-09-18 10:27] LABS: CALCIUM 9.2 mg/dL (8.5-10.3); POTASSIUM 3.2 mmol/L (3.5-5.0)
[2020-09-18] MEDS: methocarbamoL 500 MG TABLET PO SCH ×2 (13:08→20:32)
[2020-09-18] MEDS ORDERED: EPINEPHrine 1 MG/ML AMP ONE (14:46)
[2020-09-18] MEDS ORDERED: SODIUM CHLORIDE 0.9% 10 ML ONE (14:46)
[2020-09-18] MEDS ORDERED: LIDOCAINE-PF 2% 10 ML AMP SUBQ ONE (14:46)
[2020-09-18] MEDS ORDERED: ROPIVACAINE 0.5% PF 20 ML AMPULE ONE (14:46)
--- NOTE | 2020-09-18 15:23 | ANESTHESIA PROCEDURE NOTE ---
Diagnosis: left rib fractures Procedure: Left Erector Spinae block, ultrasound guided Consent for Procedure(s) Verified and Reviewed: Yes Height and Weight: Height 5 ft 7 in Weight (kg) 65.771 kg Body Mass Index 22.7 Vital Signs: Temp Pulse Resp BP Pulse Ox 36.7 C 87 14 104/61 97 09/18/20 09:15 09/18/20 13:00 09/18/20 13:00 09/18/20 13:00 09/18/20 13:00 Allergies aspirin Allergy (Verified 05/24/20 15:28) Unknown NSAIDS (Non-Steroidal Anti-Inflamma Allergy (Verified 07/23/18 10:51) Unknown seasonal Allergy (Uncoded 07/23/18 10:51) Unknown Requesting Provider: Dr Leach Location: ICU, 2302 ASA classification: 2-Mild systemic disease Is this case an emergency?: No Anes. Monitoring and Equipment: Non-invasive BP, Pulse oximetery, Sterile prep and drape Anes. Procedure Start Time: 14:55 Anes. Procedure Stop Time: 15:00 Procedure Notes: Pt consented for left erector spinae block, Patient in sitting position with RN in front for support. Site prepped with chloroprep, Ultrasound used to identify T6-T7 transverse process. Lidocaine 2% to subcutaneous tissue, Ropivicaine 0.375% 30 mL injected between TP and deep to erector spinae muscle with good hydrodissection via US with aspiration attempted every 5 mL. Patient tolerated procedure well
[2020-09-18] MEDS: LACTATED RINGERS 1,000 ML IV SCH ×2 (16:24→23:17)
--- NOTE | 2020-09-18 16:36 | PHARMACY PROGRESS NOTE ---
- Best Possible Medication History Admit Date and Time: 09/18/20 1458 Processed by: Pharmacy Medication History completed: Yes Patient Interview: Completed (Pt interview completed by Dominik 09/18/20) Secondary Source(s): Pharmacy records, Insurance records As the person ultimately responsible for medication therapy, providers are able to order a medication from an existing home medication list in [facility] via the "Reconcile Routine" prior to Confirmation of that medication by operations support coordinator. Such practice is discouraged except when the physician, in their clinical judgment, deems that a medical need exists for a medication without regard to previous use.
[2020-09-18] MEDS ORDERED: METHOTREXATE 2.5 MG TABLET PO SCH (17:00)
[2020-09-18] MEDS: HYDROmorphone 0.5 MG/0.5 ML SYRINGE IVP PRN (17:12)
[2020-09-18] MEDS: ATORVASTATIN 10 MG TABLET PO SCH (20:31)
[2020-09-18] MEDS: PREGABALIN 25 MG CAPSULE PO SCH (20:32)
[2020-09-19] MEDS: SODIUM CHLORIDE FLUSH 0.9% 10 ML SYRINGE IVP SCH ×4 (00:14→23:58)
--- NOTE | 2020-09-19 03:20 | XRAY Report ---
PROCEDURE: Chest 2 View X-Ray INDICATIONS: Multiple rib fractures TECHNIQUE: 2 view(s) of the chest. COMPARISON: 09/17/2020 CT chest FINDINGS: Surgical changes and devices: None. Lungs and pleura: Bibasilar atelectasis. Suspected left retrocardiac atelectasis versus airspace cons olidation. Multiple acute left rib fractures including some displaced rib fractures are redemonstrate d. There is no pneumothorax. Mediastinum: Mediastinal contours are normal. Heart size is normal. Bones and chest wall: No suspicious bony abnormalities. Soft tissues appear unremarkable. IMPRESSION: Redemonstration of multiple left acute rib fractures, some comminuted and displaced. No pneumothorax. Suspected left retrocardiac atelectasis versus airspace consolidation. Reviewed by: Mohit Fajardo MD on 09/18/2020 8:51 AM PST Approved by: Mohit Fajardo MD on 09/18/2020 8:51 AM PST Station ID: [id number]
[2020-09-19] MEDS: LEVOTHYROXINE 25 MCG TABLET PO SCH (07:13)
[2020-09-19] MEDS: lisinopriL 5 MG TABLET PO SCH (08:05)
[2020-09-19] MEDS: PREGABALIN 25 MG CAPSULE PO SCH ×2 (08:05→20:36)
[2020-09-19] MEDS: FUROSEMIDE 20 MG TABLET PO SCH (08:05)
[2020-09-19] MEDS: methocarbamoL 500 MG TABLET PO SCH ×2 (08:05→20:37)
[2020-09-19] MEDS: METOPROLOL SUCCINATE 25 MG TABLET PO SCH (08:05)
[2020-09-19] MEDS: DOCUSATE SODIUM 250 MG CAPSULE PO SCH (08:06)
[2020-09-19] MEDS: PANTOPRAZOLE 40 MG TABLET PO SCH ×2 (08:06→20:36)
[2020-09-19] MEDS: ACETAMINOPHEN 325 MG TABLET PO PRN ×4 (08:55→23:58)
[2020-09-19] MEDS: ENOXAPARIN 30 MG/0.3 ML SYRINGE SUBQ SCH (09:31)
--- NOTE | 2020-09-19 09:37 | XRAY Report ---
PROCEDURE: Chest 2 View X-Ray INDICATIONS: Multiple left rib fractures TECHNIQUE: 2 view(s) of the chest. COMPARISON: 2 view chest 1 day ago, and chest CT without contrast 09/17/2020.. FINDINGS: Surgical changes and devices: None. Lungs and pleura: No pleural effusions or pneumothorax. Lungs are abnormal with alveolar airspace c onsolidation at the left lung base superimposed on a very large hiatal hernia which when referenced t o the prior recent CT scan likely represents gastric inversion with the greater curvature of the stom ach directed cephalad. This can predispose to aspiration, which may explain the new onset of alveolar airspace consolidation. Mediastinum: Mediastinal contours are normal other than the very large hiatal hernia behind the hear t. Heart size is normal. Bones and chest wall: No newly identified suspicious bony abnormalities-prior left-sided lower rib f ractures which appear acute are again noted. Soft tissues appear unremarkable. IMPRESSION: Very large hiatal hernia behind the heart, possibly a gastric inversion with the greater curvature of the stomach directed cephalad. This can predispose both to gastric torsion and aspirati on. Aspiration may explain what appears to be a abrupt onset of alveolar consolidation at the left lo wer lobe adjacent to the hiatal hernia. Note is made of left lower rib fractures, also seen by recent CT scanning and considered acute. The CT did not identify a left lower pulmonary contusion. Reviewed by: Andrew Fernando MD on 09/19/2020 8:35 AM [place] Approved by: Andrew Fernando MD on 09/19/2020 8:35 AM [facility] Station ID: [id number]
[2020-09-19 12:23] LABS: BASOPHILS % (AUTO) 0.2 %; EOSINOPHILS # (AUTO) 0.1 10^3/uL (0.0-0.7); EOSINOPHILS % (AUTO) 0.9 %; HCT - HEMATOCRIT 39.4 % (37.0-47.0); HGB - HEMOGLOBIN 12.9 g/dL (12.0-16.0); LYMPHOCYTES # (AUTO) 1.3 10^3/uL (1.5-3.5); LYMPHOCYTES % (AUTO) 13.9 %; MEAN CORPUSCULAR HEMOGLOBIN 34.2 pg (27.0-31.0); MEAN CORPUSCULAR HGB CONC 32.7 g/dL (32.0-36.0); MEAN CORPUSCULAR VOLUME 104.5 fL (81.0-99.0); MEAN PLATELET VOLUME 9.3 fL (7.9-10.8); MONOCYTES # (AUTO) 0.9 10^3/uL (0.0-1.0); MONOCYTES % (AUTO) 9.9 %; NEUTROPHILS # (AUTO) 6.8 10^3/uL (1.5-6.6); NEUTROPHILS % (AUTO) 74.9 %; PLT - PLATELET COUNT 168 10^3/uL (130-450); RED BLOOD COUNT 3.77 10^6/uL (4.20-5.40); RED CELL DISTRIBUTION WIDTH 14.4 % (12.0-15.0); WHITE BLOOD COUNT 9.1 x10^3/uL (4.8-10.8)
[2020-09-19 12:35] LABS: ALBUMIN 3.9 g/dL (3.2-5.5); ALBUMIN/GLOBULIN RATIO 1.4 (1.0-2.2); ALKALINE PHOSPHATASE 71 IU/L (42-121); ALT ALANINE AMINOTRANSFERASE 17 IU/L (10-60); AST ASPARTATE AMINOTRANSFERASE 20 IU/L (10-42); BUN - BLOOD UREA NITROGEN 17 mg/dL (6-20); CALCIUM 8.7 mg/dL (8.5-10.3); CARBON DIOXIDE - CO2 24 mmol/L (21-32); CHLORIDE 101 mmol/L (101-111); CREATININE 0.9 mg/dL (0.4-1.0); GFR - MDRD 60 (>89); GLUCOSE 109 mg/dL (70-100); IONIZED CALCIUM IF INDICATED NO; POTASSIUM 3.7 mmol/L (3.5-5.0); SODIUM 138 mmol/L (135-145); TOTAL PROTEIN 6.6 g/dL (6.7-8.2)
--- NOTE | 2020-09-19 19:03 | PROVIDER PROGRESS NOTE ---
Subjective - General Admit Date: 09/18/20 Procedure Performed: None - Other Other Information/Narrative: Sitting in a chair at the time of examination and looks remarkably well. She reports her pain is better today then yesterday. She continues to request only Acetaminophen and doesn't want any narcotics. She has been working with physical therapy and ambulating in the room and in the [place] with a walker. She reports today that she feels good about going home and feels she will be safe there. Her left foot continues to be painful after recent surgery but it is not getting worse. She denies any nausea and reports her appetite is good. She has snyder with deep inspiration but staff reports she is doing well with her IS and her volumes are increasing. Objective - Patient Data Reviewed Vital Signs: Yes Vital Signs: Vital Signs x48h Temp Pulse Pulse Pulse Resp BP BP 09/19/20 18:00 84 20 132/80 H 09/19/20 17:00 36.5 C 81 16 111/57 L 09/19/20 16:00 74 16 100/51 L 09/19/20 15:26 71 14 108/63 09/19/20 15:00 66 16 92/53 L 09/19/20 14:00 78 16 124/95 H 09/19/20 13:00 36.6 C 82 17 130/75 09/19/20 12:00 80 14 125/80 09/19/20 11:45 78 83 09/19/20 11:00 84 19 95/61 BP BP Pulse Ox 09/19/20 18:00 96 09/19/20 17:00 95 09/19/20 16:00 94 09/19/20 15:26 94 09/19/20 15:00 93 09/19/20 14:00 95 09/19/20 13:00 96 09/19/20 12:00 99 09/19/20 11:45 125/80 135/72 H 09/19/20 11:00 95 Weight: Weight 09/17/20 09/18/20 09/19/20 23:59 23:59 23:59 Weight (kg) 65.771 kg 65.771 kg Intake & Output: Intake and Output Totals x24h 09/17/20 09/18/20 09/19/20 23:59 23:59 23:59 Intake Total 400 1539.418 4491.5 Balance 400 1720.725 4880.5 - Lab Results Lab Results: 09/19/20 12:17 09/19/20 12:17 Other Lab Results: Lab Results x24hrs 09/19/20 09/19/20 Range/Units 12:17 12:17 WBC 9.1 (4.8-10.8) x10^3/uL RBC 3.77 L (4.20-5.40) 10^6/uL Hgb 12.9 (12.0-16.0) g/dL Hct 39.4 (37.0-47.0) % MCV 104.5 H (81.0-99.0) fL MCH 34.2 H (27.0-31.0) pg MCHC 32.7 (32.0-36.0) g/dL RDW 14.4 (12.0-15.0) % Plt Count 168 (130-450) 10^3/uL MPV 9.3 (7.9-10.8) fL Neut # (Auto) 6.8 H (1.5-6.6) 10^3/uL Lymph # (Auto) 1.3 L (1.5-3.5) 10^3/uL [place] # (Auto) 0.9 (0.0-1.0) 10^3/uL Eos # (Auto) 0.1 (0.0-0.7) 10^3/uL Baso # (Auto) 0.0 (0.0-0.1) 10^3/uL Absolute Nucleated RBC 0.00 x10^3/uL Nucleated RBC % 0.0 /100WBC Sodium 138 (135-145) mmol/L Potassium 3.7 (3.5-5.0) mmol/L Chloride 101 (101-111) mmol/L Carbon Dioxide 24 (21-32) mmol/L Anion Gap 13.0 (6-13) BUN 17 (6-20) mg/dL Creatinine 0.9 (0.4-1.0) mg/dL Estimated GFR (MDRD) 60 L (>89) Glucose 109 H (70-100) mg/dL Calcium 8.7 (8.5-10.3) mg/dL Ionized Calcium NO Total Bilirubin 1.0 (0.2-1.0) mg/dL AST 20 (10-42) IU/L ALT 17 (10-60) IU/L Alkaline Phosphatase 71 (42-121) IU/L Total Protein 6.6 L (6.7-8.2) g/dL Albumin 3.9 (3.2-5.5) g/dL Globulin 2.7 (2.1-4.2) g/dL Albumin/Globulin Ratio 1.4 (1.0-2.2) - Imaging Results Radiology Imaging: positive: Critical result Imaging Results Comments: Left rib fractures and associated pulmonary contusion are noted as well as the very large hiatal hernia. No pleural effusion or pneumothorax - Current Medications Current Medications: Current Medications Generic Name Dose Route Start Last Admin Trade Name Freq PRN Reason Stop Dose Admin Acetaminophen 650 mg 09/17/20 16:23 09/19/20 17:43 Acetaminophen 325 Mg Tablet PO 650 mg Q4HR PRN Administration Pain 1 to 4 Atorvastatin Calcium 10 mg 09/17/20 21:00 09/18/20 20:31 Atorvastatin 10 Mg Tablet PO 10 mg QPM PEBBLES Administration Docusate Sodium 250 mg 09/18/20 09:00 09/19/20 08:06 Docusate Sodium 250 Mg Capsule PO 250 mg DAILY PEBBLES Administration Enoxaparin Sodium 30 mg 09/19/20 09:00 09/19/20 09:31 Enoxaparin 30 Mg/0.3 Ml Syringe SUBQ 30 mg DAILY PEBBLES Administration Furosemide 20 mg 09/18/20 09:00 09/19/20 08:05 Furosemide 20 Mg Tablet PO 20 mg DAILY PEBBLES Administration Hydromorphone HCl 0.5 mg 09/17/20 16:23 09/18/20 17:12 Hydromorphone 0.5 Mg/0.5 Ml Syringe IVP 0.5 mg Q2H PRN Administration Pain 8 to 10 Lactated Ringer's 1,000 mls @ 50 mls/hr 09/18/20 15:02 09/19/20 13:38 Lr IV 09/21/20 15:01 0 mls/hr .Q20H PEBBLES Infusion Levothyroxine Sodium 25 mcg 09/18/20 07:00 09/19/20 07:13 Levothyroxine 25 Mcg Tablet PO 25 mcg QDAC PEBBLES Administration Lisinopril 5 mg 09/18/20 09:00 09/19/20 08:05 Lisinopril 5 Mg Tablet PO 5 mg DAILY PEBBLES Administration Methocarbamol 500 mg 09/18/20 13:00 09/19/20 08:05 Methocarbamol 500 Mg Tablet PO 500 mg BID PEBBLES Administration Methotrexate Sodium 15 mg 09/18/20 17:00 09/18/20 17:25 Methotrexate 2.5 Mg Tablet PO 15 mg Q7D PEBBLES Administration Metoprolol Succinate 25 mg 09/18/20 09:00 09/19/20 08:05 Metoprolol Succinate 25 Mg Tablet PO 25 mg DAILY PEBBLES Administration Ondansetron HCl 4 mg 09/17/20 16:23 09/18/20 10:11 Ondansetron 4 Mg/2 Ml Vial IVP 4 mg Q6HR PRN Administration Nausea / Vomiting Pantoprazole Sodium 40 mg 09/17/20 21:00 09/19/20 08:06 Pantoprazole 40 Mg Tablet PO 40 mg BID PEBBLES Administration Pregabalin 75 mg 09/18/20 21:00 09/19/20 08:05 Pregabalin 25 Mg Capsule PO 75 mg BID PEBBLES Administration Sodium Chloride 10 ml 09/17/20 17:00 09/19/20 17:17 Sodium Chloride Flush 0.9% 10 Ml Syringe IVP 10 ml 0100,0900,1700 PEBBLES Administration - Physical Exam General Appearance: positive: No acute distress, Alert Eyes Bilateral: positive: Normal inspection ENT: positive: No signs of dehydration Neck: positive: No JVD, Trachea midline Respiratory: positive: No respiratory distress, Rhonchi, Other (Soft crackles heard at the left base. Good air movement bilaterally,) Cardiovascular: positive: Regular rate & rhythm Abdomen: positive: Non-tender, Nml bowel sounds. negative: Tenderness Back: positive: CVA tenderness (L) Extremities: positive: Pedal edema Neurologic/Psychiatric: positive: Oriented x3 Impression/Plan - Problem List Problem List: 1. Will continue aggressive pulmonary hygeine. 2. Recheck xray in the AM. Discharge goals include steady independent ambulation and adequate pain control. 3. Current plan is to discharge to home with HHPT. 4. Hep lock IV fluids
[2020-09-19] MEDS: ATORVASTATIN 10 MG TABLET PO SCH (20:37)
[2020-09-20] MEDS: LEVOTHYROXINE 25 MCG TABLET PO SCH (07:02)
[2020-09-20] MEDS: FUROSEMIDE 20 MG TABLET PO SCH (08:21)
[2020-09-20] MEDS: PREGABALIN 25 MG CAPSULE PO SCH ×2 (08:21→20:56)
[2020-09-20] MEDS: methocarbamoL 500 MG TABLET PO SCH ×2 (08:22→20:56)
[2020-09-20] MEDS: ACETAMINOPHEN 325 MG TABLET PO PRN ×3 (08:23→20:56)
[2020-09-20] MEDS: lisinopriL 5 MG TABLET PO SCH (08:23)
[2020-09-20] MEDS: METOPROLOL SUCCINATE 25 MG TABLET PO SCH (08:23)
[2020-09-20] MEDS: ENOXAPARIN 30 MG/0.3 ML SYRINGE SUBQ SCH (08:24)
[2020-09-20] MEDS: polyethylene glycoL 3350 17 GM PACKET PO SCH (08:24)
[2020-09-20] MEDS: DOCUSATE SODIUM 250 MG CAPSULE PO SCH (08:25)
[2020-09-20] MEDS: SODIUM CHLORIDE FLUSH 0.9% 10 ML SYRINGE IVP SCH ×3 (08:25→23:45)
[2020-09-20] MEDS: PANTOPRAZOLE 40 MG TABLET PO SCH ×2 (08:27→20:55)
[2020-09-20] MEDS: LACTULOSE 10 GM /15 ML UDC PO SCH ×2 (09:03→13:12)
[2020-09-20] MEDS: ATORVASTATIN 10 MG TABLET PO SCH (20:55)
[2020-09-21] MEDS: ACETAMINOPHEN 325 MG TABLET PO PRN ×4 (06:32→20:52)
[2020-09-21] MEDS: LEVOTHYROXINE 25 MCG TABLET PO SCH (06:32)
[2020-09-21] MEDS: polyethylene glycoL 3350 17 GM PACKET PO SCH (08:22)
[2020-09-21] MEDS: methocarbamoL 500 MG TABLET PO SCH ×2 (08:25→20:50)
[2020-09-21] MEDS: PANTOPRAZOLE 40 MG TABLET PO SCH ×2 (08:25→20:51)
[2020-09-21] MEDS: DOCUSATE SODIUM 250 MG CAPSULE PO SCH (08:26)
[2020-09-21] MEDS: FOLIC ACID 1 MG TABLET PO SCH (08:26)
[2020-09-21] MEDS: SODIUM CHLORIDE FLUSH 0.9% 10 ML SYRINGE IVP SCH ×2 (08:26→17:08)
[2020-09-21] MEDS: SENNA 8.6 MG TABLET PO SCH (08:26)
[2020-09-21] MEDS: METOPROLOL SUCCINATE 25 MG TABLET PO SCH (08:26)
[2020-09-21] MEDS: lisinopriL 5 MG TABLET PO SCH (08:26)
[2020-09-21] MEDS: ENOXAPARIN 30 MG/0.3 ML SYRINGE SUBQ SCH (08:26)
[2020-09-21] MEDS: FUROSEMIDE 20 MG TABLET PO SCH (08:26)
[2020-09-21] MEDS: PREGABALIN 25 MG CAPSULE PO SCH ×2 (08:26→20:52)
--- NOTE | 2020-09-21 13:57 | XRAY Report ---
PROCEDURE: Chest 2 View X-Ray INDICATIONS: Multiple left rib fractures TECHNIQUE: 2 view(s) of the chest. COMPARISON: 09/19/2020 chest x-ray FINDINGS: Surgical changes and devices: None. Lungs and pleura: No pleural effusions or pneumothorax. Mild bibasilar patchy airspace opacity. Mediastinum: Large hiatal hernia is present, as before. Mediastinal contours are otherwise normal. Heart size is normal. Bones and chest wall: No suspicious bony abnormalities. No change in left rib fractures. Soft tissue s appear unremarkable. IMPRESSION: 1. Bibasilar atelectasis versus pneumonia. 2. Large hiatal hernia. 3. No change in left rib fractures. Reviewed by: Mario Torres MD on 09/21/2020 1:55 PM PST Approved by: Mario Torres MD on 09/21/2020 1:55 PM [facility] Station ID: [id number]
--- NOTE | 2020-09-21 14:51 | CONSULTATION NOTE ---
Referring Provider Name of Referring Provider:: Dr Lady Leach Consult Date: 09/21/20 (Bilateral pleural effusion) Chief Complaint - Chief Complaint Chief Complaint: bilateral pleural effusion History of Present Illness - Admitted From Admitted From:: [facility] ED - History Obtained From Records Reviewed: yes History obtained from: patient - History of Present Illness HPI Comment/Other: Patient is an 80-year-old female with rheumatoid arthritis who was admitted on 09/17/20. She had a mechanical fall in her bathroom while she was trying to put on a vest. She fell against the back of her sink. She immediately started feeling pain. She did not lose consciousness or hit her head. She presented to the ED by private car and complained of left chest pain but no difficulty in breathing. Work-up showed that she had chest wall injury with fractures of the left 6th-9th ribs. The ninth rib fracture was comminuted with an associated transverse process fracture. She was admitted under general surgery service due to trauma. Pain management was initiated. The patient was given an incentive spirometer and encouraged to use regularly. Anesthesia was consulted for possible rib bl ock. The patient has been doing well since her admission. She is breathing on room air. She reports pain when she attempts deep inspiration however it appears her pain is manageable. She has been ambulating around her nursing floor with minimal dyspnea. The hospitalist service was consulted today for concern about pleural effusion. At bedside she is breathing comfortably on room air. She denied abdominal pain, nausea, vomiting, fever or chills. She does not have any lower extremity edema. She sees Dr. Rayna bravo aeronautical engineering teacher at [place] due to her history of a tricuspid valve regurgitation. She does not remember when she last had an echocardiogram. History - Past Medical History Cardiovascular: reports: Hypertension, High cholesterol, Coronary artery disease, Deep vein thrombosis, Angina, Murmur, Arrhythmia, Valve disorder, Other Respiratory: reports: None Neuro: reports: TIA, Headaches, Migraines, Peripheral neuropathy, Other Endocrine/Autoimmune: reports: HyPOthyroidism GI: reports: Ulcers, Other PRODUCER ARBORIST MANAGER: reports: Other : reports: Incontinence, Frequency HEENT: reports: Chronic vision loss Psych: reports: Depression, Anxiety Musculoskeletal: reports: Osteoarthritis, Rheumatoid arthritis, Osteoporosis, Other Derm: reports: None MRSA Hx?: No - Past Surgical History General: reports: Colonoscopy, EGD Ortho: reports: Hip replacement, Knee replacement, Other /PRODUCER ARBORIST MANAGER: reports: Tubal ligation Cardiovascular: reports: Cardiac catheterization HEENT: reports: Cataracts, Tonsil/Adenoidectomy - Family & Social History Family History Comment/Other: Both mom and dad in their 90s of old age. 2 siblings. One brother had a recent knee replacement. Her sister has some type of growth on her left face. But neither 1 of them have coronary artery disease, hypertension, hyperlipidemia, cancer. 3 sons. One lives in [place]. One son travels the country as a bag while working at [employer]. One son lives with her but unfortunately he is an alcoholic. She is trying to get him to stop. Social History Notes: smoked for only 6 months in her 20's. no alcohol abuse. no recreational substance abuse.She was for over 50 years to her first . He at age 81 while jogging in a marathon in [place] 4 years ago. Her son was present when he and try to resuscitate his father. That is when he became an alcoholic because it affected him psychologically. Her son lives with her. - Substance History Use: Uses substance without health or social issues: NONE - POLST Patient has POLST: No POLST Status: Full Code (she has not thought about advanced care planning or planning for severe diability. She thinks that if she is resuscitated she will recover to be normal and go home again.) Meds/Allgy - Home Medications Home Medications: Ambulatory Orders Medication Instructions Recorded Confirmed Levothyroxine [Synthroid] 25 mcg PO QDAC 01/01/17 09/18/20 Simvastatin [Zocor] 10 mg PO QPM 01/01/17 09/18/20 lisinopriL [Lisinopril] 5 mg PO DAILY 01/01/17 09/18/20 Etanercept [Enbrel] 50 mg SQ Q7D 05/23/17 09/18/20 Methotrexate [Methotrexate Sodium] 15 mg PO Q7D 05/23/17 09/18/20 Metoprolol Succinate [Toprol Xl] 25 mg PO DAILY 05/25/17 09/18/20 Calcium Carbonate [Calcium] 1,200 mg PO DAILY 05/28/17 09/18/20 Multivitamin [Theragran] 1 tab PO DAILY 05/28/17 09/18/20 Furosemide 20 mg PO DAILY 02/05/19 09/18/20 Ascorbic Acid Chew [Vitamin C] 500 mg PO DAILY 09/18/20 09/18/20 Cholecalciferol (Vitamin D3) 5,000 unit PO DAILY 09/18/20 09/18/20 [Vitamin D3] Cyanocobalamin (Vitamin B-12) 5,000 mcg PO DAILY 09/18/20 09/18/20 [Vitamin B-12] Folic Acid 1.6 mg PO DAILY 09/18/20 09/18/20 Magnesium Oxide [Magnesium] 500 mg PO DAILY 09/18/20 09/18/20 Story-3/Dha/Epa/Fish Oil [Fish Oil 1,200 mg PO DAILY 09/18/20 09/18/20 1,200 mg Softgel] Pantoprazole [Protonix] 40 mg PO DAILY 09/18/20 09/18/20 - Allergies Allergies/Adverse Reactions: Allergies Allergy/AdvReac Type Severity Reaction Status Date / Time aspirin Allergy Unknown Verified 05/24/20 15:28 NSAIDS (Non-Steroidal Allergy Unknown Verified 07/23/18 10:51 Anti-Inflamma Review of Systems - Constitutional Constitutional: denies: Fatigue, Fever, Chills, Weakness, Poor appetite - Eyes Eyes: denies: Pain, Irritation, Blurred vision, Vision loss, Dipolpia - Ears, Nose & Throat Ears, Nose & Throat: denies: Ear pain - Cardiovascular Cariovascular: denies: Irregular heart rate, Palpitations, Chest pain, Edema, Lightheadedness, Syncope, Exertional dyspnea, Decr. exercise tolerance - Respiratory Respiratory: reports: Pleuritic pain. denies: Cough, Sputum production, Wheezing, SOB at rest, SOB with exertion - Gastrointestinal Gastrointestinal: denies: Abdominal pain, Abdominal distention, Constipation, Diarrhea, Nausea, Vomiting - Genitourinary Genitourinary: reports: Other (Rib pain with deep inspiration) - Integumentary Integumentary: denies: Rash, Pruritis, Lesions, Dryness - Neurological Neurological: denies: General weakness, Focal weakness, Headache, Dizziness - Psychiatric Psychiatric: denies: Depression, Anxiety - Endocrine Endocrine: denies: Polyuria, Polydypsia - Hematologic/Lymphatic Hematologic/Lymphatic: denies: Anemia, Bruising, Petechiae Exam - Vital Signs Vital Signs: Vital Signs x48h Temp Pulse Resp BP Pulse Ox 09/21/20 09:00 36.5 C 90 18 128/82 H 97 - Physical Exam General Appearance: positive: Alert, Mild distress, Moderate distress Eyes Bilateral: positive: PERRL, EOMI ENT: positive: No signs of dehydration Neck: positive: No JVD, Trachea midline Respiratory: positive: Breath sounds nml, Other (chest wall render to palpation). negative: Wheezes, Rales, Rhonchi Cardiovascular: positive: No murmur Abdomen: positive: Non-tender, No organomegaly, Nml bowel sounds, No distention. negative: Guarding, Rebound Back: negative: Nml inspection Skin: positive: Color nml, No rash, Warm, Dry Extremities: positive: Non-tender, Full ROM, Nml appearance, No pedal edema Neurologic/Psychiatric: positive: Oriented x3, Mood/affect nml Conclusion/Plan - Diagnosis Diagnosis: Pleural effusion. Multiple rib fractures. Hypothyroidism. Rheumatoid Arthritis. Hyperlipidemia. Coronary Artery Disease. Hypertension - Plan Plan: Pleural effusion: The patient reports history of tricuspid regurgitation. She sees Dr. Duran at [place] for cardiology care. Most of her cardiac care is done through [facility]. She had a cardiac cath in 01/2010 and 10/2010 without significant disease. She had a 2D echocardiogram in 10/2010 with moderate to severe tricuspid regurgitation and PA pressure 40 to 45 mmHg. 11/2011 showed moderate tricuspid regurgitation. Left ventricular ejection fraction was 60 to 65%. 12/2012 Normal left ventricle and right ventricular EF, EF 60 to 65% with moderate to severe tricuspid regurgitation. Pulmonary artery 38 mmHg. 06/2014 no change but right atrial enlargement severe. 04/2015 moderate dilated right ventricle, right atrial enlargement severe. 07/2017 normal left ventricle, no change. 09/2018 no change. BNP today was 49. Chest x-ray on 09/21/20 showed bibasilar atelectasis versus pneumonia. There was no noticeable pleural effusion or pneumothorax. There was no change in left rib fractures. Large hiatal hernia noted. Currently patient is afebrile, respiratory rate within normal and she is breathing comfortably on room air with an oxygen saturation of 95%. In the absence of any clinical symptoms, we may continue to monitor the patient for clinical changes. If no new clinical findings the patient may follow-up with her aeronautical engineering teacher Dr. Duran for her yearly check up regarding tricuspid regurgitation. The hospitalist team will sign off for now. Multiple rib fractures: Manageb by General Surgery Pain medication prn Incentive Spirometry Hypothyroidism: On synthroid 25mg qdac Rheumatoid Arthritis: On methotrexate Will check VitB12 and folate levels Hyperlipidemia: On simvastatin Coronary Artery Disease: On Toprol XL, Simvastatin, lisinopril Hypertension: On Toprol XL, Simvastatin, lisinopril - Lab Results Fish Bones: 09/21/20 15:15 09/21/20 15:15
--- NOTE | 2020-09-21 14:57 | PROVIDER PROGRESS NOTE ---
Subjective - General Admit Date: 09/18/20 Procedure Performed: None - Other Other Information/Narrative: Late entry Patient seen 09/20/2020 Patient is examined sitting in her chair. She is not requiring any supplemental oxygen. She has been afebrile. Getting around a little easier with her walker. Has passed flatus but no bowel movement since admission. Reports may be slightly improved. Objective - Patient Data Reviewed Vital Signs: Yes Vital Signs: Vital Signs x48h Temp Pulse Resp BP Pulse Ox 09/21/20 09:00 36.5 C 90 18 128/82 H 97 Intake & Output: Intake and Output Totals x24h 09/19/20 09/20/20 09/21/20 23:59 23:59 23:59 Intake Total 2397.5 1290 1300 Output Total 1 1 Balance 2397.5 1289 1299 - Lab Results Lab Results: 09/19/20 12:17 09/19/20 12:17 - Imaging Results Imaging Results Comments: No new xray today - Current Medications Current Medications: Current Medications Generic Name Dose Route Start Last Admin Trade Name Freq PRN Reason Stop Dose Admin Acetaminophen 650 mg 09/17/20 16:23 09/21/20 11:36 Acetaminophen 325 Mg Tablet PO 650 mg Q4HR PRN Administration Pain 1 to 4 Atorvastatin Calcium 10 mg 09/17/20 21:00 09/20/20 20:55 Atorvastatin 10 Mg Tablet PO 10 mg QPM PEBBLES Administration Docusate Sodium 250 mg 09/18/20 09:00 09/21/20 08:26 Docusate Sodium 250 Mg Capsule PO 250 mg DAILY PEBBLES Administration Enoxaparin Sodium 30 mg 09/19/20 09:00 09/21/20 08:26 Enoxaparin 30 Mg/0.3 Ml Syringe SUBQ Not Given DAILY PEBBLES Folic Acid 1 mg 09/21/20 09:00 09/21/20 08:26 Folic Acid 1 Mg Tablet PO 1 mg DAILY PEBBLES Administration Furosemide 20 mg 09/18/20 09:00 09/21/20 08:26 Furosemide 20 Mg Tablet PO 20 mg DAILY PEBBLES Administration Hydromorphone HCl 0.5 mg 09/17/20 16:23 09/18/20 17:12 Hydromorphone 0.5 Mg/0.5 Ml Syringe IVP 0.5 mg Q2H PRN Administration Pain 8 to 10 Levothyroxine Sodium 25 mcg 03/08/21 07:00 09/21/20 06:32 Levothyroxine 25 Mcg Tablet PO 25 mcg QDAC PEBBLES Administration Lisinopril 5 mg 09/18/20 09:00 09/21/20 08:26 Lisinopril 5 Mg Tablet PO 5 mg DAILY PEBBLSE Administration Methocarbamol 500 mg 09/18/20 13:00 09/21/20 08:25 Methocarbamol 500 Mg Tablet PO 500 mg BID PEBBLES Administration Methotrexate Sodium 15 mg 09/18/20 17:00 09/18/20 17:25 Methotrexate 2.5 Mg Tablet PO 15 mg Q7D PEBBLES Administration Metoprolol Succinate 25 mg 09/18/20 09:00 09/21/20 08:26 Metoprolol Succinate 25 Mg Tablet PO 25 mg DAILY PEBBLES Administration Ondansetron HCl 4 mg 09/17/20 16:23 09/18/20 10:11 Ondansetron 4 Mg/2 Ml Vial IVP 4 mg Q6HR PRN Administration Nausea / Vomiting Pantoprazole Sodium 40 mg 09/17/20 21:00 09/21/20 08:25 Pantoprazole 40 Mg Tablet PO 40 mg BID PEBBLES Administration Polyethylene Glycol 17 gm 09/20/20 09:00 09/21/20 08:22 Polyethylene Glycol 3350 17 Gm Packet PO 17 gm DAILY PEBBLES Administration Pregabalin 75 mg 09/18/20 21:00 09/21/20 08:26 Pregabalin 25 Mg Capsule PO 75 mg BID PEBBLES Administration Senna 8.6 - 17.2 mg 09/21/20 09:00 09/21/20 08:26 Senna 8.6 Mg Tablet PO 8.6 mg DAILY PEBBLES Administration Sodium Chloride 10 ml 09/17/20 17:00 09/21/20 08:26 Sodium Chloride Flush 0.9% 10 Ml Syringe IVP 10 ml 0100,0900,1700 [facility] Administration - Physical Exam General Appearance: positive: No acute distress, Alert Respiratory: positive: No respiratory distress, Other (soft crackles at the right base continue, bruising is noted along the left axillary line) Cardiovascular: positive: Regular rate & rhythm Abdomen: positive: Non-tender, Nml bowel sounds, No distention Neurologic/Psychiatric: positive: Oriented x3 Impression/Plan - Problem List Problem List: Continue to work with physical therapy. Will change to Med/Surg status. Home when she is more stable on her feet and pain is controlled
--- NOTE | 2020-09-21 15:03 | PROVIDER PROGRESS NOTE ---
Subjective - Prog Note Date Prog Note Date: 09/21/20 Prog Note Time: 15:02 - Subjective Pt reports feeling: Improved Subjective: Mrs. Gillespie reports she is feeling better each day. Walked out in the halls with nurse standby assist. Has had 3 bowel movements over the last 24 hours. Denies any abdominal pain. Feels like maybe her pain is a little improved. Denies shortness of breath. Current Medications - Current Medications Current Medications: Active Medications Generic Name Dose Route Start Last Admin Trade Name Freq PRN Reason Stop Dose Admin Acetaminophen 650 mg 09/17/20 16:23 09/21/20 11:36 Acetaminophen 325 Mg Tablet PO 650 mg Q4HR PRN Administration Pain 1 to 4 Atorvastatin Calcium 10 mg 09/17/20 21:00 09/20/20 20:55 Atorvastatin 10 Mg Tablet PO 10 mg QPM PEBBLES Administration Docusate Sodium 250 mg 09/18/20 09:00 09/21/20 08:26 Docusate Sodium 250 Mg Capsule PO 250 mg DAILY PEBBLES Administration Enoxaparin Sodium 30 mg 09/19/20 09:00 09/21/20 08:26 Enoxaparin 30 Mg/0.3 Ml Syringe SUBQ Not Given DAILY PEBBLES Folic Acid 1 mg 09/21/20 09:00 09/21/20 08:26 Folic Acid 1 Mg Tablet PO 1 mg DAILY PEBBLES Administration Furosemide 20 mg 09/18/20 09:00 09/21/20 08:26 Furosemide 20 Mg Tablet PO 20 mg DAILY PEBBLES Administration Hydromorphone HCl 0.5 mg 09/17/20 16:23 09/18/20 17:12 Hydromorphone 0.5 Mg/0.5 Ml Syringe IVP 0.5 mg Q2H PRN Administration Pain 8 to 10 Levothyroxine Sodium 25 mcg 09/18/20 07:00 09/21/20 06:32 Levothyroxine 25 Mcg Tablet PO 25 mcg QDAC PEBBLES Administration Lisinopril 5 mg 09/18/20 09:00 09/21/20 08:26 Lisinopril 5 Mg Tablet PO 5 mg DAILY PEBBLES Administration Methocarbamol 500 mg 09/18/20 13:00 09/21/20 08:25 Methocarbamol 500 Mg Tablet PO 500 mg BID PEBBLES Administration Methotrexate Sodium 15 mg 09/18/20 17:00 09/18/20 17:25 Methotrexate 2.5 Mg Tablet PO 15 mg Q7D PEBBLES Administration Metoprolol Succinate 25 mg 09/18/20 09:00 09/21/20 08:26 Metoprolol Succinate 25 Mg Tablet PO 25 mg DAILY PEBBLES Administration Ondansetron HCl 4 mg 09/17/20 16:23 09/18/20 10:11 Ondansetron 4 Mg/2 Ml Vial IVP 4 mg Q6HR PRN Administration Nausea / Vomiting Oxycodone HCl 5 mg 09/17/20 16:23 Oxycodone 5 Mg Tablet PO Q4HR PRN Pain 5 to 7 Pantoprazole Sodium 40 mg 09/17/20 21:00 09/21/20 08:25 Pantoprazole 40 Mg Tablet PO 40 mg BID PEBBLES Administration Polyethylene Glycol 17 gm 09/20/20 09:00 09/21/20 08:22 Polyethylene Glycol 3350 17 Gm Packet PO 17 gm DAILY PEBBLES Administration Pregabalin 75 mg 09/18/20 21:00 09/21/20 08:26 Pregabalin 25 Mg Capsule PO 75 mg BID PEBBLES Administration Senna 8.6 - 17.2 mg 09/21/20 09:00 09/21/20 08:26 Senna 8.6 Mg Tablet PO 8.6 mg DAILY PEBBLES Administration Sodium Chloride 10 ml 09/17/20 16:23 Sodium Chloride Flush 0.9% 10 Ml Syringe IVP PRN PRN NEEDED PER PROVIDER ORDERS Sodium Chloride 10 ml 09/17/20 17:00 09/21/20 08:26 Sodium Chloride Flush 0.9% 10 Ml Syringe IVP 10 ml 0100,0900,1700 PEBBLES Administration Levothyroxine [Synthroid] 25 mcg PO QDAC 01/01/17 Simvastatin [Zocor] 10 mg PO QPM 01/01/17 lisinopriL [Lisinopril] 5 mg PO DAILY 01/01/17 Etanercept [Enbrel] 50 mg SQ Q7D 05/23/17 Methotrexate [Methotrexate Sodium] 15 mg PO Q7D 05/23/17 Metoprolol Succinate [Toprol Xl] 25 mg PO DAILY 05/25/17 Calcium Carbonate [Calcium] 1,200 mg PO DAILY 05/28/17 Multivitamin [Theragran] 1 tab PO DAILY 05/28/17 Furosemide 20 mg PO DAILY 02/05/19 Ascorbic Acid Chew [Vitamin C] 500 mg PO DAILY 09/18/20 Cholecalciferol (Vitamin D3) [Vitamin D3] 5,000 unit PO DAILY 09/18/20 Cyanocobalamin (Vitamin B-12) [Vitamin B-12] 5,000 mcg PO DAILY 09/18/20 Folic Acid 1.6 mg PO DAILY 09/18/20 Magnesium Oxide [Magnesium] 500 mg PO DAILY 09/18/20 [place]-3/Dha/Epa/Fish Oil [Fish Oil 1,200 mg Softgel] 1,200 mg PO DAILY 09/18/20 Pantoprazole [Protonix] 40 mg PO DAILY 09/18/20 Objective - Vital Signs/Intake & Output Reviewed Vital Signs: Yes Vital Signs: Vital Signs x48h Temp Pulse Resp BP Pulse Ox 09/21/20 09:00 36.5 C 90 18 128/82 H 97 Intake & Output: Intake & Output 09/18/20 09/19/20 09/20/20 09/21/20 23:59 23:59 23:59 23:59 Intake Total 8600.666 5971.5 1290 1300 Output Total 1 1 Balance 4053.385 0892.5 1289 1299 - Objective General Appearance: positive: No acute distress, Alert Eyes Bilateral: positive: Normal inspection, PERRL, EOMI ENT: positive: ENT inspection nml, Pharynx nml, No signs of dehydration Neck: positive: Nml inspection, Thyroid nml Respiratory: positive: No respiratory distress, Other (Good air movement b ilaterally) Cardiovascular: positive: Regular rate & rhythm Abdomen: positive: Non-tender Skin: positive: Color nml - Lab Results Fish Bones: 09/19/20 12:17 09/19/20 12:17 - Diagnostic Imaging Diagnostic Imaging Results: positive: Final report reviewed Diagnostic Imaging Comments: PT NAME: VIRGIE GILLESPIE MR#: [id number] ADM IN/ICU AGE: 80 CI DT/TM: 09/21/2006/03/1231 PCP: Bianka Santiago PA-C : 1940 ATT: Xavier Leach MD SEX: F ORD: Xavier Leach MD EXAM: [id number] ([id number]) PROCEDURE: Chest 2 View X-Ray INDICATIONS: Multiple left rib fractures TECHNIQUE: 2 view(s) of the chest. COMPARISON: 09/19/2020 chest x-ray FINDINGS: Surgical changes and devices: None. Lungs and pleura: No pleural effusions or pneumothorax. Mild bibasilar patchy airspace opacity. Mediastinum: Large hiatal hernia is present, as before. Mediastinal contours are otherwise normal. Heart size is normal. Bones and chest wall: No suspicious bony abnormalities. No change in left rib fractures. Soft tissues appear unremarkable. IMPRESSION: 1. Bibasilar atelectasis versus pneumonia. 2. Large hiatal hernia. 3. No change in left rib fractures. ABX Reporting Has patient been on IV antibiotics over the past 48 hours?: No Assessment/Plan - Problem List (1) Ribs, multiple fractures Impression: Chest xray looks worse today but patient is clinically stable or improved 2. Recheck labs 3. Consult Hospitalist service Qualifiers: Encounter type: initial encounter Fracture type: closed Laterality: left Qualified Code(s): S22.42XA - Multiple fractures of ribs, left side, initial encounter for closed fracture
[2020-09-21 15:26] LABS: BASOPHILS % (AUTO) 0.3 %; EOSINOPHILS # (AUTO) 0.2 10^3/uL (0.0-0.7); EOSINOPHILS % (AUTO) 3.9 %; HCT - HEMATOCRIT 36.3 % (37.0-47.0); HGB - HEMOGLOBIN 11.6 g/dL (12.0-16.0); LYMPHOCYTES # (AUTO) 1.8 10^3/uL (1.5-3.5); LYMPHOCYTES % (AUTO) 28.9 %; MEAN CORPUSCULAR HEMOGLOBIN 33.3 pg (27.0-31.0); MEAN CORPUSCULAR VOLUME 104.3 fL (81.0-99.0); MEAN PLATELET VOLUME 9.2 fL (7.9-10.8); MONOCYTES # (AUTO) 0.3 10^3/uL (0.0-1.0); MONOCYTES % (AUTO) 4.1 %; NEUTROPHILS # (AUTO) 3.8 10^3/uL (1.5-6.6); NEUTROPHILS % (AUTO) 62.5 %; PLT - PLATELET COUNT 224 10^3/uL (130-450); RED BLOOD COUNT 3.48 10^6/uL (4.20-5.40); RED CELL DISTRIBUTION WIDTH 14.3 % (12.0-15.0); WHITE BLOOD COUNT 6.1 x10^3/uL (4.8-10.8)
[2020-09-21 15:39] LABS: ALBUMIN 3.4 g/dL (3.2-5.5); ALBUMIN/GLOBULIN RATIO 1.2 (1.0-2.2); BILIRUBIN,TOTAL 0.7 mg/dL (0.2-1.0); CALCIUM 8.5 mg/dL (8.5-10.3); CREATININE 1.1 mg/dL (0.4-1.0); POTASSIUM 3.7 mmol/L (3.5-5.0); TOTAL PROTEIN 6.3 g/dL (6.7-8.2)
--- NOTE | 2020-09-21 16:06 | PROVIDER PROGRESS NOTE ---
Subjective - General Admit Date: 09/18/20 Procedure Performed: None - Other Other Information/Narrative: Late entry - date of visit was 09/20/2020 [place] is sitting up in the chair at the time examination. She reports she feels her pain may be getting better. Still not wanting to use narcotics. Has been getting to the bathroom with less help. Appetite remains robust but she has not had a bowel movement. Passing flatus. Objective - Patient Data Reviewed Vital Signs: Yes Vital Signs: Vital Signs x48h Temp Pulse Resp BP Pulse Ox 09/21/20 09:00 36.5 C 90 18 128/82 H 97 Intake & Output: Intake and Output Totals x24h 09/19/20 09/20/20 09/21/20 23:59 23:59 23:59 Intake Total 2397.5 1290 1100 Output Total 1 1 Balance 2397.5 1289 1099 - Lab Results Lab Results: 09/19/20 12:17 09/19/20 12:17 - Current Medications Current Medications: Current Medications Generic Name Dose Route Start Last Admin Trade Name Freq PRN Reason Stop Dose Admin Acetaminophen 650 mg 09/17/20 16:23 09/21/20 11:36 Acetaminophen 325 Mg Tablet PO 650 mg Q4HR PRN Administration Pain 1 to 4 Atorvastatin Calcium 10 mg 09/17/20 21:00 09/20/20 20:55 Atorvastatin 10 Mg Tablet PO 10 mg QPM PEBBLES Administration Docusate Sodium 250 mg 09/18/20 09:00 09/21/20 08:26 Docusate Sodium 250 Mg Capsule PO 250 mg DAILY PEBBLES Administration Enoxaparin Sodium 30 mg 09/19/20 09:00 09/21/20 08:26 Enoxaparin 30 Mg/0.3 Ml Syringe SUBQ Not Given DAILY PEBBLES Folic Acid 1 mg 09/21/20 09:00 09/21/20 08:26 Folic Acid 1 Mg Tablet PO 1 mg DAILY PEBBLES Administration Furosemide 20 mg 09/18/20 09:00 09/21/20 08:26 Furosemide 20 Mg Tablet PO 20 mg DAILY PEBBLES Administration Hydromorphone HCl 0.5 mg 09/17/20 16:23 09/18/20 17:12 Hydromorphone 0.5 Mg/0.5 Ml Syringe IVP 0.5 mg Q2H PRN Administration Pain 8 to 10 Levothyroxine Sodium 25 mcg 09/18/20 07:00 09/21/20 06:32 Levothyroxine 25 Mcg Tablet PO 25 mcg QDAC PEBBLES Administration Lisinopril 5 mg 09/18/20 09:00 09/21/20 08:26 Lisinopril 5 Mg Tablet PO 5 mg DAILY PEBBLES Administration Methocarbamol 500 mg 09/18/20 13:00 09/21/20 08:25 Methocarbamol 500 Mg Tablet PO 500 mg BID PEBBLES Administration Methotrexate Sodium 15 mg 09/18/20 17:00 09/18/20 17:25 Methotrexate 2.5 Mg Tablet PO 15 mg Q7D PEBBLES Administration Metoprolol Succinate 25 mg 09/18/20 09:00 09/21/20 08:26 Metoprolol Succinate 25 Mg Tablet PO 25 mg DAILY PEBBLES Administration Ondansetron HCl 4 mg 09/17/20 16:23 09/18/20 10:11 Ondansetron 4 Mg/2 Ml Vial IVP 4 mg Q6HR PRN Administration Nausea / Vomiting Pantoprazole Sodium 40 mg 09/17/20 21:00 09/21/20 08:25 Pantoprazole 40 Mg Tablet PO 40 mg BID PEBBLES Administration Polyethylene Glycol 17 gm 09/20/20 09:00 09/21/20 08:22 Polyethylene Glycol 3350 17 Gm Packet PO 17 gm DAILY PEBBLES Administration Pregabalin 75 mg 09/18/20 21:00 09/21/20 08:26 Pregabalin 25 Mg Capsule PO 75 mg BID PEBBLES Administration Senna 8.6 - 17.2 mg 09/21/20 09:00 09/21/20 08:26 Senna 8.6 Mg Tablet PO 8.6 mg DAILY PEBBLES Administration Sodium Chloride 10 ml 09/17/20 17:00 09/21/20 08:26 Sodium Chloride Flush 0.9% 10 Ml Syringe IVP 10 ml 0100,0900,1700 PEBBLES Administration
[2020-09-21] MEDS: CHOLECALCIFEROL 25 MCG TABLET PO SCH (16:39)
[2020-09-21] MEDS: ATORVASTATIN 10 MG TABLET PO SCH (20:50)
[2020-09-21] MEDS: CALCIUM CARBONATE CHEW 500 MG TABLET PO SCH (20:50)
[2020-09-22] MEDS: SODIUM CHLORIDE FLUSH 0.9% 10 ML SYRINGE IVP SCH ×3 (01:59→18:11)
[2020-09-22] MEDS: LEVOTHYROXINE 25 MCG TABLET PO SCH (06:51)
[2020-09-22 08:20] VITALS: BP 149/80
[2020-09-22] MEDS: PANTOPRAZOLE 40 MG TABLET PO SCH (08:42)
[2020-09-22] MEDS: FUROSEMIDE 20 MG TABLET PO SCH (08:42)
[2020-09-22] MEDS: FOLIC ACID 1 MG TABLET PO SCH (08:42)
[2020-09-22] MEDS: methocarbamoL 500 MG TABLET PO SCH (08:42)
[2020-09-22] MEDS: ENOXAPARIN 30 MG/0.3 ML SYRINGE SUBQ SCH (08:43)
[2020-09-22] MEDS: lisinopriL 5 MG TABLET PO SCH (08:43)
[2020-09-22] MEDS: CALCIUM CARBONATE CHEW 500 MG TABLET PO SCH (08:43)
[2020-09-22] MEDS: DOCUSATE SODIUM 250 MG CAPSULE PO SCH (08:43)
[2020-09-22] MEDS: METOPROLOL SUCCINATE 25 MG TABLET PO SCH (08:43)
[2020-09-22] MEDS: CHOLECALCIFEROL 25 MCG TABLET PO SCH (08:43)
[2020-09-22] MEDS: polyethylene glycoL 3350 17 GM PACKET PO SCH ×2 (08:44→13:02)
[2020-09-22] MEDS: SENNA 8.6 MG TABLET PO SCH (08:44)
[2020-09-22] MEDS: PREGABALIN 25 MG CAPSULE PO SCH (08:48)
[2020-09-22] MEDS: ACETAMINOPHEN 325 MG TABLET PO PRN (10:47)
--- NOTE | 2020-09-22 13:39 | Discharge Plan ---
Discharge Plan Problem Reviewed?: Yes Disposition: Home, Self Care Condition: Good Diet: Regular Activity Restrictions: Activity as Tolerated Shower Restrictions: No Driving Restrictions: Yes Instruction Topics: ED Fx Rib Plan of Treatment: 1 - F/U primary care within 7-10 days 2 - F/U cardiology as already scheduled 3 - continue with incentive spirometry 4 - return to ED for dyspnea, worsening chest pain, fevers, or other symptoms/concerns 5 - avoid heavy lifting/pushing/pulling No Smoking: If you smoke, Please STOP! Call for help. Follow-up with: Bianka Santiago PA-C [Primary Care Provider] -
--- NOTE | 2020-09-22 13:40 | DISCHARGE SUMMARY ---
Discharge Summary Admit Date: 09/17/20 Discharge Date: 09/22/20 Discharging Provider: Diana Code Status: Attempt Resuscitation Condition at Discharge: Good Discharge Disposition: 01 Home, Self Care - DIAGNOSES Admission Diagnoses: 1. Multiple rib fractures: 2. hypothyroidism: 3. rheumatoid Arthritis: 4. hyperlipidemia: 5. coronary Artery Disease: 6. hypertension: 7. respiratory distress: 8. Debility: 9. Status post fall/trauma: Discharge Diagnoses with Status of Each Condition: 1. Multiple rib fractures: Stable/MANAGED 2. Hypothyroidism: Evaluated/Stable/Treated 3. Rheumatoid Arthritis: Evaluated/Stable/Treated 4. Hyperlipidemia: Evaluated/Stable/Treated 5. Coronary Artery Disease: Evaluated/Stable/Treated 6. Hypertension: Evaluated/Stable/Treated 7. Respiratory distress: Stable/MANAGED 8. Debility: Stable/MANAGED 9. Status post fall/trauma: Stable/MANAGED - HPI History of Present Illness: Guerline is an 80-year-old lady who's suffers from severe rheumatoid arthritis who was trying to put on a vest while standing in front of her bathroom mirror yesterday. She reports that she got her feet "twisted" and fell against the back of the sink. She says she did not feel like the fall was that hard but her chest immediately started hurting. She did not strike any other portion of her body. She did not loose consciousness. She did not fall to the floor. She usually uses a cane at home and when shopping she walks through the grocery store but hold onto the grocery cart for stability. She came to the emergency room by private vehicle and walked in under her own power. She complained of left chest pain but denied shortness of breath. She declined pain medicine with the exception of Tylenol for several hours and was finally convinced to take a little morphine. She was admitted overnight and placed in the intensive care unit for observation. This morning she reports that she is feeling a little better. She feels like she is breathing a little better. She says her pain is no longer in an isolated area but her entire left chest feels sore. She denies a ny nausea. She tells me she had a DEXA scan on at this facility. Grateful she did not require transfer to a higher level of care. - CONSULTS | PROCEDURES Consultations: Hospitalist service Procedures: NONE - HOSPITAL COURSE Hospital Course: 80 yo F with RA and associated debility s/p fall from standing with Left chest wall injury with fractures of the left 6-9th ribs. The 9th rib fracture is comminuted with an associated transverse process fracture. 1. Have contacted [facility] regarding the need for remedios rib stabilization or the lack of. 2. Continue pain control and lung inflation protocol. 3. CXR shows volume loss on the left side likely due to splinting. Will consult anesthesia regarding the possibility of rib blocks to aid with pain control and enable full lung inflation 4. History of DVT - will start subq Lovenox. 5. Daily labs and CXR. 6. Remain in the ICU for close monitoring. 7. Consult PT. Patient may benefit from a walker or other assist device. She was admitted to the hospital and watched closely for pulmonary compromise given the concern that with the extent of chest wall trauma she endured and sustained she would be better served with transfer and possible intervention. She was consulted on by anesthesia for local blocks as well for which she had some pain relief. She was maintained on aggressive pulmonary rehabilitation with nebulizers as well as incentive spirometry and oxygen supplementation. She had serial x-rays with no pneumothorax on repeat imaging especially given presence of a comminuted displaced fracture. She was evaluated by the hospital service as well with the below listed findings: Multiple rib fractures: Managed by General Surgery Pain medication prn Incentive Spirometry Hypothyroidism: On synthroid 25mg qdac Rheumatoid Arthritis: On methotrexate Will check VitB12 and folate levels Hyperlipidemia: On simvastatin Coronary Artery Disease: On Toprol XL, Simvastatin, lisinopril Hypertension: On Toprol XL, Simvastatin, lisinopril Though x-ray showed some possible worsening patient overall clinically was progressing exceedingly well. The patient is tolerating oral intake. Was without any further physical therapy needs after having been evaluated and treated inpatient. The patient had no oxygen needs was appropriate for pain control and was felt appropriate for discharge with planned outpatient follow-up. Discharge in structions given in light of the above. 1 - F/U primary care within 7-10 days 2 - F/U cardiology as already scheduled 3 - continue with incentive spirometry 4 - return to ED for dyspnea, worsening chest pain, fevers, or other symptoms/concerns 5 - avoid heavy lifting/pushing/pulling - ALLERGIES Allergies/Adverse Reactions: Allergies Allergy/AdvReac Type Severity Reaction Status Date / Time aspirin Allergy Unknown Verified 05/24/20 15:28 NSAIDS (Non-Steroidal Allergy Unknown Verified 07/23/18 10:51 Anti-Inflamma - MEDICATIONS Home Medications: Ambulatory Orders Medication Instructions Recorded Confirmed Levothyroxine [Synthroid] 25 mcg PO QDAC 01/01/17 09/18/20 Simvastatin [Zocor] 10 mg PO QPM 01/01/17 09/18/20 lisinopriL [Lisinopril] 5 mg PO DAILY 01/01/17 09/18/20 Etanercept [Enbrel] 50 mg SQ Q7D 05/23/17 09/18/20 Methotrexate [Methotrexate Sodium] 15 mg PO Q7D 05/23/17 09/18/20 Metoprolol Succinate [Toprol Xl] 25 mg PO DAILY 05/25/17 09/18/20 Calcium Carbonate [Calcium] 1,200 mg PO DAILY 05/28/17 09/18/20 Multivitamin [Theragran] 1 tab PO DAILY 05/28/17 09/18/20 Furosemide 20 mg PO DAILY 02/05/19 09/18/20 Ascorbic Acid Chew [Vitamin C] 500 mg PO DAILY 09/18/20 09/18/20 Cholecalciferol (Vitamin D3) 5,000 unit PO DAILY 09/18/20 09/18/20 [Vitamin D3] Cyanocobalamin (Vitamin B-12) 5,000 mcg PO DAILY 09/18/20 09/18/20 [Vitamin B-12] Folic Acid 1.6 mg PO DAILY 09/18/20 09/18/20 Magnesium Oxide [Magnesium] 500 mg PO DAILY 09/18/20 09/18/20 [place]-3/Dha/Epa/Fish Oil [Fish Oil 1,200 mg PO DAILY 09/18/20 09/18/20 1,200 mg Softgel] Pantoprazole [Protonix] 40 mg PO DAILY 09/18/20 09/18/20 - PHYSICAL EXAM AT DISCHARGE General Appearance: positive: No acute distress, Alert Eyes Bilateral: positive: Normal inspection, PERRL, EOMI ENT: positive: ENT inspection nml Neck: positive: Nml inspection Respiratory: positive: No respiratory distress, Breath sounds nml. negative: Wheezes, Rales, Rhonchi Cardiovascular: positive: Regular rate & rhythm Abdomen: positive: Non-tender, No distention. negative: Tenderness, Guarding, Rebound Skin: positive: Color nml Extremities: positive: Non-tender, Full ROM Neurologic/Psychiatric: positive: Oriented x3, CN's nml (2-12), Motor nml, Sensation nml, Mood/affect nml - LABS Result Diagrams: 09/21/20 15:15 09/21/20 15:15 - DIAGNOSTIC IMAGING Diagnostic Imaging Results: Final report reviewed Diagnostic Imaging Results Comments: CT of the chest: #1 no acute pulmonary infiltrates identified. 2. Numerous acute left rib fractures involving the left sixth, seventh, eighth and ninth ribs. The ninth rib fracture segmental marked by comminution and displacement. 3. Chronic granulomatous disease. 4. Multiple noncalcified pulmonary nodules including a 10 mm right apical nod ular density and a 9 mm left apical subsolid pulmonary nodule 5. Large hiatal hernia. 6. Questionable large gastric fundal ulcer within the hiatal hernia. 7. Severe coronary atherosclerotic calcifications Hospital day #2 chest x-ray: Redemonstration of multiple left acute rib fractures, some comminuted and displaced. No pneumothorax. Suspected left retrocardiac atelectasis versus airspace consolidation. Hospital day #3 x-ray Very large hiatal hernia behind the heart, possibly a gastric inversion with the greater curvature the stomach directed cephalad. This can predispose both the gastric torsion and aspiration. Aspiration may explain what appears to be an abrupt onset of alveolar consolidation at the left lower lobe adjacent to the hiatal hernia. Note is made of left lower rib fractures also seen by recent CT scanning considered acute. The CT did not identify a left lower pulmonary contusion. The hospital day #5 x-ray Bibasilar atelectasis versus pneumonia Large hiatal hernia No change in left rib fractures - FOLLOW UP Follow Up: 1 - F/U primary care within 7-10 days 2 - F/U cardiology as already scheduled 3 - continue with incentive spirometry 4 - return to ED for dyspnea, worsening chest pain, fevers, or other symptoms/concerns 5 - avoid heavy lifting/pushing/pulling - TIME SPENT Time Spent in Discharge (Minutes): 60
== END 2020-09-22 18:26 | disposition home or self-care (01) | DRG 185 ==
LOC: EDUNIT# → ED 13:35 → ICU 16:23 → OBSVTOIN 09-18 14:58 → MS2 09-21 20:11
PROVIDERS: ADMIT Surgery; ATTEND Surgery
PROC: 3E0R3BZ Introduction of Anesthetic Agent into Spinal Canal, Percutaneous Approach (ICD-10-PCS; principal; 2020-09-18)
DX: S22.42XA Multiple fractures of ribs, left side, initial encounter for closed fracture (principal); R06.03 Acute respiratory distress; W01.198A Fall on same level from slipping, tripping and stumbling with subsequent striking against other object, initial encounter; Y92.012 Bathroom of single-family (private) house as the place of occurrence of the external cause; I10 Essential (primary) hypertension; E78.5 Hyperlipidemia, unspecified; I25.119 Atherosclerotic heart disease of native coronary artery with unspecified angina pectoris; I07.1 Rheumatic tricuspid insufficiency; E03.9 Hypothyroidism, unspecified; K25.9 Gastric ulcer, unspecified as acute or chronic, without hemorrhage or perforation; K44.9 Diaphragmatic hernia without obstruction or gangrene; R91.8 Other nonspecific abnormal finding of lung field; I25.10 Atherosclerotic heart disease of native coronary artery without angina pectoris; M06.9 Rheumatoid arthritis, unspecified; Z20.822 Contact with and (suspected) exposure to COVID-19; M81.0 Age-related osteoporosis without current pathological fracture; M19.90 Unspecified osteoarthritis, unspecified site; G62.9 Polyneuropathy, unspecified; R32 Unspecified urinary incontinence; R35.0 Frequency of micturition; H54.7 Unspecified visual loss; Z74.09 Other reduced mobility; Z96.649 Presence of unspecified artificial hip joint; Z96.659 Presence of unspecified artificial knee joint; Z86.73 Personal history of transient ischemic attack (TIA), and cerebral infarction without residual deficits; Z86.718 Personal history of other venous thrombosis and embolism; Z87.891 Personal history of nicotine dependence; Z79.899 Other long term (current) drug therapy
CPT/HCPCS: 36415; 71046; 71250; 80048; 80053; 83690; 83880; 85025; 87150; 87631; 96374; 96375; 97116; 97161; 97164; 99284; 99285; A9270; G0378; J0330; J1170; J1650; J7120; J8610; 0202U; 81599

== ENCOUNTER 2020-09-26 17:40 | Outpatient (CLI) | payer MEDICARE ==
--- NOTE | 2020-09-27 11:13 | XRAY Report ---
PROCEDURE: Hip w/Pelvis 1V LT INDICATIONS: L HIP PX TECHNIQUE: AP pelvis with lateral view of the left hip. COMPARISON: 04/28/2018. FINDINGS: Bones: No acute fractures or dislocations. A left hip prosthesis appears unchanged in alignment. No periprosthetic fracture identified. No definite new periprosthetic lucencies. Pelvic ring appears in tact. No suspicious bony lesions. Soft tissues: The visualized bowel gas pattern is normal. No suspicious soft tissue calcifications. IMPRESSION: 1. Left hip prosthesis redemonstrated without definite evidence of hardware failure. Reviewed by: Felipe Bell MD on 09/27/2020 11:11 AM PDT Approved by: Felipe Bell MD on 09/27/2020 11:11 AM PDT Station ID: [id number]
--- NOTE | 2020-09-27 11:22 | XRAY Report ---
PROCEDURE: Ribs w/PA Chest LT INDICATIONS: L RIB PX TECHNIQUE: 3 views of the left ribs were acquired, along with a single view chest. COMPARISON: Chest x-ray 09/21/2020, 09/19/2020, 06/29/2018. FINDINGS: Surgical changes and devices: None. Bones and chest wall: There are moderately displaced fractures of the left fifth through eighth ribs posterolaterally as well as a mildly displaced fracture of the left posterior ninth rib. No suspicio us bony lesions. Overlying soft tissues appear unremarkable. Lungs and pleura: There is a persistent small to moderate left pleural effusion with left basilar op acities consistent with compressive atelectasis or consolidation. No evidence of pneumothorax. Hyperi nflation of the lungs with flattening of the visualized right hemidiaphragm redemonstrated consistent with COPD. Mediastinum: Mediastinal contours appear unchanged. A large hiatal hernia is redemonstrated. Heart s ize appears enlarged. IMPRESSION: 1. Multiple left rib fractures involving the fifth through ninth ribs. 2. Small to moderate left pleural effusion with associated left basilar compressive atelectasis or co nsolidation. No evidence of pneumothorax. Reviewed by: Felipe Bell MD on 09/27/2020 11:21 AM PDT Approved by: Felipe Bell MD on 09/27/2020 11:21 AM PDT Station ID: [id number]
== END 2020-09-26 17:41 | disposition home or self-care (01) ==
LOC: DI.N 17:40
PROVIDERS: ATTEND Physician Assistant Medical
DX: R07.81 Pleurodynia (principal); S22.42XA Multiple fractures of ribs, left side, initial encounter for closed fracture; J90 Pleural effusion, not elsewhere classified; M25.552 Pain in left hip; Z96.642 Presence of left artificial hip joint

== ENCOUNTER 2020-09-28 08:00 | Outpatient (CLI) | payer MEDICARE ==
[2020-09-28 18:27] LABS: BASOPHILS % (AUTO) 0.6 %; EOSINOPHILS # (AUTO) 0.1 10^3/uL (0.0-0.7); HGB - HEMOGLOBIN 12.3 g/dL (12.0-16.0); LYMPHOCYTES # (AUTO) 1.6 10^3/uL (1.5-3.5); LYMPHOCYTES % (AUTO) 23.2 %; MEAN CORPUSCULAR HEMOGLOBIN 32.9 pg (27.0-31.0); MEAN CORPUSCULAR HGB CONC 31.5 g/dL (32.0-36.0); MEAN CORPUSCULAR VOLUME 104.3 fL (81.0-99.0); MEAN PLATELET VOLUME 9.1 fL (7.9-10.8); MONOCYTES # (AUTO) 0.6 10^3/uL (0.0-1.0); MONOCYTES % (AUTO) 8.5 %; NEUTROPHILS # (AUTO) 4.6 10^3/uL (1.5-6.6); NEUTROPHILS % (AUTO) 65.3 %; PLT - PLATELET COUNT 358 10^3/uL (130-450); RED BLOOD COUNT 3.74 10^6/uL (4.20-5.40); RED CELL DISTRIBUTION WIDTH 14.6 % (12.0-15.0); WHITE BLOOD COUNT 7.1 x10^3/uL (4.8-10.8)
[2020-09-28 18:48] LABS: ALBUMIN 4.2 g/dL (3.2-5.5); ALBUMIN/GLOBULIN RATIO 1.3 (1.0-2.2); BILIRUBIN,TOTAL 0.7 mg/dL (0.2-1.0); CALCIUM 9.5 mg/dL (8.5-10.3); TOTAL PROTEIN 7.5 g/dL (6.7-8.2)
== END 2020-09-28 23:59 | disposition home or self-care (01) ==
LOC: LAB.WCP 08:00
PROVIDERS: ATTEND Physician Assistant Medical
DX: I10 Essential (primary) hypertension (principal)
CPT/HCPCS: 36415; 80053; 85025

== ENCOUNTER 2020-10-05 13:23 | Outpatient (CLI) | payer MEDICARE ==
--- NOTE | 2020-10-06 09:26 | Mammography Report ---
BILATERAL DIGITAL SCREENING MAMMOGRAM: 10/05/2020 CLINICAL: Routine screening. Comparison is made to exams dated: 12/20/2014 mammogram and 11/29/2013 mammogram - [facility]. There are scattered fibroglandular elements in both breasts. No significant masses, calcifications, or other findings are seen in either breast. There has been no significant interval change. IMPRESSION: NEGATIVE There is no mammographic evidence of malignancy. A 1 year screening mammogram is recommended. This exam was interpreted at Station ID: [id number]. NOTE: For mammograms, a report in lay terms will be sent to the patient. Approximately 15% of breast malignancies will not be visualized mammographically. In the management of a palpable breast mass, a negative mammogram must not discourage biopsy of a clinically suspicious lesion. Electronically Signed By: Aamir Hills M.D. [facility]:10/05/2020 17:01:43 ACR BI-RADS Category 1: Negative 3341F PARENCHYMAL PATTERN: (A) - The breast(s) demonstrate(s) scattered fibroglandular densities. BI-RADS CATEGORY: (1) - 1 RECOMMENDATION: (ANNUAL) - Recommend routine annual screening mammography. [id number] 1 year screening LATERALITY: (B)
== END 2020-10-05 13:24 | disposition home or self-care (01) ==
LOC: DI.N 13:23
PROVIDERS: ATTEND Nurse Practitioner
DX: Z12.31 Encounter for screening mammogram for malignant neoplasm of breast (principal)

== ENCOUNTER 2020-10-16 15:42 | Outpatient (CLI) | payer MEDICARE ==
--- NOTE | 2020-10-16 16:27 | XRAY Report ---
PROCEDURE: Ribs w/PA Chest LT INDICATIONS: L SIDE RIB PX TECHNIQUE: 3 views of the left ribs were acquired, along with a single view chest. COMPARISON: None FINDINGS: Surgical changes and devices: None. Bones and chest wall: There are mildly to moderately displaced fractures of the left posterior latera l fourth, fifth, and sixth ribs. No suspicious bony lesions. Overlying soft tissues appear unremarka ble. Lungs and pleura: No pleural effusions or pneumothorax. Lungs appear clear. Mediastinum: Large hiatal hernia. Mediastinal contours otherwise appear normal. Heart size is noemy l. IMPRESSION: 1. Left-sided rib fractures. 2. Hiatal hernia. Reviewed by: Mario Torres MD on 10/16/2020 4:26 PM PDT Approved by: Mario Torres MD on 10/16/2020 4:26 PM PDT Station ID: [id number]
== END 2020-10-16 15:43 | disposition home or self-care (01) ==
LOC: DI.N 15:42
PROVIDERS: ATTEND Physician Assistant Medical
DX: S22.42XA Multiple fractures of ribs, left side, initial encounter for closed fracture (principal); K44.9 Diaphragmatic hernia without obstruction or gangrene

== ENCOUNTER 2020-11-02 16:19 | Emergency (ER) | payer MEDICARE ==
--- OUTSIDE RECORDS SUMMARY | 2020-11-02 16:22 | EXTERNAL MEDICAL SUMMARY RPT | Continuity of Care Document ---
: Demographics Phone Unavailable Preferred Language American Marital Status Unknown Temple Affiliation Unknown Race Unknown Ethnic Group Unknown Author Organization [place] Address [address] [phone] Phone Care Team Providers Name Role Phone Bianka Santiago Unavailable Unavailable Problems date description facility [id number] Sprain of left sternoclavicular joint, [facility] encounter Social History date description facility [id number]
[2020-11-02 16:29] VITALS: BP 138/74
--- OUTSIDE RECORDS SUMMARY | 2020-11-02 16:33 | EXTERNAL MEDICAL SUMMARY RPT | Continuity of Care Document ---
: Demographics Phone Unavailable Preferred Language Israeli Marital Status Unknown Hoahaoism Affiliation Unknown Race Unknown Ethnic Group Unknown Author Organization [place] Address [address] [phone] Phone Care Team Providers Name Role Phone Bianka Santiago Unavailable Unavailable Problems date description facility [id number] Sprain of left sternoclavicular joint, [facility] encounter Social History date description facility [id number]
--- NOTE | 2020-11-02 16:46 | ED Physician Documentation ---
History of Present Illness - Stated complaint Stated Complaint: GLF/HEAD INJ - Chief complaint Chief Complaint: General - History obtained from History obtained from: Patient - Additonal information Additional information: Slip and mechanical fall backwards hitting the back of her head on asphalt about an hour ago. She has posterior head pain but no primary headache. No other complaints. No loss of consciousness. 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: Other : Incontinence, Frequency HEENT: Chronic vision loss Psych: Depression, Anxiety Musculoskeletal: Osteoarthritis, Rheumatoid arthritis, Osteoporosis, Other Derm: None - Past Surgical History Past Surgical History: Yes General: Colonoscopy, EGD Ortho: Hip replacement, Knee replacement, 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 Cardiovascular: Cardiac catheterization HEENT: Cataracts, Tonsil/Adenoidectomy - Present Medications Home Medications: Ambulatory Orders Medication Instructions Recorded Confirmed Levothyroxine [Synthroid] 25 mcg PO QDAC 01/01/17 09/18/20 Simvastatin [Zocor] 10 mg PO QPM 01/01/17 09/18/20 lisinopriL [Lisinopril] 5 mg PO DAILY 01/01/17 09/18/20 Etanercept [Enbrel] 50 mg SQ Q7D 05/23/17 09/18/20 Methotrexate [Methotrexate Sodium] 15 mg PO Q7D 05/23/17 09/18/20 Metoprolol Succinate [Toprol Xl] 25 mg PO DAILY 05/25/17 09/18/20 Calcium Carbonate [Calcium] 1,200 mg PO DAILY 05/28/17 09/18/20 Multivitamin [Theragran] 1 tab PO DAILY 05/28/17 09/18/20 Furosemide 20 mg PO DAILY 02/05/19 09/18/20 Ascorbic Acid Chew [Vitamin C] 500 mg PO DAILY 09/18/20 09/18/20 Cholecalciferol (Vitamin D3) 5,000 unit PO DAILY 09/18/20 09/18/20 [Vitamin D3] Cyanocobalamin (Vitamin B-12) 5,000 mcg PO DAILY 09/18/20 09/18/20 [Vitamin B-12] Folic Acid 1.6 mg PO DAILY 09/18/20 09/18/20 Magnesium Oxide [Magnesium] 500 mg PO DAILY 09/18/20 09/18/20 [place]-3/Dha/Epa/Fish Oil [Fish Oil 1,200 mg PO DAILY 09/18/20 09/18/20 1,200 mg Softgel] Pantoprazole [Protonix] 40 mg PO DAILY 09/18/20 09/18/20 - Allergies Allergies/Adverse Reactions: Allergies Allergy/AdvReac Type Severity Reaction Status Date / Time aspirin Allergy Unknown Verified 11/02/20 16:29 NSAIDS (Non-Steroidal Allergy Unknown Verified 11/02/20 16:29 Anti-Inflamma - Social History Does the pt smoke?: No Smoking Status: Former smoker Does the pt drink ETOH?: No Does the pt have substance abuse?: No - Immunizations Immunizations are current?: Yes - POLST Patient has POLST: No POLST Status: Full Code (she has not thought about advanced care planning or planning for severe diability. She thinks that if she is resuscitated she will recover to be normal and go home again.) PD ED PE NORMAL - Vitals Vital signs reviewed: Yes - General General: Alert and oriented X 3, No acute distress - HEENT HEENT: PERRL, EOMI, Other (There is a hematoma on the central occiput.) - Neck Neck: No bony TTP - Neuro Neuro: Alert and oriented X 3, No motor deficit, No sensory deficit, Normal speech Results - Vitals Vitals: Vital Signs - 24 hr 11/02/20 16:24 Temperature 36.6 C Heart Rate 96 Respiratory 17 Rate Blood Pressure 138/74 H O2 Saturation 100 Oxygen O2 Source [Without Activity] Room air O2 Source Room air - Rads (name of study) Ct Head and Cspine Radiology: EMP read contemporaneously (NAD) Departure - Departure Disposition: 01 Home, Self Care Clinical Impression: Fall from slip, trip, or stumble Qualifiers: Encounter type: initial encounter Qualified Code(s): W01.0XXA - Fall on same level from slipping, tripping and stumbling without subsequent striking against object, initial encounter Head injury Qualifiers: Encounter type: initial encounter Qualified Code(s): S09.90XA - Unspecified injury of head, initial encounter Condition: Stable Record reviewed to determine appropriate education?: Yes Instructions: ED Head Injury Closed
--- NOTE | 2020-11-02 17:12 | CT Report ---
PROCEDURE: CERVICAL SPINE WO INDICATIONS: fall, head injury TECHNIQUE: Noncontrast 3 mm thick sections acquired from the skull base to the T4 level. Sagittal and coronal r eformats were then constructed. For radiation dose reduction, the following was used: automated exp osure control, adjustment of mA and/or kV according to patient size. COMPARISON: 09/02/2016. Correlation is also made with the accompanying head CT, 11/02/2020 FINDINGS: Image quality: Motion artifact is noted. Bones: No fractures or dislocations. Visualized superior ribs are intact. There is at least moderate disc space narrowing throughout the cervical spine, with moderate to sever e disc space narrowing at C5-C6, with associated endplate irregularity and sclerosis. Soft tissues: Prevertebral soft tissues are normal in thickness. No paravertebral hematomas. No ap ical pneumothoraces. IMPRESSION: No acute fractures are seen. Degenerative changes are seen, which are worst at the C5-C6 level. Reviewed by: Rosalino Tavares MD on 11/02/2020 4:11 PM MICA Approved by: Rosalino Tavares MD on 11/02/2020 4:11 PM MICA Station ID: [id number]
--- NOTE | 2020-11-02 17:13 | CT Report ---
PROCEDURE: HEAD WO INDICATIONS: fall, head injury TECHNIQUE: Noncontrast 4.5 mm thick angled axial sections acquired from the foramen magnum to the vertex. For r adiation dose reduction, the following was used: automated exposure control, adjustment of mA and/or kV according to patient size. COMPARISON: Prior head CT, 09/04/2017. Correlation is made with the covering cervical spine CT, 2020. FINDINGS: Image quality: There is streak artifact seen through the level of the skull base. CSF spaces: Basal cisterns are patent. No extra-axial fluid collections. Ventricles are normal in size and shape. Brain: No midline shift. No intracranial masses or hemorrhage. Carey-white matter interface is norm al. Brain parenchymal volume loss is seen. Chronic small vessel ischemic changes can be seen. Skull and face: Calvarium and visualized facial bones are intact, without suspicious lesions. Sinuses: Visualized sinuses and mastoids are clear. IMPRESSION: No intracranial hemorrhage is seen. No significant intracranial abnormality is seen. Noncontrast head CT within normal limits for age, with note made of brain parenchymal volume loss and chronic small vessel ischemic change. Reviewed by: Rosalino Tavares MD on 11/02/2020 4:12 PM MICA Approved by: Rosalino Tavares MD on 11/02/2020 4:12 PM [id number] Station ID: [id number]
== END 2020-11-02 18:06 | disposition home or self-care (01) ==
LOC: ED 16:19
DX: S09.90XA Unspecified injury of head, initial encounter (principal); W01.0XXA Fall on same level from slipping, tripping and stumbling without subsequent striking against object, initial encounter; I10 Essential (primary) hypertension; E78.00 Pure hypercholesterolemia, unspecified; I25.119 Atherosclerotic heart disease of native coronary artery with unspecified angina pectoris; I38 Endocarditis, valve unspecified; I49.9 Cardiac arrhythmia, unspecified; G62.9 Polyneuropathy, unspecified; E03.9 Hypothyroidism, unspecified; R32 Unspecified urinary incontinence; R35.0 Frequency of micturition; H54.7 Unspecified visual loss; M06.9 Rheumatoid arthritis, unspecified; M81.0 Age-related osteoporosis without current pathological fracture; M19.90 Unspecified osteoarthritis, unspecified site; Z79.899 Other long term (current) drug therapy; Z86.73 Personal history of transient ischemic attack (TIA), and cerebral infarction without residual deficits; Z86.718 Personal history of other venous thrombosis and embolism; Z96.649 Presence of unspecified artificial hip joint; Z96.659 Presence of unspecified artificial knee joint; Z87.891 Personal history of nicotine dependence
CPT/HCPCS: 99282; 99284

== ENCOUNTER 2020-11-07 11:40 | Outpatient (CLI) | payer MEDICARE ==
[2020-11-07 18:04] LABS: BASOPHILS % (AUTO) 0.3 %; EOSINOPHILS # (AUTO) 0.1 10^3/uL (0.0-0.7); EOSINOPHILS % (AUTO) 1.4 %; HCT - HEMATOCRIT 42.5 % (37.0-47.0); LYMPHOCYTES # (AUTO) 1.4 10^3/uL (1.5-3.5); LYMPHOCYTES % (AUTO) 23.5 %; MEAN CORPUSCULAR HEMOGLOBIN 33.7 pg (27.0-31.0); MEAN CORPUSCULAR HGB CONC 32.9 g/dL (32.0-36.0); MEAN CORPUSCULAR VOLUME 102.2 fL (81.0-99.0); MEAN PLATELET VOLUME 9.9 fL (7.9-10.8); MONOCYTES # (AUTO) 0.6 10^3/uL (0.0-1.0); MONOCYTES % (AUTO) 10.1 %; NEUTROPHILS # (AUTO) 3.8 10^3/uL (1.5-6.6); NEUTROPHILS % (AUTO) 64.4 %; PLT - PLATELET COUNT 290 10^3/uL (130-450); RED BLOOD COUNT 4.16 10^6/uL (4.20-5.40); RED CELL DISTRIBUTION WIDTH 14.9 % (12.0-15.0); WHITE BLOOD COUNT 5.9 x10^3/uL (4.8-10.8)
[2020-11-07 18:30] LABS: THYROID STIMULATING HORMONE 3.55 uIU/mL (0.34-5.60)
[2020-11-07 18:33] LABS: ALBUMIN 4.6 g/dL (3.2-5.5); ALBUMIN/GLOBULIN RATIO 1.5 (1.0-2.2); ALKALINE PHOSPHATASE 109 IU/L (42-121); ALT ALANINE AMINOTRANSFERASE 20 IU/L (10-60); AST ASPARTATE AMINOTRANSFERASE 24 IU/L (10-42); BILIRUBIN,TOTAL 0.7 mg/dL (0.2-1.0); BUN - BLOOD UREA NITROGEN 27 mg/dL (6-20); CALCIUM 9.6 mg/dL (8.5-10.3); CARBON DIOXIDE - CO2 26 mmol/L (21-32); CHLORIDE 102 mmol/L (101-111); CHOL/HDL RATIO 2.8 (<4.4); CHOLESTEROL 203 mg/dL; CREATININE 0.9 mg/dL (0.4-1.0); FREE T3 2.76 pg/mL (2.5-3.9); GFR - MDRD 60 (>89); GLUCOSE 130 mg/dL (70-100); HDL CHOLESTEROL 73 mg/dL; LDL CHOLESTEROL,CALCULATED 115 mg/dL; LDL/HDL RATIO 1.6 (<4.4); POTASSIUM 3.9 mmol/L (3.5-5.0); SODIUM 140 mmol/L (135-145); TOTAL PROTEIN 7.6 g/dL (6.7-8.2); TRIGLYCERIDES 74 mg/dL; VLDL CHOLESTEROL 15 mg/dL
[2020-11-07 18:34] LABS: FREE T4 (FREE THYROXINE) 1.01 ng/dL (0.58-1.64)
== END 2020-11-07 11:41 | disposition home or self-care (01) ==
LOC: LAB.N 11:40
PROVIDERS: ATTEND Physician Assistant Medical
DX: I10 Essential (primary) hypertension (principal); E03.9 Hypothyroidism, unspecified; E78.5 Hyperlipidemia, unspecified; R73.01 Impaired fasting glucose; E55.9 Vitamin D deficiency, unspecified
CPT/HCPCS: 36415; 80053; 80061; 83721; 84439; 84443; 84481; 85025

== ENCOUNTER 2020-11-07 11:47 | Outpatient (CLI) | payer MEDICARE ==
--- NOTE | 2020-11-07 14:25 | XRAY Report ---
PROCEDURE: Ribs w/PA Chest LT INDICATIONS: L RIB PX TECHNIQUE: 3 views of the left ribs were acquired, along with a single view chest. COMPARISON: 10/16/2020 FINDINGS: Surgical changes and devices: None. Bones and chest wall: No change in left posterior lateral fourth, fifth, and sixth rib fractures. No suspicious bony lesions. Overlying soft tissues appear unremarkable. Lungs and pleura: No pleural effusions or pneumothorax. Lungs appear clear. Mediastinum: Mediastinal contours appear normal. Heart size is normal. IMPRESSION: No change in left rib fractures. Reviewed by: Mario Torres MD on 11/07/2020 2:24 PM PDT Approved by: Mario Torres MD on 11/07/2020 2:24 PM PDT Station ID: [id number]
== END 2020-11-07 11:48 | disposition home or self-care (01) ==
LOC: DI.N 11:47
PROVIDERS: ATTEND Physician Assistant Medical
DX: S22.42XD Multiple fractures of ribs, left side, subsequent encounter for fracture with routine healing (principal); I10 Essential (primary) hypertension; E03.9 Hypothyroidism, unspecified; E87.5 Hyperkalemia; R73.01 Impaired fasting glucose; E55.9 Vitamin D deficiency, unspecified
CPT/HCPCS: 36415; 80053; 80061; 83721; 84439; 84443; 84481; 85025

== ENCOUNTER 2020-12-25 07:00 | Outpatient (CLI) | payer MEDICARE | END 2020-12-25 23:59 | disposition home or self-care (01) | LOC: COV 07:00 | PROVIDERS: ATTEND Ophthalmology | DX: Z01.812 Encounter for preprocedural laboratory examination (principal); H25.12 Age-related nuclear cataract, left eye; Z20.822 Contact with and (suspected) exposure to COVID-19 ==

== ENCOUNTER 2020-12-28 06:51 | Day surgery (SDC) | payer MEDICARE ==
[~2020-12-28 06:51] MED LIST changes: +CYCLOPENTOLATE 1% OPHTH DROPS 2 ML ONE
[2020-12-28] MEDS ORDERED: LACTATED RINGERS 500 ML IV ONE ×2 (07:20→08:30)
--- NOTE | 2020-12-28 07:26 | ANESTHESIA ---
Pre-Anesthesia VS, & Labs - Diagnosis left eye cataract - Procedure left CATIOL Vital Signs: Temp Pulse Resp BP Pulse Ox 36.4 C L 76 18 145/79 H 98 12/28/20 06:45 12/28/20 06:45 12/28/20 06:45 12/28/20 06:45 12/28/20 06:45 Height: 5 ft 7 in Weight (kg): 66.5 kg Body Mass Index: 22.9 BMI Classification: Healthy weight - NPO >8 hours - Is Patient ?: No - Lab Results Lab results reviewed: Yes Home Medications and Allergies Levothyroxine [Synthroid] 25 mcg PO QDAC 01/01/17 Simvastatin [Zocor] 10 mg PO QPM 01/01/17 lisinopriL [Lisinopril] 5 mg PO DAILY 01/01/17 Etanercept [Enbrel] 50 mg SQ Q7D 05/23/17 Methotrexate [Methotrexate Sodium] 15 mg PO Q7D 05/23/17 Metoprolol Succinate [Toprol Xl] 25 mg PO DAILY 05/25/17 Calcium Carbonate [Calcium] 1,200 mg PO DAILY 05/28/17 Multivitamin [Theragran] 1 tab PO DAILY 05/28/17 Furosemide 20 mg PO DAILY 02/05/19 Ascorbic Acid Chew [Vitamin C] 500 mg PO DAILY 09/18/20 Cholecalciferol (Vitamin D3) [Vitamin D3] 5,000 unit PO DAILY 09/18/20 Cyanocobalamin (Vitamin B-12) [Vitamin B-12] 5,000 mcg PO DAILY 09/18/20 Folic Acid 1.6 mg PO DAILY 09/18/20 Magnesium Oxide [Magnesium] 500 mg PO DAILY 09/18/20 [place]-3/Dha/Epa/Fish Oil [Fish Oil 1,200 mg Softgel] 1,200 mg PO DAILY 09/18/20 Pantoprazole [Protonix] 40 mg PO DAILY 09/18/20 Allergies/Adverse Reactions: Allergies Allergy/AdvReac Type Severity Reaction Status Date / Time aspirin Allergy Unknown Verified 12/28/20 07:27 NSAIDS (Non-Steroidal Allergy Unknown Verified 12/28/20 07:27 Anti-Inflamma Anes History & Medical History - Anesthetic History Anesthesia Complications: reports: No previous complications Family history of Anesthesia Complications: Denies Family history of Malignant Hyperthermia: Denies - Medical History Cardiovascular: reports: Hypertension, High cholesterol, Coronary artery disease, Deep vein thrombosis, Angina, Murmur, Arrhythmia, Valve disorder, Other Pulmonary: reports: Other (has had rib fractures within the past year that "aren't healing". She still has pain from them.) Gastrointestinal: reports: Ulcers, Other Urinary: reports: Incontinence, Frequency Neuro: reports: TIA, Headaches, Migraines, Peripheral neuropathy, Other Musculoskeletal: reports: Osteoarthritis, Rheumatoid arthritis, Osteoporosis, Other Endocrine/Autoimmune: reports: HyPOthyroidism Blood Disorders: reports: Anemia Skin: reports: None Smoking Status: Former smoker - Surgical History General: reports: Colonoscopy, EGD Eyes Ears Nose Throat (EENT): reports: Cataracts, Tonsil/Adenoidectomy Cardiothoracic: reports: Cardiac catheterization Gynecologic: reports: Tubal ligation Orthopedic: reports: Hip replacement, Knee replacement, Other Exam General: Alert, Oriented x3, Cooperative, No acute distress Dental: WNL Mouth Openin Fingerbreadth Neck Mobility: Normal Mallampati classification: II Respiratory: Lungs clear, Normal breath sounds, No respiratory distress, No accessory muscle use Cardiovascular: Regular rate, Normal S1, Normal S2, Other (occ. ectopic beat) Plan Anesthesia Type: MAC Consent for Procedure(s) Verified and Reviewed: Yes Code Status: Attempt Resuscitation ASA classification: 2-Mild systemic disease Is this case an emergency?: No
[2020-12-28] MEDS ORDERED: MIDAZOLAM 2 MG/2 ML VIAL ONE (07:34)
[2020-12-28] MEDS ORDERED: MORPHINE 2 MG/ML CARPUJECT IVP PRN (07:35)
[2020-12-28] MEDS ORDERED: NALOXONE 0.4 MG/ML VIAL IVP PRN (07:35)
[2020-12-28] MEDS ORDERED: fentaNYL 100 MCG/2 ML VIAL IVP PRN (07:35)
[2020-12-28] MEDS ORDERED: ATROPINE ABBOJECT 1 MG/10 ML SYRINGE IVP PRN (07:35)
[2020-12-28] MEDS ORDERED: METOCLOPRAMIDE 10 MG/2 ML VIAL IVP PRN (07:35)
[2020-12-28] MEDS ORDERED: ePHEDrine 50 MG/ML VIAL IVP PRN (07:35)
[2020-12-28] MEDS ORDERED: HYDROmorphone 0.5 MG/0.5 ML SYRINGE IVP PRN (07:35)
[2020-12-28] MEDS ORDERED: ONDANSETRON 4 MG/2 ML VIAL IVP PRN (07:35)
[2020-12-28] MEDS ORDERED: LACTATED RINGERS 1,000 ML IV SCH (08:00)
[2020-12-28] MEDS ORDERED: BRIMONIDINE 0.2% OPHTH DROPS 5 ML OPTH ONE (08:09)
[2020-12-28] MEDS ORDERED: BSS/LIDOCAINE/EPINEPHRINE 1 ML SYRINGE IO ONE (08:10)
[2020-12-28] MEDS ORDERED: EPINEPHrine 1 MG/ML AMP IR ONE (08:10)
[2020-12-28] MEDS ORDERED: TRIAMCIN/MOXIFLOX OPHTHALMIC 0.6 ML VIAL IO ONE ×3 (08:10→13:02)
[2020-12-28] MEDS ORDERED: TIMOLOL 0.5% OPHTH DROPS OPTH ONE (08:10)
[2020-12-28] MEDS ORDERED: PROPARACAINE 0.5% OPHTH DROPS 15 ML EACHEYE ONE (08:10)
[2020-12-28] MEDS ORDERED: CHONDR SULF/HYALURONATE SYRINGE IO ONE (08:10)
[2020-12-28] MEDS ORDERED: VANCOMYCIN OPHTHALMI 8MG/0.8ML 8 MG/0.8 ML SYRINGE IO ONE ×2 (08:11→13:03)
--- NOTE | 2020-12-28 08:38 | ANESTHESIA POST OP EVALUATION ---
Anesthesia Post Eval - Post Anesthesia Eval Vitals: Last Vital Signs Temp 36.1 C L 12/28/20 08:22 Pulse 70 12/28/20 08:22 Resp 16 12/28/20 08:22 BP 129/77 12/28/20 08:22 Pulse Ox 99 12/28/20 08:22 CV Function Including HR & BP: Stable Pain Control: Satisfactory Nausea & Vomiting: Negative Mental Status: Baseline Respiratory Status: Airway Patent Hydration Status: Satisfactory Anesthesia Complications: None
[2020-12-28 08:56] VITALS: BP 130/74
--- NOTE | 2020-12-28 12:08 | OPERATIVE REPORT ---
Operative Report - Other Other Information/Narrative: Date of Surgery: 12/28/20 Preop Dx: Visually significant cataract left eye. Cataract surgery was performed in the right eye on 05/25/2020. Postop Dx: Same Procedure: Phacoemulsification with posterior chamber intraocular lens implant left eye Surgeon: Dr. Jignesh Salguero Anesthesia: Monitored anesthesia care Complications: None Operative Indications: This is a 80-year-old F with progressive vision loss in the left eye due to 3+ nuclear sclerotic and vacuolar cataract. Best corrected visual acuity was 20/25 with glare to 20/60 vision in the left eye. Indications for surgery were: - Difficulty reading - Difficulty seeing street signs - Difficulty driving in low light or at night The patient was consented at length concerning the risks and benefits of cataract surgery after which the patient expressed a desire to proceed with surgery. Operative Procedure: The patient was taken into OR#3 and placed under monitored anesthesia care. A surgical time-out was conducted confirming correct patient, correct procedure, and correct surgical site. The patient was given topical anesthesia and then prepped and draped in the usual sterile fashion. The eye was entered at the 6 and 3 oclock positions. Intracameral Shugarcaine was injected into the anterior chamber followed by a dispersive viscoelastic. A continuous-tear curvilinear capsulorhexis was performed. The nucleus was hy drodissected and phacoemulsified. The cortex was evacuated using automated infusion and aspiration. A cohesive viscoelastic was injected into the capsular bag and a 22.5 diopter intraocular lens was inserted into the bag. Infusion and aspiration were used to evacuate the viscoelastic materials from the eye. The wounds were hydrated and the eye inflated to physiologic pressure using balanced salt solution. Approximately 0.25ml of a mixture of triamcinolone and moxifloxacin was injected trans-sclerally into the vitreous in the inferotemporal quadrant using a 30 gauge cannula. An additional 0.55ml of a mixture of triamcinolone, moxifloxacin, and vancomycin was injected subconjunctivally in the superior quadrant for infection and inflammation prophylaxis. Wound integrity was checked with Weck-Dilcia sponges. The patient was taken from the operating room in good condition and given post-op instructions.
[2020-12-28] MEDS ORDERED: TIMOLOL 0.5% OPHTH DROPS ONE (13:02)
[2020-12-28] MEDS ORDERED: EPINEPHrine 1 MG/ML AMP ONE (13:02)
[2020-12-28] MEDS ORDERED: BRIMONIDINE 0.2% OPHTH DROPS 5 ML ONE (13:02)
[2020-12-28] MEDS ORDERED: BSS/LIDOCAINE/EPINEPHRINE 1 ML SYRINGE ONE (13:03)
== END 2020-12-28 06:52 | disposition home or self-care (01) ==
LOC: SDS 06:51
PROVIDERS: ATTEND Ophthalmology
DX: H25.12 Age-related nuclear cataract, left eye (principal); E03.9 Hypothyroidism, unspecified; Z86.73 Personal history of transient ischemic attack (TIA), and cerebral infarction without residual deficits; Z98.41 Cataract extraction status, right eye; I25.10 Atherosclerotic heart disease of native coronary artery without angina pectoris
CPT/HCPCS: 66984; A9270; J3490; J7120

== ENCOUNTER 2021-02-16 18:51 | Outpatient (CLI) | payer MEDICARE | END 2021-02-16 18:52 | disposition EMS.NT | LOC: EMS 18:51 | DX: S01.91XA Laceration without foreign body of unspecified part of head, initial encounter (principal); W01.190A Fall on same level from slipping, tripping and stumbling with subsequent striking against furniture, initial encounter; Y93.01 Activity, walking, marching and hiking; Y92.008 Other place in unspecified non-institutional (private) residence as the place of occurrence of the external cause ==

== ENCOUNTER 2021-02-16 19:39 | Emergency (ER) | payer MEDICARE ==
--- NOTE | 2021-02-16 20:14 | ED Physician Documentation ---
History of Present Illness - Stated complaint Stated Complaint: HEAD INJ/GLF - Chief complaint Chief Complaint: Trauma Hd/Nk - History obtained from History obtained from: Patient, Family (son) - Additonal information Additional information: 80-year-old woman with history of left-sided rib fractures presents with ground- level fall. She normally is ambulatory with a walker or a cane but was not usin g either today when she tripped and fell onto both knees and onto her left side, hitting her head. She did not pass out and is not on any blood thinners. Denies neck pain. Does endorse left-sided rib pain that is worse with deep breathing, aching, intermittently sharp mild at rest. Also with laceration to the left frontal region. Review of Systems Cardiac: reports: Other (chest wall pain). denies: Chest pain / pressure Respiratory: denies: Dyspnea GI: denies: Nausea Musculoskeletal: reports: Extremity pain (knees BL). denies: Neck pain, Back pain PD PAST MEDICAL HISTORY - Past Medical History Cardiovascular: Hypertension, High cholesterol, Coronary artery disease, Deep vein thrombosis, Angina, Murmur, Arrhythmia, Valve disorder, Other Respiratory: Other (has had rib fractures within the past year that "aren't healing". She still has pain from them.) Neuro: TIA, Headaches, Migraines, Peripheral neuropathy, Other Endocrine/Autoimmune: HyPOthyroidism GI: Ulcers, Other COLLECTION COORDINATOR: Other : Incontinence, Frequency HEENT: Chronic vision loss Psych: Depression, Anxiety Musculoskeletal: Osteoarthritis, Rheumatoid arthritis, Osteoporosis, Other Derm: None - Past Surgical History Past Surgical History: Yes General: Colonoscopy, EGD Ortho: Hip replacement, Knee replacement, Other /COLLECTION COORDINATOR: Tubal ligation Cardiovascular: Cardiac catheterization HEENT: Cataracts, Tonsil/Adenoidectomy - Present Medications Home Medications: Ambulatory Orders Medication Instructions Recorded Confirmed Levothyroxine [Synthroid] 25 mcg PO QDAC 01/01/17 09/18/20 Simvastatin [Zocor] 10 mg PO QPM 01/01/17 09/18/20 lisinopriL [Lisinopril] 5 mg PO DAILY 01/01/17 09/18/20 Etanercept [Enbrel] 50 mg SQ Q7D 05/23/17 09/18/20 Methotrexate [Methotrexate Sodium] 15 mg PO Q7D 05/23/17 09/18/20 Metoprolol Succinate [Toprol Xl] 25 mg PO DAILY 05/25/17 09/18/20 Calcium Carbonate [Calcium] 1,200 mg PO DAILY 05/28/17 09/18/20 Multivitamin [Theragran] 1 tab PO DAILY 05/28/17 09/18/20 Furosemide 20 mg PO DAILY 02/05/19 09/18/20 Ascorbic Acid [Vitamin C] 500 mg PO DAILY 09/18/20 09/18/20 Cholecalciferol (Vitamin D3) 5,000 unit PO DAILY 09/18/20 09/18/20 [Vitamin D3] Cyanocobalamin (Vitamin B-12) 5,000 mcg PO DAILY 09/18/20 09/18/20 [Vitamin B-12] Folic Acid 1.6 mg PO DAILY 09/18/20 09/18/20 Magnesium Oxide [Magnesium] 500 mg PO DAILY 09/18/20 09/18/20 [place]-3/Dha/Epa/Fish Oil [Fish Oil 1,200 mg PO DAILY 09/18/20 09/18/20 1,200 mg Softgel] Pantoprazole [Protonix] 40 mg PO DAILY 09/18/20 09/18/20 - Allergies Allergies/Adverse Reactions: Allergies Allergy/AdvReac Type Severity Reaction Status Date / Time aspirin Allergy Unknown Verified 02/16/21 19:57 NSAIDS (Non-Steroidal Allergy Unknown Verified 02/16/21 19:57 Anti-Inflamma - Social History Does the pt smoke?: No Smoking Status: Former smoker Does the pt drink ETOH?: No Does the pt have substance abuse?: No - Immunizations Immunizations are current?: Yes - POLST Patient has POLST: No POLST Status: Full Code (she has not thought about advanced care planning or planning for severe diability. She thinks that if she is resuscitated she will recover to be normal and go home again.) PD ED PE NORMAL - Vitals Vital signs reviewed: Yes - General General: No acute distress, Well developed/nourished, Other (alert and mentating at baseline. good historian) - HEENT HEENT: Atraumatic (atraumatic except for 2cm scalp lac to L frontal area) - Neck Neck: No bony TTP - Cardiac Cardiac: RRR, Other (L ribcage ttp) - Respiratory Respiratory: No respiratory distress, Clear bilaterally - Abdomen Abdomen: Non tender, Non distended - Back Back: No spinal TTP - Derm Derm: Normal color, Warm and dry - Extremities Extremities: No deformity, Normal ROM s pain - Neuro Neuro: No motor deficit, No sensory deficit - Psych Psych: Normal mood, Normal affect Results - Vitals Vitals: Vital Signs - 24 hr 02/16/21 02/16/21 19:58 22:00 Temperature 36.7 C 36.6 C Heart Rate 80 72 Respiratory 18 16 Rate Blood Pressure 127/63 132/77 H O2 Saturation 99 97 Oxygen O2 Source [Without Activity] Room air O2 Source Room air PD MEDICAL DECISION MAKING - ED course ED course: 80-year-old woman presents status post mechanical fall from standing. Lac to head repaired with homer. 3 L posterior rib fractures. d/w Dr. Boggs, who states with her advanced age and multiple fractures she will need transfer to [facility]. will transfer. Departure - Departure Disposition: 02 Transfer Acute Care Hosp Clinical Impression: Rib fractures, Fall, Head injury, Laceration of scalp
--- NOTE | 2021-02-16 20:50 | XRAY Report ---
PROCEDURE: Knee 2 View BILAT INDICATIONS: glf TECHNIQUE: 2 views of the left and right knee(s) were acquired. COMPARISON: None. FINDINGS: Bones: No fractures or dislocations. Left knee arthroplasty components are in position. No radiograp hic evidence of hardware loosening. There is moderate medial compartment joint space loss in the righ t knee and marked chondrocalcinosis in both medial and lateral compartments of the right knee. Diffus e demineralization bilaterally. No suspicious bony lesions. Soft tissues: Possible right joint effusion. No left joint effusion. Mild vascular calcifications bi laterally, both arterial and venous. IMPRESSION: 1. No visible fractures. 2. Moderate degenerative change in the right knee including chondrocalcinosis suggesting CPPD, hyperp arathyroidism, or hemachromatosis. 3. Intact left knee arthroplasty components. Reviewed by: April Dugan MD on 02/16/2021 8:49 PM PDT Approved by: April Dugan MD on 02/16/2021 8:49 PM PDT Station ID: [id number]
[2021-02-16] MEDS: TETANUS/DIPHTHERIA/PERTUSSIS 0.5 ML SYRINGE IM ONE (21:18)
[2021-02-16] MEDS: BACITRACIN ZINC OINT 1 PACKET TOP STA (21:19)
--- NOTE | 2021-02-16 22:01 | CT Report ---
PROCEDURE: CHEST WO INDICATIONS: glf, L rib pain TECHNIQUE: Noncontrast images were acquired from the pulmonary apices to the posterior costophrenic angles. Mul tiplanar MIP reformats were then acquired. For radiation dose reduction, the following was used: au tomated exposure control, adjustment of mA and/or kV according to patient size. COMPARISON: 09/17/2020 FINDINGS: Image quality: Excellent. Lungs and pleura: Minor patchy groundglass opacities seen at the right lung base, similar compared t o the prior study. There is groundglass opacity and architectural distortion at the left posterior la teral lung base along with mild overlying pleural thickening, also stable. Small platelike atelectasi s in the lingula. There is mild upper lobe bronchiectasis bilaterally. Coarse calcification at the ri ght lung apex. No new opacities. No pneumothorax. Mediastinum: Heart size is normal. No pericardial effusion. No mediastinal adenopathy by size crit eria. Ascending aortic aneurysm measuring 4.2 cm in AP diameter. Aortic valvular calcification and m oderate coronary artery calcification. Mild aortic arch calcification. Tortuosity of the descending t horacic aorta. Pulmonary arteries are normal size. Esophagus is normal in caliber. Large, stable hiat al hernia. Bones and chest wall: There are acute left posterior ninth through 11th rib fractures and multiple ch ronic left lateral rib fractures which are subacute. No subcutaneous emphysema. Scoliosis, multiple d egenerative disc changes, and multiple chronic compression fractures. No axillary or supraclavicular adenopathy by size criteria. The thyroid gland is diminutive. Abdomen: Partially imaged right renal atrophy. Visualized upper abdominal solid organs and bowel loo ps appear otherwise normal in the absence of contrast. IMPRESSION: 1. Acute left posterior ninth through 11th rib fractures without underlying pulmonary contusion or pn eumothorax. 2. Large, chronic hiatal hernia. 3. Chronic, partially healed left-sided lateral rib fractures. Reviewed by: April Dugan MD on 02/16/2021 10:00 PM PDT Approved by: April Dugan MD on 02/16/2021 10:00 PM PDT Station ID: [id number]
--- NOTE | 2021-02-16 22:04 | CT Report ---
PROCEDURE: HEAD WO INDICATIONS: glf +HT TECHNIQUE: Noncontrast 4.5 mm thick angled axial sections acquired from the foramen magnum to the vertex. For r adiation dose reduction, the following was used: automated exposure control, adjustment of mA and/or kV according to patient size. COMPARISON: 11/02/2020 FINDINGS: Image quality: Excellent. CSF spaces: Basal cisterns are patent. No extra-axial fluid collections. Ventricles are normal in size and shape. Brain: No midline shift. No intracranial masses or hemorrhage. Carey-white matter interface is norm al. Cerebral cortical volume loss for age. Patchy periventricular white matter hypodensity bilateral ly Skull and face: Minor soft tissue swelling over the left parietal region. Calvarium and visualized f acial bones are intact, without suspicious lesions. Sinuses: Visualized sinuses and mastoids are clear. IMPRESSION: 1. No CT evidence of acute intracranial trauma. 2. Minor left parietal soft tissue injury without underlying fracture. 3. Age-appropriate exam, stable compared to prior. Reviewed by: April Dugan MD on 02/16/2021 10:03 PM PDT Approved by: April Dugan MD on 02/16/2021 10:03 PM PDT Station ID: [id number]
--- NOTE | 2021-02-16 22:09 | CT Report ---
PROCEDURE: CERVICAL SPINE WO INDICATIONS: glf TECHNIQUE: Noncontrast 3 mm thick sections acquired from the skull base to the T4 level. Sagittal and coronal r eformats were then constructed. For radiation dose reduction, the following was used: automated exp osure control, adjustment of mA and/or kV according to patient size. COMPARISON: 11/02/2020 FINDINGS: Image quality: Excellent. Bones: No fractures or dislocations. There are severe degenerative disc changes in the cervical spi ne, most severe at C5-6 where there are also moderate endplate spurs. Trace anterolisthesis C4 on 5. Multilevel facet hypertrophy. There is likely bony central canal stenosis at C5-6 to a moderate degre e. Visualized superior ribs are intact. Soft tissues: Prevertebral soft tissues are normal in thickness. No paravertebral hematomas. No ap ical pneumothoraces. IMPRESSION: No CT evidence of acute cervical spine trauma. 2. Multilevel degenerative changes, most significant at C5-6. 3. No significant change compared to the prior study. Reviewed by: April Dugan MD on 02/16/2021 10:08 PM PDT Approved by: April Dugan MD on 02/16/2021 10:08 PM PDT Station ID: [id number]
[2021-02-16] MEDS: oxyCODONE 5 MG TABLET PO STA (22:33)
[2021-02-16 23:02] LABS: BASOPHILS % (AUTO) 0.4 %; EOSINOPHILS # (AUTO) 0.1 10^3/uL (0.0-0.7); EOSINOPHILS % (AUTO) 0.7 %; HCT - HEMATOCRIT 41.3 % (37.0-47.0); HGB - HEMOGLOBIN 13.9 g/dL (12.0-16.0); LYMPHOCYTES % (AUTO) 18.7 %; MEAN CORPUSCULAR HEMOGLOBIN 33.7 pg (27.0-31.0); MEAN CORPUSCULAR HGB CONC 33.7 g/dL (32.0-36.0); MEAN CORPUSCULAR VOLUME 100.2 fL (81.0-99.0); MEAN PLATELET VOLUME 9.5 fL (7.9-10.8); MONOCYTES # (AUTO) 1.1 10^3/uL (0.0-1.0); MONOCYTES % (AUTO) 9.8 %; NEUTROPHILS # (AUTO) 7.6 10^3/uL (1.5-6.6); NEUTROPHILS % (AUTO) 70.1 %; PLT - PLATELET COUNT 191 10^3/uL (130-450); RED BLOOD COUNT 4.12 10^6/uL (4.20-5.40); RED CELL DISTRIBUTION WIDTH 14.6 % (12.0-15.0); WHITE BLOOD COUNT 10.8 x10^3/uL (4.8-10.8)
[2021-02-16 23:15] LABS: ALBUMIN 4.3 g/dL (3.2-5.5); ALBUMIN/GLOBULIN RATIO 1.5 (1.0-2.2); BILIRUBIN,TOTAL 1.1 mg/dL (0.2-1.0); CALCIUM 9.1 mg/dL (8.5-10.3); POTASSIUM 4.1 mmol/L (3.5-5.0); TOTAL PROTEIN 7.1 g/dL (6.7-8.2)
[2021-02-16] MEDS: MORPHINE 10 MG/ML VIAL IVP STA (23:51)
[2021-02-16 23:55] LABS: B. PARAPERTUSSIS- RESP PCR PAN NOT DETECTED; B. PERTUSSIS- RESP PCR PANEL NOT DETECTED; C. PNEUMONIAE- RESP PCR PANEL NOT DETECTED; CORONAVIRUS 229E-RESP PCR NOT DETECTED; CORONAVIRUS HKU1-RESP PCR NOT DETECTED; CORONAVIRUS NL63-RESP PCR NOT DETECTED; CORONAVIRUS OC43-RESP PCR NOT DETECTED; HUMAN METAPNEUMOVIRUS NOT DETECTED; INFLUENZA A- RESP PCR PANEL NOT DETECTED; INFLUENZA B - RESP PCR PANEL NOT DETECTED; M. PNEUMONIAE- RESP PCR PANEL NOT DETECTED; PARAINFLUENZA VIRUS 1 NOT DETECTED; PARAINFLUENZA VIRUS 2 NOT DETECTED; PARAINFLUENZA VIRUS 3 NOT DETECTED; PARAINFLUENZA VIRUS 4 NOT DETECTED; RHINOVIRUS/ENTEROVIRUS NOT DETECTED; RSV- RESP PCR PANEL NOT DETECTED; SARS-CoV-2 -RESP PCR PANEL NOT DETECTED
[2021-02-17 00:13] VITALS: BP 148/85
== END 2021-02-17 00:14 | disposition short-term general hospital (02) ==
LOC: ED 19:39
DX: S22.42XA Multiple fractures of ribs, left side, initial encounter for closed fracture (principal); S01.01XA Laceration without foreign body of scalp, initial encounter; S09.90XA Unspecified injury of head, initial encounter; W01.0XXA Fall on same level from slipping, tripping and stumbling without subsequent striking against object, initial encounter; Y92.009 Unspecified place in unspecified non-institutional (private) residence as the place of occurrence of the external cause; I10 Essential (primary) hypertension; M50.322 Other cervical disc degeneration at C5-C6 level; M17.11 Unilateral primary osteoarthritis, right knee; M11.261 Other chondrocalcinosis, right knee; Z96.652 Presence of left artificial knee joint; K44.9 Diaphragmatic hernia without obstruction or gangrene; Z87.891 Personal history of nicotine dependence; Z20.822 Contact with and (suspected) exposure to COVID-19
CPT/HCPCS: 12001; 36415; 70450; 71250; 72125; 73565; 80053; 83690; 85025; 87631; 90715; 99284; 99285; A9270; 0202U

== ENCOUNTER 2021-02-17 00:18 | Outpatient (CLI) | payer MEDICARE | END 2021-02-17 23:59 | disposition short-term general hospital (02) | LOC: EMS 00:18 | PROVIDERS: ATTEND Emergency Medicine | DX: S22.42XA Multiple fractures of ribs, left side, initial encounter for closed fracture (principal); X58.XXXA Exposure to other specified factors, initial encounter | CPT/HCPCS: A0425; A0426 ==

== ENCOUNTER 2021-03-22 12:01 | Outpatient (CLI) | payer MEDICARE ==
[2021-03-22 18:46] LABS: BASOPHILS % (AUTO) 0.4 %; EOSINOPHILS % (AUTO) 1.4 %; HCT - HEMATOCRIT 42.7 % (37.0-47.0); HGB - HEMOGLOBIN 13.6 g/dL (12.0-16.0); LYMPHOCYTES % (AUTO) 26.2 %; MEAN CORPUSCULAR HEMOGLOBIN 33.1 pg (27.0-31.0); MEAN CORPUSCULAR HGB CONC 31.9 g/dL (32.0-36.0); MEAN CORPUSCULAR VOLUME 103.9 fL (81.0-99.0); MEAN PLATELET VOLUME 10.2 fL (7.9-10.8); MONOCYTES # (AUTO) 0.1 10^3/uL (0.0-1.0); NEUTROPHILS # (AUTO) 4.9 10^3/uL (1.5-6.6); NEUTROPHILS % (AUTO) 62.7 %; PLT - PLATELET COUNT 222 10^3/uL (130-450); RED BLOOD COUNT 4.11 10^6/uL (4.20-5.40); RED CELL DISTRIBUTION WIDTH 55.4 % (12.0-15.0); WHITE BLOOD COUNT 7.8 x10^3/uL (4.8-10.8)
[2021-03-22 19:22] LABS: CREATININE 1.1 mg/dL (0.4-1.0); POTASSIUM 4.3 mmol/L (3.5-5.0)
[2021-03-22 19:23] LABS: ALBUMIN 4.4 g/dL (3.2-5.5); ALBUMIN/GLOBULIN RATIO 1.4 (1.0-2.2); BILIRUBIN,TOTAL 1.4 mg/dL (0.2-1.0); CALCIUM 9.3 mg/dL (8.5-10.3); TOTAL PROTEIN 7.5 g/dL (6.7-8.2)
[2021-03-22 20:11] LABS: THYROID STIMULATING HORMONE 1.56 uIU/mL (0.34-5.60)
== END 2021-03-22 23:59 | disposition home or self-care (01) ==
LOC: LAB.WCP 12:01
PROVIDERS: ATTEND Internal Medicine Rheumatology
DX: E03.9 Hypothyroidism, unspecified (principal); M05.79 Rheumatoid arthritis with rheumatoid factor of multiple sites without organ or systems involvement
CPT/HCPCS: 36415; 80053; 84443; 85025; 85651

== ENCOUNTER 2021-04-20 17:23 | Outpatient (CLI) | payer MEDICARE ==
--- NOTE | 2021-04-21 11:07 | XRAY Report ---
PROCEDURE: Knee 3 View BILAT INDICATIONS: EVAL FOR ARTHRITIS TECHNIQUE: 3 views of each knee were acquired. COMPARISON: 02/16/2021 FINDINGS: Bones: No fractures or dislocations. No suspicious bony lesions. Left knee arthroplasty hardware is seen, without findings of hardware failure or hardware loosening. There is at least moderate medial femorotibial joint space narrowing, with associated degenerative ch ree with subchondral sclerosis and osteophyte formation. Milder degenerative changes can be seen of the lateral femorotibial joint space. On the sunrise view, there is moderate right patellofemoral joint space narrowing, with associated re modeling changes, including spurs along the margins of the patella. Soft tissues: There is a small joint effusion seen on each side. Calcification can be seen along the joint line, which is attributed to meniscal calcification. IMPRESSION: Osteoarthritic degenerative changes are seen, which are most prominent involving the med ial femorotibial compartment of the right knee. Intact appearing left knee arthroplasty hardware. Reviewed by: Rosalino Tavares MD on 04/21/2021 10:06 AM MICA Approved by: Rosalino Tavares MD on 04/21/2021 10:06 AM MICA Station ID: [id number]
== END 2021-04-20 17:24 | disposition home or self-care (01) ==
LOC: DI.N 17:23
PROVIDERS: ATTEND Physician Assistant Medical
DX: M17.11 Unilateral primary osteoarthritis, right knee (principal); Z96.652 Presence of left artificial knee joint

== ENCOUNTER 2021-07-23 08:00 | Outpatient (CLI) | payer MEDICARE ==
[2021-07-23 18:50] LABS: BASOPHILS % (AUTO) 0.4 %; EOSINOPHILS # (AUTO) 0.1 10^3/uL (0.0-0.7); EOSINOPHILS % (AUTO) 1.1 %; HGB - HEMOGLOBIN 13.4 g/dL (12.0-16.0); LYMPHOCYTES # (AUTO) 1.8 10^3/uL (1.5-3.5); LYMPHOCYTES % (AUTO) 25.2 %; MEAN CORPUSCULAR HEMOGLOBIN 34.5 pg (27.0-31.0); MEAN CORPUSCULAR HGB CONC 33.5 g/dL (32.0-36.0); MEAN CORPUSCULAR VOLUME 103.1 fL (81.0-99.0); MEAN PLATELET VOLUME 10.3 fL (7.9-10.8); MONOCYTES # (AUTO) 1.1 10^3/uL (0.0-1.0); MONOCYTES % (AUTO) 15.7 %; NEUTROPHILS % (AUTO) 57.5 %; PLT - PLATELET COUNT 239 10^3/uL (130-450); RED BLOOD COUNT 3.88 10^6/uL (4.20-5.40)
[2021-07-23 19:05] LABS: CALCIUM 9.7 mg/dL (8.5-10.3); POTASSIUM 3.9 mmol/L (3.5-5.0)
[2021-07-23 19:57] LABS: ALBUMIN 4.4 g/dL (3.2-5.5); ALBUMIN/GLOBULIN RATIO 1.4 (1.0-2.2); BILIRUBIN,TOTAL 1.4 mg/dL (0.2-1.0); CREATININE 0.9 mg/dL (0.4-1.0); TOTAL PROTEIN 7.5 g/dL (6.7-8.2)
== END 2021-07-23 23:59 | disposition home or self-care (01) ==
LOC: LAB.WCP 08:00
PROVIDERS: ATTEND Internal Medicine Rheumatology
DX: M05.79 Rheumatoid arthritis with rheumatoid factor of multiple sites without organ or systems involvement (principal)
CPT/HCPCS: 36415; 80053; 85025; 85651

== ENCOUNTER 2021-11-07 10:36 | Outpatient (CLI) | payer MEDICARE ==
--- NOTE | 2021-11-07 14:03 | DEXA Report ---
PROCEDURE: Dexa Spine and/or Hip INDICATIONS: OVARIAN MASS,POST MENOPAUSAL, OSTEOPOROSIS TECHNIQUE: Dual energy x-ray absorptiometry (DXA) was performed on a Folloyu System. Regions measur ed are the AP Spine, femoral neck, and forearm for comparison with prior study. COMPARISON: 09/14/2020. FINDINGS: Lumbar Spine: Bone Mineral Density 1.054 g/cm/cm,T score -1.0. There is interval 20% increase in total lumbar sp ine bone mineral density. Right Hip: Bone Mineral Density 0.582 g/cm/cm,T score -3.4. There is interval 0.2% decrease in right hip bone m ineral density. Right Femoral Neck: Bone Mineral Density 0.678 g/cm/cm, T score -2.6. Left forearm: Bone Mineral Density 0.557 g/cm/cm, T score -0.7. There is interval 1.4% decrease in left forearm bon e mineral density. (T score greater or equal to -1.0: NORMAL) (T score from -1.1 to -2.4: OSTEOPENIA) (T score less than or equal to -2.5 to: OSTEOPOROSIS) Impression: Osteoporosis. Patients with diagnosis of osteoporosis or osteopenia should have regular bone mineral density assess ment. For those eligible for Medicare, routine testing is allowed once every 2 years. Testing frequ ency can be increased for patients who have rapidly progressing disease or for those who are receivin g medical therapy to restore bone mass. Reviewed by: Dar Jimenez MD on 11/07/2021 2:01 PM PDT Approved by: Dar Jimenez MD on 11/07/2021 2:01 PM PDT Station ID: [id number]
--- NOTE | 2021-11-07 16:34 | Ultrasound Report ---
PROCEDURE: Pelvic w/Transvaginal INDICATIONS: OVARIAN MASS,POST MENOPAUSAL, OSTEOPOROSIS TECHNIQUE: Real-time scanning was performed of the pelvic organs, with image documentation. Additional endovagi nal scanning was necessary due to incomplete visualization of the adnexal and endometrial structures by transabdominal scanning. COMPARISON: 10/01/2018 and 04/29/2018.. FINDINGS: Limited scanning through the kidneys shows no hydronephrosis. No pathologic free abdominal or pelvic fluid. Uterus: Uterus is normal in size at 4.5 x 2.1 x 3.9 cm. The endometrium measures 2.0 mm in combined thickness. Uterus has mildly heterogeneous echotexture with a few scattered peripheral calcification s. Ovaries: Right ovary measures 4.0 x 3.4 x 3.6 cm total volume of 24.9 cc. There is a 2.9 x 2.8 x 3.2 cm right ovarian cyst. Left ovary measures 7.8 x 5.0 x 5.3 cm total volume of 109.4 cc. There are 6. 7 x 5.1 x 4.8 centimeter and 2.9 x 1.2 x 2.4 cm left ovarian cyst Other: No free pelvic fluid. IMPRESSION: 1. Atrophied uterus. Uterine echotexture is slightly heterogeneous with a few peripheral scattered ca lcifications which is not simply changed in appearance compared to prior ultrasounds. 2. Bilateral ovarian cysts. Largest cyst is in the left ovary measuring 6.7 x 5.1 x 4.8 centimeters w hich is increased in size compared to prior ultrasounds. Recommend gynecology consultation and/or pel robin MRI for additional evaluation. Reviewed by: Geneva Barnes MD, PhD on 11/07/2021 4:32 PM PDT Approved by: Geneva Barnes MD, PhD on 11/07/2021 4:32 PM PDT Station ID: [id number]
== END 2021-11-07 10:37 | disposition home or self-care (01) ==
LOC: DI 10:36
PROVIDERS: ATTEND Physician Assistant Medical
DX: Z78.0 Asymptomatic menopausal state (principal); N85.8 Other specified noninflammatory disorders of uterus; N83.202 Unspecified ovarian cyst, left side; N83.201 Unspecified ovarian cyst, right side; M81.0 Age-related osteoporosis without current pathological fracture

== ENCOUNTER 2021-12-04 12:19 | Outpatient (CLI) | payer MEDICARE ==
[2021-12-04 18:29] LABS: ALBUMIN 4.6 g/dL (3.2-5.5); ALBUMIN/GLOBULIN RATIO 1.6 (1.0-2.2); ALKALINE PHOSPHATASE 42 IU/L (42-121); ALT ALANINE AMINOTRANSFERASE 20 IU/L (10-60); AST ASPARTATE AMINOTRANSFERASE 26 IU/L (10-42); BUN - BLOOD UREA NITROGEN 31 mg/dL (6-20); CALCIUM 9.4 mg/dL (8.5-10.3); CARBON DIOXIDE - CO2 27 mmol/L (21-32); CHLORIDE 104 mmol/L (101-111); CHOL/HDL RATIO 2.3 (<4.4); CHOLESTEROL 178 mg/dL; CREATININE 1.1 mg/dL (0.4-1.0); GFR - MDRD 48 (>89); GLUCOSE 98 mg/dL (70-100); HDL CHOLESTEROL 76 mg/dL; LDL CHOLESTEROL,CALCULATED 92 mg/dL; LDL/HDL RATIO 1.2 (<4.4); POTASSIUM 4.1 mmol/L (3.5-5.0); SODIUM 140 mmol/L (135-145); TOTAL PROTEIN 7.4 g/dL (6.7-8.2); TRIGLYCERIDES 52 mg/dL; VLDL CHOLESTEROL 10 mg/dL
== END 2021-12-04 12:20 | disposition home or self-care (01) ==
LOC: LAB.N 12:19
PROVIDERS: ATTEND Physician Assistant Medical
DX: E78.5 Hyperlipidemia, unspecified (principal); N83.9 Noninflammatory disorder of ovary, fallopian tube and broad ligament, unspecified
CPT/HCPCS: 36415; 80053; 80061; 83721; 86304

== ENCOUNTER 2022-02-07 08:00 | Outpatient (CLI) | payer MEDICARE | END 2022-02-07 23:59 | disposition home or self-care (01) | LOC: LAB.WCP 08:00 | PROVIDERS: ATTEND Physician Assistant Medical | DX: L03.90 Cellulitis, unspecified (principal) | CPT/HCPCS: 87070; 87077; 87181; 87205 ==

== ENCOUNTER 2022-04-15 08:00 | Outpatient (CLI) | payer MEDICARE | END 2022-04-15 23:59 | disposition home or self-care (01) | LOC: LAB.WCP 08:00 | PROVIDERS: ATTEND Physician Assistant Medical | DX: I87.319 Chronic venous hypertension (idiopathic) with ulcer of unspecified lower extremity (principal); L97.909 Non-pressure chronic ulcer of unspecified part of unspecified lower leg with unspecified severity | CPT/HCPCS: 87070; 87205 ==

== ENCOUNTER 2022-07-29 08:00 | Outpatient (CLI) | payer MEDICARE | END 2022-07-29 23:59 | disposition home or self-care (01) | LOC: LAB.WCP 08:00 | PROVIDERS: ATTEND Physician Assistant Medical | DX: I87.319 Chronic venous hypertension (idiopathic) with ulcer of unspecified lower extremity (principal) | CPT/HCPCS: 87070; 87077; 87181; 87205 ==

== ENCOUNTER 2022-09-03 11:48 | Outpatient (CLI) | payer MEDICARE ==
[2022-09-03 18:04] LABS: BASOPHILS % (AUTO) 0.4 %; EOSINOPHILS # (AUTO) 0.1 10^3/uL (0.0-0.7); EOSINOPHILS % (AUTO) 1.7 %; HCT - HEMATOCRIT 43.7 % (37.0-47.0); HGB - HEMOGLOBIN 13.6 g/dL (12.0-16.0); LYMPHOCYTES # (AUTO) 1.6 10^3/uL (1.5-3.5); MEAN CORPUSCULAR HEMOGLOBIN 31.6 pg (27.0-31.0); MEAN CORPUSCULAR HGB CONC 31.1 g/dL (32.0-36.0); MEAN CORPUSCULAR VOLUME 101.4 fL (81.0-99.0); MEAN PLATELET VOLUME 9.8 fL (7.9-10.8); MONOCYTES # (AUTO) 0.9 10^3/uL (0.0-1.0); MONOCYTES % (AUTO) 10.2 %; NEUTROPHILS # (AUTO) 5.8 10^3/uL (1.5-6.6); NEUTROPHILS % (AUTO) 68.5 %; PLT - PLATELET COUNT 273 10^3/uL (130-450); RED BLOOD COUNT 4.31 10^6/uL (4.20-5.40); RED CELL DISTRIBUTION WIDTH 14.8 % (12.0-15.0); WHITE BLOOD COUNT 8.4 x10^3/uL (4.8-10.8)
[2022-09-03 18:22] LABS: ALBUMIN 4.2 g/dL (3.2-5.5); ALBUMIN/GLOBULIN RATIO 1.4 (1.0-2.2); ALKALINE PHOSPHATASE 51 IU/L (42-121); ALT ALANINE AMINOTRANSFERASE 19 IU/L (10-60); AST ASPARTATE AMINOTRANSFERASE 21 IU/L (10-42); BILIRUBIN,TOTAL 1.4 mg/dL (0.2-1.0); BUN - BLOOD UREA NITROGEN 20 mg/dL (6-20); CALCIUM 9.2 mg/dL (8.5-10.3); CARBON DIOXIDE - CO2 27 mmol/L (21-32); CHLORIDE 102 mmol/L (101-111); CHOL/HDL RATIO 2.2 (<4.4); CHOLESTEROL 140 mg/dL; CREATININE 0.9 mg/dL (0.4-1.0); GFR - MDRD 60 (>89); GLUCOSE 103 mg/dL (70-100); HDL CHOLESTEROL 64 mg/dL; LDL CHOLESTEROL,CALCULATED 68 mg/dL; LDL/HDL RATIO 1.1 (<4.4); POTASSIUM 4.2 mmol/L (3.5-5.0); SODIUM 139 mmol/L (135-145); TOTAL PROTEIN 7.3 g/dL (6.7-8.2); TRIGLYCERIDES 40 mg/dL; VLDL CHOLESTEROL 8 mg/dL
[2022-09-03 18:33] LABS: THYROID STIMULATING HORMONE 2.28 uIU/mL (0.34-5.60)
== END 2022-09-03 11:49 | disposition home or self-care (01) ==
LOC: LAB.N 11:48
PROVIDERS: ATTEND Physician Assistant Medical
DX: M06.9 Rheumatoid arthritis, unspecified (principal); E78.5 Hyperlipidemia, unspecified; E03.9 Hypothyroidism, unspecified; I10 Essential (primary) hypertension
CPT/HCPCS: 36415; 80053; 80061; 83721; 84443; 85025; 85651

== ENCOUNTER 2022-09-20 15:25 | Outpatient (CLI) | payer MEDICARE ==
--- NOTE | 2022-09-20 20:18 | Ultrasound Report ---
PROCEDURE: Duplex Lwr Ext Arterial Bilat INDICATIONS: CELLULITIS TECHNIQUE: Color and pulse Doppler interrogation was performed of both lower extremity arterial systems, with im age documentation. COMPARISON: None FINDINGS: Right lower extremity: Common femoral artery: 123.6 cm/sec, with triphasic flow. Deep femoral artery: 72.5 cm/sec, with triphasic flow. Proximal superficial femoral artery: 114.1 cm/sec, with triphasic flow. Mid superficial femoral artery: 78.2 cm/sec, with triphasic flow. Distal superficial femoral artery: 16.5 cm/sec, with triphasic flow. Popliteal artery: 53.0 cm/sec, with triphasic flow. Posterior tibial artery: 56.7 cm/sec, with biphasic flow. Anterior tibial artery/dorsalis pedis: 69/35.2 cm/sec, with biphasic/biphasic flow. Carey-scale imaging description: No significant stenosis Left lower extremity: Common femoral artery: 104.7 cm/sec, with triphasic flow. Deep femoral artery: 47.0 cm/sec, with triphasic flow. Proximal superficial femoral artery: 93.9 cm/sec, with triphasic flow. Mid superficial femoral artery: 114.2 cm/sec, with triphasic flow. Distal superficial femoral artery: 69.5 cm/sec, with triphasic flow. Popliteal artery: 59.3 cm/sec, with biphasic flow. Posterior tibial artery: 62.4 cm/sec, with biphasic flow. Anterior tibial artery/dorsalis pedis: 52.6/63.4 cm/sec, with biphasic biphasic flow. Carey-scale imaging description: No significant stenosis IMPRESSION: No significant stenosis. Normal waveforms. Reviewed by: Aroldo Stanley MD on 09/20/2022 8:16 PM PST Approved by: Aroldo Stanley MD on 09/20/2022 8:16 PM PST Station ID: [id number]
== END 2022-09-20 15:26 | disposition home or self-care (01) ==
LOC: DI 15:25
PROVIDERS: ATTEND Nurse Practitioner
DX: L03.116 Cellulitis of left lower limb (principal)
CPT/HCPCS: 93925

== ENCOUNTER 2022-10-23 11:37 | Outpatient (CLI) | payer MEDICARE ==
[2022-10-23 18:37] LABS: BASOPHILS % (AUTO) 0.4 %; EOSINOPHILS # (AUTO) 0.1 10^3/uL (0.0-0.7); EOSINOPHILS % (AUTO) 0.7 %; HCT - HEMATOCRIT 41.9 % (37.0-47.0); HGB - HEMOGLOBIN 13.7 g/dL (12.0-16.0); LYMPHOCYTES # (AUTO) 1.6 10^3/uL (1.5-3.5); LYMPHOCYTES % (AUTO) 19.3 %; MEAN CORPUSCULAR HEMOGLOBIN 32.5 pg (27.0-31.0); MEAN CORPUSCULAR HGB CONC 32.7 g/dL (32.0-36.0); MEAN CORPUSCULAR VOLUME 99.5 fL (81.0-99.0); MEAN PLATELET VOLUME 9.8 fL (7.9-10.8); MONOCYTES # (AUTO) 0.8 10^3/uL (0.0-1.0); MONOCYTES % (AUTO) 9.7 %; NEUTROPHILS # (AUTO) 5.7 10^3/uL (1.5-6.6); NEUTROPHILS % (AUTO) 69.7 %; PLT - PLATELET COUNT 278 10^3/uL (130-450); RED BLOOD COUNT 4.21 10^6/uL (4.20-5.40); RED CELL DISTRIBUTION WIDTH 15.3 % (12.0-15.0); WHITE BLOOD COUNT 8.1 x10^3/uL (4.8-10.8)
[2022-10-23 18:57] LABS: ALBUMIN 4.1 g/dL (3.2-5.5); ALBUMIN/GLOBULIN RATIO 1.4 (1.0-2.2); BILIRUBIN,TOTAL 0.9 mg/dL (0.2-1.0); CALCIUM 9.2 mg/dL (8.5-10.3); CREATININE 0.9 mg/dL (0.4-1.0); POTASSIUM 4.1 mmol/L (3.5-5.0); TOTAL PROTEIN 7.1 g/dL (6.7-8.2)
== END 2022-10-23 11:38 | disposition home or self-care (01) ==
LOC: LAB.N 11:37
PROVIDERS: ATTEND Internal Medicine Rheumatology
DX: M05.79 Rheumatoid arthritis with rheumatoid factor of multiple sites without organ or systems involvement (principal)
CPT/HCPCS: 36415; 80053; 85025; 85651

== ENCOUNTER 2022-12-29 22:02 | Outpatient (CLI) | payer MEDICARE | END 2022-12-29 22:03 | disposition critical access hospital (66) | LOC: EMS 22:02 | DX: M25.512 Pain in left shoulder (principal); W01.0XXA Fall on same level from slipping, tripping and stumbling without subsequent striking against object, initial encounter; Y93.01 Activity, walking, marching and hiking; Y92.008 Other place in unspecified non-institutional (private) residence as the place of occurrence of the external cause | CPT/HCPCS: A0425; A0429 ==

== ENCOUNTER 2022-12-29 22:20 | Emergency (ER) | payer MEDICARE ==
--- NOTE | 2022-12-29 22:33 | ED Physician Documentation ---
PD HPI Fall - Stated complaint Stated Complaint: FALL - History obtained from History obtained from: Patient - History of Present Illness Mechanism of injury: Tripped Fall distance: Standing position Where injury occurred: Home Timing - onset: How many days ago (3) Injury(ies) location: Neck, Chest, Left Uppper Extremity Quality of pain: Pain Associated symptoms: Neck pain. No: LOC, AMS, Amnesia, Seizures, Ear drainage, Nasal drainage, Weakness, Paresthesias, Dyspnea, Nausea / vomiting, Hematemesis Symptoms improve with: Rest Worsens with: Movement, Palpation Contributing factors: No: Anticoagulated, Intoxicated Similar symptoms before: Diagnosis (contusion) Recently seen: Not recently seen - Additional information Additional information: Guerline Edmond is an 82 y/o female that was in her home 3 days ago when she tripped and fell forward. She usually uses the zheng of the nunez to steady herself and she tripped in the nunez. No loss of consciousness. Pain is worse on the 3rd day. She was at home with her son today when she mention to him about the pain that she was in from a fall she had 3 days ago. He insisted she go to the hospital and she was wanting to drive as he is not allowed to drive and he called 911. She is complaining of some pain to her left shoulder and anterior chest and the chest wall is tender. She has some pain to her neck as well with an injury she had to her forehead in the fall. She had some bruises to the forehead which are resolved now. Review of Systems Constitutional: denies: Fever Eyes: denies: Decreased vision Ears: denies: Ear pain Nose: denies: Congestion Throat: denies: Sore throat Cardiac: reports: Chest pain / pressure. denies: Palpitations, Pedal edema, Calf pain Respiratory: denies: Dyspnea, Cough GI: denies: Abdominal Pain, Nausea, Vomiting, Constipation, Diarrhea : denies: Dysuria, Frequency Skin: denies: Rash Musculoskeletal: reports: Neck pain, Extremity pain, Joint pain. denies: Back pain, Joint swelling, Pain with weight bearing Neurologic: denies: Generalized weakness, Focal weakness, Numbness PD PAST MEDICAL HISTORY - Past Medical History Cardiovascular: Hypertension, High cholesterol, Coronary artery disease, Deep vein thrombosis, Angina, Murmur, Arrhythmia, Valve disorder, Other (Diastolic heart failure) Respiratory: Other (has had rib fractures within the past year that "aren't healing". 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: Tubal ligation Cardiovascular: Cardiac catheterization HEENT: Cataracts, Tonsil/Adenoidectomy - Present Medications Home Medications: Ambulatory Orders Medication Instructions Recorded Confirmed Levothyroxine [Synthroid] 50 mcg PO QDAC 01/01/17 12/04/22 Simvastatin [Zocor] 10 mg PO QPM 01/01/17 12/04/22 lisinopriL [Lisinopril] 5 mg PO DAILY 01/01/17 12/04/22 Etanercept [Enbrel] 50 mg SQ Q7D 05/23/17 12/04/22 Methotrexate [Methotrexate Sodium] 15 mg PO Q7D 05/23/17 12/04/22 Metoprolol Succinate [Toprol Xl] 25 mg PO DAILY 05/25/17 12/04/22 Calcium Carbonate [Calcium] 1,200 mg PO DAILY 05/28/17 12/04/22 Multivitamin [Theragran] 1 tab PO DAILY 05/28/17 12/04/22 Furosemide 20 mg PO DAILY 02/05/19 12/04/22 Ascorbic Acid [Vitamin C] 500 mg PO DAILY 09/18/20 12/04/22 Cholecalciferol (Vitamin D3) 5,000 unit PO DAILY 09/18/20 12/04/22 [Vitamin D3] Cyanocobalamin (Vitamin B-12) 5,000 mcg PO DAILY 09/18/20 12/04/22 [Vitamin B-12] Folic Acid 800 mg PO DAILY 09/18/20 12/04/22 Magnesium Oxide [Magnesium] 500 mg PO DAILY 09/18/20 12/04/22 [place]inson-3/Dha/Epa/Fish Oil [Fish Oil 1,200 mg PO DAILY 09/18/20 12/04/22 1,200 mg Softgel] Pantoprazole [Protonix] 40 mg PO DAILY 09/18/20 12/04/22 Gentamicin Sulfate See Rx Instructions .ROUTE 08/27/22 12/04/22 .COMPLEX #30 gm Triamcinolone Acetonide 0.1% See Rx Instructions .ROUTE 10/30/22 12/04/22 [Triamcinolone Acetonide] .COMPLEX #80 gm Gentamicin Sulfate See Rx Instructions .ROUTE 12/05/22 .COMPLEX #30 gm Linezolid [Zyvox] 600 mg PO BID 7 Days #14 tablet 12/17/22 - Allergies Allergies/Adverse Reactions: Allergies Allergy/AdvReac Type Severity Reaction Status Date / Time aspirin Allergy Unknown Verified 10/30/22 14:22 NSAIDS (Non-Steroidal Allergy Unknown Verified 10/30/22 14:22 Anti-Inflamma - Social History Does the pt smoke?: No Smoking Status: Former smoker Does the pt drink ETOH?: No Does the pt have substance abuse?: No - Immunizations Immunizations are current?: Yes - POLST Patient has POLST: No POLST Status: Full Code (she has not thought about advanced care planning or planning for severe diability. She thinks that if she is resuscitated she will recover to be normal and go home again.) PD ED PE NORMAL - Vitals Vital signs reviewed: Yes - General General: Alert and oriented X 3, No acute distress, Well developed/nourished - HEENT HEENT: Atraumatic, PERRL, EOMI - Neck Neck: Supple, no meningeal sign, Other (mild midline bony tenderness without reduction in ROM ) - Cardiac Cardiac: RRR, No murmur - Respiratory Respiratory: No respiratory distress, Clear bilaterally, Other (chest wall pain to palpation along the costosternal junction ) - Abdomen Abdomen: Soft, Non tender - Back Back: No CVA TTP, No spinal TTP - Derm Derm: Normal color, Warm and dry, No rash - Extremities Extremities: No deformity, No edema, Other (mild point tenderness to the left shoulder with normal ROM. distal n/v intact. ) - Neuro Neuro: Alert and oriented X 3, autopsy pathologist 2-12 intact, No motor deficit, No sensory deficit, Normal speech Eye Opening: Spontaneous Motor: Obeys Commands Verbal: Oriented GCS Score: 15 Results - Vitals Vitals: Vital Signs - 24 hr 12/29/22 22:26 Temperature 36.5 C Heart Rate 95 Respiratory 16 Rate Blood Pressure 150/82 H O2 Saturation 94 Oxygen O2 Source [Without Activity] Room air O2 Source Room air - Rads (name of study) CT cevical spine Relevant Findings:: Prelim report reviewed (Impression: 1. No fracture or subluxation. There is multilevel degenerative disc disease and facet arthropathy.), EMP independent interpretation of test CT head Relevant Findings:: Prelim report reviewed (Impression: 1. No acute intracranial abnormality. Moderate cerebral volume loss and chronic white matter images), EMP independent interpretation of test Chest Relevant Findings:: Prelim report reviewed (Impression: 1. No acute cardiopulmonary process), EMP independent interpretation of test Left shoulder Relevant Findings:: Prelim report reviewed (Impression: 1. No fracture or disl ocation.), EMP independent interpretation of test PD Medical Decision Making - ED course Complexity details: reviewed old records, reviewed results, re-evaluated patient, considered differential, d/w patient ED course: 82-year-old Guerline Bishop came to the emergency department this morning with a chief complaint of pain to the left shoulder and anterior chest head and neck after a fall 3 days ago. She was unable to drive herself here and had to call the ambulance. She denies significant pain or pain that requires pain medication. Departure - Departure Disposition: 01 Home, Self Care Clinical Impression: Chest wall contusion Qualifiers: Encounter type: initial encounter Laterality: left Qualified Code(s): S20.212A - Contusion of left front wall of thorax, initial encounter Fall from slip, trip, or stumble Qualifiers: Encounter type: initial encounter Qualified Code(s): W01.0XXA - Fall on same level from slipping, tripping and stumbling without subsequent striking against object, initial encounter Shoulder contusion Qualifiers: Encounter type: initial encounter Laterality: left Qualified Code(s): S40.012A - Contusion of left shoulder, initial encounter Cervical strain, acute Qualifiers: Encounter type: initial encounter Qualified Code(s): S16.1XXA - Strain of m uscle, fascia and tendon at neck level, initial encounter Instructions: ED Contusion Chest Wall, ED Contusion Shoulder, ED Sprain Strain Neck Follow-Up: Bianka Santiago PA-C [Primary Care Provider] - Comments: Guerline, today looks like you have contused her chest wall your left shoulder and strained your neck. By far the part that may cause you the most problem is the chest wall contusion. This can get even more painful by the fifth day. If you begin to have problems with breathing because of the pain a follow-up with your primary care doctor is indicated. Usually this will require some anti- inflammatory or pain medication.
--- NOTE | 2022-12-30 00:36 | CT Report ---
PROCEDURE: HEAD WO INDICATIONS: concussion memory deficits TECHNIQUE: Noncontrast 4.5 mm thick angled axial sections acquired from the foramen magnum to the vertex. For r adiation dose reduction, the following was used: automated exposure control, adjustment of mA and/or kV according to patient size. COMPARISON: CT head 02/20/2022. FINDINGS: Image quality: Excellent. CSF spaces: There is moderate cerebral volume loss with prominence of the ventricles and sulci. Basa l cisterns are patent. No extra-axial fluid collections. Brain: No intracranial hemorrhage, mass, or mass effect. Carey-white matter interface is preserved. T here are subcortical and periventricular white matter hypodensities consistent with moderate chronic small vessel ischemic changes. Skull and face: Calvarium and visualized facial bones are intact. Sinuses: Visualized sinuses and mastoids are clear. IMPRESSION: 1. No acute intracranial abnormality. 2. Moderate cerebral volume loss and chronic white matter images. Reviewed by: Felipe Royal MD on 12/30/2022 12:34 AM PDT Approved by: Felipe Royal MD on 12/30/2022 12:34 AM PDT Station ID: [id number]
--- NOTE | 2022-12-30 00:38 | CT Report ---
PROCEDURE: CERVICAL SPINE WO INDICATIONS: fall head injury neck pain TECHNIQUE: Noncontrast 3 mm thick sections acquired from the skull base to the T4 level. Sagittal and coronal r eformats were then constructed. For radiation dose reduction, the following was used: automated exp osure control, adjustment of mA and/or kV according to patient size. COMPARISON: CT cervical spine 02/16/2021. FINDINGS: Image quality: Excellent. Bones: No fractures or subluxation. Visualized superior ribs are intact. Soft tissues: Prevertebral soft tissues are normal in thickness. No paravertebral hematomas. No ap ical pneumothoraces. There is multilevel degenerative disc disease and facet joint arthropathy. IMPRESSION: 1. No fracture or subluxation. There is multilevel degenerative disc disease and facet arthropathy. Reviewed by: Felipe Royal MD on 12/30/2022 12:37 AM PDT Approved by: Felipe Royal MD on 12/30/2022 12:37 AM PDT Station ID: [id number]
--- NOTE | 2022-12-30 00:41 | XRAY Report ---
PROCEDURE: Shoulder 3 View LT INDICATIONS: fall shoulder pain TECHNIQUE: 5 views of the shoulder were acquired. COMPARISON: None. FINDINGS: Bones: No fractures or dislocations. No suspicious bony lesions. Visualized ribs appear intact. Soft tissues: No suspicious soft tissue calcifications. IMPRESSION: 1. No fracture or dislocation. Reviewed by: Felipe Royal MD on 12/30/2022 12:39 AM PDT Approved by: Felipe Royal MD on 12/30/2022 12:39 AM PDT Station ID: [id number]
--- NOTE | 2022-12-30 00:45 | XRAY Report ---
PROCEDURE: Chest 2 View X-Ray INDICATIONS: chest wall contusion anterior with pain TECHNIQUE: 2 views of the chest were acquired. COMPARISON: 11/07/20. FINDINGS: Surgical changes and devices: None. Lungs and pleura: There is a suspected small left pleural effusion. Mediastinum: A large hiatal hernia is redemonstrated. Bones and chest wall: No displaced rib fracture identified. No suspicious bony lesions. Overlying s oft tissues appear unremarkable. IMPRESSION: 1. No acute cardiopulmonary disease. Reviewed by: Felipe Royal MD on 12/30/2022 12:44 AM PDT Approved by: Felipe Royal MD on 12/30/2022 12:44 AM PDT Station ID: [id number]
[2022-12-30 01:24] VITALS: BP 132/96
== END 2022-12-30 01:25 | disposition home or self-care (01) ==
LOC: ED 22:20
DX: S16.1XXA Strain of muscle, fascia and tendon at neck level, initial encounter (principal); S20.212A Contusion of left front wall of thorax, initial encounter; S40.012A Contusion of left shoulder, initial encounter; W01.0XXA Fall on same level from slipping, tripping and stumbling without subsequent striking against object, initial encounter; Y92.008 Other place in unspecified non-institutional (private) residence as the place of occurrence of the external cause; I10 Essential (primary) hypertension; E78.00 Pure hypercholesterolemia, unspecified; I25.10 Atherosclerotic heart disease of native coronary artery without angina pectoris; I50.30 Unspecified diastolic (congestive) heart failure; E03.9 Hypothyroidism, unspecified; Z79.899 Other long term (current) drug therapy; Z87.891 Personal history of nicotine dependence
CPT/HCPCS: 99283; 99284

== ENCOUNTER 2022-12-31 02:22 | Outpatient (CLI) | payer MEDICARE | END 2022-12-31 02:23 | disposition EMS.NT | LOC: EMS 02:22 | DX: R07.81 Pleurodynia (principal); W01.198A Fall on same level from slipping, tripping and stumbling with subsequent striking against other object, initial encounter; Y92.009 Unspecified place in unspecified non-institutional (private) residence as the place of occurrence of the external cause ==

== ENCOUNTER 2023-01-02 02:59 | Outpatient (CLI) | payer MEDICARE | END 2023-01-02 03:00 | disposition EMS.NT | LOC: EMS 02:59 | DX: Z03.89 Encounter for observation for other suspected diseases and conditions ruled out (principal) ==

== ENCOUNTER 2023-01-07 10:27 | Outpatient (CLI) | payer MEDICARE ==
[2023-01-07 11:17] LABS: THYROID STIMULATING HORMONE 1.92 uIU/mL (0.34-5.60)
== END 2023-01-07 10:28 | disposition home or self-care (01) ==
LOC: LAB 10:27
PROVIDERS: ATTEND Physician Assistant Medical
DX: E03.9 Hypothyroidism, unspecified (principal); R20.2 Paresthesia of skin
CPT/HCPCS: 36415; 82607; 84443

== ENCOUNTER 2023-01-19 15:32 | Emergency (ER) | payer MEDICARE ==
[2023-01-19] MEDS ORDERED: LIDOCAINE 1%-EPI 1:100000 20 ML MDV SUBQ STA (16:29)
--- NOTE | 2023-01-19 16:30 | ED Physician Documentation ---
PD HPI LOWER EXT INJURY - Stated complaint Stated Complaint: RT KNEE PX - Chief complaint Chief Complaint: Ext Problem - History obtained from History obtained from: Patient - Additional information Additional information: 82-year-old woman status post remote left total knee replacement. She has had several years of right knee pain which is worsened over the last couple of weeks such that she cannot really walk without pain now. Had a cortisone shot a few days ago which she found unhelpful. PD PAST MEDICAL HISTORY - Past Medical History Cardiovascular: Hypertension, High cholesterol, Coronary artery disease, Deep vein thrombosis, Angina, Murmur, Arrhythmia, Valve disorder, Other (Diastolic heart failure) Respiratory: Other (has had rib fractures within the past year that "aren't healing". 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 : Incontinence, Frequency HEENT: Chronic vision loss Psych: Depression, Anxiety Musculoskeletal: Osteoarthritis, Rheumatoid arthritis, Osteoporosis, Other (Raynaud's) Derm: None - Past Surgical History Past Surgical History: Yes General: Colonoscopy, EGD Ortho: Hip replacement, Knee replacement, Other /APPRENTICE COOK: Tubal ligation Cardiovascular: Cardiac catheterization HEENT: Cataracts, Tonsil/Adenoidectomy - Present Medications Home Medications: Ambulatory Orders Medication Instructions Recorded Confirmed Levothyroxine [Synthroid] 50 mcg PO QDAC 01/01/17 12/04/22 Simvastatin [Zocor] 10 mg PO QPM 01/01/17 12/04/22 lisinopriL [Lisinopril] 5 mg PO DAILY 01/01/17 12/04/22 Etanercept [Enbrel] 50 mg SQ Q7D 05/23/17 12/04/22 Methotrexate [Methotrexate Sodium] 15 mg PO Q7D 05/23/17 12/04/22 Metoprolol Succinate [Toprol Xl] 25 mg PO DAILY 05/25/17 12/04/22 Calcium Carbonate [Calcium] 1,200 mg PO DAILY 05/28/17 12/04/22 Multivitamin [Theragran] 1 tab PO DAILY 05/28/17 12/04/22 Furosemide 20 mg PO DAILY 02/05/19 12/04/22 Ascorbic Acid [Vitamin C] 500 mg PO DAILY 09/18/20 12/04/22 Cholecalciferol (Vitamin D3) 5,000 unit PO DAILY 09/18/20 12/04/22 [Vitamin D3] Cyanocobalamin (Vitamin B-12) 5,000 mcg PO DAILY 09/18/20 12/04/22 [Vitamin B-12] Folic Acid 800 mg PO DAILY 09/18/20 12/04/22 Magnesium Oxide [Magnesium] 500 mg PO DAILY 09/18/20 12/04/22 [place]-3/Dha/Epa/Fish Oil [Fish Oil 1,200 mg PO DAILY 09/18/20 12/04/22 1,200 mg Softgel] Pantoprazole [Protonix] 40 mg PO DAILY 09/18/20 12/04/22 Gentamicin Sulfate See Rx Instructions .ROUTE 08/27/22 12/04/22 .COMPLEX #30 gm Triamcinolone Acetonide 0.1% See Rx Instructions .ROUTE 10/30/22 12/04/22 [Triamcinolone Acetonide] .COMPLEX #80 gm Gentamicin Sulfate See Rx Instructions .ROUTE 12/05/22 .COMPLEX #30 gm Linezolid [Zyvox] 600 mg PO BID 7 Days #14 tablet 12/17/22 Gentamicin Sulfate See Rx Instructions .ROUTE 01/16/23 .COMPLEX #30 gm HYDROcod/ACETAM 5/325 [[place]ora 5/325] 1 - 2 tab PO Q6H PRN #15 tablet 01/19/23 - Allergies Allergies/Adverse Reactions: Allergies Allergy/AdvReac Type Severity Reaction Status Date / Time aspirin Allergy Unknown Verified 10/30/22 14:22 NSAIDS (Non-Steroidal Allergy Unknown Verified 10/30/22 14:22 Anti-Inflamma - Social History Does the pt smoke?: No Smoking Status: Former smoker Does the pt drink ETOH?: No Does the pt have substance abuse?: No - Immunizations Immunizations are current?: Yes - POLST Patient has POLST: No POLST Status: Full Code (she has not thought about advanced care planning or planning for severe diability. She thinks that if she is resuscitated she will recover to be normal and go home again.) PD ED PE NORMAL - Vitals Vital signs reviewed: Yes - General General: Alert and oriented X 3, No acute distress - Extremities Extremities: Other (There is an effusion of the right knee without tenderness or limited passive range of motion but she has a lot of difficulty walking due to pain.) - Neuro Neuro: Alert and oriented X 3, Normal speech Results - Vitals Vitals: Vital Signs - 24 hr 01/19/23 01/19/23 16:01 17:59 Temperature 36.4 C L Heart Rate 88 75 Respiratory 20 16 Rate Blood Pressure 115/53 L 120/77 O2 Saturation 98 96 Oxygen O2 Source [] Room air O2 Source Room air - Labs Labs: Microbiology 01/19/23 17:25 Body Fluid Culture - Preliminary Synovial Fluid Laboratory Tests 01/19/23 01/19/23 17:25 17:25 Fluid Source SYNOVIAL Fluid Color YELLOW Fluid Clarity CLOUDY Fluid WBC 122 Fluid RBC 4000 Fluid Crystals NONE SEEN - Rads (name of study) Three-view x-ray of the right knee demonstrates tricompartmental DJD with joint space narrowing Relevant Findings:: Final report received, EMP independent interpretation of test Procedures - Arthrocentesis Joint: Knee, Right Preparation: Consent obtained, Sterile prep and drape Anesthesia: Lidocaine 1%, Other (Injected about 5 cc of 0.5% ropivacaine) Fluid: Clear (6ml), Sent for cell count, Sent for crystals, Sent for culture Aftercare: Dressing applied PD Medical Decision Making - ED course ED course: 82-year-old woman with worsening atraumatic right knee pain with bad arthritis on x-ray. After informed consents arthrocentesis of the right knee was done and also injected 5 mL of ropivacaine for pain control. Departure - Departure Disposition: 01 Home, Self Care Clinical Impression: Arthritis of knee Condition: Good Record reviewed to determine appropriate education?: Yes Instructions: Knee Osteoarthritis Prescriptions: HYDROcod/ACETAM 5/325 [Dannemora 5/325] 1 - 2 tab PO Q6H PRN #15 tablet PRN Reason: Pain Comments: I sent your prescription electronically to [facility] in [place]. You should go back and see your orthopedic surgeon who did your left knee, it is likely that you will need something done with your right knee as well. You can take Tylenol for pain in addition to the prescription. Return if worsening. I am prescribing a short course of narcotic pain medication for you. These are potentially dangerous and addictive medications that should be used carefully. These medications may constipate you. Take an [id number] stool softener (docusate) twice daily with plenty of water while taking these medications. If you go 24 hours without a bowel movement, take [id number] miralax, per package instructions. Do not drink or drive while taking these medications. If you received narcotic or sedating medications while in the emergency department, do not drive for 24 hours. Store this medication in a safe, secure place and out of reach of children. It is a violation of federal law to give or sell this medication to another person or to use in a manner other than prescribed. The ED will not refill narcotic prescriptions, including prescriptions lost or stolen. To dispose of unwanted medications: 1. [facility] provides a drop box for medication in pill form only (no liquids) 8:00 am to 4:30 p.m. Friday-Friday in the lobby of the [facility], [address] [place] [address]. Empty pills into ziplock bag before disposal. Call [phone] for information. 2.[employer] is a free service available to all [facility] residents. Go to [email or web address] Note that many narcotic pain relievers also contain Tylenol/acetaminophen. Please ensure that your total dose of acetaminophen from all sources does not exceed 3 g (3000 mg) per day. Discharge Date/Time: 01/19/23 17:59
[2023-01-19] MEDS ORDERED: ROPIVACAINE 0.5% PF 20 ML VIAL SUBQ STA (16:32)
--- NOTE | 2023-01-19 16:56 | XRAY Report ---
PROCEDURE: Knee 3 View RT INDICATIONS: knee pain TECHNIQUE: 3 views of the right knee(s) were acquired. COMPARISON: None. FINDINGS: Bones: No fractures or dislocations. No suspicious bony lesions. Degenerative changes of the righ t knee with lateral joint space narrowing. Soft tissues: No knee joint effusion. No suspicious soft tissue calcifications or masses. Vascular calcifications are present. IMPRESSION: 1. No acute abnormality of the right knee. 2. Tricompartmental degenerative changes of the right knee with lateral joint space narrowing. Reviewed by: Chuck Noguera on 01/19/2023 3:54 PM [facility] Approved by: Chuck Noguera on 01/19/2023 3:54 PM MICA Station ID: [id number]
[2023-01-19 18:00] VITALS: BP 120/77
[2023-01-19 18:16] LABS: BF CLARITY CLOUDY; BF COLOR YELLOW; BF SOURCE SYNOVIAL; CC,BF RBC 4000 /mm^3; CC,BF WBC 122 /mm^3
[2023-01-19 19:05] LABS: LYMPHOCYTES %,BODY FLUID 40 %; NEUTROPHILS %, BF 60 %
== END 2023-01-19 17:59 | disposition home or self-care (01) ==
LOC: ED 15:32
DX: M17.11 Unilateral primary osteoarthritis, right knee (principal); E78.00 Pure hypercholesterolemia, unspecified; I25.10 Atherosclerotic heart disease of native coronary artery without angina pectoris; I11.0 Hypertensive heart disease with heart failure; I50.30 Unspecified diastolic (congestive) heart failure; E03.9 Hypothyroidism, unspecified; Z86.718 Personal history of other venous thrombosis and embolism; Z87.891 Personal history of nicotine dependence; Z79.899 Other long term (current) drug therapy
CPT/HCPCS: 20610; 73562; 87070; 87205; 89051; 89060; 99284; J2795

== ENCOUNTER 2023-03-14 12:42 | Outpatient (CLI) | payer MEDICARE ==
[2023-03-14 13:01] LABS: BASOPHILS % (AUTO) 0.5 %; EOSINOPHILS # (AUTO) 0.5 10^3/uL (0.0-0.7); EOSINOPHILS % (AUTO) 6.4 %; HCT - HEMATOCRIT 40.2 % (37.0-47.0); HGB - HEMOGLOBIN 13.1 g/dL (12.0-16.0); LYMPHOCYTES # (AUTO) 1.7 10^3/uL (1.5-3.5); LYMPHOCYTES % (AUTO) 21.2 %; MEAN CORPUSCULAR HEMOGLOBIN 32.7 pg (27.0-31.0); MEAN CORPUSCULAR HGB CONC 32.6 g/dL (32.0-36.0); MEAN CORPUSCULAR VOLUME 100.2 fL (81.0-99.0); MEAN PLATELET VOLUME 9.1 fL (7.9-10.8); MONOCYTES # (AUTO) 0.9 10^3/uL (0.0-1.0); MONOCYTES % (AUTO) 11.6 %; NEUTROPHILS # (AUTO) 4.8 10^3/uL (1.5-6.6); NEUTROPHILS % (AUTO) 60.2 %; PLT - PLATELET COUNT 245 10^3/uL (130-450); RED BLOOD COUNT 4.01 10^6/uL (4.20-5.40)
[2023-03-14 13:15] LABS: ALBUMIN 4.2 g/dL (3.2-5.5); ALBUMIN/GLOBULIN RATIO 1.6 (1.0-2.2); ALKALINE PHOSPHATASE 61 IU/L (42-121); ALT ALANINE AMINOTRANSFERASE 10 IU/L (10-60); AST ASPARTATE AMINOTRANSFERASE 16 IU/L (10-42); BILIRUBIN,TOTAL 0.7 mg/dL (0.2-1.0); BUN - BLOOD UREA NITROGEN 20 mg/dL (6-20); CALCIUM 9.8 mg/dL (8.5-10.3); CARBON DIOXIDE - CO2 28 mmol/L (21-32); CHLORIDE 104 mmol/L (101-111); CHOL/HDL RATIO 2.1 (<4.4); CHOLESTEROL 125 mg/dL; CREATININE 0.9 mg/dL (0.6-1.3); GFR - MDRD 60 (>89); GLUCOSE 110 mg/dL (74-104); HDL CHOLESTEROL 59 mg/dL; LDL CHOLESTEROL,CALCULATED 53 mg/dL; LDL/HDL RATIO 0.9 (<4.4); POTASSIUM 4.6 mmol/L (3.5-4.5); SODIUM 138 mmol/L (135-145); TOTAL PROTEIN 6.9 g/dL (6.4-8.9); TRIGLYCERIDES 64 mg/dL (48-352); VLDL CHOLESTEROL 13 mg/dL
== END 2023-03-14 12:43 | disposition home or self-care (01) ==
LOC: LAB 12:42
PROVIDERS: ATTEND Physician Assistant Medical
DX: E78.5 Hyperlipidemia, unspecified (principal); I10 Essential (primary) hypertension
CPT/HCPCS: 36415; 80053; 80061; 83721; 85025

== ENCOUNTER 2023-03-29 17:33 | Outpatient (CLI) | payer MEDICARE | END 2023-03-29 23:59 | disposition short-term general hospital (02) | LOC: EMS 17:33 | DX: S09.90XA Unspecified injury of head, initial encounter (principal); R41.0 Disorientation, unspecified; M25.551 Pain in right hip; M25.511 Pain in right shoulder; W19.XXXA Unspecified fall, initial encounter; Y92.008 Other place in unspecified non-institutional (private) residence as the place of occurrence of the external cause | CPT/HCPCS: A0425; A0427 ==

== ENCOUNTER 2023-04-30 10:12 | Outpatient (CLI) | payer MEDICARE ==
[2023-04-30 12:10] LABS: BASOPHILS # (AUTO) 0.1 10^3/uL (0.0-0.1); BASOPHILS % (AUTO) 0.6 %; EOSINOPHILS # (AUTO) 0.4 10^3/uL (0.0-0.7); EOSINOPHILS % (AUTO) 5.3 %; HCT - HEMATOCRIT 41.5 % (37.0-47.0); HGB - HEMOGLOBIN 13.4 g/dL (12.0-16.0); LYMPHOCYTES # (AUTO) 1.4 10^3/uL (1.5-3.5); LYMPHOCYTES % (AUTO) 17.1 %; MEAN CORPUSCULAR HEMOGLOBIN 31.9 pg (27.0-31.0); MEAN CORPUSCULAR HGB CONC 32.3 g/dL (32.0-36.0); MEAN CORPUSCULAR VOLUME 98.8 fL (81.0-99.0); MEAN PLATELET VOLUME 9.6 fL (7.9-10.8); MONOCYTES # (AUTO) 0.7 10^3/uL (0.0-1.0); MONOCYTES % (AUTO) 8.1 %; NEUTROPHILS # (AUTO) 5.6 10^3/uL (1.5-6.6); NEUTROPHILS % (AUTO) 68.7 %; PLT - PLATELET COUNT 304 10^3/uL (130-450); RED CELL DISTRIBUTION WIDTH 14.6 % (12.0-15.0); WHITE BLOOD COUNT 8.1 x10^3/uL (4.8-10.8)
== END 2023-04-30 10:13 | disposition home or self-care (01) ==
LOC: LAB.N 10:12
PROVIDERS: ATTEND Internal Medicine Rheumatology
DX: M05.79 Rheumatoid arthritis with rheumatoid factor of multiple sites without organ or systems involvement (principal)
CPT/HCPCS: 36415; 85025; 85651

== ENCOUNTER 2023-05-05 08:00 | Outpatient (CLI) | payer MEDICARE ==
[2023-05-05 19:16] LABS: BILIRUBIN,URINE NEGATIVE (NEGATIVE); GLUCOSE, URINE (UA) NEGATIVE (NEGATIVE); KETONES,URINE (UA) TRACE mg/dL (NEGATIVE); LEUKOCYTE ESTERASE, URINE NEGATIVE (NEGATIVE); NITRITE,URINE NEGATIVE (NEGATIVE); OCCULT BLOOD,URINE NEGATIVE (NEGATIVE); PROTEIN,URINE NEGATIVE (NEGATIVE); UROBILINOGEN,URINE 0.2 (NORMAL) E.U./dL (NORMAL)
[2023-05-05 19:27] LABS: CLARITY,URINE CLEAR (CLEAR)
[2023-05-05 19:45] LABS: AMORPHOUS SEDIMENT,UR Rare /LPF; BACTERIA,URINE None Seen /HPF (None Seen); RBC,URINE None Seen /HPF (0-5); SQUAMOUS EPITHELIAL CELL,UR NONE SEEN (<= Few); WBC,URINE 0-3 /HPF (0-5)
== END 2023-05-05 23:59 | disposition home or self-care (01) ==
LOC: LAB.WCP 08:00
PROVIDERS: ATTEND Nurse Practitioner
DX: N39.3 Stress incontinence (female) (male) (principal)
CPT/HCPCS: 81001; 87086

== ENCOUNTER 2023-05-05 12:22 | Emergency (ER) | payer MEDICARE ==
[2023-05-05 12:46] VITALS: BP 171/75; O2SAT 98
--- NOTE | 2023-05-05 13:02 | ED Physician Documentation ---
History of Present Illness - Stated complaint Stated Complaint: HIGH BP, SHAKING - Chief complaint Chief Complaint: General - History obtained from History obtained from: Patient, Family - Additonal information Additional information: 82-year-old female who has past medical history as listed below including prior hypertension presents from the [facility] wound care clinic after she was noted to be quite hypertensive there. The patient was being seen for bilateral lower extremity wounds and apparently was being started on 2 different antibiotics today for wound infection. She was noted to have blood pressure in the 190s over 100s and a repeat in the 170s over 90s and thus was directed here to be evaluated after her appointment. She actually has a PCP follow-up later today. The patient used to be on lisinopril though she was taken off of this a few months ago apparently due to low blood pressure. Patient has not had any symptoms of hypertension, no vision changes, no headache no chest pain or difficulty breathing. She states she generally feels sluggish today but does not have any specific complaints. She denies any abdominal pain, no nausea vomiting or diarrhea, no urinary symptoms. She is unsure what antibiotic she was started on but was started on 2 antibiotics today that have yet to be picked up at the pharmacy. She is companied by her son today who helps with history. Review of Systems Constitutional: reports: Reviewed and negative Eyes: reports: Reviewed and negative Ears: reports: Reviewed and negative Nose: reports: Reviewed and negative Throat: reports: Reviewed and negative Cardiac: reports: Reviewed and negative Respiratory: reports: Reviewed and negative GI: reports: Reviewed and negative : reports: Reviewed and negative Skin: reports: Rash, Lesions Musculoskeletal: reports: Reviewed and negative Neurologic: reports: Reviewed and negative Psychiatric: reports: Reviewed and negative PD PAST MEDICAL HISTORY - Past Medical History Past Medical History: Yes Cardiovascular: Hypertension, High cholesterol, Coronary artery disease, Deep vein thrombosis, Angina, Murmur, Arrhythmia, Valve disorder, Other (Diastolic heart failure) Respiratory: Other (has had rib fractures within the past year that "aren't healing". 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: Other : Incontinence, Frequency HEENT: Chronic vision loss Psych: Depression, Anxiety Musculoskeletal: Osteoarthritis, Rheumatoid arthritis, Osteoporosis, Other (Raynaud's) Derm: None - Past Surgical History Past Surgical History: Yes General: Colonoscopy, EGD Ortho: Hip replacement, Knee replacement, Other /TIRE AND LUBE TECHNICIAN: Tubal ligation Cardiovascular: Cardiac catheterization HEENT: Cataracts, Tonsil/Adenoidectomy - Present Medications Home Medications: Ambulatory Orders Medication Instructions Recorded Confirmed Levothyroxine [Synthroid] 75 mcg PO QDAC 01/01/17 04/28/23 Simvastatin [Zocor] 10 mg PO QPM 01/01/17 04/28/23 Etanercept [Enbrel] 50 mg SQ Q7D 05/23/17 04/28/23 Calcium Carbonate [Calcium] 1,200 mg PO DAILY 05/28/17 04/28/23 Multivitamin [Theragran] 1 tab PO DAILY 05/28/17 04/28/23 Furosemide 20 mg PO DAILY 02/05/19 04/28/23 Ascorbic Acid [Vitamin C] 1,000 mg PO DAILY 09/18/20 04/28/23 Cholecalciferol (Vitamin D3) 2,000 unit PO DAILY 09/18/20 04/28/23 [Vitamin D3] Cyanocobalamin (Vitamin B-12) 5,000 mcg PO DAILY 09/18/20 04/28/23 [Vitamin B-12] Folic Acid 800 mg PO DAILY 09/18/20 04/28/23 Magnesium Oxide [Magnesium] 500 mg PO DAILY 09/18/20 04/28/23 [place]-3/Dha/Epa/Fish Oil [Fish Oil 1,200 mg PO DAILY 09/18/20 04/28/23 1,200 mg Softgel] Pantoprazole [Protonix] 40 mg PO DAILY 09/18/20 04/28/23 HYDROcod/ACETAM 5/325 [[place] 5/325] 1 - 2 tab PO Q6H PRN #15 tablet 01/19/23 04/28/23 Triamcinolone Acetonide 0.1% See Rx Instructions .ROUTE 02/24/23 04/28/23 [Triamcinolone Acetonide] .COMPLEX PRN levoFLOXacin [Levofloxacin] 500 mg PO DAILY 10 Days #10 tablet 04/28/23 Linezolid [Zyvox] 600 mg PO BID 7 Days #14 tablet 05/05/23 Lisinopril [Zestril] 2.5 mg PO DAILY #30 tablet 05/05/23 - Allergies Allergies/Adverse Reactions: Allergies Allergy/AdvReac Type Severity Reaction Status Date / Time aspirin Allergy Unknown Verified 05/05/23 12:35 NSAIDS (Non-Steroidal Allergy Unknown Verified 05/05/23 12:35 Anti-Inflamma - Social History Does the pt smoke?: No Smoking Status: Former smoker Does the pt drink ETOH?: No Does the pt have substance abuse?: No - Immunizations Immunizations are current?: Yes - POLST Patient has POLST: No POLST Status: Full Code (she has not thought about advanced care planning or planning for severe diability. She thinks that if she is resuscitated she will recover to be normal and go home again.) PD ED PE NORMAL - Vitals Vital signs reviewed: Yes - General General: Alert and oriented X 3, No acute distress, Well developed/nourished - HEENT HEENT: Atraumatic, Moist mucous membranes - Cardiac Cardiac: RRR - Respiratory Respiratory: No respiratory distress, Clear bilaterally - Abdomen Abdomen: Normal bowel sounds, Soft, Non tender, Non distended - Derm Derm: Other (Bilateral lower legs wrapped in fresh dressing from wound clinic, not removed.) - Extremities Extremities: Other (Trace bilateral lower extremity edema) - Neuro Neuro: Alert and oriented X 3 Eye Opening: Spontaneous Motor: Obeys Commands Verbal: Oriented GCS Score: 15 - Psych Psych: Normal mood, Normal affect Results - Vitals Vitals: Vital Signs - 24 hr 05/05/23 12:35 Temperature 36.8 C Heart Rate 100 Respiratory 16 Rate Blood Pressure 171/75 H O2 Saturation 98 Oxygen O2 Source [Without Activity] Room air O2 Source Room air PD Medical Decision Making - ED course Complexity details: reviewed old records, considered differential, d/w patient, d/w family ED course: 82-year-old female presented for evaluation of hypertension which was noted when she was at the wound care clinic today. The patient's blood pressure here slightly better in the 170s over 70s and patient is asymptomatic from blood pressure standpoint denies any chest pain, no headache, no vision changes, no shortness of breath. Reviewed her prior records, she used to be on lisinopril 5 mg daily, though it sounds as though this was stopped due to hypotension therefore I resumed at 2.5 mg daily and patient will need to follow closely with her PCP to adjust this as necessary. Patient is also starting to antibiotics today for her lower extremity wound lesions and she should continue regular follow-up with wound care as scheduled. I did not evaluate the wounds today as a were seen today in the wound care clinic and had fresh dressings on them but she was advised that if she were to develop any fever, chills, or worsening appearance of her wounds after starting the antibiotics to return to the ER. Patient discharged home with her son in stable condition, she will also go to her PCP appointment this afternoon, they may elect to change her blood pressure medication as they will like the be the ones following up on this. Departure - Departure Disposition: Home, Self Care Clinical Impression: Hypertension Qualifiers: Hypertension type: primary hypertension Qualified Code(s): I10 - Essential (primary) hypertension Condition: Good Instructions: Hypertension Dc Prescriptions: Lisinopril [Zestril] 2.5 mg PO DAILY #30 tablet Comments: We have started you on a lower dose of lisinopril for your elevated blood pressure. Please discuss with your primary doctor at your appointment today. Please take antibiotics as prescribed in the clinic today. Follow up in the ER if you have any worsening symptoms such as fever. Medication sent to [facility]. Forms: PCP List Discharge Date/Time: 05/05/23 13:15
== END 2023-05-05 13:15 | disposition home or self-care (01) ==
LOC: ED 12:22
DX: I10 Essential (primary) hypertension (principal); N39.3 Stress incontinence (female) (male); Z87.891 Personal history of nicotine dependence
CPT/HCPCS: 36415; 80053; 81001; 81003; 85025; 87086; 99282; 99283

== ENCOUNTER 2023-05-05 19:45 | Outpatient (CLI) | payer MEDICARE | END 2023-05-05 23:59 | disposition left against medical advice (07) | LOC: EMS 19:45 | DX: I10 Essential (primary) hypertension (principal); R50.9 Fever, unspecified; R53.1 Weakness ==

== ENCOUNTER 2023-05-06 08:00 | Outpatient (CLI) | payer MEDICARE ==
[2023-05-06 17:43] LABS: BILIRUBIN,URINE NEGATIVE (NEGATIVE); GLUCOSE, URINE (UA) NEGATIVE (NEGATIVE); KETONES,URINE (UA) NEGATIVE (NEGATIVE); LEUKOCYTE ESTERASE, URINE NEGATIVE (NEGATIVE); NITRITE,URINE NEGATIVE (NEGATIVE); OCCULT BLOOD,URINE NEGATIVE (NEGATIVE); PROTEIN,URINE NEGATIVE (NEGATIVE); UROBILINOGEN,URINE 0.2 (NORMAL) E.U./dL (NORMAL)
[2023-05-06 17:52] LABS: CLARITY,URINE CLEAR (CLEAR)
[2023-05-06 17:53] LABS: BASOPHILS % (AUTO) 0.2 %; EOSINOPHILS % (AUTO) 0.2 %; HCT - HEMATOCRIT 37.8 % (37.0-47.0); HGB - HEMOGLOBIN 12.1 g/dL (12.0-16.0); LYMPHOCYTES # (AUTO) 1.1 10^3/uL (1.5-3.5); LYMPHOCYTES % (AUTO) 8.6 %; MEAN CORPUSCULAR HEMOGLOBIN 32.1 pg (27.0-31.0); MEAN CORPUSCULAR VOLUME 100.3 fL (81.0-99.0); MEAN PLATELET VOLUME 9.8 fL (7.9-10.8); MONOCYTES # (AUTO) 1.3 10^3/uL (0.0-1.0); MONOCYTES % (AUTO) 10.2 %; NEUTROPHILS # (AUTO) 10.5 10^3/uL (1.5-6.6); NEUTROPHILS % (AUTO) 80.5 %; PLT - PLATELET COUNT 262 10^3/uL (130-450); RED BLOOD COUNT 3.77 10^6/uL (4.20-5.40); RED CELL DISTRIBUTION WIDTH 14.8 % (12.0-15.0); WHITE BLOOD COUNT 13.1 x10^3/uL (4.8-10.8)
[2023-05-06 18:11] LABS: ALBUMIN/GLOBULIN RATIO 1.3 (1.0-2.2); BILIRUBIN,TOTAL 1.1 mg/dL (0.2-1.0); CALCIUM 9.6 mg/dL (8.5-10.3); CREATININE 1.1 mg/dL (0.6-1.3); POTASSIUM 3.8 mmol/L (3.5-4.5)
== END 2023-05-06 23:59 | disposition home or self-care (01) ==
LOC: LAB.N 08:00
PROVIDERS: ATTEND Nurse Practitioner
DX: L03.90 Cellulitis, unspecified (principal); R60.0 Localized edema; N39.3 Stress incontinence (female) (male)
CPT/HCPCS: 36415; 80053; 81001; 81003; 85025; 87086

== ENCOUNTER 2023-05-07 14:18 | Outpatient (CLI) | payer MEDICARE ==
--- NOTE | 2023-05-07 21:42 | XRAY Report ---
PROCEDURE: Hips 2V BILAT INDICATIONS: HIP JOINT PAIN, BILATERAL TECHNIQUE: 2 views of the hip were acquired. COMPARISON: None. FINDINGS: Bones: Patient is status post prior left total hip arthroplasty. Left hip alignment is anatomic. No gross hardware loosening or failure. No periprosthetic fracture. Moderate right hip joint osteoarthri tic changes are seen. No fractures or dislocations. No evidence of avascular necrosis of femoral hea d. No suspicious bony lesions. Soft tissues: No suspicious soft tissue calcifications or masses. IMPRESSION: 1. Prior left total hip arthroplasty with anatomic left hip alignment. No fracture or dislocation. No gross hardware loosening or failure. 2. Moderate right hip joint osteoarthritis. No fracture or dislocation. No evidence of avascular necr osis. Reviewed by: Dar Mendieta MD on 05/07/2023 9:40 PM PDT Approved by: Dar Mendieta MD on 05/07/2023 9:40 PM PDT Station ID: [id number]
== END 2023-05-07 14:19 | disposition home or self-care (01) ==
LOC: DI 14:18
PROVIDERS: ATTEND Nurse Practitioner
DX: Z96.642 Presence of left artificial hip joint (principal); M16.11 Unilateral primary osteoarthritis, right hip

== ENCOUNTER 2023-08-08 16:26 | Outpatient (CLI) | payer MEDICARE | END 2023-08-08 23:59 | disposition critical access hospital (66) | LOC: EMS 16:26 | DX: S00.83XA Contusion of other part of head, initial encounter (principal); R41.0 Disorientation, unspecified; W18.30XA Fall on same level, unspecified, initial encounter; Y92.481 Parking lot as the place of occurrence of the external cause | CPT/HCPCS: A0425; A0429 ==

== ENCOUNTER 2023-08-08 16:39 | Observation (INO) | payer MEDICARE ==
--- NOTE | 2023-08-08 16:45 | ED Physician Documentation ---
History of Present Illness - Stated complaint Stated Complaint: AMS/FALL - History obtained from History obtained from: Patient, EMS - Additonal information Additional information: 83-year-old woman presents by ambulance for altered mental status and collapse/syncopal episode. She has a history of gastric ulcers, knee replacement, hypertension, cholesterol, CAD, possible DVT, possible A-fib, COPD, TIA. Reportedly was at the grocery store in the parking lot and collapsed hitting her left forehead on the ground. She was very confused and at this point is having difficulty giving me much of a history. Prehospital blood sugar was I think 119. History is limited from the patient as she is confused. PD PAST MEDICAL HISTORY - Past Medical History Cardiovascular: Hypertension, High cholesterol, Coronary artery disease, Deep vein thrombosis, Angina, Murmur, Arrhythmia, Valve disorder, Other (Diastolic heart failure) Respiratory: Other (has had rib fractures within the past year that "aren't healing". 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: Tubal ligation Cardiovascular: Cardiac catheterization HEENT: Cataracts, Tonsil/Adenoidectomy - Present Medications Home Medications: Ambulatory Orders Medication Instructions Recorded Confirmed Levothyroxine [Synthroid] 75 mcg PO QDAC 01/01/17 06/02/23 Simvastatin [Zocor] 10 mg PO QPM 01/01/17 06/02/23 Etanercept [Enbrel] 50 mg SQ Q7D 05/23/17 06/02/23 Calcium Carbonate [Calcium] 1,200 mg PO DAILY 05/28/17 06/02/23 Multivitamin [Theragran] 1 tab PO DAILY 05/28/17 06/02/23 Furosemide 20 mg PO DAILY 02/05/19 06/02/23 Ascorbic Acid [Vitamin C] 1,000 mg PO DAILY 09/18/20 06/02/23 Cholecalciferol (Vitamin D3) 2,000 unit PO DAILY 09/18/20 06/02/23 [Vitamin D3] Cyanocobalamin (Vitamin B-12) 5,000 mcg PO DAILY 09/18/20 06/02/23 [Vitamin B-12] Folic Acid 800 mg PO DAILY 09/18/20 06/02/23 Magnesium Oxide [Magnesium] 500 mg PO DAILY 09/18/20 06/02/23 [place]-3/Dha/Epa/Fish Oil [Fish Oil 1,200 mg PO DAILY 09/18/20 06/02/23 1,200 mg Softgel] Pantoprazole [Protonix] 40 mg PO DAILY 09/18/20 06/02/23 HYDROcod/ACETAM 5/325 [[place] 5/325] 1 - 2 tab PO Q6H PRN #15 tablet 01/19/23 06/02/23 Triamcinolone Acetonide 0.1% See Rx Instructions .ROUTE 02/24/23 06/02/23 [Triamcinolone Acetonide] .COMPLEX PRN Lisinopril [Zestril] 2.5 mg PO DAILY #30 tablet 05/05/23 06/02/23 Linezolid [Zyvox] 600 mg PO BID 7 Days #14 tablet 08/04/23 levoFLOXacin [Levofloxacin] 500 mg PO DAILY 7 Days #7 tablet 08/04/23 - Allergies Allergies/Adverse Reactions: Allergies Allergy/AdvReac Type Severity Reaction Status Date / Time aspirin Allergy Unknown Verified 08/08/23 16:49 NSAIDS (Non-Steroidal Allergy Unknown Verified 08/08/23 16:49 Anti-Inflamma - Social History Does the pt smoke?: No Smoking Status: Former smoker Does the pt drink ETOH?: No Does the pt have substance abuse?: No - Immunizations Immunizations are current?: Yes - POLST Patient has POLST: No POLST Status: Full Code (she has not thought about advanced care planning or planning for severe diability. She thinks that if she is resuscitated she will recover to be normal and go home again.) PD ED PE NORMAL - Vitals Vital signs reviewed: Yes - General General: No acute distress, Other (She is alert and oriented to person but not place, time, nor events) - HEENT HEENT: PERRL, EOMI, Other (Mild scrapes on the left forehead) - Neck Neck: Supple, no meningeal sign, No bony TTP - Cardiac Cardiac: RRR, No murmur - Respiratory Respiratory: No respiratory distress, Clear bilaterally - Abdomen Abdomen: Normal bowel sounds, Soft, Non tender - Back Back: No CVA TTP, No spinal TTP - Extremities Extremities: No deformity, No tenderness to palpate, Normal ROM s pain - Neuro 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: 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, Other (Mildly weak power manager strength and leg strength throughout but it is symmetric.) Eye Opening: Spontaneous Motor: Obeys Commands Verbal: Confused GCS Score: 14 Results - Vitals Vitals: Vital Signs - 24 hr 08/08/23 08/08/23 08/08/23 16:43 17:13 17:30 Temperature 36.4 C L Heart Rate 76 78 78 Respiratory 19 18 18 Rate Blood Pressure 154/79 H 149/89 H 127/91 H O2 Saturation 95 98 98 08/08/23 18:00 Temperature Heart Rate 81 Respiratory 18 Rate Blood Pressure 160/71 H O2 Saturation 98 Oxygen O2 Source [] Room air O2 Source Room air - EKG (time done) 1716 EKG releavant findings:: EKG personally interpreted by author of this note. Relevant findings are: Rate: Rate (enter#) (74) Rhythm: NSR [place]: Normal Intervals: Normal MD QRS: Normal Ischemia: Normal ST segments - Labs Labs: Laboratory Tests 08/08/23 08/08/23 08/08/23 16:47 16:47 16:47 WBC 8.4 RBC 3.99 L Hgb 12.6 Hct 39.3 MCV 98.5 MCH 31.6 H MCHC 32.1 RDW 15.7 H Plt Count 223 MPV 8.9 Neut # (Auto) 6.1 Lymph # (Auto) 1.3 L [place] # (Auto) 0.8 Eos # (Auto) 0.1 Baso # (Auto) 0.0 Absolute Nucleated RBC 0.00 Nucleated RBC % 0.0 Sodium 139 Potassium 3.7 Chloride 107 Carbon Dioxide 24 Anion Gap 8.0 BUN 23 H Creatinine 1.0 Estimated GFR (MDRD) 53 L Glucose 106 H Lactic Acid 0.9 Calcium 8.8 Total Bilirubin 0.7 AST 17 ALT 12 Alkaline Phosphatase 48 Total Protein 6.7 Albumin 3.9 Globulin 2.8 Albumin/Globulin Ratio 1.4 Urine Color Urine Clarity Urine pH Ur Specific [place] Urine Protein Urine Glucose (UA) Urine Ketones Urine Occult Blood Urine Nitrite Urine Bilirubin Urine Urobilinogen Ur Leukocyte Esterase Urine RBC Urine WBC Ur Squamous Epith Cells Urine Bacteria Urine Culture Comments Urine Opiates Screen Ur Buprenorphine Scrn Ur Oxycodone Screen Urine Methadone Screen Ur Barbiturates Screen Ur Tricyclics Screen Ur Phencyclidine Scrn Ur Amphetamine Screen U Methamphetamines Scrn U Benzodiazepines Scrn Urine Cocaine Screen U Cannabinoids Screen Ur Drug Screen Comment Ethyl Alcohol < 10.0 08/08/23 17:54 WBC RBC Hgb Hct MCV MCH MCHC RDW Plt Count MPV Neut # (Auto) Lymph # (Auto) [place] # (Auto) Eos # (Auto) Baso # (Auto) Absolute Nucleated RBC Nucleated RBC % Sodium Potassium Chloride Carbon Dioxide Anion Gap BUN Creatinine Estimated GFR (MDRD) Glucose Lactic Acid Calcium Total Bilirubin AST ALT Alkaline Phosphatase Total Protein Albumin Globulin Albumin/Globulin Ratio Urine Color YELLOW Urine Clarity CLEAR Urine pH 7.0 Ur Specific [place] 1.010 Urine Protein NEGATIVE Urine Glucose (UA) NEGATIVE Urine Ketones TRACE Urine Occult Blood NEGATIVE Urine Nitrite NEGATIVE Urine Bilirubin NEGATIVE Urine Urobilinogen 0.2 (NORMAL) Ur Leukocyte Esterase NEGATIVE Urine RBC None Seen Urine WBC 0-3 Ur Squamous Epith Cells NONE SEEN Urine Bacteria None Seen Urine Culture Comments NOT INDICATED Urine Opiates Screen POSITIVE H Ur Buprenorphine Scrn NEGATIVE Ur Oxycodone Screen NEGATIVE Urine Methadone Screen NEGATIVE Ur Barbiturates Screen NEGATIVE Ur Tricyclics Screen NEGATIVE Ur Phencyclidine Scrn NEGATIVE Ur Amphetamine Screen NEGATIVE U Methamphetamines Scrn NEGATIVE U Benzodiazepines Scrn NEGATIVE Urine Cocaine Screen NEGATIVE U Cannabinoids Screen NEGATIVE Ur Drug Screen Comment CUTOFF CONC BELOW: Ethyl Alcohol - Rads (name of study) CT of the head showing moderate atrophy and chronic microvascular ischemic changes with scalp hematoma. No ICH. Relevant Findings:: Final report received, EMP independent interpretation of test CT cervical spine showing multilevel degenerative changes without trauma. Relevant Findings:: Final report received, EMP independent interpretation of test PD Medical Decision Making - ED course ED course: 83-year-old woman presents after a fall with head injury and encephalopathy. CT of the head and cervical spine were without signs of acute disease. Lab work was generally unremarkable with normal CBC, CMP, lactate, normal UA, negative blood alcohol. She was positive for opiates in the urine. The last prescription she filled for opiates per the Greg was in January of last year and I do not see any recent prescriptions on her pharmacy history. On recheck at 6:31 PM she remains encephalopathic but in no acute distress. Her exam from that perspective has improved somewhat. Plan to place her in observation for syncope and altered mental status after hospital shift change at 7 PM. Departure - Departure Disposition: ED Place in Observation Clinical Impression: Syncope, Head injury, Delirium Condition: Stable
[2023-08-08 16:52] LABS: BASOPHILS % (AUTO) 0.4 %; EOSINOPHILS # (AUTO) 0.1 10^3/uL (0.0-0.7); HCT - HEMATOCRIT 39.3 % (37.0-47.0); HGB - HEMOGLOBIN 12.6 g/dL (12.0-16.0); LYMPHOCYTES # (AUTO) 1.3 10^3/uL (1.5-3.5); LYMPHOCYTES % (AUTO) 15.9 %; MEAN CORPUSCULAR HEMOGLOBIN 31.6 pg (27.0-31.0); MEAN CORPUSCULAR HGB CONC 32.1 g/dL (32.0-36.0); MEAN CORPUSCULAR VOLUME 98.5 fL (81.0-99.0); MEAN PLATELET VOLUME 8.9 fL (7.9-10.8); MONOCYTES # (AUTO) 0.8 10^3/uL (0.0-1.0); MONOCYTES % (AUTO) 9.5 %; NEUTROPHILS # (AUTO) 6.1 10^3/uL (1.5-6.6); NEUTROPHILS % (AUTO) 72.8 %; PLT - PLATELET COUNT 223 10^3/uL (130-450); RED BLOOD COUNT 3.99 10^6/uL (4.20-5.40); RED CELL DISTRIBUTION WIDTH 15.7 % (12.0-15.0); WHITE BLOOD COUNT 8.4 x10^3/uL (4.8-10.8)
[2023-08-08 17:05] LABS: ALBUMIN 3.9 g/dL (3.2-5.5); ALBUMIN/GLOBULIN RATIO 1.4 (1.0-2.2); ALKALINE PHOSPHATASE 48 IU/L (42-121); ALT ALANINE AMINOTRANSFERASE 12 IU/L (10-60); AST ASPARTATE AMINOTRANSFERASE 17 IU/L (10-42); BILIRUBIN,TOTAL 0.7 mg/dL (0.2-1.0); BUN - BLOOD UREA NITROGEN 23 mg/dL (6-20); CALCIUM 8.8 mg/dL (8.5-10.3); CARBON DIOXIDE - CO2 24 mmol/L (21-32); CHLORIDE 107 mmol/L (101-111); ETOH - ETHANOL < 10.0 mg/dL; GFR - MDRD 53 (>89); GLUCOSE 106 mg/dL (74-104); POTASSIUM 3.7 mmol/L (3.5-4.5); SODIUM 139 mmol/L (135-145); TOTAL PROTEIN 6.7 g/dL (6.4-8.9)
--- NOTE | 2023-08-08 17:08 | CT Report ---
PROCEDURE: Head WO INDICATIONS: Head trauma, abnormal mental status TECHNIQUE: Noncontrast 4.5 mm thick angled axial sections acquired from the foramen magnum to the vertex. For r adiation dose reduction, the following was used: automated exposure control, adjustment of mA and/or kV according to patient size. COMPARISON: CT cervical spine 08/08/2023, CT head 12/29/2022 FINDINGS: Image quality: Excellent. The ventricular system and cortical sulci demonstrate atrophy, consistent for patient's stated age. There are areas of hypodensity in the periventricular and subcortical white matter. There is no acut e intra or extra-axial fluid collection. No acute hemorrhage, mass lesion or midline shift. Brainst em is unremarkable. Globes are symmetrical. Sinuses are aerated. Osseous structures are intact. Mild left frontal scalp h ematoma. IMPRESSION: 1. No acute intracranial process. 2. Moderate atrophy and chronic microvascular ischemic changes. 3. Mild left frontal scalp hematoma. Reviewed by: Desiree Rubio MD on 08/08/2023 5:07 PM PST Approved by: Desiree Rubio MD on 08/08/2023 5:07 PM PST Station ID: [id number]
--- NOTE | 2023-08-08 17:10 | CT Report ---
PROCEDURE: Cervical Spine WO INDICATIONS: Neck trauma, midline tenderness TECHNIQUE: Noncontrast 3 mm thick sections acquired from the skull base to the T4 level. Sagittal and coronal r eformats were then constructed. For radiation dose reduction, the following was used: automated exp osure control, adjustment of mA and/or kV according to patient size. COMPARISON: CT cervical spine 12/29/2022, CT head 08/08/2023 FINDINGS: Image quality: Excellent. Bones: No fractures or dislocations. Visualized superior ribs are intact. Multilevel degenerative changes including severe disc space narrowing at C5-6 and C6-7. Soft tissues: Prevertebral soft tissues are normal in thickness. No paravertebral hematomas. No ap ical pneumothoraces. IMPRESSION: Multilevel degenerative changes without visualized fracture. Reviewed by: Desiree Rubio MD on 08/08/2023 5:08 PM PST Approved by: Desiree Rubio MD on 08/08/2023 5:08 PM PST Station ID: [id number]
--- NOTE | 2023-08-08 17:30 | XRAY Report ---
PROCEDURE: Chest 1V INDICATIONS: ams TECHNIQUE: One view of the chest was acquired. COMPARISON: Chest x-ray 12/29/2022, CT abdomen and pelvis 06/30/2018 FINDINGS: Surgical changes and devices: None. Lungs and pleura: Mild increased vascularity. Blunting of the costophrenic angles bilaterally. Mediastinum: Retrocardiac opacity is present suggestive of hiatal hernia. Heart size is mildly enlar ged. Bones and chest wall: No suspicious bony lesions. Overlying soft tissues appear unremarkable. IMPRESSION: Cardiomegaly with mild increased vascularity suggestive of edema. Trace blunting the costophrenic ang les are present suggestive scarring versus minimal effusions. Reviewed by: Desiree Rubio MD on 08/08/2023 5:29 PM PST Approved by: Desiree Rubio MD on 08/08/2023 5:29 PM [facility] Station ID: [id number]
[2023-08-08 18:09] LABS: BILIRUBIN,URINE NEGATIVE (NEGATIVE); GLUCOSE, URINE (UA) NEGATIVE (NEGATIVE); KETONES,URINE (UA) TRACE mg/dL (NEGATIVE); LEUKOCYTE ESTERASE, URINE NEGATIVE (NEGATIVE); NITRITE,URINE NEGATIVE (NEGATIVE); OCCULT BLOOD,URINE NEGATIVE (NEGATIVE); PROTEIN,URINE NEGATIVE (NEGATIVE); UROBILINOGEN,URINE 0.2 (NORMAL) E.U./dL (NORMAL)
[2023-08-08 18:25] LABS: AMPHETAMINE SCREEN,URINE NEGATIVE (NEGATIVE); BARBITURATE SCREEN,UR NEGATIVE (NEGATIVE); BENZODIAZEPINES SCREEN, URINE NEGATIVE (NEGATIVE); BUPRENORPHINE SCREEN, URINE NEGATIVE (NEGATIVE); COCAINE SCREEN URINE NEGATIVE (NEGATIVE); METHADONE SCREEN, URINE NEGATIVE (NEGATIVE); METHAMPHETAMINES SCREEN, URINE NEGATIVE (NEGATIVE); OPIATE SCREEN, URINE POSITIVE (NEGATIVE); OXYCODONE SCREEN, URINE NEGATIVE (NEGATIVE); THC CANNABINOID SCREEN, URINE NEGATIVE (NEGATIVE); TRICYCLIC ANTIDEPRESSANT,URINE NEGATIVE (NEGATIVE)
[2023-08-08 18:27] LABS: BACTERIA,URINE None Seen /HPF (None Seen); CLARITY,URINE CLEAR (CLEAR); RBC,URINE None Seen /HPF (0-5); SQUAMOUS EPITHELIAL CELL,UR NONE SEEN (<= Few); WBC,URINE 0-3 /HPF (0-5)
--- NOTE | 2023-08-08 19:25 | HISTORY & PHYSICAL EXAMINATION ---
Chief Complaint - Chief Complaint Chief Complaint: syncope History of Present Illness - Admitted From Admitted From:: Home - History Obtained From Records Reviewed: Yes History obtained from: Patient and ER team Exam Limitations: None - History of Present Illness HPI Comment/Other: 83-year-old woman presents by ambulance for altered mental status and collapse/syncopal episode. She has a history of gastric ulcers, knee replacement, hypertension, cholesterol, CAD, possible DVT, possible A-fib, COPD, TIA. Reportedly was at the grocery store in the parking lot and collapsed hitting her left forehead on the ground. 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 2 siblings. One brother had a recent knee replacement. Her sister has some type of growth on her left face. But neither 1 of them have coronary artery disease, hypertension, hyperlipidemia, cancer. 3 sons. One lives in [place]. One son travels the country as a bag while working at [employer]. One son lives with her but unfortunately he is an alcoholic. She is trying to get him to stop. Social History Notes: smoked for only 6 months in her 20's. no alcohol abuse. no recreational substance abuse.She was for over 50 years to her first . He at age 81 while jogging in a marathon in [place] 4 years ago. Her son was present when he and try to resuscitate his father. That is when he became an alcoholic because it affected him psychologically. Her son lives with her. - Substance History Use: Uses substance without health or social issues: NONE - POLST Patient has POLST: No POLST Status: Full Code (she has not thought about advanced care planning or planning for severe diability. She thinks that if she is resuscitated she will recover to be normal and go home again.) Meds/Allgy - Home Medications Home Medications: Ambulatory Orders Medication Instructions Recorded Confirmed Levothyroxine [Synthroid] 75 mcg PO QDAC 01/01/17 08/08/23 Simvastatin [Zocor] 10 mg PO QPM 01/01/17 06/02/23 Etanercept [Enbrel] 50 mg SQ Q7D 05/23/17 08/08/23 Calcium Carbonate [Calcium] 1,200 mg PO DAILY 05/28/17 08/08/23 Multivitamin [Theragran] 1 tab PO DAILY 05/28/17 08/08/23 Furosemide 20 mg PO DAILY 02/05/19 08/08/23 Ascorbic Acid [Vitamin C] 1,000 mg PO DAILY 09/18/20 08/08/23 Cholecalciferol (Vitamin D3) 2,000 unit PO DAILY 09/18/20 08/08/23 [Vitamin D3] Cyanocobalamin (Vitamin B-12) 5,000 mcg PO DAILY 09/18/20 08/08/23 [Vitamin B-12] Folic Acid 800 mg PO DAILY 09/18/20 08/08/23 Magnesium Oxide [Magnesium] 500 mg PO DAILY 09/18/20 08/08/23 [place]-3/Dha/Epa/Fish Oil [Fish Oil 1,200 mg PO DAILY 09/18/20 08/08/23 1,200 mg Softgel] Pantoprazole [Protonix] 40 mg PO DAILY 09/18/20 08/08/23 HYDROcod/ACETAM 5/325 [[place] 5/325] 1 - 2 tab PO Q6H PRN #15 tablet 01/19/23 06/02/23 Triamcinolone Acetonide 0.1% See Rx Instructions .ROUTE 02/24/23 08/08/23 [Triamcinolone Acetonide] .COMPLEX PRN Lisinopril [Zestril] 2.5 mg PO DAILY #30 tablet 05/05/23 08/08/23 Linezolid [Zyvox] 600 mg PO BID 7 Days #14 tablet 08/04/23 levoFLOXacin [Levofloxacin] 500 mg PO DAILY 7 Days #7 tablet 08/04/23 08/08/23 Atorvastatin [Lipitor] 20 mg PO QPM 08/08/23 08/08/23 Methotrexate [Methotrexate Sodium] 15 mg PO 08/08/23 - Allergies Allergies/Adverse Reactions: Allergies Allergy/AdvReac Type Severity Reaction Status Date / Time aspirin Allergy Unknown Verified 08/08/23 16:49 NSAIDS (Non-Steroidal Allergy Unknown Verified 08/08/23 16:49 Anti-Inflamma Review of Systems - Constitutional Constitutional: reports: Weakness Prior Level of Functionality: Active and independent with her ADL Exam - Vital Signs Vital Signs: Vital Signs x48h Temp Pulse Resp BP Pulse Ox 08/08/23 19:00 80 18 146/84 H 98 08/08/23 18:00 81 18 160/71 H 98 08/08/23 17:30 78 18 127/91 H 98 08/08/23 17:13 78 18 149/89 H 98 08/08/23 16:43 36.4 C L 76 19 154/79 H 95 - Physical Exam General Appearance: positive: No acute distress, Alert Eyes Bilateral: positive: Normal inspection, PERRL Neck: positive: Nml inspection, Thyroid nml Respiratory: positive: No respiratory distress, Breath sounds nml Cardiovascular: positive: No murmur, No gallop Abdomen: positive: Non-tender Back: positive: Nml inspection Skin: positive: Color nml Neurologic/Psychiatric: positive: Oriented x3, CN's nml (2-12) Sepsis Event Note (H) - Evaluation Current Stage of Sepsis: Ruled out Conclusion/Plan - Problem List (1) Syncope Conclusion/Plan: Admit to observation Telemonitor gentle hydration U tox +ve for opiated, which patient denies taking any, son does use opiates and suspicion for accidental ingestion can not be ruled out Overall feels better and confusion resolving and patient improving Hypthyroidism Continue Synthroid Dyslipidemia Continue Statin HTN Conitnue home meds Lisinopril Recently on Abx Linezeloid and Levaquin not sure why is she on it Also meds shows she took some [place] in past patient not aware during my discussion with her Gerd P{I DVT prophylaxis Continue current care DC aniticpated early if back to her baseline if any worsening then would consider repeat research and development researcher imaging including MRI Full code - Lab Results Fish Bones: 08/08/23 16:47 08/08/23 16:47 - Diagnostic Imaging Results Diagnostic Imaging Results: positive: Prelim report reviewed - EKG Results EKG Interpreted Independently: Yes EKG Comparison: Unchanged from prior EKG
[2023-08-08] MEDS ORDERED: ACETAMINOPHEN 325 MG TABLET PO PRN (19:31)
[2023-08-08] MEDS ORDERED: SODIUM CHLORIDE FLUSH 0.9% 10 ML SYRINGE IVP PRN (19:31)
[2023-08-08] MEDS ORDERED: HYDROcod/ACETAM 5/325 MG TABLET PO PRN (19:31)
[2023-08-08] MEDS ORDERED: ONDANSETRON 4 MG/2 ML VIAL IVP PRN (19:31)
[2023-08-08] MEDS: SODIUM CHLORIDE 0.9% 1,000 ML IV SCH (20:37)
[2023-08-08] MEDS ORDERED: ATORVASTATIN 10 MG TABLET PO SCH (21:00)
[2023-08-08] MEDS: SODIUM CHLORIDE FLUSH 0.9% 10 ML SYRINGE IVP SCH (23:32)
[2023-08-09] MEDS: SODIUM CHLORIDE 0.9% 1,000 ML IV SCH (06:17)
[2023-08-09] MEDS ORDERED: LEVOTHYROXINE 25 MCG TABLET PO SCH (07:00)
[2023-08-09] MEDS: SODIUM CHLORIDE FLUSH 0.9% 10 ML SYRINGE IVP SCH (08:53)
[2023-08-09] MEDS ORDERED: ASCORBIC ACID 500 MG TABLET PO SCH (09:00)
[2023-08-09] MEDS ORDERED: MAGNESIUM OXIDE 400 MG TABLET PO SCH (09:00)
[2023-08-09] MEDS ORDERED: CYANOCOBALAMIN 1000 MCG PO SCH (09:00)
[2023-08-09] MEDS ORDERED: OMEGA-3 ACID ETHYL ESTERS 1 GM CAPSULE PO SCH (09:00)
[2023-08-09] MEDS ORDERED: CHOLECALCIFEROL 400 UNIT TABLET PO SCH (09:00)
[2023-08-09] MEDS ORDERED: FUROSEMIDE 20 MG TABLET PO SCH (09:00)
[2023-08-09] MEDS ORDERED: FOLIC ACID 1 MG TABLET PO SCH (09:00)
[2023-08-09] MEDS ORDERED: PANTOPRAZOLE 40 MG TABLET PO SCH (09:00)
[2023-08-09] MEDS ORDERED: lisinopriL 5 MG TABLET PO SCH (09:00)
[2023-08-09] MEDS ORDERED: CALCIUM CARBONATE CHEW 500 MG TABLET PO SCH (09:00)
[2023-08-09] MEDS ORDERED: MULTIVITAMIN TABLET PO SCH (09:00)
[2023-08-09] MEDS ORDERED: levoFLOXacin 250 MG TABLET PO SCH (11:00)
[2023-08-09] MEDS ORDERED: LINEZOLID 600 MG TABLET PO SCH (11:00)
[2023-08-09 11:21] LABS: CALCIUM 8.2 mg/dL (8.5-10.3); CREATININE 0.9 mg/dL (0.6-1.3); MAGNESIUM 1.7 mg/dL (1.7-2.3); POTASSIUM 3.7 mmol/L (3.5-4.5)
--- NOTE | 2023-08-09 12:34 | PHARMACY PROGRESS NOTE ---
- Best Possible Medication History Admit Date and Time: 08/08/231930 Processed by: Pharmacy Medication History completed: Yes Patient Interview: Completed Secondary Source(s): Pharmacy records, Insurance records As the person ultimately responsible for medication therapy, providers are able to order a medication from an existing home medication list in [facility] via the "Reconcile Routine" prior to Confirmation of that medication by operations support professionals. Such practice is discouraged except when the physician, in their clinical judgment, deems that a medical need exists for a medication without regard to previous use.
--- NOTE | 2023-08-09 13:42 | PROVIDER PROGRESS NOTE ---
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 Mild mitral valve prolapse and mild mitral annular calcification. The aortic valve is trileaflet and opens well. Tricuspid valve has mild prolapse. Pulmonic valve appears structurally normal. Doppler of the valves shows moderate to severe tricuspid regurgitation, Mild mitral regurgitation and mild aortic regurgitation Pulmonary artery systolic pressure calculated at 45-50 mmHg (mild-moderate pulm HTN present) Small LV cavity size, normal LV wall thickness. Normal LV contractility, ejection fraction 60 to 65%. Doppler shows mild LV diastolic dysfunction is present (grade 1). Right ventricle upper limits of normal or mildly dilated. Normal-appearing right ventricular contractility. Aortic root normal in diameter. Pulmonary artery mildly dilated. No pericardial effusion Summary: Moderate by-atrial enlargement Normal LV size and systolic function, EF 60 to 65%, mild diastolic dysfunction present Moderate TR, mild MR and AI Mildly dilated RV, preserved RV function. Dilated pulmonary artery. Mild to moderate pulm hypertension present. Her findings are consistent with Cor Pulmonale, mild. With her history of Rh eumatoid Arthritis she may have Rheumatoid Lung
--- NOTE | 2023-08-09 13:58 | Discharge Plan ---
Discharge Plan Problem Reviewed?: Yes Disposition: Home, Self Care Condition: Fair Prescriptions: Furosemide [Lasix] 20 mg PO MOWEFR #15 tab Diet: Regular Activity Restrictions: Activity as Tolerated Shower Restrictions: No Driving Restrictions: Yes (No driving a car because of fainting spells & poor balance) Assistance Devices: Walker Weight Bearing: Full Weight Instruction Topics: ED Hypotension Orthostatic, Hypertension Pulmonary, Pulmonary Fibrosis Health Concerns: You were hospitalized after you had a fainting spell. Since it occurred with no warning of lightheadedness, you are now restricted from driving a car. A restriction for driving form has been submitted to the DMV. The evaluation for causes of your fainting spell show that it appears to be from dehydration, caused by your Lasix water pill. You are now advised to take Lasix on just Fridays, or take it if you have greater than a 4 pound weight gain from one day to the next. This means you should weigh yourself daily. Your Echocardiogram showed that you have pulmonary hypertension which is very likely from "Rheumatoid Lung". I have provided you a copy of your Echo report for you to take to your arthritis doctor and your wound clinic provider, since it may help them fine-tune your medications and management. You are being discharged home today. You may resume all your other pre-hospital medications except take the Lasix just Friday and as in structed above. Stay better hydrated. Plan of Treatment: As above. Care Goals: Improvement in symptoms and stabilization are the goals. Assessment: The patient agrees and understands the plan. The son was on the phone and also was updated with the plan. Additional Instructions or Follow Up instructions: If you have new or worsening symptoms, call your Primary Care Provider for advice, or come to the ER. No Smoking: If you smoke, Please STOP! Call for help.
--- NOTE | 2023-08-09 14:00 | Ultrasound Report ---
PROCEDURE: Carotid Doppler Complete INDICATIONS: syncope TECHNIQUE: Color and pulse Doppler interrogation was performed of both carotid systems, with image documentation and velocity measurements. COMPARISON: Carotid ultrasound 02/16/2018. FINDINGS: Right side: Brachial blood pressure: 125/70 mm Hg. Common carotid artery peak systolic velocity: 69 cm/sec. Internal carotid artery peak systolic velocity: 96 cm/sec. Internal carotid artery end diastolic velocity: 33 cm/sec. External carotid artery peak systolic velocity: 104 cm/sec. ICA/CCA peak systolic ratio: 1.3 . Carey scale imaging description: No significant atherosclerotic plaque. Percent internal carotid artery stenosis: No hemodynamically significant stenosis. Vertebral artery: Flow direction is antegrade. Left side: Brachial blood pressure: 114/64 mm Hg. Common carotid artery peak systolic velocity: 67 cm/sec. Internal carotid artery peak systolic velocity: 81 cm/sec. Internal carotid artery end diastolic velocity: 24 cm/sec. External carotid artery peak systolic velocity: 103 cm/sec. ICA/CCA peak systolic ratio: 1.2 . Carey scale imaging description: Mild atherosclerotic plaque. Percent internal carotid artery stenosis: Less than 50 percent stenosis. Vertebral artery: Flow direction is antegrade. IMPRESSION: 1. In the right internal carotid artery, there is no hemodynamically significant stenosis based on pe ak systolic velocity criteria. 2. In the left internal carotid artery, there is less than 50 percent stenosis based on peak systolic velocity criteria. 3. Antegrade blood flow within the right vertebral artery. 4. Antegrade blood flow within the left vertebral artery. The estimate of stenosis included in the report of the imaging study was calculated using the [facility]-end orsed standards of carotid artery stenosis. Reviewed by: Volodymyr Leiav MD on 08/09/2023 1:58 PM PST Approved by: Volodymyr Leiva MD on 08/09/2023 1:58 PM PST Station ID: [id number]
--- NOTE | 2023-08-09 14:02 | DISCHARGE SUMMARY ---
Discharge Summary Admit Date: 08/08/23 Discharge Date: 08/09/23 Discharging Provider: Dr Jasmine Mason Primary Care Provider: LONNIE Santiago Condition at Discharge: Fair Discharge Disposition: 01 Home, Self Care - HPI History of Present Illness: 83-year-old woman presents by ambulance for altered mental status and collapse/syncopal episode. She has a Hx of hypertension, elevated cholesterol, CAD, TIA, chronic leg [place] [facility] [place], and Rheumatoid arthritis and takes MTX and Enbrel, and a remote history of gastric ulcers, knee replacement,. Reportedly she went to her Wound Clinic appointment then drove herself to the grocery store, and as she was exiting the car, in the parking lot, she collapsed hitting her left forehead on the ground. She had no warning dizziness. She was very confused on admission, then mentation seemed to be improving, but she doesn't remeber what exactly happened to her. She falls at home. She lives with her son. 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 She looks younger than her stated age, denies any smoking Hx but did smoke tobacco for 2 years as a teenager. She had no other active complaints: no cp, no sob, no dizziness and feels well now. She will be placed in Observation status to evaluate Syncope. - HOSPITAL COURSE Hospital Course: (1) Syncope She denied prior syncope, but son reported many prior falls and that she "furniture surfs". Her she did not have arrythmias on telemetry. Her Echo showed normal LVEF. Her orthostatic VS were normal. She described having no warning before this collapse. Therefore, she was discharged and advised she may no longer drive a vehicle. This was discussed with her son, with home she lives, and he agreed. Home Health PT and OT were ordered. She may need further W/U with Cardiology. (2) Open wound lower leg She goes to Wound Clinic weekly for this. The bandages on her brannon were not removed. (3) Rheumatoid arthritis As per Hx. She has visible joint deformities of her hands. (4) Pulmonary HTN Her Echo showed early Cor Pulmonale and moderate pulmonary HTN. I suspect she has possible Rheumatoid lung. A copy of her Echo report was given to her to bring to her Rheumatoloist. (5) HTN We continued her home meds (6) Hypthyroidism Continued Synthroid (7) Encephalopathy Resolved and she had with normal VS. It was brief, while in ER and probably from cerebral hypoperfusion. (8) Hyperlipidemia Continued Statin - ALLERGIES Allergies/Adverse Reactions: Allergies Allergy/AdvReac Type Severity Reaction Status Date / Time aspirin Allergy Unknown Verified 08/08/23 16:49 NSAIDS (Non-Steroidal Allergy Unknown Verified 08/08/23 16:49 Anti-Inflamma - MEDICATIONS Home Medications: Ambulatory Orders Medication Instructions Recorded Confirmed Levothyroxine [Synthroid] 75 mcg PO QDAC 01/01/17 08/08/23 Etanercept [Enbrel] 50 mg SQ Q7D 05/23/17 08/08/23 Multivitamin [Theragran] 1 tab PO DAILY 05/28/17 08/08/23 Furosemide 20 mg PO DAILY 02/05/19 08/08/23 Ascorbic Acid [Vitamin C] 1,000 mg PO DAILY 09/18/20 08/08/23 Cholecalciferol (Vitamin D3) 2,000 unit PO DAILY 09/18/20 08/08/23 [Vitamin D3] Cyanocobalamin (Vitamin B-12) 5,000 mcg PO DAILY 09/18/20 08/08/23 [Vitamin B-12] Folic Acid 800 mg PO DAILY 09/18/20 08/08/23 Magnesium Oxide [Magnesium] 500 mg PO DAILY 09/18/20 08/08/23 [place]-3/Dha/Epa/Fish Oil [Fish Oil 1,200 mg PO DAILY 09/18/20 08/08/23 1,200 mg Softgel] Pantoprazole [Protonix] 40 mg PO DAILY 09/18/20 08/08/23 Triamcinolone Acetonide 0.1% See Rx Instructions .ROUTE 02/24/23 08/08/23 [Triamcinolone Acetonide] .COMPLEX PRN Linezolid [Zyvox] 600 mg PO BID 7 Days #14 tablet 08/04/23 08/09/23 levoFLOXacin [Levofloxacin] 500 mg PO DAILY 7 Days #7 tablet 08/04/23 08/08/23 Atorvastatin [Lipitor] 20 mg PO QPM 08/08/23 08/08/23 Methotrexate [Methotrexate Sodium] 15 mg PO OAW 08/08/23 08/09/23 Calcium Carbonate [Tums (Calcium 1,000 mg PO DAILY tab 08/09/23 Carbonate 500mg)] Furosemide [Lasix] 20 mg PO MOWEFR #15 tab 08/09/23 lisinopriL [Zestril] 2.5 mg PO DAILY 08/09/23 08/09/23 - PHYSICAL EXAM AT DISCHARGE General Appearance: positive: No acute distress, Alert Eyes Bilateral: positive: Normal inspection, EOMI ENT: positive: ENT inspection nml, No signs of dehydration Neck: positive: Nml inspection, No JVD Respiratory: positive: No respiratory distress, Breath sounds nml Cardiovascular: positive: Regular rate & rhythm, Systolic murmur Abdomen: positive: Non-tender, No organomegaly, Nml bowel sounds, No distention Skin: positive: Warm, Dry, Other (Bandage of entire brannon of R leg) Extremities: positive: Non-tender, Other (rheumatoid deformities of joints of hands) Neurologic/Psychiatric: positive: Oriented x3, CN's nml (2-12), Motor nml, Other (Poor memory) - LABS Result Diagrams: 08/08/23 16:47 08/09/23 10:59 - SEPSIS Current Stage of Sepsis: Ruled out - FOLLOW UP Follow Up: See PCP for hosp F/U - TIME SPENT Time Spent in Discharge (Minutes): 30
[2023-08-09 15:54] VITALS: BP 136/87; O2SAT 95
[2023-08-10] MEDS ORDERED: METHOTREXATE 2.5 MG TABLET PO SCH (09:00)
== END 2023-08-09 16:50 | disposition home or self-care (01) ==
LOC: EDUNIT# → ED 16:39 → MS2 19:31
PROVIDERS: ADMIT Internal Medicine; ATTEND Internal Medicine
DX: R55 Syncope and collapse (principal); S00.03XA Contusion of scalp, initial encounter; W18.30XA Fall on same level, unspecified, initial encounter; Y92.481 Parking lot as the place of occurrence of the external cause; I25.10 Atherosclerotic heart disease of native coronary artery without angina pectoris; Z86.718 Personal history of other venous thrombosis and embolism; Z86.73 Personal history of transient ischemic attack (TIA), and cerebral infarction without residual deficits; M06.9 Rheumatoid arthritis, unspecified; E03.9 Hypothyroidism, unspecified; G93.40 Encephalopathy, unspecified; E78.5 Hyperlipidemia, unspecified; K21.9 Gastro-esophageal reflux disease without esophagitis; I08.1 Rheumatic disorders of both mitral and tricuspid valves; I27.81 Cor pulmonale (chronic); I27.20 Pulmonary hypertension, unspecified; I11.0 Hypertensive heart disease with heart failure; I50.30 Unspecified diastolic (congestive) heart failure; G62.9 Polyneuropathy, unspecified; I73.00 Raynaud's syndrome without gangrene; Z87.891 Personal history of nicotine dependence; Z91.81 History of falling; S81.809D Unspecified open wound, unspecified lower leg, subsequent encounter
CPT/HCPCS: 36415; 70450; 71045; 72125; 80048; 80053; 80306; 81001; 83605; 83735; 85025; 87040; 93005; 93880; 97162; 99285; A9270; G0378; G0480; 80320; 87086

== ENCOUNTER 2023-09-30 08:00 | Outpatient (CLI) | payer MEDICARE | END 2023-09-30 23:59 | disposition home or self-care (01) | LOC: PC 08:00 | PROVIDERS: ATTEND Nurse Practitioner Gerontology | DX: Z51.5 Encounter for palliative care (principal); M25.561 Pain in right knee; G89.29 Other chronic pain; M17.0 Bilateral primary osteoarthritis of knee; Z71.89 Other specified counseling; G31.84 Mild cognitive impairment of uncertain or unknown etiology; N39.3 Stress incontinence (female) (male); R29.6 Repeated falls; R55 Syncope and collapse; I27.81 Cor pulmonale (chronic); I27.29 Other secondary pulmonary hypertension; M06.9 Rheumatoid arthritis, unspecified; Z96.652 Presence of left artificial knee joint; Z96.642 Presence of left artificial hip joint; Z79.899 Other long term (current) drug therapy; R06.02 Shortness of breath; R53.83 Other fatigue; R26.81 Unsteadiness on feet; Z87.891 Personal history of nicotine dependence; R60.0 Localized edema | CPT/HCPCS: 99345 ==

== ENCOUNTER 2023-10-09 11:25 | Outpatient (CLI) | payer MEDICARE ==
[2023-10-09 17:38] LABS: HCT - HEMATOCRIT 41.4 % (37.0-47.0); MEAN CORPUSCULAR HEMOGLOBIN 31.6 pg (27.0-31.0); MEAN CORPUSCULAR HGB CONC 31.4 g/dL (32.0-36.0); MEAN CORPUSCULAR VOLUME 100.7 fL (81.0-99.0); MEAN PLATELET VOLUME 9.9 fL (7.9-10.8); RED BLOOD COUNT 4.11 10^6/uL (4.20-5.40); WHITE BLOOD COUNT 8.1 x10^3/uL (4.8-10.8)
[2023-10-09 18:30] LABS: ALBUMIN 4.4 g/dL (3.2-5.5); ALBUMIN/GLOBULIN RATIO 1.5 (1.0-2.2); ALKALINE PHOSPHATASE 51 IU/L (42-121); ALT ALANINE AMINOTRANSFERASE 16 IU/L (10-60); AST ASPARTATE AMINOTRANSFERASE 19 IU/L (10-42); BILIRUBIN,TOTAL 0.8 mg/dL (0.2-1.0); BUN - BLOOD UREA NITROGEN 25 mg/dL (6-20); CALCIUM 9.7 mg/dL (8.5-10.3); CARBON DIOXIDE - CO2 27 mmol/L (21-32); CHLORIDE 105 mmol/L (101-111); CHOLESTEROL 150 mg/dL; CREATININE 0.9 mg/dL (0.6-1.3); GFR - MDRD 60 (>89); GLUCOSE 91 mg/dL (74-104); HDL CHOLESTEROL 76 mg/dL; LDL CHOLESTEROL,CALCULATED 62 mg/dL; LDL/HDL RATIO 0.8 (<4.4); POTASSIUM 3.9 mmol/L (3.5-4.5); SODIUM 141 mmol/L (135-145); TOTAL PROTEIN 7.3 g/dL (6.4-8.9); TRIGLYCERIDES 62 mg/dL (48-352); VLDL CHOLESTEROL 12 mg/dL
== END 2023-10-09 11:26 | disposition home or self-care (01) ==
LOC: LAB.N 11:25
PROVIDERS: ATTEND Nurse Practitioner Gerontology
DX: M81.0 Age-related osteoporosis without current pathological fracture (principal); E78.5 Hyperlipidemia, unspecified; I27.21 Secondary pulmonary arterial hypertension; I50.30 Unspecified diastolic (congestive) heart failure; E03.9 Hypothyroidism, unspecified
CPT/HCPCS: 36415; 80053; 80061; 82306; 83721; 83880; 84443; 85027

== ENCOUNTER 2023-10-14 08:00 | Outpatient (CLI) | payer MEDICARE | END 2023-10-14 23:59 | disposition home or self-care (01) | LOC: PC 08:00 | PROVIDERS: ATTEND Nurse Practitioner Gerontology | DX: Z51.5 Encounter for palliative care (principal); M25.561 Pain in right knee; R26.81 Unsteadiness on feet; R29.6 Repeated falls; R60.0 Localized edema; M06.9 Rheumatoid arthritis, unspecified; M81.0 Age-related osteoporosis without current pathological fracture; G31.84 Mild cognitive impairment of uncertain or unknown etiology; G89.29 Other chronic pain; Z71.89 Other specified counseling; I10 Essential (primary) hypertension; Z59.19 Other inadequate housing; Z96.642 Presence of left artificial hip joint; Z96.652 Presence of left artificial knee joint; Z87.891 Personal history of nicotine dependence; Z79.899 Other long term (current) drug therapy | CPT/HCPCS: 99350 ==

== ENCOUNTER 2023-11-12 14:27 | Outpatient (CLI) | payer MEDICARE ==
--- NOTE | 2023-11-13 11:01 | Mammography Report ---
BILATERAL DIGITAL SCREENING MAMMOGRAM: 11/12/2023 CLINICAL: Routine screening. Comparison is made to exams dated: 10/05/2020 mammogram, 12/20/2014 mammogram, 11/29/2013 mammogram, and 03/03/2012 mammogram - [facility]. There are scattered areas of fibroglandular density in both breasts (category b / 25%-50% glandular t issue). There is an asymmetry in the left breast middle depth central to the nipple seen on the mediolateral oblique view only. No other significant masses, calcifications, or other findings are seen in either breast. IMPRESSION: INCOMPLETE: NEEDS ADDITIONAL IMAGING EVALUATION The asymmetry in the left breast is indeterminate. Additional views with possible ultrasound are rec ommended. Based on the Tyrer Cuzick model (a risk assessment model) the patient's lifetime risk is 0.2% and her 10 year risk is 0.0%. According to the ACR, ACS, and NCCN guidelines, an annual breast MRI exam yola g with mammogram is recommended if the patient's lifetime risk is 20% or greater. This exam was interpreted at Station ID: [id number]. NOTE: For mammograms, a report in lay terms will be sent to the patient. Approximately 15% of breast malignancies will not be visualized mammographically. In the management of a palpable breast mass, a negative mammogram must not discourage biopsy of a clinically suspicious lesion. Electronically Signed By: Lady acosta/amber:11/12/2023 16:54:24 ACR BI-RADS Category 0: Incomplete 3340F PARENCHYMAL PATTERN: (A) - The breast(s) demonstrate(s) scattered fibroglandular densities. BI-RADS CATEGORY: (0) - 0 Mammo and [place] [id number] Immediate follow-up LATERALITY: (B)
== END 2023-11-12 14:28 | disposition home or self-care (01) ==
LOC: DI.N 14:27
DX: Z12.31 Encounter for screening mammogram for malignant neoplasm of breast (principal); R92.8 Other abnormal and inconclusive findings on diagnostic imaging of breast; R92.323 Mammographic fibroglandular density, bilateral breasts

== ENCOUNTER 2023-11-24 08:00 | Outpatient (CLI) | payer MEDICARE | END 2023-11-24 23:59 | disposition home or self-care (01) | LOC: PC 08:00 | PROVIDERS: ATTEND Nurse Practitioner Gerontology | DX: Z51.5 Encounter for palliative care (principal); I27.21 Secondary pulmonary arterial hypertension; G31.84 Mild cognitive impairment of uncertain or unknown etiology; M17.0 Bilateral primary osteoarthritis of knee; I95.2 Hypotension due to drugs; T50.905A Adverse effect of unspecified drugs, medicaments and biological substances, initial encounter; L97.819 Non-pressure chronic ulcer of other part of right lower leg with unspecified severity; L27.0 Generalized skin eruption due to drugs and medicaments taken internally; T36.8X5A Adverse effect of other systemic antibiotics, initial encounter; I10 Essential (primary) hypertension; I25.10 Atherosclerotic heart disease of native coronary artery without angina pectoris; I73.9 Peripheral vascular disease, unspecified; I87.8 Other specified disorders of veins; Z71.89 Other specified counseling; Z87.891 Personal history of nicotine dependence | CPT/HCPCS: 99350 ==

== ENCOUNTER 2023-12-01 19:32 | Emergency (ER) | payer MEDICARE ==
--- NOTE | 2023-12-01 20:14 | ED Physician Documentation ---
History of Present Illness - Stated complaint Stated Complaint: GLF, FACE LAC AND CHEST PAIN WITH RESPS - Chief complaint Chief Complaint: Trauma Ch/Bk - History obtained from History obtained from: Patient, EMS - History of Present Illness Timing: Today Pain level max: 8 Pain level now: 8 - Additonal information Additional information: 83-year-old female states that she was getting out of a car today when she tripped and fell landing on her anterior chest and striking her forehead on a concrete wall. No loss of consciousness. No neck or back pain. Complains of pain to the anterior chest. She is not on blood thinners. Worse with movement, better with rest. No bilateral shoulder, elbow, wrist, hip, knee pain. 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: Other : Incontinence, Frequency HEENT: Chronic vision loss Psych: Depression, Anxiety Musculoskeletal: Osteoarthritis, Rheumatoid arthritis, Osteoporosis, Other Derm: None - Past Surgical History Past Surgical History: Yes General: Colonoscopy, EGD Ortho: Hip replacement, Knee replacement, Other /TELETYPESETTER OPERATOR: Tubal ligation Cardiovascular: Cardiac catheterization HEENT: Cataracts, Tonsil/Adenoidectomy - Present Medications Home Medications: Ambulatory Orders Medication Instructions Recorded Confirmed Levothyroxine [Synthroid] 75 mcg PO QDAC 01/01/17 09/25/23 Etanercept [Enbrel] 50 mg SQ Q7D 05/23/17 09/25/23 Multivitamin [Theragran] 1 tab PO DAILY 05/28/17 09/25/23 Furosemide 20 mg PO DAILY 02/05/19 09/25/23 Ascorbic Acid [Vitamin C] 1,000 mg PO DAILY 09/18/20 09/25/23 Cholecalciferol (Vitamin D3) 2,000 unit PO DAILY 09/18/20 09/25/23 [Vitamin D3] Cyanocobalamin (Vitamin B-12) 5,000 mcg PO DAILY 09/18/20 09/25/23 [Vitamin B-12] Folic Acid 800 mg PO DAILY 09/18/20 09/25/23 Magnesium Oxide [Magnesium] 500 mg PO DAILY 09/18/20 09/25/23 [place]-3/Dha/Epa/Fish Oil [Fish Oil 1,200 mg PO DAILY 09/18/20 09/25/23 1,200 mg Softgel] Pantoprazole [Protonix] 40 mg PO DAILY 09/18/20 09/25/23 Triamcinolone Acetonide 0.1% See Rx Instructions .ROUTE 02/24/23 09/25/23 [Triamcinolone Acetonide] .COMPLEX PRN Atorvastatin [Lipitor] 20 mg PO QPM 08/08/23 09/25/23 Methotrexate [Methotrexate Sodium] 15 mg PO OAW 08/08/23 09/25/23 Calcium Carbonate [Tums (Calcium 1,000 mg PO DAILY tab 08/09/23 09/25/23 Carbonate 500mg)] Furosemide [Lasix] 20 mg PO MOWEFR #15 tab 08/09/23 09/25/23 lisinopriL [Zestril] 2.5 mg PO DAILY 08/09/23 09/25/23 levoFLOXacin [Levofloxacin] 500 mg PO DAILY 10 Days #10 tablet 10/31/23 Triamcinolone 0.1% Oint 1 applic TOP BID #80 gm 11/11/23 - Allergies Allergies/Adverse Reactions: Allergies Allergy/AdvReac Type Severity Reaction Status Date / Time aspirin Allergy Unknown Verified 12/01/23 19:40 NSAIDS (Non-Steroidal Allergy Unknown Verified 12/01/23 19:40 Anti-Inflamma - Social History Does the pt smoke?: No Smoking Status: Never smoker Does the pt drink ETOH?: No Does the pt have substance abuse?: No - Immunizations Immunizations are current?: Yes - POLST Patient has POLST: No POLST Status: Full Code (she has not thought about advanced care planning or planning for severe diability. She thinks that if she is resuscitated she will recover to be normal and go home again.) PD ED PE NORMAL - Vitals Vital signs reviewed: Yes - General General: Alert and oriented X 3, No acute distress - HEENT HEENT: PERRL, Moist mucous membranes, Other (abrasion and small hematoma to the R forehead. No facial bone tenderness) - Neck Neck: Supple, no meningeal sign, No bony TTP (No midline tenderness to palpation or percussion. No step-off or deformity) - Cardiac Cardiac: RRR, Strong equal pulses - Respiratory Respiratory: No respiratory distress, Clear bilaterally - Abdomen Abdomen: Soft, Non tender, Non distended - Back Back: No spinal TTP, Other (No midline tenderness to palpation or percussion. No step-off or deformity) - Derm Derm: Warm and dry - Extremities Extremities: No deformity, No tenderness to palpate, Normal ROM s pain, No edema, No calf tenderness / cord - Neuro Neuro: Alert and oriented X 3, astro technician 2-12 intact, No motor deficit, No sensory deficit, Normal speech Eye Opening: Spontaneous Motor: Obeys Commands Verbal: Oriented GCS Score: 15 - Psych Psych: Normal mood, Normal affect - Free text exam Free text exam: Tender palpation diffusely over the chest wall, mainly over the right ribs. No crepitus. No ecchymosis. Also tender over the sternum, especially the mid to lower sternum. Results - Vitals Vitals: Vital Signs - 24 hr 12/01/23 12/01/23 12/01/23 19:38 21:34 23:00 Temperature 36.8 C Heart Rate 94 91 83 Respiratory 16 18 14 Rate Blood Pressure 192/80 H 135/100 H 164/92 H O2 Saturation 96 97 95 Oxygen O2 Source [] Room air O2 Source Room air - Labs Labs: Laboratory Tests 12/01/23 12/01/23 12/01/23 22:53 22:53 22:53 WBC 10.9 H RBC 4.03 L Hgb 12.8 Hct 38.9 MCV 96.5 MCH 31.8 H MCHC 32.9 RDW 13.9 Plt Count 216 MPV 9.1 Neut # (Auto) 7.8 H Lymph # (Auto) 1.6 Hendricks # (Auto) 1.3 H Eos # (Auto) 0.2 Baso # (Auto) 0.0 Absolute Nucleated RBC 0.00 Nucleated RBC % 0.0 PT 12.1 INR 1.1 Sodium 139 Potassium 4.4 Chloride 106 Carbon Dioxide 27 Anion Gap 6.0 BUN 25 H Creatinine 0.9 Estimated GFR (MDRD) 60 L Glucose 106 H Calcium 9.7 Total Bilirubin 0.7 AST 25 ALT 14 Alkaline Phosphatase 69 Total Protein 7.0 Albumin 4.0 Globulin 3.0 Albumin/Globulin Ratio 1.3 Lipase 28 - Rads (name of study) head Ct Relevant Findings:: Final report received, See rad report chest CT Relevant Findings:: Final report received, See rad report PD Medical Decision Making - ED course Complexity details: reviewed results, re-evaluated patient, considered differential, d/w patient, d/w healthcare network consultant ED course: 83-year-old female status post a ground-level fall in which she fell onto the chest. She has acute appearing right rib fractures 3, 4, 5, 6, 7. These are in the anterolateral aspects of the ribs. She also has a sternum fracture. She is tender over this site. She states she has never had a sternum fracture before either. I do suspect this is acute. No evidence of lung trauma. No hemothorax or pneumothorax. Given the number of rib fractures and sternal fracture, patient cannot be admitted to our critical access hospital. Therefore I contacted [facility] emergency department, Dr. Roland, who graciously accepts in transfer. COBRA forms completed. Pain well-controlled with IV morphine. This document was made in part using voice recognition software. While efforts are made to proofread this document, sound alike and grammatical errors may occur. EXAM: [id number] CT/CHTWO ([id number]) PROCEDURE: Chest WO INDICATIONS: fall, ant chest wall pain TECHNIQUE: A CT scan of the chest was performed. Intravenous contrast media was not administered. Images were recorded and evaluated at appropriate window settings. Reformats: axial MIP of the chest, coronal and sagittal. For radiation dose reduction, the following was used: automated exposure control, adjustment of mA and/or kV according to patient size. COMPARISON: None. FINDINGS: Image quality: Diagnostic. Chest wall and lower neck: No thyroid nodule which requires sonographic follow up. No axillary or supraclavicular adenopathy by size. Lungs and pleura: No consolidation or opacity suggesting contusion. Scarring and calcified pleural plaquing at both lung apices. Mild posterior gravitational changes. No posttraumatic pleural effusions or pneumothorax. No suspicious pulmonary nodules which require follow up. Mediastinum: Heart size is normal. No pericardial effusion. Mild coronary artery and aortic valvular calcification. Stable 4.2 cm ascending aortic aneurysm. No other large vessel abnormality. No mediastinal adenopathy by size criteria. Large chronic hiatal hernia. Bones: There is a sternal fracture just below the sternomanubrial junction which appears chronic although not previously seen and there is some motion artifact obscuring fine detail. There are healing left rib fractures. There is a chronic anterior wedge deformity of T7. Acute appearing right rib fractures 3, 4, 5, 6, 7. Upper Abdomen: Unremarkable. IMPRESSION: New right anterior and lateral rib fractures as described. Sternal fracture of uncertain chronicity. Correlate with point tenderness. There are no secondary signs to suggest acuity such as substernal hematoma or overlying soft tissue contusion. There are chronic left-sided and anterior wedge vertebral body fractures. No CT evidence of acute underlying lung trauma. EXAM: [id number] CT/HEADWO ([id number]) PROCEDURE: Head WO INDICATIONS: fall, forehead injury/pain TECHNIQUE: Noncontrast 4.5 mm thick angled axial sections acquired from the foramen magnum to the vertex. For radiation dose reduction, the following was used: automated exposure control, adjustment of mA and/or kV according to patient size. COMPARISON: 08/08/2023 FINDINGS: Image quality: Excellent. CSF spaces: Basal cisterns are patent. No extra-axial fluid collections. Ventricles are normal in size and shape. Brain: No midline shift. No intracranial masses or hemorrhage. Carey-white matter interface is normal. Age appropriate cervical cortical atrophy and periventricular white matter hypodensity. Intracranial internal carotid artery atherosclerosis. Skull and face: Calvarium and visualized facial bones are intact, without suspicious lesions. Sinuses: Visualized sinuses and mastoids are clear. IMPRESSION: No CT evidence of acute head trauma. Age-appropriate cortical volume loss and chronic microvascular ischemic change. No significant soft tissue injury or underlying skull fracture. Departure - Departure Disposition: 02 Transfer Acute Care Hosp Clinical Impression: Sternum fx Qualifiers: Encounter type: initial encounter Sternal location: unspecified Fracture type: closed Qualified Code(s): S22.20XA - Unspecified fracture of sternum, initial encounter for closed fracture Ribs, multiple fractures Qualifiers: Encounter type: initial encounter Fracture type: closed Laterality: right Qualified Code(s): S22.41XA - Multiple fractures of ribs, right side, initial encounter for closed fracture Condition: Stable Forms: PCP List
--- NOTE | 2023-12-01 20:56 | CT Report ---
PROCEDURE: Head WO INDICATIONS: fall, forehead injury/pain TECHNIQUE: Noncontrast 4.5 mm thick angled axial sections acquired from the foramen magnum to the vertex. For r adiation dose reduction, the following was used: automated exposure control, adjustment of mA and/or kV according to patient size. COMPARISON: 08/08/2023 FINDINGS: Image quality: Excellent. CSF spaces: Basal cisterns are patent. No extra-axial fluid collections. Ventricles are normal in size and shape. Brain: No midline shift. No intracranial masses or hemorrhage. Carey-white matter interface is norm al. Age appropriate cervical cortical atrophy and periventricular white matter hypodensity. Intracra nial internal carotid artery atherosclerosis. Skull and face: Calvarium and visualized facial bones are intact, without suspicious lesions. Sinuses: Visualized sinuses and mastoids are clear. IMPRESSION: No CT evidence of acute head trauma. Age-appropriate cortical volume loss and chronic microvascular ischemic change. No significant soft tissue injury or underlying skull fracture. Reviewed by: April Dugan MD on 12/01/2023 8:55 PM PDT Approved by: April Dugan MD on 12/01/2023 8:55 PM PDT Station ID: [id number]
[2023-12-01] MEDS: ACETAMINOPHEN 325 MG TABLET PO STA (21:02)
--- NOTE | 2023-12-01 21:33 | CT Report ---
PROCEDURE: Chest WO INDICATIONS: fall, ant chest wall pain TECHNIQUE: A CT scan of the chest was performed. Intravenous contrast media was not administered. Images were re corded and evaluated at appropriate window settings. Reformats: axial MIP of the chest, coronal and s agittal. For radiation dose reduction, the following was used: automated exposure control, adjustment of mA and/or kV according to patient size. COMPARISON: None. FINDINGS: Image quality: Diagnostic. Chest wall and lower neck: No thyroid nodule which requires sonographic follow up. No axillary or sup raclavicular adenopathy by size. Lungs and pleura: No consolidation or opacity suggesting contusion. Scarring and calcified pleural pl aquing at both lung apices. Mild posterior gravitational changes. No posttraumatic pleural effusions or pneumothorax. No suspicious pulmonary nodules which require follow up. Mediastinum: Heart size is normal. No pericardial effusion. Mild coronary artery and aortic valvular calcification. Stable 4.2 cm ascending aortic aneurysm. No other large vessel abnormality. No mediast inal adenopathy by size criteria. Large chronic hiatal hernia. Bones: There is a sternal fracture just below the sternomanubrial junction which appears chronic alth ough not previously seen and there is some motion artifact obscuring fine detail. There are healing l eft rib fractures. There is a chronic anterior wedge deformity of T7. Acute appearing right rib fract ures 3, 4, 5, 6, 7. Upper Abdomen: Unremarkable. IMPRESSION: New right anterior and lateral rib fractures as described. Sternal fracture of uncertain chronicity. Correlate with point tenderness. There are no secondary sig ns to suggest acuity such as substernal hematoma or overlying soft tissue contusion. There are chronic left-sided and anterior wedge vertebral body fractures. No CT evidence of acute underlying lung trauma. Reviewed by: April Dugan MD on 12/01/2023 9:32 PM PDT Approved by: April Dugan MD on 12/01/2023 9:32 PM PDT Station ID: [id number]
[2023-12-01] MEDS: MORPHINE 2 MG/ML CARPUJECT IVP STA ×2 (22:34→23:43)
[2023-12-01 22:59] LABS: BASOPHILS % (AUTO) 0.3 %; EOSINOPHILS # (AUTO) 0.2 10^3/uL (0.0-0.7); EOSINOPHILS % (AUTO) 1.5 %; HCT - HEMATOCRIT 38.9 % (37.0-47.0); HGB - HEMOGLOBIN 12.8 g/dL (12.0-16.0); LYMPHOCYTES # (AUTO) 1.6 10^3/uL (1.5-3.5); LYMPHOCYTES % (AUTO) 14.9 %; MEAN CORPUSCULAR HEMOGLOBIN 31.8 pg (27.0-31.0); MEAN CORPUSCULAR HGB CONC 32.9 g/dL (32.0-36.0); MEAN CORPUSCULAR VOLUME 96.5 fL (81.0-99.0); MEAN PLATELET VOLUME 9.1 fL (7.9-10.8); MONOCYTES # (AUTO) 1.3 10^3/uL (0.0-1.0); MONOCYTES % (AUTO) 11.9 %; NEUTROPHILS # (AUTO) 7.8 10^3/uL (1.5-6.6); NEUTROPHILS % (AUTO) 70.9 %; PLT - PLATELET COUNT 216 10^3/uL (130-450); RED BLOOD COUNT 4.03 10^6/uL (4.20-5.40); RED CELL DISTRIBUTION WIDTH 13.9 % (12.0-15.0); WHITE BLOOD COUNT 10.9 x10^3/uL (4.8-10.8)
[2023-12-01 23:04] LABS: INR 1.1 (0.8-1.2); PT - PROTHROMBIN TIME 12.1 secs (9.9-12.6)
[2023-12-01 23:13] LABS: ALBUMIN/GLOBULIN RATIO 1.3 (1.0-2.2); BILIRUBIN,TOTAL 0.7 mg/dL (0.2-1.0); CALCIUM 9.7 mg/dL (8.5-10.3); CREATININE 0.9 mg/dL (0.6-1.3); POTASSIUM 4.4 mmol/L (3.5-4.5)
[2023-12-01 23:17] VITALS: O2SAT 95
--- NOTE | 2023-12-01 23:45 | ED Physician Documentation ---
Results - Vitals Vitals: Vital Signs - 24 hr 12/01/23 12/01/23 12/01/23 19:38 21:34 23:00 Temperature 36.8 C Heart Rate 94 91 83 Respiratory 16 18 14 Rate Blood Pressure 192/80 H 135/100 H 164/92 H O2 Saturation 96 97 95 Oxygen O2 Source [] Room air O2 Source Room air - EKG (time done) 2337 EKG releavant findings:: EKG personally interpreted by author of this note. Relevant findings are: Rate: Rate (enter#) (88) Rhythm: NSR [place]: Normal Intervals: Normal IA QRS: Normal Ischemia: Normal ST segments - Labs Labs: Laboratory Tests 12/01/23 12/01/23 12/01/23 22:53 22:53 22:53 WBC 10.9 H RBC 4.03 L Hgb 12.8 Hct 38.9 MCV 96.5 MCH 31.8 H MCHC 32.9 RDW 13.9 Plt Count 216 MPV 9.1 Neut # (Auto) 7.8 H Lymph # (Auto) 1.6 [place] # (Auto) 1.3 H Eos # (Auto) 0.2 Baso # (Auto) 0.0 Absolute Nucleated RBC 0.00 Nucleated RBC % 0.0 PT 12.1 INR 1.1 Sodium 139 Potassium 4.4 Chloride 106 Carbon Dioxide 27 Anion Gap 6.0 BUN 25 H Creatinine 0.9 Estimated GFR (MDRD) 60 L Glucose 106 H Calcium 9.7 Total Bilirubin 0.7 AST 25 ALT 14 Alkaline Phosphatase 69 Total Protein 7.0 Albumin 4.0 Globulin 3.0 Albumin/Globulin Ratio 1.3 Lipase 28
[2023-12-01 23:57] VITALS: BP 167/84
== END 2023-12-01 23:51 | disposition short-term general hospital (02) ==
LOC: EDUNIT# → ED 19:32
DX: S00.81XA Abrasion of other part of head, initial encounter (principal); S00.83XA Contusion of other part of head, initial encounter; S22.41XA Multiple fractures of ribs, right side, initial encounter for closed fracture; S22.20XA Unspecified fracture of sternum, initial encounter for closed fracture; W01.198A Fall on same level from slipping, tripping and stumbling with subsequent striking against other object, initial encounter; Y93.89 Activity, other specified; Y92.810 Car as the place of occurrence of the external cause
CPT/HCPCS: 36415; 70450; 71250; 80053; 83690; 85025; 85610; 93005; 96374; 96376; 99285; A9270

== ENCOUNTER 2023-12-17 08:00 | Outpatient (CLI) | payer MEDICARE | END 2023-12-17 23:59 | disposition home or self-care (01) | LOC: LAB.N 08:00 | PROVIDERS: ATTEND Physician Assistant Medical | DX: L97.819 Non-pressure chronic ulcer of other part of right lower leg with unspecified severity (principal) | CPT/HCPCS: 87070; 87181; 87205 ==

== ENCOUNTER 2023-12-19 08:00 | Outpatient (CLI) | payer MEDICARE | END 2023-12-19 23:59 | disposition home or self-care (01) | LOC: PC 08:00 | PROVIDERS: ATTEND Nurse Practitioner Gerontology | DX: Z51.5 Encounter for palliative care (principal); A46 Erysipelas; I73.9 Peripheral vascular disease, unspecified; G89.29 Other chronic pain; M25.561 Pain in right knee; M06.9 Rheumatoid arthritis, unspecified; I50.9 Heart failure, unspecified; I48.91 Unspecified atrial fibrillation; I25.10 Atherosclerotic heart disease of native coronary artery without angina pectoris; Z71.89 Other specified counseling; Z96.652 Presence of left artificial knee joint | CPT/HCPCS: 99350 ==

== ENCOUNTER 2023-12-25 09:33 | Outpatient (CLI) | payer MEDICARE ==
--- NOTE | 2023-12-26 10:58 | Mammography Report ---
UNILATERAL LEFT DIGITAL DIAGNOSTIC MAMMOGRAM 3D/2D WITH LATEROMEDIAL SPOT COMPRESSION: 12/25/2023 CLINICAL: Patient returns today to evaluate an asymmetry in the left breast. Comparison is made to exams dated: 10/05/2020 mammogram, 11/12/2023 mammogram, 12/20/2014 mammogram, and 11/29/2013 mammogram - [facility]. There are scattered areas of fibroglandular density in the left breast (category b / 25%-50% glandula r tissue). There is an asymmetry in the left breast middle depth central to the nipple seen on the mediolateral oblique view only. This is not seen in additional views. No other significant masses or calcifications are seen in the breast. IMPRESSION: BENIGN There is no mammographic evidence of malignancy. The asymmetry in the left breast is consistent with fibroglandular tissue and is benign. A 1 year screening mammogram is recommended. Exam findings were conveyed to the patient. Based on the Tyrer Cuzick model (a risk assessment model) the patient's lifetime risk is 0.2% and her 10 year risk is 0.0%. According to the ACR, ACS, and NCCN guidelines, an annual breast MRI exam yola g with mammogram is recommended if the patient's lifetime risk is 20% or greater. This exam was interpreted at Station ID: [id number]. NOTE: For mammograms, a report in lay terms will be sent to the patient. Approximately 15% of breast malignancies will not be visualized mammographically. In the management of a palpable breast mass, a negative mammogram must not discourage biopsy of a clinically suspicious lesion. Electronically Signed By: Aamir Hills M.D. slc/:12/25/2023 10:49:13 ACR BI-RADS Category 2: Benign Finding(s) 3342F PARENCHYMAL PATTERN: (A) - The breast(s) demonstrate(s) scattered fibroglandular densities. BI-RADS CATEGORY: (2) - 2 RECOMMENDATION: (ANNUAL) - Recommend routine annual screening mammography. [id number] 1 year screening LATERALITY: (B)
== END 2023-12-25 09:34 | disposition home or self-care (01) ==
LOC: DI 09:33
PROVIDERS: ATTEND Physician Assistant Medical
DX: R92.8 Other abnormal and inconclusive findings on diagnostic imaging of breast (principal); R92.322 Mammographic fibroglandular density, left breast

== ENCOUNTER 2023-12-26 16:12 | Emergency (ER) | payer MEDICARE ==
[2023-12-26 16:29] VITALS: BP 125/80; O2SAT 99
--- NOTE | 2023-12-26 16:38 | ED Physician Documentation ---
PD HPI WOUND RECHECK - Stated complaint Stated Complaint: R LEG WOUND - Chief complaint Chief Complaint: Wound - Histroy obtained from History obtained from: Patient - Additional information Additional information: She has a longstanding issue with the right leg and has been in wound care. Recently the wound has gotten bigger and draining. She is on cefpodoxime. Culture from a few days ago shows 4+ Pseudomonas with 1+ Enterococcus. 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 : Incontinence, Frequency HEENT: Chronic vision loss Psych: Depression, Anxiety Musculoskeletal: Osteoarthritis, Rheumatoid arthritis, Osteoporosis, Other Derm: None - Past Surgical History Past Surgical History: Yes General: Colonoscopy, EGD Ortho: Hip replacement, Knee replacement, 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: Tubal ligation Cardiovascular: Cardiac catheterization HEENT: Cataracts, Tonsil/Adenoidectomy - Present Medications Home Medications: Ambulatory Orders Medication Instructions Recorded Confirmed Levothyroxine [Synthroid] 75 mcg PO QDAC 01/01/17 09/25/23 Etanercept [Enbrel] 50 mg SQ Q7D 05/23/17 09/25/23 Multivitamin [Theragran] 1 tab PO DAILY 05/28/17 09/25/23 Furosemide 20 mg PO DAILY 02/05/19 09/25/23 Ascorbic Acid [Vitamin C] 1,000 mg PO DAILY 09/18/20 09/25/23 Cholecalciferol (Vitamin D3) 2,000 unit PO DAILY 09/18/20 09/25/23 [Vitamin D3] Cyanocobalamin (Vitamin B-12) 5,000 mcg PO DAILY 09/18/20 09/25/23 [Vitamin B-12] Folic Acid 800 mg PO DAILY 09/18/20 09/25/23 Magnesium Oxide [Magnesium] 500 mg PO DAILY 09/18/20 09/25/23 [place]-3/Dha/Epa/Fish Oil [Fish Oil 1,200 mg PO DAILY 09/18/20 09/25/23 1,200 mg Softgel] Pantoprazole [Protonix] 40 mg PO DAILY 09/18/20 09/25/23 Triamcinolone Acetonide 0.1% See Rx Instructions .ROUTE 02/24/23 09/25/23 [Triamcinolone Acetonide] .COMPLEX PRN Atorvastatin [Lipitor] 20 mg PO QPM 08/08/23 09/25/23 Methotrexate [Methotrexate Sodium] 15 mg PO OAW 08/08/23 09/25/23 Calcium Carbonate [Tums (Calcium 1,000 mg PO DAILY tab 08/09/23 09/25/23 Carbonate 500mg)] Furosemide [Lasix] 20 mg PO MOWEFR #15 tab 08/09/23 09/25/23 lisinopriL [Zestril] 2.5 mg PO DAILY 08/09/23 09/25/23 levoFLOXacin [Levofloxacin] 500 mg PO DAILY 10 Days #10 tablet 10/31/23 Triamcinolone 0.1% Oint 1 applic TOP BID #80 gm 11/11/23 Ciprofloxacin HCl [Cipro] 500 mg PO BID #20 tablet 12/26/23 - Allergies Allergies/Adverse Reactions: Allergies Allergy/AdvReac Type Severity Reaction Status Date / Time aspirin Allergy Unknown Verified 12/26/23 16:22 NSAIDS (Non-Steroidal Allergy Unknown Verified 12/26/23 16:22 Anti-Inflamma - Social History Does the pt smoke?: No Smoking Status: Never smoker Does the pt drink ETOH?: No Does the pt have substance abuse?: No - Immunizations Immunizations are current?: Yes - POLST Patient has POLST: No POLST Status: Full Code (she has not thought about advanced care planning or planning for severe diability. She thinks that if she is resuscitated she will recover to be normal and go home again.) PD ED PE NORMAL - Vitals Vital signs reviewed: Yes - General General: Alert and oriented X 3, No acute distress - Extremities Extremities: Other (Large draining wound to the posteromedial right leg without much in the way of cellulitis.) - Neuro Neuro: Alert and oriented X 3, Normal speech Results - Vitals Vitals: Vital Signs - 24 hr 12/26/23 16:19 Temperature 36.7 C Heart Rate 86 Respiratory 16 Rate Blood Pressure 125/80 O2 Saturation 99 Oxygen O2 Source [Without Activity] Room air O2 Source Room air PD Medical Decision Making - ED course ED course: Wound culture reviewed. Will switch her over to Cipro from cefpodoxime. She also has topical gentamicin at home which would be appropriate as well. She has wound care follow-up early next week. She is not ill systemically. Departure - Departure Disposition: Home, Self Care Clinical Impression: Non-pressure chronic ulcer of other part of left lower leg limited to breakdown of skin Condition: Good Record reviewed to determine appropriate education?: Yes Prescriptions: Ciprofloxacin HCl [Cipro] 500 mg PO BID #20 tablet Comments: I sent your prescription electronically to [email or web address] in [place]. Based on your prior wound culture done with LONNIE Santiago I am changing her antibiotics. You can continue dressings as you have been and follow-up with wound care on Friday as scheduled. Return if worse.
== END 2023-12-26 17:04 | disposition home or self-care (01) ==
LOC: ED 16:12
DX: L97.811 Non-pressure chronic ulcer of other part of right lower leg limited to breakdown of skin (principal)
CPT/HCPCS: 99282; 99284

== ENCOUNTER 2024-01-23 08:00 | Outpatient (CLI) | payer MEDICARE | END 2024-01-23 23:59 | disposition home or self-care (01) | LOC: PC 08:00 | PROVIDERS: ATTEND Nurse Practitioner Gerontology | DX: Z51.5 Encounter for palliative care (principal); L08.9 Local infection of the skin and subcutaneous tissue, unspecified; I83.009 Varicose veins of unspecified lower extremity with ulcer of unspecified site; I95.2 Hypotension due to drugs; I11.0 Hypertensive heart disease with heart failure; I50.9 Heart failure, unspecified; M06.9 Rheumatoid arthritis, unspecified; I25.10 Atherosclerotic heart disease of native coronary artery without angina pectoris; Z71.89 Other specified counseling | CPT/HCPCS: 99350 ==

== ENCOUNTER 2024-02-17 02:30 | Outpatient (CLI) | payer MEDICARE | END 2024-02-17 23:59 | disposition EMS.NT | LOC: EMS 02:30 | DX: Z03.89 Encounter for observation for other suspected diseases and conditions ruled out (principal) ==

== ENCOUNTER 2024-02-18 14:33 | Emergency (ER) | payer MEDICARE ==
--- NOTE | 2024-02-18 15:06 | ED Physician Documentation ---
History of Present Illness - Stated complaint Stated Complaint: GLF - Chief complaint Chief Complaint: Trauma Hd/Nk - Additonal information Additional information: 83-year-old female with history of hypertension, hypercholesterolemia, coronary artery disease, DVT, heart murmur, arrhythmia, valve disorder, headaches, migraines, peripheral neuropathy, TIA, hypothyroidism presents emergency department after experiencing ground-level fall on Friday. Patient says that she is quite unsteady on her feet at baseline and she has been having increase in mechanical ground-level falls recently. She tripped over her foot and fell onto her left portion of her face. She has bruising to bilateral eyes she denies any loss of consciousness she lives with her son who appears to be appropriately concerned for the patient and they just want to make sure that patient is not having any sort of internal brain bleed. She denies any nausea vomiting mild head pain no confusion mild neck pain. PD PAST MEDICAL HISTORY - Past Medical History Past Medical History: Yes Cardiovascular: Hypertension, High cholesterol, Coronary artery disease, Deep vein thrombosis, Angina, Murmur, Arrhythmia, Valve disorder, Other Respiratory: Other Neuro: TIA, Headaches, Migraines, Peripheral neuropathy, Other Endocrine/Autoimmune: HyPOthyroidism GI: Ulcers, Other POLICY VALUE CALCULATOR: Other : Incontinence, Frequency HEENT: Chronic vision loss Psych: Depression, Anxiety Musculoskeletal: Osteoarthritis, Rheumatoid arthritis, Osteoporosis, Other Derm: None - Past Surgical History Past Surgical History: Yes General: Colonoscopy, EGD Ortho: Hip replacement, Knee replacement, Other /POLICY VALUE CALCULATOR: Tubal ligation Cardiovascular: Cardiac catheterization HEENT: Cataracts, Tonsil/Adenoidectomy - Present Medications Home Medications: Ambulatory Orders Medication Instructions Recorded Confirmed Levothyroxine [Synthroid] 75 mcg PO QDAC 01/01/17 02/10/24 Etanercept [Enbrel] 50 mg SQ Q7D 05/23/17 02/10/24 Multivitamin [Theragran] 1 tab PO DAILY 05/28/17 02/10/24 Ascorbic Acid [Vitamin C] 1,000 mg PO DAILY 09/18/20 02/10/24 Cholecalciferol (Vitamin D3) 2,000 unit PO DAILY 09/18/20 02/10/24 [Vitamin D3] Cyanocobalamin (Vitamin B-12) 5,000 mcg PO DAILY 09/18/20 02/10/24 [Vitamin B-12] Folic Acid 800 mg PO DAILY 09/18/20 02/10/24 Magnesium Oxide [Magnesium] 500 mg PO DAILY 09/18/20 02/10/24 [place]-3/Dha/Epa/Fish Oil [Fish Oil 1,200 mg PO DAILY 09/18/20 02/10/24 1,200 mg Softgel] Pantoprazole [Protonix] 40 mg PO DAILY 09/18/20 02/10/24 Triamcinolone Acetonide 0.1% See Rx Instructions .ROUTE 02/24/23 02/10/24 [Triamcinolone Acetonide] .COMPLEX PRN Atorvastatin [Lipitor] 20 mg PO QPM 08/08/23 02/10/24 Methotrexate [Methotrexate Sodium] 15 mg PO OAW 08/08/23 02/10/24 Calcium Carbonate [Tums (Calcium 1,000 mg PO DAILY tab 08/09/23 02/10/24 Carbonate 500mg)] Furosemide [Lasix] 20 mg PO MOWEFR #15 tab 08/09/23 02/10/24 lisinopriL [Zestril] 2.5 mg PO DAILY 08/09/23 02/10/24 Triamcinolone 0.1% Oint 1 applic TOP BID #80 gm 11/11/23 02/10/24 - Allergies Allergies/Adverse Reactions: Allergies Allergy/AdvReac Type Severity Reaction Status Date / Time aspirin Allergy Unknown Verified 02/18/24 15:09 NSAIDS (Non-Steroidal Allergy Unknown Verified 02/18/24 15:09 Anti-Inflamma - Social History Does the pt smoke?: No Smoking Status: Never smoker Does the pt drink ETOH?: No Does the pt have substance abuse?: No - Immunizations Immunizations are current?: Yes - POLST Patient has POLST: No POLST Status: Full Code (she has not thought about advanced care planning or planning for severe diability. She thinks that if she is resuscitated she will recover to be normal and go home again.) PD ED PE NORMAL - Vitals Vital signs reviewed: Yes - General General: Alert and oriented X 3, No acute distress, Well developed/nourished - HEENT HEENT: Other (bilateral superior eye echymosis. ) - Neck Neck: No bony TTP, Other (tenderness to bilateral paraspinal region) - Cardiac Cardiac: RRR, No murmur - Respiratory Respiratory: No respiratory distress, Clear bilaterally - Abdomen Abdomen: Normal bowel sounds, Soft, Non tender, No organomegaly - Back Back: No CVA TTP, No spinal TTP - Extremities Extremities: No deformity, No tenderness to palpate, Normal ROM s pain, No edema, No calf tenderness / cord - Neuro Neuro: Alert and oriented X 3, machine stitcher 2-12 intact, No motor deficit, No sensory d eficit, Normal speech Eye Opening: Spontaneous Motor: Obeys Commands Verbal: Oriented GCS Score: 15 - Psych Psych: Normal mood, Normal affect Results - Vitals Vitals: Vital Signs - 24 hr 02/18/24 02/18/24 14:47 16:44 Temperature 36.6 C Heart Rate 96 76 Respiratory 16 14 Rate Blood Pressure 100/63 144/86 H O2 Saturation 98 96 Oxygen O2 Source [Without Activity] Room air O2 Source Room air - Rads (name of study) Head CT without con Relevant Findings:: Final report received, EMP independent interpretation of test, Other (No intracranial hemorrhages or abnormalities) Cervical spine without Relevant Findings:: Final report received, EMP independent interpretation of test, Other (No subluxation or fractures.) PD Medical Decision Making - ED course ED course: 83-year-old female presents emergency department after experiencing a mechanical ground-level fall 4 days ago. Patient and her son are just worried about some sort of possible intracranial bleed or abnormality. She has bilateral black eyes that appear to be well-healing. She appears to appropriately bonded to her son and he appears to be appropriately concerned for her. I do not believe that this is an accidental trauma. Head CT was complete for further evaluation no intracranial hemorrhages or abnormalities. Cervical spine was also completed without con and there is no subluxations or acute abnormalities or fractures found there as well. Patient is at the fall with her primary care provider for physical therapy referral to help with her recent increased generalized weakness and mechanical falls and gait. Return precautions given all questions answered patient is quite reassured and ready for discharge. Departure - Departure Disposition: 01 Home, Self Care Clinical Impression: Ground-level fall, Head injury Instructions: ED Head Injury Closed Comments: Thank you for trusting us with your care. We have completed a head CT as well as a neck CT and we are not seeing any abnormalities or findings. Please take Tylenol ibuprofen for pain and discomfort. Follow-up with your primary care provider as needed make sure that you start thinking about using a walker to help you with ambulation so you do not continue to have poor balance. At also consider speaking with your primary care provider for possible physical therapy referral to help with your walking. Forms: PCP List Discharge Date/Time: 02/18/24 17:02
--- NOTE | 2024-02-18 16:07 | CT Report ---
PROCEDURE: Head WO INDICATIONS: GLF TECHNIQUE: Noncontrast 4.5 mm thick angled axial sections acquired from the foramen magnum to the vertex. For r adiation dose reduction, the following was used: automated exposure control, adjustment of mA and/or kV according to patient size. COMPARISON: 12/01/2023 FINDINGS: Image quality: Excellent. CSF spaces: Basal cisterns are patent. No extra-axial fluid collections. Ventricles are normal in size and shape. Brain: No midline shift. No intracranial masses or hemorrhage. Age-related global volume loss and c hronic microvascular ischemic changes. Intracranial atherosclerotic vascular calcifications. Carey-w annette matter interface is normal. Skull and face: Calvarium and visualized facial bones are intact, without suspicious lesions. Bilate ral lens replacements. The orbits are otherwise normal in appearance. Sinuses: Visualized sinuses and mastoids are clear. IMPRESSION: No acute intracranial pathology. Reviewed by: Eliu Meyer MD on 02/18/2024 4:06 PM PDT Approved by: Eliu Meyer MD on 02/18/2024 4:06 PM PDT Station ID: [email or web address]
--- NOTE | 2024-02-18 16:09 | CT Report ---
PROCEDURE: Cervical Spine WO INDICATIONS: GLF TECHNIQUE: Noncontrast 3 mm thick sections acquired from the skull base to the T4 level. Sagittal and coronal r eformats were then constructed. For radiation dose reduction, the following was used: automated exp osure control, adjustment of mA and/or kV according to patient size. COMPARISON: 08/08/2023. FINDINGS: Image quality: Excellent. Bones: No fractures or dislocations. Redemonstration of multilevel degenerative changes, severe at C 5-C6 and C6-C7. Visualized superior ribs are intact. Soft tissues: Prevertebral soft tissues are normal in thickness. No paravertebral hematomas. No ap ical pneumothoraces. IMPRESSION: No acute, displaced fracture or traumatic subluxation. Redemonstration of multilevel degenerative evelin nges. Reviewed by: Eliu Meyer MD on 02/18/2024 4:08 PM PDT Approved by: Eliu Meyer MD on 02/18/2024 4:08 PM PDT Station ID: [email or web address]
[2024-02-18] MEDS ORDERED: ACETAMINOPHEN 325 MG TABLET PO STA (16:35)
[2024-02-18 16:49] VITALS: BP 144/86; O2SAT 96
== END 2024-02-18 17:02 | disposition home or self-care (01) ==
LOC: ED 14:33
DX: S09.90XA Unspecified injury of head, initial encounter (principal); W01.0XXA Fall on same level from slipping, tripping and stumbling without subsequent striking against object, initial encounter; Z91.81 History of falling; R29.6 Repeated falls; I10 Essential (primary) hypertension; E78.00 Pure hypercholesterolemia, unspecified; I25.10 Atherosclerotic heart disease of native coronary artery without angina pectoris; E03.9 Hypothyroidism, unspecified; Z86.73 Personal history of transient ischemic attack (TIA), and cerebral infarction without residual deficits; Z79.899 Other long term (current) drug therapy
CPT/HCPCS: 99284

== ENCOUNTER 2024-02-26 14:05 | Outpatient (CLI) | payer MEDICARE ==
[2024-02-26 17:49] LABS: BASOPHILS % (AUTO) 0.4 %; EOSINOPHILS # (AUTO) 0.1 10^3/uL (0.0-0.7); EOSINOPHILS % (AUTO) 0.8 %; HGB - HEMOGLOBIN 12.8 g/dL (12.0-16.0); LYMPHOCYTES # (AUTO) 1.7 10^3/uL (1.5-3.5); MEAN CORPUSCULAR HEMOGLOBIN 31.2 pg (27.0-31.0); MEAN CORPUSCULAR VOLUME 97.6 fL (81.0-99.0); MEAN PLATELET VOLUME 9.5 fL (7.9-10.8); MONOCYTES # (AUTO) 0.8 10^3/uL (0.0-1.0); MONOCYTES % (AUTO) 7.7 %; NEUTROPHILS # (AUTO) 7.4 10^3/uL (1.5-6.6); NEUTROPHILS % (AUTO) 73.7 %; PLT - PLATELET COUNT 388 10^3/uL (130-450); RED CELL DISTRIBUTION WIDTH 14.1 % (12.0-15.0); WHITE BLOOD COUNT 10.1 x10^3/uL (4.8-10.8)
[2024-02-26 18:03] LABS: ALBUMIN 3.7 g/dL (3.2-5.5); ALBUMIN/GLOBULIN RATIO 1.1 (1.0-2.2); BILIRUBIN,TOTAL 0.5 mg/dL (0.2-1.0); CALCIUM 9.4 mg/dL (8.5-10.3); CREATININE 0.9 mg/dL (0.6-1.3); CRP - C-REACTIVE PROTEIN 2.5 mg/dL (<0.5); POTASSIUM 3.9 mmol/L (3.5-4.5)
[2024-02-27 04:10] LABS: COMPLEMENT C3 154 mg/dL (82-167); COMPLEMENT C4 37 mg/dL (12-38); HBsAG SCREEN Negative (Negative)
[2024-02-28 01:12] LABS: HCV AB Non Reactive (Non Reactive)
== END 2024-02-26 14:06 | disposition home or self-care (01) ==
LOC: LAB.N 14:05
PROVIDERS: ATTEND Internal Medicine Rheumatology
DX: M06.9 Rheumatoid arthritis, unspecified (principal); L97.919 Non-pressure chronic ulcer of unspecified part of right lower leg with unspecified severity
CPT/HCPCS: 36415; 80053; 85025; 85651; 86038; 86140; 86160; 86803; 87340

== ENCOUNTER 2024-03-12 14:30 | Outpatient (CLI) | payer MEDICARE | END 2024-03-12 23:59 | disposition home or self-care (01) | LOC: PC 14:30 | PROVIDERS: ATTEND Nurse Practitioner Gerontology | DX: Z51.5 Encounter for palliative care (principal); F01.50 Vascular dementia, unspecified severity, without behavioral disturbance, psychotic disturbance, mood disturbance, and anxiety; R29.6 Repeated falls; M17.11 Unilateral primary osteoarthritis, right knee; I73.9 Peripheral vascular disease, unspecified; I87.2 Venous insufficiency (chronic) (peripheral); L97.819 Non-pressure chronic ulcer of other part of right lower leg with unspecified severity; M06.9 Rheumatoid arthritis, unspecified; Z71.89 Other specified counseling; Z79.899 Other long term (current) drug therapy; R26.81 Unsteadiness on feet; R53.1 Weakness | CPT/HCPCS: 99214 ==

== ENCOUNTER 2024-03-19 13:50 | Outpatient (CLI) | payer MEDICARE ==
[~2024-03-19 13:50] MED LIST changes: -CYCLOPENTOLATE 1% OPHTH DROPS 2 ML ONE; +GADOTERATE MEGLUMINE 7.5 MMOL/15 ML VIAL ONE; -KETOROLAC 0.45% OPHTH DROPS ONE; -PHENYLEPHRINE 2.5% OPHTH 2 ML DROPS ONE; -PROPARACAINE 0.5% OPHTH DROPS 15 ML ONE
[2024-03-19] MEDS: GADOTERATE MEGLUMINE 7.5 MMOL/15 ML VIAL IVP ONE (15:10)
--- NOTE | 2024-03-19 18:41 | MRI Report ---
PROCEDURE: Brain W/WO INDICATIONS: BRAIN IMPAIRMENT CONTRAST: CLARISCAN 12.2 ML TECHNIQUE: Noncontrast axial T1 spin echo, axial T2 fast spin echo, sagittal and axial FLAIR, coronal T2 fast sp in echo, axial gradient echo, axial diffusion and ADC through the brain. After the administration of contrast, axial and coronal T1 spin echo with fat saturation through the brain. COMPARISON: CT head 02/18/2024. FINDINGS: Image quality: Excellent. CSF spaces: Basal cisterns are patent. No extra-axial fluid collections. Ventricles are normal in size and shape. Brain: No midline shift. No intracranial bleeds or masses. No abnormal intracranial enhancement. There is cerebral volume loss for age. There is periventricular white matter chronic small vessel is chemic change. The brainstem appears normal. Diffusion-weighted images demonstrate no acute ischemi c insults. No chronic ischemic insults. Normal intravascular flow voids are present. Skull and face: Calvarial marrow is normal in signal. Bilateral lens replacements. The orbits are o therwise normal in appearance. Sinuses: Sinuses and mastoids appear clear. IMPRESSION: 1.No acute or subacute infarct. No acute intracranial abnormality or abnormal intracranial enhancemen t. 2.Redemonstration of significant age-related global volume loss and chronic microvascular ischemic ch anges. Reviewed by: lEiu Meyer MD on 03/19/2024 6:40 PM PDT Approved by: Eliu Meyer MD on 03/19/2024 6:40 PM PDT Station ID: [email or web address]
== END 2024-03-19 13:51 | disposition home or self-care (01) ==
LOC: DI 13:50
PROVIDERS: ATTEND Physician Assistant Medical
DX: R41.3 Other amnesia (principal)

== ENCOUNTER 2024-07-12 12:33 | Inpatient (IN) ==
--- NOTE | 2024-07-12 12:58 | ED Physician Documentation ---
History of Present Illness Stated complaint Stated Complaint: DECREASED MOBILITY Chief complaint Chief Complaint: General History obtained from History obtained from: Patient and EMS History of Present Illness Pain level max: 0 Additonal information Additional information: Patient is an 84-year-old female who is on palliative care, lives at home with her son. States that she has had increasing generalized weakness over the past 2 days. Unable to get out of bed today, therefore 911 was called and they brought her to the emergency department. She denies any other symptoms. No fevers. No chills. No cough or congestion. No abdominal pain. No nausea or vomiting. No diarrhea. No blood in the stool. No falls. No trauma. Had a knee replacement about 2 months ago per patient. Patient states that she did not have any weakness in 1 specific area such as an arm or leg, no difficulty with speech or word finding. Just feels generally weak. Review of Systems Constitutional Denies: Fever or Chills Ears, nose, mouth, and throat Denies: Neck pain Cardiovascular Denies: chest pain or palpitations Respiratory Denies: Cough Gastrointestinal Denies: Abdominal pain, Nausea or Vomiting Musculoskeletal Denies: Back pain, Neck pain or Extremity pain Integumentary/Breast Denies: Rash Neurological Denies: Headache Meds/Allgy Home Medications Ambulatory Orders Medication Instructions Recorded Confirmed ascorbic acid (vitamin C) 500 mg 1,000 mg PO DAILY 09/18/20 06/07/24 tablet (Vitamin C) pantoprazole 40 mg tablet,delayed 40 mg PO DAILY 09/18/20 07/08/24 release atorvastatin 20 mg tablet 20 mg PO QPM 08/08/23 07/08/24 Permanent Disabled Placard 05/13/24 06/07/24 calcium carbonate (Calcium 600) 1,200 mg PO QDAY 05/13/24 06/07/24 cyanocobalamin (vitamin B-12) 1,000 mcg PO QDAY 05/13/24 07/08/24 1,000 mcg tablet (Vitamin B-12) folic acid 800 mcg tablet 1,600 mg PO DAILY 05/13/24 06/07/24 furosemide 20 mg tablet 20 mg PO .COMPLEX 05/13/24 07/08/24 magnesium oxide 500 mg PO DAILY 05/13/24 06/07/24 metoprolol succinate 25 mg 25 mg PO QDAY 05/13/24 07/08/24 tablet,extended release 24 hr levothyroxine 75 mcg tablet 75 mcg PO QDAY #90 tabs 06/03/24 07/08/24 (Synthroid) memantine 5 mg tablet (Namenda) 5 mg PO QPM #60 tabs 06/05/24 06/05/24 acetaminophen 500 mg tablet 1,000 mg PO TID PRN 06/07/24 07/08/24 calcium carbonate (Tums) 200 mg PO BID 06/07/24 06/07/24 cholecalciferol (vitamin D3) 25 50 mcg PO QDAY 06/07/24 06/07/24 mcg (1,000 unit) capsule denosumab 60 mg/mL subcutaneous 60 mg subcut [id number] 06/07/24 06/07/24 syringe (Prolia) etanercept 25 mg/0.5 mL (0.5 mL) 50 mg subcut Q7D 06/07/24 06/07/24 subcutaneous syringe (Enbrel) hydroxyzine HCl 25 mg tablet 25 mg PO Q6H PRN itching 06/07/24 06/07/24 methotrexate sodium 2.5 mg tablet 12.5 mg PO OAW 06/07/24 07/08/24 mupirocin 2 % topical ointment topical 06/07/24 06/07/24 thiamine HCl (vitamin B1) 100 mg 100 mg PO QDAY 06/07/24 06/07/24 tablet lisinopril 5 mg tablet 5 mg PO QDAY 07/08/24 07/08/24 Allergies Allergies Allergy/AdvReac Type Severity Reaction Status Date / Time levofloxacin (From [facility]) Allergy Severe Rash Verified 07/12/24 12:54 aspirin AdvReac Severe Bleed Verified 07/12/24 12:54 NSAIDS (Non-Steroidal AdvReac Severe Bleed Verified 07/12/24 12:54 Anti-Inflamma [facility] Medical History Medical History (Updated 07/12/24 @ 15:06 by Gallito Traylor MD) Lumbar degenerative disc disease Multiple fractures of ribs Fracture of sternum, closed 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 History of cor pulmonale TIA (transient ischemic attack) (01/29/18) Hyperglycemia (07/14/1959) Memory impairment (02/26/18) Venous stasis ulcer (04/15/22) Syncope (04/08/23) Surgical History Surgical History (Updated 06/07/24 @ 22:42 by GISSELLE Ruff) H/O synovectomy Right hand S/P tonsillectomy History of right cataract surgery S/P total hip arthroplasty Left S/P total knee arthroplasty Left Family History Family History (Updated 06/07/24 @ 22:13 by GISSELLE Ruff) Mother Alzheimers disease Father CAD (coronary artery disease) Social History Social History (Updated 06/07/24 @ 22:44 by GISSELLE Ruff) Smoking Status: Former smoker If you are a former smoker, when did you quit? (Date/Year): 1963 Number of Years Smoked: 2 How many cigarettes a day do you smoke? (20 cigarettes=1 Pk): 5 Second hand tobacco smoke exposure: No Do you dip or chew tobacco?: No Do you vape?: No Living arrangement: At home Marital Status: Living Condition: With family Support Person: Yes Relationship: Child Physical Activity: None Level: Assisted Home Mobility Equipment: Wheeled walker Do you feel safe in your home environment?: Yes Suffered physical, verbal, emotional, or financial abuse?: No History of Abuse: No POLST Patient has POLST: Yes POLST Status: Full Code Exam Constitutional normal general appearance and no apparent distress HENMT oropharynx normal moist mucous membranes Eyes PERRL Neck/C-Spine visual inspection normal Respiratory breath sounds equal bilaterally, normal respiratory effort and clear to auscultation bilaterally Cardiovascular normal heart rate noted and regular rhythm noted Gastrointestinal abdomen normal to inspection, abdomen soft to palpation, nontender to palpation and nondistended Genitourinary no CVA tenderness Extremities Well-healing incision to the right knee. No signs of infection. There is mild erythema and warmth to the the lower portion of the right lower extremity. No drainage. Neurology no sensory deficits noted and speech normal No focal neurological deficits. Psychiatry mental status grossly normal and oriented x3 Skin skin color normal Results Vitals Vitals: Vital Signs - 24 hr 07/12/24 12:49 Temperature 36.6 C Temperature Source Temporal Artery Scan Pulse Rate 91 Respiratory Rate 20 Blood Pressure 160/97 H O2 Saturation 95 O2 Source Room air Pain Intensity 0 Oxygen O2 Source [Without Activity] Room air O2 Source Room air Labs Labs: Laboratory Tests 07/12/24 07/12/24 13:00 13:29 WBC 10.0 RBC 3.64 L Hgb 11.4 L Hct 35.2 L MCV 96.7 MCH 31.3 H MCHC 32.4 RDW 15.4 H Plt Count 182 MPV 9.7 Neut # (Auto) 7.8 H Lymph # (Auto) 0.9 L [place] # (Auto) 1.2 H Eos # (Auto) 0.0 Baso # (Auto) 0.0 Absolute Nucleated RBC 0.00 Nucleated RBC % 0.0 Sodium 142 Potassium 3.8 Chloride 109 Carbon Dioxide 24 Anion Gap 9.0 BUN 30 H Creatinine 1.0 Estimated GFR (MDRD) 53 L Glucose 99 Calcium 8.6 Phosphorus 2.9 Magnesium 1.9 Total Bilirubin 0.8 AST 40 ALT 20 Alkaline Phosphatase 89 Total Protein 5.9 L Albumin 3.1 L Globulin 2.8 Albumin/Globulin Ratio 1.1 Urine Color YELLOW Urine Clarity CLOUDY Urine pH 6.0 Ur Specific [place] 1.020 Urine Protein 30 H Urine Glucose (UA) NEGATIVE Urine Ketones 15 H Urine Occult Blood LARGE H Urine Nitrite POSITIVE H Urine Bilirubin NEGATIVE Urine Urobilinogen 0.2 (NORMAL) Ur Leukocyte Esterase MODERATE H Urine RBC 6-10 H Urine WBC >25 H Ur Squamous Epith Cells FEW Squamous Urine Bacteria Many H Ur Microscopic Review INDICATED Urine Culture Comments INDICATED PD Medical Decision Making ED course Complexity details: reviewed results, considered differential and d/w patient ED course: Patient with generalized weakness, given IV fluids, found to have a UTI and given IV Rocephin. Attempted to ambulate the patient in the emergency department with a walker, she was unable to get out of bed even with several people assisting her. This is apparently an acute belt changer the past 2 days, likely that she will improve back to her baseline after treatment with antibiotics. Lives at home with family, we will place the patient in observation for UTI with generalized weakness. No evidence of sepsis. No fevers. No elevated white blood cell count. Not hypotensive. Discussed the case with the hospitalist who accepts This document was made in part using voice recognition software. While efforts are made to proofread this document, sound alike and grammatical errors may occur. Discharge Plan Discharge Patient Disposition: ED Place in Observation Condition: Stable Clinical Impression: Generalized weakness UTI (urinary tract infection) Qualifiers: Urinary tract infection type: site unspecified Hematuria presence: without hematuria Qualified Code(s): N39.0 - Urinary tract infection, site not specified
[2024-07-12] MEDS: SODIUM CHLORIDE 0.9% 1,000 ML IV STA (13:02)
[2024-07-12 13:12] LABS: BASOPHILS % (AUTO) 0.2 %; HCT - HEMATOCRIT 35.2 % (37.0-47.0); HGB - HEMOGLOBIN 11.4 g/dL (12.0-16.0); LYMPHOCYTES # (AUTO) 0.9 10^3/uL (1.5-3.5); MEAN CORPUSCULAR HEMOGLOBIN 31.3 pg (27.0-31.0); MEAN CORPUSCULAR HGB CONC 32.4 g/dL (32.0-36.0); MEAN CORPUSCULAR VOLUME 96.7 fL (81.0-99.0); MEAN PLATELET VOLUME 9.7 fL (7.9-10.8); MONOCYTES # (AUTO) 1.2 10^3/uL (0.0-1.0); MONOCYTES % (AUTO) 11.5 %; NEUTROPHILS # (AUTO) 7.8 10^3/uL (1.5-6.6); NEUTROPHILS % (AUTO) 78.8 %; PLT - PLATELET COUNT 182 10^3/uL (130-450); RED BLOOD COUNT 3.64 10^6/uL (4.20-5.40); RED CELL DISTRIBUTION WIDTH 15.4 % (12.0-15.0)
[2024-07-12 13:28] LABS: MAGNESIUM 1.9 mg/dL (1.7-2.3)
[2024-07-12 13:31] LABS: POTASSIUM 3.8 mmol/L (3.5-4.5)
[2024-07-12 13:34] LABS: ALBUMIN 3.1 g/dL (3.2-5.5); ALBUMIN/GLOBULIN RATIO 1.1 (1.0-2.2); BILIRUBIN,TOTAL 0.8 mg/dL (0.2-1.0); CALCIUM 8.6 mg/dL (8.5-10.3); PHOSPHORUS 2.9 mg/dL (2.5-5.0); TOTAL PROTEIN 5.9 g/dL (6.4-8.9)
[2024-07-12 13:41] LABS: BILIRUBIN,URINE NEGATIVE (NEGATIVE); GLUCOSE, URINE (UA) NEGATIVE (NEGATIVE); KETONES,URINE (UA) 15 mg/dL (NEGATIVE); LEUKOCYTE ESTERASE, URINE MODERATE (NEGATIVE); NITRITE,URINE POSITIVE (NEGATIVE); OCCULT BLOOD,URINE LARGE (NEGATIVE); PROTEIN,URINE 30 mg/dL (NEGATIVE); UROBILINOGEN,URINE 0.2 (NORMAL) E.U./dL (NORMAL)
[2024-07-12 13:43] LABS: CLARITY,URINE CLOUDY (CLEAR)
[2024-07-12 13:54] LABS: BACTERIA,URINE Many /HPF (None Seen); SQUAMOUS EPITHELIAL CELL,UR FEW Squamous (<= Few); WBC,URINE >25 /HPF (0-5)
[2024-07-12] MEDS: cefTRIAXone 1 GM VIAL IVP STA (14:12)
[2024-07-12] MEDS ORDERED: cefTRIAXone 1 GM in SODIUM CHLORIDE 0.9% MINIBAG 100 ML IV STA (15:17)
[2024-07-12] MEDS ORDERED: METOPROLOL 5 MG/5 ML VIAL IVP PRN (15:21)
--- NOTE | 2024-07-12 15:29 | HISTORY & PHYSICAL EXAMINATION ---
Chief Complaint Chief Complaint Chief Complaint: Generalized weakness History of Present Illness History of Present Illness HPI Comment/Other: Pt is very poor historian. Info was supplemented from prev chart notes and ED physician. This is a 84 year old femal on palliative care with a hx of CAD, peripheral neuropathy, ventricular tachycardia, atrial fibrillation, urinary incontinence, recent syncope, CHF, cor pulmonale, moderate pulmonary HTN, HLD, rheumatoid arthritis, COPD, hypothyroidism, osteoporosis, hx of gastric ulcers with hemorrhage, PAD, bilateral venous stasis ulcers and mild onset of Alzheimer who presents to ER for worsening generalized weakness for the past 2 days. She lives at home with her son. EMS was called who brought her into the ER. Besides weakness she has no other complaints. Pt had recent TKA She denies nauses, vomitting, chest pain or sob. ED labs indicated UTI, all other labs are wnl. Pt received rocephin and fluids in the ER Pt is DNAR, palliative care Meds/Allgy Home Medications Ambulatory Orders Medication Instructions Recorded Confirmed ascorbic acid (vitamin C) 500 mg 1,000 mg PO DAILY 09/18/20 06/07/24 tablet (Vitamin C) pantoprazole 40 mg tablet,delayed 40 mg PO DAILY 09/18/20 07/08/24 release atorvastatin 20 mg tablet 20 mg PO QPM 08/08/23 07/08/24 Permanent Disabled Placard 05/13/24 06/07/24 calcium carbonate (Calcium 600) 1,200 mg PO QDAY 05/13/24 06/07/24 cyanocobalamin (vitamin B-12) 1,000 mcg PO QDAY 05/13/24 07/08/24 1,000 mcg tablet (Vitamin B-12) folic acid 800 mcg tablet 1,600 mg PO DAILY 05/13/24 06/07/24 furosemide 20 mg tablet 20 mg PO .COMPLEX 05/13/24 07/08/24 magnesium oxide 500 mg PO DAILY 05/13/24 06/07/24 metoprolol succinate 25 mg 25 mg PO QDAY 05/13/24 07/08/24 tablet,extended release 24 hr levothyroxine 75 mcg tablet 75 mcg PO QDAY #90 tabs 06/03/24 07/08/24 (Synthroid) memantine 5 mg tablet (Namenda) 5 mg PO QPM #60 tabs 06/05/24 06/05/24 acetaminophen 500 mg tablet 1,000 mg PO TID PRN 06/07/24 07/08/24 calcium carbonate (Tums) 200 mg PO BID 06/07/24 06/07/24 cholecalciferol (vitamin D3) 25 50 mcg PO QDAY 06/07/24 06/07/24 mcg (1,000 unit) capsule denosumab 60 mg/mL subcutaneous 60 mg subcut [id number] 06/07/24 06/07/24 syringe (Prolia) etanercept 25 mg/0.5 mL (0.5 mL) 50 mg subcut Q7D 06/07/24 06/07/24 subcutaneous syringe (Enbrel) hydroxyzine HCl 25 mg tablet 25 mg PO Q6H PRN itching 06/07/24 06/07/24 methotrexate sodium 2.5 mg tablet 12.5 mg PO OAW 06/07/24 07/08/24 mupirocin 2 % topical ointment topical 06/07/24 06/07/24 thiamine HCl (vitamin B1) 100 mg 100 mg PO QDAY 06/07/24 06/07/24 tablet lisinopril 5 mg tablet 5 mg PO QDAY 07/08/24 07/08/24 Allergies Allergies Allergy/AdvReac Type Severity Reaction Status Date / Time [facility] Allergy Severe Rash Verified 07/12/24 12:54 aspirin AdvReac Severe Bleed Verified 07/12/24 12:54 NSAIDS (Non-Steroidal AdvReac Severe Bleed Verified 07/12/24 12:54 Anti-Inflamma [facility] Medical History Medical History (Updated 07/12/24 @ 15:06 by Gallito Traylor MD) Lumbar degenerative disc disease Multiple fractures of ribs Fracture of sternum, closed 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 History of cor pulmonale TIA (transient ischemic attack) (01/29/18) Hyperglycemia (07/14/1959) Memory impairment (02/26/18) Venous stasis ulcer (04/15/22) Syncope (04/08/23) Surgical History Surgical History (Updated 06/07/24 @ 22:42 by GISSELLE Ruff) H/O synovectomy Right hand S/P tonsillectomy History of right cataract surgery S/P total hip arthroplasty Left S/P total knee arthroplasty Left Family History Family History (Updated 06/07/24 @ 22:13 by GISSELLE Ruff) Mother Alzheimers disease Father CAD (coronary artery disease) Social History Social History (Updated 06/07/24 @ 22:44 by GISSELLE Ruff) Smoking Status: Former smoker If you are a former smoker, when did you quit? (Date/Year): 1963 Number of Years Smoked: 2 How many cigarettes a day do you smoke? (20 cigarettes=1 Pk): 5 Second hand tobacco smoke exposure: No Do you dip or chew tobacco?: No Do you vape?: No Living arrangement: At home Marital Status: Living Condition: With family Support Person: Yes Relationship: Child Physical Activity: None Level: Assisted Home Mobility Equipment: Wheeled walker Do you feel safe in your home environment?: Yes Suffered physical, verbal, emotional, or financial abuse?: No History of Abuse: No POLST Patient has POLST: Yes POLST Status: Full Code Review of Systems Status of ROS: 10 or more systems reviewed and unremarkable except as noted in history and below Exam Constitutional normal general appearance and no apparent distress HENMT normocephalic and head/scalp atraumatic Eyes PERRL and EOMs intact bilaterally Chest inspection of chest normal and palpation of chest normal Respiratory breath sounds equal bilaterally and normal respiratory effort Cardiovascular normal heart rate noted and regular rhythm noted Gastrointestinal abdomen normal to inspection and abdomen soft to palpation Extremities discloroation bilateral lower Healing wounds on R lower Neurology health care social worker II-XII intact to weak to walk Psychiatry mental status grossly normal confused, forgetful at times Skin skin color normal and no rash Conclusion/Plan Problem List (1) UTI (urinary tract infection): Plan: Start patient on Rocephin Qualifiers: Hematuria presence: without hematuria Urinary tract infection type: s ite unspecified Qualified Code(s): N39.0 - Urinary tract infection, site not specified (2) Generalized weakness: Plan: PT/OT evaluation (3) Hypertension: Plan: Hydralazine as needed for hypertension for SBP greater than 170 Qualifiers: Hypertension type: primary hypertension Qualified Code(s): I10 - Essential (primary) hypertension Lab Results Lab results reviewed: Yes 07/12/24 13:00 07/12/24 13:00
[2024-07-12] MEDS ORDERED: ONDANSETRON ODT 4 MG TABLET TL PRN (15:56)
[2024-07-12] MEDS ORDERED: ACETAMINOPHEN 325 MG TABLET PO PRN (15:56)
[2024-07-12] MEDS: SODIUM CHLORIDE 0.9% 1,000 ML IV SCH (16:26)
[2024-07-12] MEDS: hydrALAZINE INJ 20 MG/ML VIAL IVP PRN (16:27)
[2024-07-12] MEDS: SODIUM CHLORIDE FLUSH 0.9% 10 ML SYRINGE IVP SCH (16:32)
[2024-07-12] MEDS ORDERED: hydrOXYzine PAMOATE 25 MG CAPSULE PO PRN (17:30)
[2024-07-12] MEDS: FUROSEMIDE 20 MG TABLET PO SCH (19:10)
[2024-07-12] MEDS ORDERED: CALCIUM CARBONATE CHEW 500 MG TABLET PO SCH (21:00)
[2024-07-12] MEDS: MEMANTINE 5 MG TABLET PO SCH (21:23)
[2024-07-12] MEDS: FAMOTIDINE 20 MG/2 ML VIAL IVP SCH (21:23)
[2024-07-12] MEDS: ATORVASTATIN 10 MG TABLET PO SCH (21:23)
[2024-07-13 05:03] LABS: BASOPHILS % (AUTO) 0.1 %; EOSINOPHILS # (AUTO) 0.1 10^3/uL (0.0-0.7); EOSINOPHILS % (AUTO) 0.5 %; HCT - HEMATOCRIT 35.2 % (37.0-47.0); HGB - HEMOGLOBIN 11.4 g/dL (12.0-16.0); LYMPHOCYTES # (AUTO) 1.4 10^3/uL (1.5-3.5); LYMPHOCYTES % (AUTO) 14.3 %; MEAN CORPUSCULAR HEMOGLOBIN 30.9 pg (27.0-31.0); MEAN CORPUSCULAR HGB CONC 32.4 g/dL (32.0-36.0); MEAN CORPUSCULAR VOLUME 95.4 fL (81.0-99.0); MEAN PLATELET VOLUME 9.5 fL (7.9-10.8); MONOCYTES # (AUTO) 1.4 10^3/uL (0.0-1.0); NEUTROPHILS # (AUTO) 7.1 10^3/uL (1.5-6.6); NEUTROPHILS % (AUTO) 70.3 %; PLT - PLATELET COUNT 174 10^3/uL (130-450); RED BLOOD COUNT 3.69 10^6/uL (4.20-5.40); RED CELL DISTRIBUTION WIDTH 15.4 % (12.0-15.0)
[2024-07-13 05:20] LABS: CALCIUM 7.6 mg/dL (8.5-10.3); CREATININE 0.9 mg/dL (0.6-1.3); POTASSIUM 3.2 mmol/L (3.5-4.5)
[2024-07-13] MEDS: LEVOTHYROXINE 75 MCG TABLET PO SCH (06:08)
[2024-07-13] MEDS: FOLIC ACID 1 MG TABLET PO SCH (08:45)
[2024-07-13] MEDS: lisinopriL 5 MG TABLET PO SCH (08:45)
[2024-07-13] MEDS: THIAMINE 100 MG TABLET PO SCH (08:45)
[2024-07-13] MEDS: CHOLECALCIFEROL 25 MCG TABLET PO SCH (08:46)
[2024-07-13] MEDS: CALCIUM CARBONATE CHEW 500 MG TABLET PO SCH (08:46)
[2024-07-13] MEDS: MAGNESIUM OXIDE 400 MG TABLET PO SCH (08:46)
[2024-07-13] MEDS: CYANOCOBALAMIN 500 MCG TABLET PO SCH (08:46)
[2024-07-13] MEDS: METOPROLOL SUCCINATE 25 MG TABLET PO SCH (08:46)
--- NOTE | 2024-07-13 11:43 | PHARMACY PROGRESS NOTE ---
Best Possible Medication History Admit Date and Time: 07/12/24 1516 Home Medications Medication Instructions Recorded Confirmed Type pantoprazole 40 mg tablet,delayed 40 mg PO DAILY 09/18/20 07/13/24 History release atorvastatin 20 mg tablet 20 mg PO QPM 08/08/23 07/13/24 History Permanent Disabled Placard 05/13/24 06/07/24 History cyanocobalamin (vitamin B-12) 1,000 mcg PO QDAY 05/13/24 07/13/24 History 1,000 mcg tablet (Vitamin B-12) folic acid 800 mcg tablet 1,600 mg PO DAILY 05/13/24 07/13/24 History furosemide 20 mg tablet 20 mg PO .COMPLEX 05/13/24 07/13/24 History metoprolol succinate 25 mg 25 mg PO QDAY 05/13/24 07/13/24 History tablet,extended release 24 hr levothyroxine 75 mcg tablet 75 mcg PO QDAY #90 tabs 06/03/24 07/13/24 Rx (Synthroid) memantine 5 mg tablet (Namenda) 5 mg PO QPM #60 tabs 06/05/24 07/13/24 Rx acetaminophen 500 mg tablet 1,000 mg PO TID PRN pain 06/07/24 07/13/24 History denosumab 60 mg/mL subcutaneous 60 mg subcut [id number] 06/07/24 07/13/24 History syringe (Prolia) etanercept 25 mg/0.5 mL (0.5 mL) 50 mg subcut Q7D 06/07/24 07/13/24 History subcutaneous syringe (Enbrel) methotrexate sodium 2.5 mg tablet 12.5 mg PO OAW 06/07/24 07/13/24 History thiamine HCl (vitamin B1) 100 mg 100 mg PO QDAY 06/07/24 07/13/24 History tablet lisinopril 5 mg tablet 5 mg PO QDAY 07/08/24 07/13/24 History docusate sodium 100 mg capsule 100 mg PO BID 07/13/24 07/13/24 History ondansetron 4 mg disintegrating 4 mg PO Q8H PRN nausea and vomiting 07/13/24 07/13/24 History tablet oxycodone 5 mg tablet 5 mg PO Q8H PRN pain 12/31/24 12/31/24 History Processed by: Pharmacy Medications reviewed in ED?: No Medication History completed: Yes Patient Interview: Completed Secondary Source(s): Insurance records and Facility MAR as ONLY source [facility] Statement: majority of Medications [facility]. As the person ultimately responsible for medication therapy, providers are able to order a medication from an existing home medication list in [employer] via the "Reconcile Routine" prior to Confirmation of that medication by manager support. Such practice is discouraged except when the physician, in their clinical judgment, deems that a medical need exists for a medication without regard to previous use.
--- NOTE | 2024-07-13 12:34 | PROVIDER PROGRESS NOTE ---
Subjective Subjective Subjective: Patient is pleasantly confused. She does not recall why she was brought in. She states that she was urinating more than usual. She denies any fevers, chills. She is alert oriented x 1. She does state that she lives with her son, who helps take care of her. Current Medications Current Medications Current Medications: Current Medications Generic Name Dose Route Start Last Admin Trade Name Freq PRN Reason Stop Dose Admin Acetaminophen 650 mg 07/12/24 15:56 Acetaminophen 325 Mg Tablet PO Q4HR PRN Pain 1 to 4, or Fever Atorvastatin Calcium 20 mg 07/12/24 21:00 07/12/24 21:23 Atorvastatin 10 Mg Tablet PO 20 mg QPM PEBBLES Administration Calcium Carbonate/Glycine 1,000 mg 07/13/24 09:00 07/13/24 08:46 Calcium Carbonate Chew 500 Mg Tablet PO 1,000 mg DAILY PEBBLES Administration Cholecalciferol 50 mcg 07/13/24 09:00 07/13/24 08:46 Cholecalciferol 25 Mcg Tablet PO 50 mcg DAILY PEBBLES Administration Cyanocobalamin 1,000 mcg 07/13/24 09:00 07/13/24 08:46 Cyanocobalamin 500 Mcg Tablet PO 1,000 mcg DAILY PEBBLES Administration Famotidine 20 mg 07/12/24 21:00 07/13/24 08:46 Famotidine 20 Mg/2 Ml Vial IVP 20 mg BID PEBBLES Administration Folic Acid 1.5 mg 07/13/24 09:00 07/13/24 08:45 Folic Acid 1 Mg Tablet PO 1.5 mg DAILY PEBBLES Administration Furosemide 20 mg 07/12/24 18:00 07/12/24 19:10 Furosemide 20 Mg Tablet PO 20 mg MoWeFr PEBBLES Administration Hydralazine HCl 10 mg 07/12/24 15:18 07/12/24 16:27 Hydralazine Inj 20 Mg/Ml Vial IVP 10 mg Q6HR PRN Administration Hypertensive Emergency Hydroxyzine Pamoate 25 mg 07/12/24 17:30 Hydroxyzine Pamoate 25 Mg Capsule PO Q6H PRN itching Ceftriaxone Sodium 1 gm/ 100 mls @ 200 mls/hr 07/13/24 14:00 Sodium Chloride IV Q24H PEBBLES Levothyroxine Sodium 75 mcg 07/13/24 07:00 07/13/24 06:08 Levothyroxine 75 Mcg Tablet PO 75 mcg 0700 PEBBLES Administration Lisinopril 5 mg 07/13/24 09:00 07/13/24 08:45 Lisinopril 5 Mg Tablet PO 5 mg DAILY PEBBLES Administration Magnesium Oxide 400 mg 07/13/24 08:00 07/13/24 08:46 Magnesium Oxide 400 Mg Tablet PO 400 mg DAILYWM PEBBLES Administration Memantine 5 mg 07/12/24 21:00 07/12/24 21:23 Memantine 5 Mg Tablet PO 5 mg QPM PEBBLES Administration Metoprolol Succinate 25 mg 07/13/24 09:00 07/13/24 08:46 Metoprolol Succinate 25 Mg Tablet PO 25 mg DAILY PEBBLES Administration Metoprolol Tartrate 2.5 mg 07/12/24 15:21 Metoprolol 5 Mg/5 Ml Vial IVP Q6HR PRN Tachycardia Ondansetron HCl 4 mg 07/12/24 15:56 Ondansetron Odt 4 Mg Tablet TL Q6HR PRN Nausea / Vomiting Sodium Chloride 10 ml 07/12/24 15:56 Sodium Chloride Flush 0.9% 10 Ml Syringe IVP PRN PRN NEEDED PER PROVIDER ORDERS Sodium Chloride 10 ml 07/12/24 17:00 07/13/24 08:46 Sodium Chloride Flush 0.9% 10 Ml Syringe IVP 10 ml 0100,0900,1700 PEBBLES Administration Thiamine HCl 100 mg 07/13/24 09:00 07/13/24 08:45 Thiamine 100 Mg Tablet PO 100 mg DAILY PEBBLES Administration Objective Vital Signs/Intake & Output Reviewed Vital Signs: Yes Vital Signs: Vital Signs x48h Temp Pulse Resp BP Pulse Ox 07/13/24 07:31 98.6 F 85 18 117/71 92 Intake & Output: Intake & Output 07/10/24 07/11/24 07/12/24 07/13/24 23:59 23:59 23:59 23:59 Intake Total 2957 / 2957 1245 / 1245 Output Total 300 / 300 500 / 500 Balance 2657 / 2657 745 / 745 Weight (kg) 64.3 kg 57 kg Objective General Appearance: positive No acute distress and Alert; negative Anxious Eyes Bilateral: positive Normal inspection and PERRL ENT: positive ENT inspection nml, Pharynx nml and No signs of dehydration Neck: positive Nml inspection and Thyroid nml Respiratory: positive Chest non-tender, No respiratory distress and Breath sounds nml Cardiovascular: positive Regular rate & rhythm, No murmur and No gallop Abdomen: positive Non-tender; negative Rebound, Hepatomegaly, Splenomegaly or Mass Back: positive Nml inspection; negative CVA tenderness (R) or CVA tenderness (L) Skin: positive Color nml, No rash and Warm Extremities: positive Non-tender, Full ROM, Nml appearance and No pedal edema Neurologic/Psychiatric: positive Oriented x3, CN's nml (2-12), Motor nml and Mood/affect nml Lab Results 07/13/24 04:34 07/13/24 04:34 Other Labs: Lab Results x24hrs 07/13/24 07/12/24 07/12/24 Range/Units 04:34 13:29 13:00 WBC 10.0 10.0 (4.8-10.8) x10^3/uL RBC 3.69 L 3.64 L (4.20-5.40) 10^6/uL Hgb 11.4 L 11.4 L (12.0-16.0) g/dL Hct 35.2 L 35.2 L (37.0-47.0) % MCV 95.4 96.7 (81.0-99.0) fL MCH 30.9 31.3 H (27.0-31.0) pg MCHC 32.4 32.4 (32.0-36.0) g/dL RDW 15.4 H 15.4 H (12.0-15.0) % Plt Count 174 182 (130-450) 10^3/uL MPV 9.5 9.7 (7.9-10.8) fL Neut # (Auto) 7.1 H 7.8 H (1.5-6.6) 10^3/uL Lymph # (Auto) 1.4 L 0.9 L (1.5-3.5) 10^3/uL Tyrrell # (Auto) 1.4 H 1.2 H (0.0-1.0) 10^3/uL Eos # (Auto) 0.1 0.0 (0.0-0.7) 10^3/uL Baso # (Auto) 0.0 0.0 (0.0-0.1) 10^3/uL Absolute Nucleated RBC 0.00 0.00 x10^3/uL Nucleated RBC % 0.0 0.0 /100WBC Sodium 140 142 (135-145) mmol/L Potassium 3.2 L 3.8 (3.5-4.5) mmol/L Chloride 110 109 (101-111) mmol/L Carbon Dioxide 23 24 (21-32) mmol/L Anion Gap 7.0 9.0 (6-13) BUN 27 H 30 H (6-20) mg/dL Creatinine 0.9 1.0 (0.6-1.3) mg/dL Estimated GFR (MDRD) 60 L 53 L (>89) Glucose 116 H 99 (74-104) mg/dL Calcium 7.6 L 8.6 (8.5-10.3) mg/dL Phosphorus 2.9 (2.5-5.0) mg/dL Magnesium 1.9 (1.7-2.3) mg/dL Total Bilirubin 0.8 (0.2-1.0) mg/dL AST 40 (10-42) IU/L ALT 20 (10-60) IU/L Alkaline Phosphatase 89 (42-121) IU/L Total Protein 5.9 L (6.4-8.9) g/dL Albumin 3.1 L (3.2-5.5) g/dL Globulin 2.8 (2.1-4.2) g/dL Albumin/Globulin Ratio 1.1 (1.0-2.2) Urine Color YELLOW Urine Clarity CLOUDY (CLEAR) Urine pH 6.0 (5.0-7.5) PH Ur Specific [place] 1.020 (1.002-1.030) Urine Protein 30 H (NEGATIVE) mg/dL Urine Glucose (UA) NEGATIVE (NEGATIVE) mg/dL Urine Ketones 15 H (NEGATIVE) mg/dL Urine Occult Blood LARGE H (NEGATIVE) Urine Nitrite POSITIVE H (NEGATIVE) Urine Bilirubin NEGATIVE (NEGATIVE) Urine Urobilinogen 0.2 (NORMAL) (NORMAL) E.U./dL Ur Leukocyte Esterase MODERATE H (NEGATIVE) Urine RBC 6-10 H (0-5) /HPF Urine WBC >25 H (0-5) /HPF Ur Squamous Epith Cells FEW Squamous (<= Few) Urine Bacteria Many H (None Seen) /HPF Ur Microscopic Review INDICATED Urine Culture Comments INDICATED Diagnostic Imaging Diagnostic Imaging Results: positive Final report reviewed Assessment/Plan Problem List (1) UTI (urinary tract infection): Impression: Patient with positive nitrites, WBCs, many bacteria. Continue Rocephin. Urine culture ordered, pending. Qualifiers: Hematuria presence: without hematuria Urinary tract infection type: s ite unspecified Qualified Code(s): N39.0 - Urinary tract infection, site not specified (2) Generalized weakness: Impression: History of recent knee surgery. PT/OT consulted, appreciate reccomendations. Patient is a Palliative care patient; they did see her and were spoken with. Think this is natural progression of her Alzheimers' diseae, would benefit from caregiver support at home. (3) Hypertension: Impression: Continue home medications including statin, metoprolol. Qualifiers: Hypertension type: primary hypertension Qualified Code(s): I10 - Essential (primary) hypertension
--- NOTE | 2024-07-13 12:52 | OT Plan of Care ---
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 Recent (05/2024) R TKA D/c from Rehab ~ 1 week ago. Work up revealed UTI. Met supine in bed, A&Ox4, willing to participate with therapy. Performed supine to sit MOD A, sit to stand MIN A, and ambulation 50ft household distances MIN A using RW Slowed, guarded pace. Currently MOD A UB/LB dressing with full set up and increased time. Quick to fatigue. Overall presenting with decreased endurance, activity tolerance, and ADL status. Will benefit from cont OT services during acute stay. Rec d/c to SNF. PATIENT/FAMILY GOALS Patient/Family Goals: To go home. -Activities of Daily Living Improve Upper Extremity Dressing to:: Modified Independent Improve Lower Extremity Dressing to:: Modified Independent Improve Grooming/Hygiene to:: Modified Independent Improve Bathing to:: Modified Independent Improve Toileting to:: Modified Independent OT Inpatient Plan PLAN Treatment Frequency: 1x/day Duration: Until goals are met -Discharge Recommendations Discharge Location: Longterm Facility Support/Services Needed: With assist Transport Needs at Discharge: [place]
[2024-07-13] MEDS ORDERED: ZINC OXIDE 20% OINT 30 GM TUBE TOP PRN (13:04)
[2024-07-13] MEDS: cefTRIAXone 1 GM in SODIUM CHLORIDE 0.9% MINIBAG 100 ML IV SCH (13:30)
--- NOTE | 2024-07-13 13:44 | PT Plan of Care ---
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
[2024-07-13] MEDS: polyethylene glycoL 3350 17 GM PACKET PO SCH (17:14)
[2024-07-14 05:59] LABS: BASOPHILS % (AUTO) 0.3 %; EOSINOPHILS # (AUTO) 0.3 10^3/uL (0.0-0.7); EOSINOPHILS % (AUTO) 1.9 %; HCT - HEMATOCRIT 39.5 % (37.0-47.0); HGB - HEMOGLOBIN 12.4 g/dL (12.0-16.0); LYMPHOCYTES % (AUTO) 14.7 %; MEAN CORPUSCULAR HEMOGLOBIN 30.3 pg (27.0-31.0); MEAN CORPUSCULAR HGB CONC 31.4 g/dL (32.0-36.0); MEAN CORPUSCULAR VOLUME 96.6 fL (81.0-99.0); MEAN PLATELET VOLUME 9.7 fL (7.9-10.8); MONOCYTES # (AUTO) 1.4 10^3/uL (0.0-1.0); MONOCYTES % (AUTO) 10.1 %; NEUTROPHILS # (AUTO) 9.7 10^3/uL (1.5-6.6); PLT - PLATELET COUNT 202 10^3/uL (130-450); RED BLOOD COUNT 4.09 10^6/uL (4.20-5.40); RED CELL DISTRIBUTION WIDTH 15.1 % (12.0-15.0); WHITE BLOOD COUNT 13.5 x10^3/uL (4.8-10.8)
[2024-07-14 06:09] LABS: CALCIUM 8.1 mg/dL (8.5-10.3); CREATININE 0.9 mg/dL (0.6-1.3); POTASSIUM 3.3 mmol/L (3.5-4.5)
[2024-07-14] MEDS: POTASSIUM CHLORIDE 20 MEQ TABLET PO ONE (08:17)
[2024-07-14] MEDS ORDERED: MEROPENEM 500 MG VIAL IVP SCH (09:00)
[2024-07-14] MEDS: MEROPENEM 1 GM in SODIUM CHLORIDE 0.9% MINIBAG 100 ML IV SCH (09:20)
--- NOTE | 2024-07-14 11:11 | PROVIDER PROGRESS NOTE ---
Subjective Subjective Subjective: Patient is pleasantly confused. She does not recall why she was brought in. She states that she was urinating more than usual. She denies any fevers, chills. She is alert oriented x 1. She does state that she lives with her son, who helps take care of her. Current Medications Current Medications Current Medications: Current Medications Generic Name Dose Route Start Last Admin Trade Name Freq PRN Reason Stop Dose Admin Acetaminophen 650 mg 07/12/24 15:56 Acetaminophen 325 Mg Tablet PO Q4HR PRN Pain 1 to 4, or Fever Atorvastatin Calcium 20 mg 07/12/24 21:00 07/13/24 20:41 Atorvastatin 10 Mg Tablet PO 20 mg QPM PEBBLES Administration Calcium Carbonate/Glycine 1,000 mg 07/13/24 09:00 07/14/24 08:18 Calcium Carbonate Chew 500 Mg Tablet PO 1,000 mg DAILY PEBBLES Administration Cholecalciferol 50 mcg 07/13/24 09:00 07/14/24 08:18 Cholecalciferol 25 Mcg Tablet PO 50 mcg DAILY PEBBLES Administration Cyanocobalamin 1,000 mcg 07/13/24 09:00 07/14/24 08:17 Cyanocobalamin 500 Mcg Tablet PO 1,000 mcg DAILY PEBBLES Administration Famotidine 20 mg 07/12/24 21:00 07/14/24 08:18 Famotidine 20 Mg/2 Ml Vial IVP 20 mg BID PEBBLES Administration Folic Acid 1.5 mg 07/13/24 09:00 07/14/24 08:18 Folic Acid 1 Mg Tablet PO 1.5 mg DAILY PEBBLES Administration Furosemide 20 mg 07/12/24 18:00 07/12/24 19:10 Furosemide 20 Mg Tablet PO 20 mg MoWeFr PEBBLES Administration Hydralazine HCl 10 mg 07/12/24 15:18 07/12/24 16:27 Hydralazine Inj 20 Mg/Ml Vial IVP 10 mg Q6HR PRN Administration Hypertensive Emergency Hydroxyzine Pamoate 25 mg 07/12/24 17:30 Hydroxyzine Pamoate 25 Mg Capsule PO Q6H PRN itching Meropenem 1 gm/ Sodium 100 mls @ 200 mls/hr 07/14/24 09:00 07/14/24 09:55 Chloride IV Infused Q12H PEBBLES Infusion Levothyroxine Sodium 75 mcg 07/13/24 07:00 07/14/24 06:37 Levothyroxine 75 Mcg Tablet PO 75 mcg 0700 PEBBLES Administration Lisinopril 5 mg 07/13/24 09:00 07/14/24 08:18 Lisinopril 5 Mg Tablet PO 5 mg DAILY PEBBLES Administration Magnesium Oxide 400 mg 07/13/24 08:00 07/14/24 08:17 Magnesium Oxide 400 Mg Tablet PO 400 mg DAILYWM PEBBLES Administration Memantine 5 mg 07/12/24 21:00 07/13/24 20:41 Memantine 5 Mg Tablet PO 5 mg QPM PEBBLES Administration Metoprolol Succinate 25 mg 07/13/24 09:00 07/14/24 08:17 Metoprolol Succinate 25 Mg Tablet PO 25 mg DAILY PEBBLES Administration Metoprolol Tartrate 2.5 mg 07/12/24 15:21 Metoprolol 5 Mg/5 Ml Vial IVP Q6HR PRN Tachycardia Multi-Ingredient Ointment 1 applic 07/13/24 13:04 Zinc Oxide 20% Oint 30 Gm Tube TOP PRN PRN Skin Care Ondansetron HCl 4 mg 07/12/24 15:56 Ondansetron Odt 4 Mg Tablet TL Q6HR PRN Nausea / Vomiting Polyethylene Glycol 17 gm 07/13/24 17:00 07/14/24 08:19 Polyethylene Glycol 3350 17 Gm Packet PO 17 gm DAILY PEBBLES Administration Sodium Chloride 10 ml 07/12/24 15:56 Sodium Chloride Flush 0.9% 10 Ml Syringe IVP PRN PRN NEEDED PER PROVIDER ORDERS Thiamine HCl 100 mg 07/13/24 09:00 07/14/24 08:18 Thiamine 100 Mg Tablet PO 100 mg DAILY PEBBLES Administration Objective Vital Signs/Intake & Output Reviewed Vital Signs: Yes Vital Signs: Vital Signs x48h Temp Pulse Resp BP Pulse Ox 07/14/24 07:49 98.2 F 84 16 123/68 94 07/14/24 05:00 98.6 F 87 14 151/92 H Intake & Output: Intake & Output 07/11/24 07/12/24 07/13/24 07/14/24 23:59 23:59 23:59 23:59 Intake Total 2957 / 2957 3082 / 3082 960 / 960 Output Total 300 / 300 700 / 700 500 / 500 Balance 2657 / 2657 2382 / 2382 460 / 460 Weight (kg) 64.3 kg 57 kg 57 kg Objective General Appearance: positive No acute distress and Alert; negative Anxious Eyes Bilateral: positive Normal inspection and PERRL ENT: positive ENT inspection nml, Pharynx nml and No signs of dehydration Neck: positive Nml inspection and Thyroid nml Respiratory: positive Chest non-tender, No respiratory distress and Breath sounds nml Cardiovascular: positive Regular rate & rhythm, No murmur and No gallop Abdomen: positive Non-tender; negative Rebound, Hepatomegaly, Splenomegaly or Mass Back: positive Nml inspection; negative CVA tenderness (R) or CVA tenderness (L) Skin: positive Color nml, No rash and Warm Extremities: positive Non-tender, Full ROM, Nml appearance and No pedal edema Neurologic/Psychiatric: positive Oriented x3, CN's nml (2-12), Motor nml and Mood/affect nml Lab Results 07/14/24 05:27 07/14/24 05:27 Other Labs: Lab Results x24hrs 07/14/24 Range/Units 05:27 WBC 13.5 H (4.8-10.8) x10^3/uL RBC 4.09 L (4.20-5.40) 10^6/uL Hgb 12.4 (12.0-16.0) g/dL Hct 39.5 (37.0-47.0) % MCV 96.6 (81.0-99.0) fL MCH 30.3 (27.0-31.0) pg MCHC 31.4 L (32.0-36.0) g/dL RDW 15.1 H (12.0-15.0) % Plt Count 202 (130-450) 10^3/uL MPV 9.7 (7.9-10.8) fL Neut # (Auto) 9.7 H (1.5-6.6) 10^3/uL Lymph # (Auto) 2.0 (1.5-3.5) 10^3/uL [place] # (Auto) 1.4 H (0.0-1.0) 10^3/uL Eos # (Auto) 0.3 (0.0-0.7) 10^3/uL Baso # (Auto) 0.0 (0.0-0.1) 10^3/uL Absolute Nucleated RBC 0.00 x10^3/uL Nucleated RBC % 0.0 /100WBC Sodium 140 (135-145) mmol/L Potassium 3.3 L (3.5-4.5) mmol/L Chloride 109 (101-111) mmol/L Carbon Dioxide 22 (21-32) mmol/L Anion Gap 9.0 (6-13) BUN 22 H (6-20) mg/dL Creatinine 0.9 (0.6-1.3) mg/dL Estimated GFR (MDRD) 60 L (>89) Glucose 106 H (74-104) mg/dL Calcium 8.1 L (8.5-10.3) mg/dL Diagnostic Imaging Diagnostic Imaging Results: positive Final report reviewed Assessment/Plan Problem List (1) UTI (urinary tract infection): Impression: Patient with positive nitrites, WBCs, many bacteria. Urine culture shows ESBL E.Coli. Switched to meropenem today. Qualifiers: Hematuria presence: without hematuria Urinary tract infection type: s ite unspecified Qualified Code(s): N39.0 - Urinary tract infection, site not specified (2) Generalized weakness: Impression: History of recent knee surgery. PT/OT consulted, appreciate reccomendations - reccomend SNF. Patient is a Palliative care patient; they did see her and were spoken with. Think this is natural progression of her Alzheimers' diseae, would benefit from caregiver support at home. (3) Hypertension: Impression: Continue home medications including statin, metoprolol. Qualifiers: Hypertension type: primary hypertension Qualified Code(s): I10 - Essential (primary) hypertension
[2024-07-15 05:34] LABS: BASOPHILS % (AUTO) 0.3 %; EOSINOPHILS # (AUTO) 0.4 10^3/uL (0.0-0.7); EOSINOPHILS % (AUTO) 4.3 %; HCT - HEMATOCRIT 34.9 % (37.0-47.0); HGB - HEMOGLOBIN 11.1 g/dL (12.0-16.0); LYMPHOCYTES # (AUTO) 1.7 10^3/uL (1.5-3.5); MEAN CORPUSCULAR HEMOGLOBIN 30.8 pg (27.0-31.0); MEAN CORPUSCULAR HGB CONC 31.8 g/dL (32.0-36.0); MEAN CORPUSCULAR VOLUME 96.9 fL (81.0-99.0); MEAN PLATELET VOLUME 9.6 fL (7.9-10.8); MONOCYTES # (AUTO) 0.8 10^3/uL (0.0-1.0); NEUTROPHILS % (AUTO) 65.8 %; PLT - PLATELET COUNT 204 10^3/uL (130-450); RED CELL DISTRIBUTION WIDTH 15.1 % (12.0-15.0); WHITE BLOOD COUNT 9.1 x10^3/uL (4.8-10.8)
[2024-07-15 05:47] LABS: CALCIUM 7.6 mg/dL (8.5-10.3); CREATININE 0.8 mg/dL (0.6-1.3); POTASSIUM 3.7 mmol/L (3.5-4.5)
[2024-07-15] MEDS: DOCUSATE SODIUM 250 MG CAPSULE PO SCH (08:13)
[2024-07-15] MEDS: SENNA 8.6 MG TABLET PO SCH (08:13)
--- NOTE | 2024-07-15 10:55 | PROVIDER PROGRESS NOTE ---
Subjective Subjective Subjective: Patient is pleasantly confused. She does not recall why she was brought in. She states that she was urinating more than usual. She denies any fevers, chills. She is alert oriented x 2 today. She does state that she lives with her son, who helps take care of her. She is open to going to a rehab. Current Medications Current Medications Current Medications: Current Medications Generic Name Dose Route Start Last Admin Trade Name Freq PRN Reason Stop Dose Admin Acetaminophen 650 mg 07/12/24 15:56 Acetaminophen 325 Mg Tablet PO Q4HR PRN Pain 1 to 4, or Fever Atorvastatin Calcium 20 mg 07/12/24 21:00 07/14/24 20:31 Atorvastatin 10 Mg Tablet PO 20 mg QPM PEBBLES Administration Calcium Carbonate/Glycine 1,000 mg 07/13/24 09:00 07/15/24 08:13 Calcium Carbonate Chew 500 Mg Tablet PO 1,000 mg DAILY PEBBLES Administration Cholecalciferol 50 mcg 07/13/24 09:00 07/15/24 08:14 Cholecalciferol 25 Mcg Tablet PO 50 mcg DAILY PEBBLES Administration Cyanocobalamin 1,000 mcg 07/13/24 09:00 07/15/24 08:13 Cyanocobalamin 500 Mcg Tablet PO 1,000 mcg DAILY PEBBLES Administration Docusate Sodium 250 - 500 mg 07/15/24 09:00 07/15/24 08:13 Docusate Sodium 250 Mg Capsule PO 250 mg DAILY PEBBLES Administration Famotidine 20 mg 07/12/24 21:00 07/15/24 08:13 Famotidine 20 Mg/2 Ml Vial IVP 20 mg BID PEBBLES Administration Folic Acid 1.5 mg 07/13/24 09:00 07/15/24 08:13 Folic Acid 1 Mg Tablet PO 1.5 mg DAILY PEBBLES Administration Furosemide 20 mg 07/12/24 18:00 07/14/24 17:29 Furosemide 20 Mg Tablet PO 20 mg MoWeFr PEBBLES Administration Hydralazine HCl 10 mg 07/12/24 15:18 07/12/24 16:27 Hydralazine Inj 20 Mg/Ml Vial IVP 10 mg Q6HR PRN Administration Hypertensive Emergency Hydroxyzine Pamoate 25 mg 07/12/24 17:30 Hydroxyzine Pamoate 25 Mg Capsule PO Q6H PRN itching Meropenem 1 gm/ Sodium 100 mls @ 200 mls/hr 07/14/24 09:00 07/15/24 08:50 Chloride IV Infused Q12H PEBBLES Infusion Levothyroxine Sodium 75 mcg 07/13/24 07:00 07/15/24 06:38 Levothyroxine 75 Mcg Tablet PO 75 mcg 0700 PEBBLES Administration Lisinopril 5 mg 07/13/24 09:00 07/15/24 08:13 Lisinopril 5 Mg Tablet PO 5 mg DAILY PEBBLES Administration Magnesium Oxide 400 mg 07/13/24 08:00 07/15/24 08:13 Magnesium Oxide 400 Mg Tablet PO 400 mg DAILYWM PEBBLES Administration Memantine 5 mg 07/12/24 21:00 07/14/24 20:31 Memantine 5 Mg Tablet PO 5 mg QPM PEBBLES Administration Metoprolol Succinate 25 mg 07/13/24 09:00 07/15/24 08:14 Metoprolol Succinate 25 Mg Tablet PO 25 mg DAILY PEBBLES Administration Metoprolol Tartrate 2.5 mg 07/12/24 15:21 Metoprolol 5 Mg/5 Ml Vial IVP Q6HR PRN Tachycardia Multi-Ingredient Ointment 1 applic 07/13/24 13:04 Zinc Oxide 20% Oint 30 Gm Tube TOP PRN PRN Skin Care Ondansetron HCl 4 mg 07/12/24 15:56 Ondansetron Odt 4 Mg Tablet TL Q6HR PRN Nausea / Vomiting Polyethylene Glycol 17 gm 07/13/24 17:00 07/15/24 08:14 Polyethylene Glycol 3350 17 Gm Packet PO 17 gm DAILY PEBBLES Administration Senna 8.6 - 17.2 mg 07/15/24 09:00 07/15/24 08:13 Senna 8.6 Mg Tablet PO 8.6 mg DAILY PEBBLES Administration Sodium Chloride 10 ml 07/12/24 15:56 Sodium Chloride Flush 0.9% 10 Ml Syringe IVP PRN PRN NEEDED PER PROVIDER ORDERS Thiamine HCl 100 mg 07/13/24 09:00 07/15/24 08:13 Thiamine 100 Mg Tablet PO 100 mg DAILY PEBBLES Administration Objective Vital Signs/Intake & Output Reviewed Vital Signs: Yes Vital Signs: Vital Signs x48h Temp Pulse Resp BP Pulse Ox 07/15/24 08:04 98.8 F 84 18 115/64 94 Intake & Output: Intake & Output 07/12/24 07/13/24 07/14/2425 23:59 23:59 23:59 23:59 Intake Total 2957 / 2957 3082 / 3082 2029 / 2029 540 / 540 Output Total 300 / 300 700 / 700 900 / 900 950 / 950 Balance 2657 / 2657 2382 / 2382 1130 / 1130 -410 / -410 Weight (kg) 64.3 kg 57 kg 57 kg 56.5 kg Objective General Appearance: positive No acute distress and Alert; negative Anxious Eyes Bilateral: positive Normal inspection and PERRL ENT: positive ENT inspection nml, Pharynx nml and No signs of dehydration Neck: positive Nml inspection and Thyroid nml Respiratory: positive Chest non-tender, No respiratory distress and Breath sounds nml Cardiovascular: positive Regular rate & rhythm, No murmur and No gallop Abdomen: positive Non-tender; negative Rebound, Hepatomegaly, Splenomegaly or Mass Back: positive Nml inspection; negative CVA tenderness (R) or CVA tenderness (L) Skin: positive Color nml, No rash and Warm Extremities: positive Non-tender, Full ROM, Nml appearance and No pedal edema Neurologic/Psychiatric: positive Oriented x3, CN's nml (2-12), Motor nml and Mood/affect nml Lab Results 07/15/24 05:15 07/15/24 05:15 Other Labs: Lab Results x24hrs 07/15/24 Range/Units 05:15 WBC 9.1 (4.8-10.8) x10^3/uL RBC 3.60 L (4.20-5.40) 10^6/uL Hgb 11.1 L (12.0-16.0) g/dL Hct 34.9 L (37.0-47.0) % MCV 96.9 (81.0-99.0) fL MCH 30.8 (27.0-31.0) pg MCHC 31.8 L (32.0-36.0) g/dL RDW 15.1 H (12.0-15.0) % Plt Count 204 (130-450) 10^3/uL MPV 9.6 (7.9-10.8) fL Neut # (Auto) 6.0 (1.5-6.6) 10^3/uL Lymph # (Auto) 1.7 (1.5-3.5) 10^3/uL [place] # (Auto) 0.8 (0.0-1.0) 10^3/uL Eos # (Auto) 0.4 (0.0-0.7) 10^3/uL Baso # (Auto) 0.0 (0.0-0.1) 10^3/uL Absolute Nucleated RBC 0.00 x10^3/uL Nucleated RBC % 0.0 /100WBC Sodium 140 (135-145) mmol/L Potassium 3.7 (3.5-4.5) mmol/L Chloride 109 (101-111) mmol/L Carbon Dioxide 24 (21-32) mmol/L Anion Gap 7.0 (6-13) BUN 23 H (6-20) mg/dL Creatinine 0.8 (0.6-1.3) mg/dL Estimated GFR (MDRD) 68 L (>89) Glucose 102 (74-104) mg/dL Calcium 7.6 L (8.5-10.3) mg/dL Diagnostic Imaging Diagnostic Imaging Results: positive Final report reviewed Assessment/Plan Problem List (1) UTI (urinary tract infection): Impression: Patient with positive nitrites, WBCs, many bacteria. Urine culture shows ESBL E.Coli. Switched to meropenem yesterday. Continue at this time. Facility can do IV antibiotics - will complete a five day course of meropenem. Awaiting authorization and bed availability. Qualifiers: Hematuria presence: without hematuria Urinary tract infection type: s ite unspecified Qualified Code(s): N39.0 - Urinary tract infection, site not specified (2) Generalized weakness: Impression: History of recent knee surgery. PT/OT consulted, appreciate reccomendations - reccomend SNF. Patient is a Palliative care patient; they did see her and were spoken with. Think this is natural progression of her Alzheimers' diseae, would benefit from caregiver support at home. (3) Hypertension: Impression: Continue home medications including statin, metoprolol. Qualifiers: Hypertension type: primary hypertension Qualified Code(s): I10 - Essential (primary) hypertension
[2024-07-15] MEDS: SODIUM CHLORIDE FLUSH 0.9% 10 ML SYRINGE IVP PRN (17:31)
--- NOTE | 2024-07-16 14:33 | PROVIDER PROGRESS NOTE ---
Subjective Subjective Subjective: Patient is pleasantly confused. She does not recall why she was brought in. She states that she was urinating more than usual. She denies any fevers, chills. She is alert oriented x 2 today. She does state that she lives with her son, who helps take care of her. She is open to going to a rehab. Current Medications Current Medications Current Medications: Current Medications Generic Name Dose Route Start Last Admin Trade Name Freq PRN Reason Stop Dose Admin Acetaminophen 650 mg 07/12/24 15:56 Acetaminophen 325 Mg Tablet PO Q4HR PRN Pain 1 to 4, or Fever Atorvastatin Calcium 20 mg 07/12/24 21:00 07/15/24 21:12 Atorvastatin 10 Mg Tablet PO 20 mg QPM PEBBLES Administration Calcium Carbonate/Glycine 1,000 mg 07/13/24 09:00 07/16/24 08:03 Calcium Carbonate Chew 500 Mg Tablet PO 1,000 mg DAILY PEBBLES Administration Cholecalciferol 50 mcg 07/13/24 09:00 07/16/24 08:03 Cholecalciferol 25 Mcg Tablet PO 50 mcg DAILY PEBBLES Administration Cyanocobalamin 1,000 mcg 07/13/24 09:00 07/16/24 08:03 Cyanocobalamin 500 Mcg Tablet PO 1,000 mcg DAILY PEBBLES Administration Docusate Sodium 250 - 500 mg 07/15/24 09:00 07/16/24 08:03 Docusate Sodium 250 Mg Capsule PO 250 mg DAILY PEBBLES Administration Famotidine 20 mg 07/12/24 21:00 07/16/24 08:02 Famotidine 20 Mg/2 Ml Vial IVP 20 mg BID PEBBLES Administration Folic Acid 1.5 mg 07/13/24 09:00 07/16/24 08:04 Folic Acid 1 Mg Tablet PO 1.5 mg DAILY PEBBLES Administration Furosemide 20 mg 07/12/24 18:00 07/14/24 17:29 Furosemide 20 Mg Tablet PO 20 mg MoWeFr PEBBLES Administration Hydralazine HCl 10 mg 07/12/24 15:18 07/12/24 16:27 Hydralazine Inj 20 Mg/Ml Vial IVP 10 mg Q6HR PRN Administration Hypertensive Emergency Hydroxyzine Pamoate 25 mg 07/12/24 17:30 Hydroxyzine Pamoate 25 Mg Capsule PO Q6H PRN itching Meropenem 1 gm/ Sodium 100 mls @ 200 mls/hr 07/14/24 09:00 07/16/24 08:40 Chloride IV Infused Q12H PEBBLES Infusion Levothyroxine Sodium 75 mcg 07/13/24 07:00 07/16/24 06:21 Levothyroxine 75 Mcg Tablet PO 75 mcg 0700 PEBBLES Administration Lisinopril 5 mg 07/13/24 09:00 07/16/24 08:04 Lisinopril 5 Mg Tablet PO 5 mg DAILY PEBBLES Administration Magnesium Oxide 400 mg 07/13/24 08:00 07/16/24 08:04 Magnesium Oxide 400 Mg Tablet PO 400 mg DAILYWM PEBBLES Administration Memantine 5 mg 07/12/24 21:00 07/15/24 21:12 Memantine 5 Mg Tablet PO 5 mg QPM PEBBLES Administration Metoprolol Succinate 25 mg 07/13/24 09:00 07/16/24 08:03 Metoprolol Succinate 25 Mg Tablet PO 25 mg DAILY PEBBLES Administration Metoprolol Tartrate 2.5 mg 07/12/24 15:21 Metoprolol 5 Mg/5 Ml Vial IVP Q6HR PRN Tachycardia Multi-Ingredient Ointment 1 applic 07/13/24 13:04 Zinc Oxide 20% Oint 30 Gm Tube TOP PRN PRN Skin Care Ondansetron HCl 4 mg 07/12/24 15:56 Ondansetron Odt 4 Mg Tablet TL Q6HR PRN Nausea / Vomiting Polyethylene Glycol 17 gm 07/13/24 17:00 07/16/24 08:02 Polyethylene Glycol 3350 17 Gm Packet PO 17 gm DAILY PEBBLES Administration Senna 8.6 - 17.2 mg 07/15/24 09:00 07/16/24 08:04 Senna 8.6 Mg Tablet PO 8.6 mg DAILY PEBBLES Administration Sodium Chloride 10 ml 07/12/24 15:56 07/15/24 21:13 Sodium Chloride Flush 0.9% 10 Ml Syringe IVP 10 ml PRN PRN Administration NEEDED PER PROVIDER ORDERS Thiamine HCl 100 mg 07/13/24 09:00 07/16/24 08:04 Thiamine 100 Mg Tablet PO 100 mg DAILY PEBBLES Administration Objective Vital Signs/Intake & Output Reviewed Vital Signs: Yes Vital Signs: Vital Signs x48h Temp Pulse Resp BP Pulse Ox 07/15/24 08:04 98.8 F 84 18 115/64 94 Intake & Output: Intake & Output 07/13/24 07/14/24 07/15/24 07/16/24 23:59 23:59 23:59 23:59 Intake Total 3082 / 3082 2029 / 2029 1120 / 1120 580 / 580 Output Total 700 / 700 900 / 900 1550 / 1550 600 / 600 Balance 2382 / 2382 1130 / 1130 -430 / -430 -20 / -20 Weight (kg) 57 kg 57 kg 56.5 kg Objective General Appearance: positive No acute distress and Alert; negative Anxious Eyes Bilateral: positive Normal inspection and PERRL ENT: positive ENT inspection nml, Pharynx nml and No signs of dehydration Neck: positive Nml inspection and Thyroid nml Respiratory: positive Chest non-tender, No respiratory distress and Breath sounds nml Cardiovascular: positive Regular rate & rhythm, No murmur and No gallop Abdomen: positive Non-tender; negative Rebound, Hepatomegaly, Splenomegaly or Mass Back: positive Nml inspection; negative CVA tenderness (R) or CVA tenderness (L) Skin: positive Color nml, No rash and Warm Extremities: positive Non-tender, Full ROM, Nml appearance and No pedal edema Neurologic/Psychiatric: positive Oriented x3, CN's nml (2-12), Motor nml and Mood/affect nml Lab Results 07/15/24 05:15 07/15/24 05:15 Other Labs: Lab Results x24hrs 07/15/24 Range/Units 05:15 WBC 9.1 (4.8-10.8) x10^3/uL RBC 3.60 L (4.20-5.40) 10^6/uL Hgb 11.1 L (12.0-16.0) g/dL Hct 34.9 L (37.0-47.0) % MCV 96.9 (81.0-99.0) fL MCH 30.8 (27.0-31.0) pg MCHC 31.8 L (32.0-36.0) g/dL RDW 15.1 H (12.0-15.0) % Plt Count 204 (130-450) 10^3/uL MPV 9.6 (7.9-10.8) fL Neut # (Auto) 6.0 (1.5-6.6) 10^3/uL Lymph # (Auto) 1.7 (1.5-3.5) 10^3/uL [place] # (Auto) 0.8 (0.0-1.0) 10^3/uL Eos # (Auto) 0.4 (0.0-0.7) 10^3/uL Baso # (Auto) 0.0 (0.0-0.1) 10^3/uL Absolute Nucleated RBC 0.00 x10^3/uL Nucleated RBC % 0.0 /100WBC Sodium 140 (135-145) mmol/L Potassium 3.7 (3.5-4.5) mmol/L Chloride 109 (101-111) mmol/L Carbon Dioxide 24 (21-32) mmol/L Anion Gap 7.0 (6-13) BUN 23 H (6-20) mg/dL Creatinine 0.8 (0.6-1.3) mg/dL Estimated GFR (MDRD) 68 L (>89) Glucose 102 (74-104) mg/dL Calcium 7.6 L (8.5-10.3) mg/dL Diagnostic Imaging Diagnostic Imaging Results: positive Final report reviewed Assessment/Plan Problem List (1) UTI (urinary tract infection): Impression: Patient with positive nitrites, WBCs, many bacteria. Urine culture shows ESBL E.Coli. Switched to meropenem; last day will be 07/18. Continue at this time. F Awaiting authorization and bed availability, likely to occur Friday. Qualifiers: Hematuria presence: without hematuria Urinary tract infection type: s ite unspecified Qualified Code(s): N39.0 - Urinary tract infection, site not specified (2) Generalized weakness: Impression: History of recent knee surgery. PT/OT consulted, appreciate reccomendations - reccomend SNF. Patient is a Palliative care patient; they did see her and were spoken with. Think this is natural progression of her Alzheimers' diseae, would benefit from caregiver support at home. (3) Hypertension: Impression: Continue home medications including statin, metoprolol. Qualifiers: Hypertension type: primary hypertension Qualified Code(s): I10 - Essential (primary) hypertension
[2024-07-17 05:17] LABS: HCT - HEMATOCRIT 34.6 % (37.0-47.0); HGB - HEMOGLOBIN 11.1 g/dL (12.0-16.0); MEAN CORPUSCULAR HEMOGLOBIN 30.5 pg (27.0-31.0); MEAN CORPUSCULAR HGB CONC 32.1 g/dL (32.0-36.0); MEAN CORPUSCULAR VOLUME 95.1 fL (81.0-99.0); MEAN PLATELET VOLUME 9.1 fL (7.9-10.8); RED BLOOD COUNT 3.64 10^6/uL (4.20-5.40); RED CELL DISTRIBUTION WIDTH 15.2 % (12.0-15.0); WHITE BLOOD COUNT 12.1 x10^3/uL (4.8-10.8)
[2024-07-17 05:38] LABS: CALCIUM 8.1 mg/dL (8.5-10.3); CREATININE 0.8 mg/dL (0.6-1.3); POTASSIUM 4.1 mmol/L (3.5-4.5)
--- NOTE | 2024-07-17 13:47 | PROVIDER PROGRESS NOTE ---
Subjective Subjective Subjective: Patient is pleasantly confused. She does not recall why she was brought in. She states that she was urinating more than usual. She denies any fevers, chills. She is alert oriented x 2 today. She does state that she lives with her son, who helps take care of her. She is open to going to a rehab. Patient is approaching 96 [facility]. She is awaiting authorization for SNF from her insurance. Otherwise she is medically stable. She does not need to be transferred. Current Medications Current Medications Current Medications: Current Medications Generic Name Dose Route Start Last Admin Trade Name Freq PRN Reason Stop Dose Admin Acetaminophen 650 mg 07/12/24 15:56 Acetaminophen 325 Mg Tablet PO Q4HR PRN Pain 1 to 4, or Fever Atorvastatin Calcium 20 mg 07/12/24 21:00 07/16/24 21:38 Atorvastatin 10 Mg Tablet PO 20 mg QPM PEBBLES Administration Calcium Carbonate/Glycine 1,000 mg 07/13/24 09:00 07/17/24 09:06 Calcium Carbonate Chew 500 Mg Tablet PO 1,000 mg DAILY PEBBLES Administration Cholecalciferol 50 mcg 07/13/24 09:00 07/17/24 09:07 Cholecalciferol 25 Mcg Tablet PO 50 mcg DAILY PEBBLES Administration Cyanocobalamin 1,000 mcg 07/13/24 09:00 07/17/24 09:06 Cyanocobalamin 500 Mcg Tablet PO 1,000 mcg DAILY PEBBLES Administration Docusate Sodium 250 - 500 mg 07/15/24 09:00 07/17/24 09:09 Docusate Sodium 250 Mg Capsule PO 250 mg DAILY PEBBLES Administration Famotidine 20 mg 07/12/24 21:00 07/17/24 09:15 Famotidine 20 Mg/2 Ml Vial IVP 20 mg BID PEBBLES Administration Folic Acid 1.5 mg 07/13/24 09:00 07/17/24 09:07 Folic Acid 1 Mg Tablet PO 1.5 mg DAILY PEBBLES Administration Furosemide 20 mg 07/12/24 18:00 07/16/24 18:13 Furosemide 20 Mg Tablet PO 20 mg MoWeFr PEBBLES Administration Hydralazine HCl 10 mg 07/12/24 15:18 07/12/24 16:27 Hydralazine Inj 20 Mg/Ml Vial IVP 10 mg Q6HR PRN Administration Hypertensive Emergency Hydroxyzine Pamoate 25 mg 07/12/24 17:30 Hydroxyzine Pamoate 25 Mg Capsule PO Q6H PRN itching Meropenem 1 gm/ Sodium 100 mls @ 200 mls/hr 07/14/24 09:00 07/17/24 09:45 Chloride IV Infused Q12H PEBBLES Infusion Levothyroxine Sodium 75 mcg 07/13/24 07:00 07/17/24 06:25 Levothyroxine 75 Mcg Tablet PO 75 mcg 0700 PEBBLES Administration Lisinopril 5 mg 07/13/24 09:00 07/17/24 09:09 Lisinopril 5 Mg Tablet PO 5 mg DAILY PEBBLES Administration Magnesium Oxide 400 mg 07/13/24 08:00 07/17/24 09:08 Magnesium Oxide 400 Mg Tablet PO 400 mg DAILYWM PEBBLES Administration Memantine 5 mg 07/12/24 21:00 07/16/24 21:39 Memantine 5 Mg Tablet PO 5 mg QPM PEBBLES Administration Metoprolol Succinate 25 mg 07/13/24 09:00 07/17/24 09:09 Metoprolol Succinate 25 Mg Tablet PO 25 mg DAILY PEBBLES Administration Metoprolol Tartrate 2.5 mg 07/12/24 15:21 Metoprolol 5 Mg/5 Ml Vial IVP Q6HR PRN Tachycardia Multi-Ingredient Ointment 1 applic 07/13/24 13:04 Zinc Oxide 20% Oint 30 Gm Tube TOP PRN PRN Skin Care Ondansetron HCl 4 mg 07/12/24 15:56 Ondansetron Odt 4 Mg Tablet TL Q6HR PRN Nausea / Vomiting Polyethylene Glycol 17 gm 07/13/24 17:00 07/17/24 09:10 Polyethylene Glycol 3350 17 Gm Packet PO 17 gm DAILY PEBBLES Administration Senna 8.6 - 17.2 mg 07/15/24 09:00 07/17/24 09:08 Senna 8.6 Mg Tablet PO 8.6 mg DAILY PEBBLES Administration Sodium Chloride 10 ml 07/12/24 15:56 07/15/24 21:13 Sodium Chloride Flush 0.9% 10 Ml Syringe IVP 10 ml PRN PRN Administration NEEDED PER PROVIDER ORDERS Thiamine HCl 100 mg 07/13/24 09:00 07/17/24 09:10 Thiamine 100 Mg Tablet PO 100 mg DAILY PEBBLES Administration Objective Vital Signs/Intake & Output Reviewed Vital Signs: Yes Vital Signs: Vital Signs x48h Temp Pulse Resp BP Pulse Ox 07/17/24 09:06 97.7 F 76 22 113/67 92 Intake & Output: Intake & Output 07/14/24 07/15/24 07/16/24 07/17/24 23:59 23:59 23:59 23:59 Intake Total 2029 1120 / 1120 1660 / 1660 440 / 440 Output Total 900 / 900 1550 / 1550 900 / 900 Balance 1130 / 1130 -430 / -430 760 / 760 440 / 440 Weight (kg) 57 kg 56.5 kg 60 kg Objective General Appearance: positive No acute distress and Alert; negative Anxious Eyes Bilateral: positive Normal inspection and PERRL ENT: positive ENT inspection nml, Pharynx nml and No signs of dehydration Neck: positive Nml inspection and Thyroid nml Respiratory: positive Chest non-tender, No respiratory distress and Breath sounds nml Cardiovascular: positive Regular rate & rhythm, No murmur and No gallop Abdomen: positive Non-tender; negative Rebound, Hepatomegaly, Splenomegaly or Mass Back: positive Nml inspection; negative CVA tenderness (R) or CVA tenderness (L) Skin: positive Color nml, No rash and Warm Extremities: positive Non-tender, Full ROM, Nml appearance and No pedal edema Neurologic/Psychiatric: positive Oriented x3, CN's nml (2-12), Motor nml and Mood/affect nml Lab Results 07/17/24 04:55 07/17/24 04:55 Other Labs: Lab Results x24hrs 07/17/24 Range/Units 04:55 WBC 12.1 H (4.8-10.8) x10^3/uL RBC 3.64 L (4.20-5.40) 10^6/uL Hgb 11.1 L (12.0-16.0) g/dL Hct 34.6 L (37.0-47.0) % MCV 95.1 (81.0-99.0) fL MCH 30.5 (27.0-31.0) pg MCHC 32.1 (32.0-36.0) g/dL RDW 15.2 H (12.0-15.0) % Plt Count 304 (130-450) 10^3/uL MPV 9.1 (7.9-10.8) fL Sodium 139 (135-145) mmol/L Potassium 4.1 (3.5-4.5) mmol/L Chloride 105 (101-111) mmol/L Carbon Dioxide 28 (21-32) mmol/L Anion Gap 6.0 (6-13) BUN 28 H (6-20) mg/dL Creatinine 0.8 (0.6-1.3) mg/dL Estimated GFR (MDRD) 68 L (>89) Glucose 103 (74-104) mg/dL Calcium 8.1 L (8.5-10.3) mg/dL Diagnostic Imaging Diagnostic Imaging Results: positive Final report reviewed Assessment/Plan Problem List (1) UTI (urinary tract infection): Impression: Patient with positive nitrites, WBCs, many bacteria. Urine culture shows ESBL E.Coli. Switched to meropenem; last day will be 07/18. Continue at this time. Awaiting authorization and bed availability, likely to occur Friday. Qualifiers: Hematuria presence: without hematuria Urinary tract infection type: s ite unspecified Qualified Code(s): N39.0 - Urinary tract infection, site not specified (2) Generalized weakness: Impression: History of recent knee surgery. PT/OT consulted, appreciate reccomendations - reccomend SNF. Patient is a Palliative care patient; they did see her and were spoken with. Think this is natural progression of her Alzheimers' diseae, would benefit from caregiver support at home. (3) Hypertension: Impression: Continue home medications including statin, metoprolol. Qualifiers: Hypertension type: primary hypertension Qualified Code(s): I10 - Essential (primary) hypertension
[2024-07-18 04:56] LABS: HCT - HEMATOCRIT 37.3 % (37.0-47.0); HGB - HEMOGLOBIN 11.8 g/dL (12.0-16.0); MEAN CORPUSCULAR HEMOGLOBIN 30.8 pg (27.0-31.0); MEAN CORPUSCULAR HGB CONC 31.6 g/dL (32.0-36.0); MEAN CORPUSCULAR VOLUME 97.4 fL (81.0-99.0); MEAN PLATELET VOLUME 8.9 fL (7.9-10.8); RED BLOOD COUNT 3.83 10^6/uL (4.20-5.40); RED CELL DISTRIBUTION WIDTH 15.5 % (12.0-15.0); WHITE BLOOD COUNT 13.3 x10^3/uL (4.8-10.8)
[2024-07-18 05:19] LABS: CALCIUM 8.4 mg/dL (8.5-10.3); CREATININE 0.9 mg/dL (0.6-1.3); POTASSIUM 4.1 mmol/L (3.5-4.5)
--- NOTE | 2024-07-18 11:26 | PROVIDER PROGRESS NOTE ---
Subjective Subjective Subjective: Patient is pleasantly confused. She does not recall why she was brought in. She states that she was urinating more than usual. She denies any fevers, chills. She is alert oriented x 2 today. She does state that she lives with her son, who helps take care of her. She is open to going to a rehab. She would like to work with physical therapy today. She is eating and drinking well. Patient is approaching 96 hours at this critical [facility] hospital. She is awaiting authorization for SNF from her insurance. Otherwise she is medically stable. She does not need to be transferred. Current Medications Current Medications Current Medications: Current Medications Generic Name Dose Route Start Last Admin Trade Name Freq PRN Reason Stop Dose Admin Acetaminophen 650 mg 07/12/24 15:56 Acetaminophen 325 Mg Tablet PO Q4HR PRN Pain 1 to 4, or Fever Atorvastatin Calcium 20 mg 07/12/24 21:00 07/17/24 21:17 Atorvastatin 10 Mg Tablet PO 20 mg QPM PEBBLES Administration Calcium Carbonate/Glycine 1,000 mg 07/13/24 09:00 07/18/24 08:42 Calcium Carbonate Chew 500 Mg Tablet PO 1,000 mg DAILY PEBBLES Administration Cholecalciferol 50 mcg 07/13/24 09:00 07/18/24 08:41 Cholecalciferol 25 Mcg Tablet PO 50 mcg DAILY PEBBLES Administration Cyanocobalamin 1,000 mcg 07/13/24 09:00 07/18/24 08:42 Cyanocobalamin 500 Mcg Tablet PO 1,000 mcg DAILY PEBBLES Administration Docusate Sodium 250 - 500 mg 07/15/24 09:00 07/18/24 08:42 Docusate Sodium 250 Mg Capsule PO 250 mg DAILY PEBBLES Administration Famotidine 20 mg 07/12/24 21:00 07/18/24 08:40 Famotidine 20 Mg/2 Ml Vial IVP 20 mg BID PEBBLES Administration Folic Acid 1.5 mg 07/13/24 09:00 07/18/24 08:41 Folic Acid 1 Mg Tablet PO 1.5 mg DAILY PEBBLES Administration Furosemide 20 mg 07/12/24 18:00 07/16/24 18:13 Furosemide 20 Mg Tablet PO 20 mg MoWeFr PEBBLES Administration Hydralazine HCl 10 mg 07/12/24 15:18 07/12/24 16:27 Hydralazine Inj 20 Mg/Ml Vial IVP 10 mg Q6HR PRN Administration Hypertensive Emergency Hydroxyzine Pamoate 25 mg 07/12/24 17:30 Hydroxyzine Pamoate 25 Mg Capsule PO Q6H PRN itching Meropenem 1 gm/ Sodium 100 mls @ 200 mls/hr 07/14/24 09:00 07/18/24 09:10 Chloride IV 07/18/24 23:00 Infused Q12H PEBBLES Infusion Levothyroxine Sodium 75 mcg 07/13/24 07:00 07/18/24 06:07 Levothyroxine 75 Mcg Tablet PO 75 mcg 0700 PEBBLES Administration Lisinopril 5 mg 07/13/24 09:00 07/18/24 08:42 Lisinopril 5 Mg Tablet PO 5 mg DAILY PEBBLES Administration Magnesium Oxide 400 mg 07/13/24 08:00 07/18/24 08:43 Magnesium Oxide 400 Mg Tablet PO 400 mg DAILYWM PEBBLES Administration Memantine 5 mg 07/12/24 21:00 07/17/24 21:17 Memantine 5 Mg Tablet PO 5 mg QPM PEBBLES Administration Metoprolol Succinate 25 mg 07/13/24 09:00 07/18/24 08:42 Metoprolol Succinate 25 Mg Tablet PO 25 mg DAILY PEBBLES Administration Metoprolol Tartrate 2.5 mg 07/12/24 15:21 Metoprolol 5 Mg/5 Ml Vial IVP Q6HR PRN Tachycardia Multi-Ingredient Ointment 1 applic 07/13/24 13:04 Zinc Oxide 20% Oint 30 Gm Tube TOP PRN PRN Skin Care Ondansetron HCl 4 mg 07/12/24 15:56 Ondansetron Odt 4 Mg Tablet TL Q6HR PRN Nausea / Vomiting Polyethylene Glycol 17 gm 07/13/24 17:00 07/18/24 08:40 Polyethylene Glycol 3350 17 Gm Packet PO 17 gm DAILY PEBBLES Administration Senna 8.6 - 17.2 mg 07/15/24 09:00 07/18/24 08:42 Senna 8.6 Mg Tablet PO 8.6 mg DAILY PEBBLES Administration Sodium Chloride 10 ml 07/12/24 15:56 07/17/24 16:41 Sodium Chloride Flush 0.9% 10 Ml Syringe IVP 10 ml PRN PRN Administration NEEDED PER PROVIDER ORDERS Thiamine HCl 100 mg 07/13/24 09:00 07/18/24 08:43 Thiamine 100 Mg Tablet PO 100 mg DAILY PEBBLES Administration Objective Vital Signs/Intake & Output Reviewed Vital Signs: Yes Vital Signs: Vital Signs x48h Temp Pulse Resp BP Pulse Ox 07/18/24 09:00 97.9 F 76 22 136/79 H 94 Intake & Output: Intake & Output 07/15/24 07/16/24 07/17/24 07/18/24 23:59 23:59 23:59 23:59 Intake Total 1120 / 1120 1660 / 1660 1450 / 1450 490 / 490 Output Total 1550 / 1550 900 / 900 Balance -430 / -430 760 / 760 1450 / 1450 490 / 490 Weight (kg) 56.5 kg 60 kg 60.5 kg Objective General Appearance: positive No acute distress and Alert; negative Anxious Eyes Bilateral: positive Normal inspection and PERRL ENT: positive ENT inspection nml, Pharynx nml and No signs of dehydration Neck: positive Nml inspection and Thyroid nml Respiratory: positive Chest non-tender, No respiratory distress and Breath sounds nml Cardiovascular: positive Regular rate & rhythm, No murmur and No gallop Abdomen: positive Non-tender; negative Rebound, Hepatomegaly, Splenomegaly or Mass Back: positive Nml inspection; negative CVA tenderness (R) or CVA tenderness (L) Skin: positive Color nml, No rash and Warm Extremities: positive Non-tender, Full ROM, Nml appearance and No pedal edema Neurologic/Psychiatric: positive Oriented x3, CN's nml (2-12), Motor nml and Mood/affect nml Lab Results 07/18/24 04:40 07/18/24 04:40 Other Labs: Lab Results x24hrs 07/18/24 Range/Units 04:40 WBC 13.3 H (4.8-10.8) x10^3/uL RBC 3.83 L (4.20-5.40) 10^6/uL Hgb 11.8 L (12.0-16.0) g/dL Hct 37.3 (37.0-47.0) % MCV 97.4 (81.0-99.0) fL MCH 30.8 (27.0-31.0) pg MCHC 31.6 L (32.0-36.0) g/dL RDW 15.5 H (12.0-15.0) % Plt Count 373 (130-450) 10^3/uL MPV 8.9 (7.9-10.8) fL Sodium 139 (135-145) mmol/L Potassium 4.1 (3.5-4.5) mmol/L Chloride 105 (101-111) mmol/L Carbon Dioxide 28 (21-32) mmol/L Anion Gap 6.0 (6-13) BUN 30 H (6-20) mg/dL Creatinine 0.9 (0.6-1.3) mg/dL Estimated GFR (MDRD) 60 L (>89) Glucose 104 (74-104) mg/dL Calcium 8.4 L (8.5-10.3) mg/dL Diagnostic Imaging Diagnostic Imaging Results: positive Final report reviewed Assessment/Plan Problem List (1) UTI (urinary tract infection): Impression: Patient with positive nitrites, WBCs, many bacteria. Urine culture shows ESBL E.Coli. Switched to meropenem; last day is today. Awaiting authorization and bed availability, likely to occur Friday. Qualifiers: Hematuria presence: without hematuria Urinary tract infection type: s ite unspecified Qualified Code(s): N39.0 - Urinary tract infection, site not specified (2) Generalized weakness: Impression: History of recent knee surgery. PT/OT consulted, appreciate reccomendations - reccomend SNF. Patient is a Palliative care patient; they did see her and were spoken with. Think this is natural progression of her Alzheimers' diseae, would benefit from caregiver support at home. (3) Hypertension: Impression: Continue home medications including statin, metoprolol. Qualifiers: Hypertension type: primary hypertension Qualified Code(s): I10 - Essential (primary) hypertension
[2024-07-19 08:37] VITALS: BP 122/68; TEMP 98.8; O2SAT 94
--- NOTE | 2024-07-19 09:14 | Discharge Summary ---
"Discharge Summary Admit Date: 07/12/24 Discharge Date: 07/19/24 Discharging Provider: Dr. Papa Dodge Primary Care Provider: Bianka Santiago Code Status: Attempt Resuscitation Discharge Facility Name: [facility] ([facility]) DIAGNOSES Admission Diagnoses: Urinary tract infection Generalized weakness Hypertension Discharge Diagnoses with Status of Each Condition: Urinary tract infectionpatient with positive nitrates, WBCs, bacteria. Urine culture actually grew ESBL E. coli. Completed 5 days of meropenem. Altered mentation also improved. Patient is way less confused than when she was when she was admitted. Generalized weaknesspatient has a long history of rheumatoid arthritis, as well as recent knee surgery. PT/OT consulted they recommended SNF. Patient is agreeable. Plan is for further rehab at [facility] rehab. Hypertensioncontinue home medications including statin and metoprolol. Hold lisinopril as patient has been running borderline low while here. Restart if blood pressure continues to be elevated. HPI History of Present Illness: Per Dr. Tripp: Pt is very poor historian. Info was supplemented from prev chart notes and ED physician. This is a 84 year old femal on palliative care with a hx of CAD, peripheral neuropathy, ventricular tachycardia, atrial fibrillation, urinary incontinence, recent syncope, CHF, cor pulmonale, moderate pulmonary HTN, HLD, rheumatoid arthritis, COPD, hypothyroidism, osteoporosis, hx of gastric ulcers with hemorrhage, PAD, bilateral venous stasis ulcers and mild onset of Alzheimer who presents to ER for worsening generalized weakness for the past 2 days. She lives at home with her son. EMS was called who brought her into the ER. Besides weakness she has no other complaints. Pt had recent TKA She denies nauses, vomitting, chest pain or sob. ED labs indicated UTI, all other labs are wnl. Pt received rocephin and fluids in the ER Pt is DNAR, palliative care CONSULTS | PROCEDURES Consultations: Physical therapy, Occupational Therapy, social work HOSPITAL COURSE Hospital Course: Patient is a 84-year-old female with a history of Alzheimers disease, rheumatoid arthritis, atrial fibrillation, CHF, hypertension, COPD who presented with generalized weakness. She lives with her son. When she arrived, her urinalysis was done, and it was positive. Urine culture grew ESBL E. coli. Her Rocephin was switched from meropenem. She completed a 5-day course. Her blood pressure was running a little bit low. We did hold her lisinopril. Her mental status continued to improve. She was only confused when she got here. She was alert and oriented x 2-3 when she left. PT/OT did work with the patient, and recommended further conditioning at rehab. She was [facility] at [facility]. She was discharged safely. ALLERGIES Allergies Allergy/AdvReac Type Severity Reaction Status Date / Time levofloxacin (From [facility]) Allergy Severe Rash Verified 07/12/24 12:54 aspirin AdvReac Severe Bleed Verified 07/12/24 12:54 NSAIDS (Non-Steroidal AdvReac Severe Bleed Verified 07/12/24 12:54 Anti-Inflamma MEDICATIONS Ambulatory Orders Medication Instructions Recorded Confirmed pantoprazole 40 mg tablet,delayed 40 mg PO DAILY 09/18/20 07/13/24 release atorvastatin 20 mg tablet 20 mg PO QPM 08/08/23 07/13/24 Permanent Disabled Placard 05/13/24 06/07/24 cyanocobalamin (vitamin B-12) 1,000 mcg PO QDAY 05/13/24 07/13/24 1,000 mcg tablet (Vitamin B-12) folic acid 800 mcg tablet 1,600 mg PO DAILY 05/13/24 07/13/24 furosemide 20 mg tablet 20 mg PO .COMPLEX 05/13/24 07/13/24 metoprolol succinate 25 mg 25 mg PO QDAY 05/13/24 07/13/24 tablet,extended release 24 hr levothyroxine 75 mcg tablet 75 mcg PO QDAY #90 tabs 06/03/24 07/13/24 (Synthroid) memantine 5 mg tablet (Namenda) 5 mg PO QPM #60 tabs 06/05/24 07/13/24 acetaminophen 500 mg tablet 1,000 mg PO TID PRN pain 06/07/24 07/13/24 denosumab 60 mg/mL subcutaneous 60 mg subcut [id number] 06/07/24 07/13/24 syringe (Prolia) etanercept 25 mg/0.5 mL (0.5 mL) 50 mg subcut Q7D 06/07/24 07/13/24 subcutaneous syringe (Enbrel) methotrexate sodium 2.5 mg tablet 12.5 mg PO OAW 06/07/24 07/13/24 thiamine HCl (vitamin B1) 100 mg 100 mg PO QDAY 06/07/24 07/13/24 tablet lisinopril 5 mg tablet 5 mg PO QDAY 07/08/24 07/13/24 docusate sodium 100 mg capsule 100 mg PO BID 07/13/24 07/13/24 ondansetron 4 mg disintegrating 4 mg PO Q8H PRN nausea and vomiting 07/13/24 07/13/24 tablet oxycodone 5 mg tablet 5 mg PO Q8H PRN pain 07/13/24 07/13/24 cholecalciferol (vitamin D3) 25 50 mcg (2 x 25 mcg (1,000 unit)) 07/19/24 mcg (1,000 unit) tablet PO DAILY #60 tabs magnesium oxide 400 mg (241.3 mg 400 mg PO DAILYWM #30 tabs 07/19/24 magnesium) tablet PHYSICAL EXAM AT DISCHARGE General Appearance: positive No acute distress and Alert; negative Anxious Eyes Bilateral: positive Normal inspection, PERRL and EOMI ENT: positive ENT inspection nml, Pharynx nml and No signs of dehydration Neck: positive Nml inspection, Thyroid nml and No JVD Respiratory: positive Chest non-tender and No respiratory distress; negative Wheezes, Rales or Rhonchi Cardiovascular: positive Regular rate & rhythm, No murmur and No gallop Peripheral Pulses: positive 2+ Abdomen: positive Non-tender and No distention; negative Tenderness, Guarding, Rebound, Hepatomegaly or Splenomegaly Back: positive Nml inspection; negative CVA tenderness (R) or CVA tenderness (L) Skin: positive Color nml, No rash, Warm and Dry Extremities: positive Non-tender, Full ROM and No pedal edema Neurologic/Psychiatric: positive CN's nml (2-12), Mood/affect nml and Disoriented to time LABS 07/18/24 04:40 07/18/24 04:40 DIAGNOSTIC IMAGING Diagnostic Imaging Results: Final report reviewed QUALITY (Female Hip Fx Only) Was patient sent home on osteoporosis medication?: No FOLLOW UP Follow Up: Follow up with primary care doctor outpatient. TIME SPENT Time Spent in Discharge (Minutes): 35 Discharge Plan Discharge Patient Disposition: 03 [facility] DC/Xfer Condition: Stable Prescriptions: New cholecalciferol (vitamin D3) 25 mcg (1,000 unit) Tablet 50 mcg PO DAILY Qty: 60 0RF magnesium oxide 400 mg (241.3 mg magnesium) Tablet 400 mg PO DAILYWM Qty: 30 0RF Continued levothyroxine [Synthroid] 75 mcg tablet 75 mcg PO QDAY Qty: 90 2RF Enbrel 25 mg/0.5 mL (0.5) syringe 50 mg subcut Q7D Patient Comments: per patient takes medication on Friday pantoprazole 40 MG tablet,delayed release (DR/EC) 40 mg PO DAILY folic acid 800 mcg tablet 1,600 mg PO DAILY atorvastatin 20 MG tablet 20 mg PO QPM methotrexate sodium 2.5 mg tablet 12.5 mg PO OAW Patient Comments: Taking 5 tablets weekly. Does not want to take it anymore postsurgery Rx Instructions: 2.5MGX6 TABS Q WEEKLY docusate sodium 100 mg capsule 100 mg PO BID ondansetron 4 mg tablet,disintegrating 4 mg PO Q8H PRN (Reason: nausea and vomiting) oxycodone 5 mg tablet 5 mg PO Q8H PRN (Reason: pain) Rx Instructions: Take one tablet by mouth every six hours as needed for severe pain cyanocobalamin (vitamin B-12) [Vitamin B-12] 1,000 mcg tablet 1,000 mcg PO QDAY (DME) Permanent Disabled Placard Misc See Rx Instructions .Route Rx Instructions: As directed furosemide 20 mg tablet 20 mg PO .COMPLEX Rx Instructions: 20 mg orally Mon, Wed, Fri; metoprolol succinate 25 mg tablet extended release 24 hr 25 mg PO QDAY acetaminophen 500 mg tablet 1,000 mg PO TID PRN (Reason: pain) memantine [Namenda] 5 mg tablet 5 mg PO QPM Qty: 60 5RF Rx Instructions: Give at bedtime thiamine HCl (vitamin B1) 100 mg tablet 100 mg PO QDAY Prolia 60 mg/mL syringe 60 mg subcut [id number] Held lisinopril 5 mg tablet 5 mg PO QDAY Hold Instructions: Resume on 07/26/24. Recheck blood pressure in a week; if still elevated, resume your lisinopril. Activity Restrictions: Activity as Tolerated Diet: Regular Health Concerns: You came in because you were a little confused. You were found to have a urinary tract infection. It looks like you grew a blood called ESBL E. coli. We completed a 5-day course of meropenem, a strong IV antibiotic. While you were here, we noticed that you had some difficulty getting around. Physical therapy worked with you and recommended a care home facility for further rehabilitation. This is where you will be going from here. We hope that you continue to gain your strength, get stronger, prior to going home. We are glad you are feeling better, thank you for allowing us to take care of you. Care Plan Goals: 1. Continue take your medications as prescribed. 2. Continue to work on your strength. Print Language: Slovenian Patient Instructions: UTI Stand Alone Forms: SNF Discharge, PCP List"
== END 2024-07-19 12:05 | DRG 690 ==
LOC: MS3 12:33 → ED 12:33 → MS3 15:58
PROVIDERS: ADMIT Internal Medicine; ATTEND Internal Medicine
DX: I27.29 Other secondary pulmonary hypertension; Z66 Do not resuscitate; I25.10 Atherosclerotic heart disease of native coronary artery without angina pectoris; B96.20 Unspecified Escherichia coli [E. coli] as the cause of diseases classified elsewhere; E03.9 Hypothyroidism, unspecified; R53.1 Weakness; I10 Essential (primary) hypertension; Z87.891 Personal history of nicotine dependence; M81.0 Age-related osteoporosis without current pathological fracture; G62.9 Polyneuropathy, unspecified; E78.5 Hyperlipidemia, unspecified; J44.9 Chronic obstructive pulmonary disease, unspecified; Z79.899 Other long term (current) drug therapy; I50.9 Heart failure, unspecified; I11.0 Hypertensive heart disease with heart failure; I73.9 Peripheral vascular disease, unspecified; F02.A0 Dementia in other diseases classified elsewhere, mild, without behavioral disturbance, psychotic disturbance, mood disturbance, and anxiety; G30.9 Alzheimer's disease, unspecified; Z63.4 Disappearance and death of family member; Z79.890 Hormone replacement therapy; M06.9 Rheumatoid arthritis, unspecified; N39.0 Urinary tract infection, site not specified; Z51.5 Encounter for palliative care